=== PATIENT | female | born 1965 | race Caucasian/White ===

== ENCOUNTER 2020-08-19 07:37 | Outpatient (REF) | payer OTHER, SELFPAY ==
[2020-08-19 09:14] LABS: Free T4 (Free Thyroxine) 0.98 ng/dL (0.71-1.85); Thyroid Stimulating Hormone 1.86 uIU/mL (0.32-4.0)
[2020-08-20 11:42] LABS: DHEA Sulfate 88 mcg/dL (8-188)
[2020-08-20 20:17] LABS: Triiodothyronine T3 Free 2.8 pg/mL (2.3-4.2)
[2020-08-22 19:37] LABS: Adrenocorticotropic Hormone 47 pg/mL (6-50)
[2020-08-24 10:43] LABS: Triiodothyronine T3 Reverse 15 ng/dL (8-25)
[2020-08-25 07:58] LABS: Pregnenolone, LC/MS 38 ng/dL (22-237)
[2020-08-25 12:18] LABS: Testosterone, Free 12.2 pg/mL (0.1-6.4); Testosterone, Total 89 ng/dL (2-45)
[2020-08-26 23:12] LABS: Estradiol Free 0.93 pg/mL; Estradiol, Ultrasensitive 51 pg/mL
== END 2020-08-19 07:38 | disposition home or self-care (01) ==
LOC: HO.LAB 07:37
PROVIDERS: PCP Internal Medicine; Visit Provider Allergy & Immunology Allergy
DX: G47.09 Other insomnia (principal); N95.8 Other specified menopausal and perimenopausal disorders; E03.8 Other specified hypothyroidism
CPT/HCPCS: 82024; 82533; 82627; 82670; 84143; 84144; 84402; 84403; 84439; 84443; 84481; 84482

== ENCOUNTER 2020-11-02 08:26 | Outpatient (REF) | payer OTHER, SELFPAY ==
[2020-11-02 11:23] LABS: Glucose Urine UA NEG (NEG); Leukocyte Esterase Urine NEG (NEG); Nitrite Urine NEG (NEG); Urine Blood NEG (NEG); Urine Ketones NEG (NEG); Urine Protein NEG (NEG-TRACE)
[2020-11-02 11:26] LABS: Appearance Urine HAZY; Color Urine YELLOW
[2020-11-02 11:43] LABS: Alanine Aminotransferase 24 U/L (0-31); Albumin Level 4.5 g/dL (3.5-5.0); Alkaline Phosphatase 55 U/L (39-117); Anion Gap 14 (12-20); Aspartate Amino Transferase 18 U/L (5-31); Bilirubin Total 0.5 mg/dL (0.0-1.0); Blood Urea Nitrogen 14 mg/dL (9-16); Calcium 9.1 mg/dL (8.4-10.2); Carbon Dioxide 25 mmol/L (22-29); Chloride 105 mmol/L (96-108); Cholesterol 284 mg/dL; Estimated Glomerular Filt Rate 58; Glucose Fasting 90 mg/dL (60-99); HDL Cholesterol 44 mg/dL; LDL Cholesterol Calculated 213 mg/dl; Potassium 4.1 mmol/L (3.3-5.1); Sodium 140 mmol/L (135-145); Total Protein 7.3 g/dL (6.5-8.0); Triglycerides 136 mg/dL
[2020-11-02 11:45] LABS: Hematocrit 44.3 % (37-47); Hemoglobin 15.1 g/dl (12.0-16.0); Mean Corpuscular HGB Conc 34.1 g/dl (31.0-35.0); Mean Corpuscular Hemoglobin 31.9 pg (27.0-33.0); Mean Corpuscular Volume 93.7 fL (80-98); Mean Platelet Volume 10.4 fL (9.4-12.3); Platelet Count 295 X10*3/uL (160-400); Red Blood Count 4.73 X10*6/uL (4.20-5.50); Red Cell Distribution Width 13.5 % (11.0-16.0); White Blood Count 5.6 X10*3/uL (4.8-10.8)
[2020-11-02 12:00] LABS: Bacteria Urine 1+ /LPF; Squamous Epithelial Cell Urine 1+ /LPF; WBC Urine 0 /HPF (0-4)
[2020-11-02 12:06] LABS: TSH reflex Free T4 0.29 uIU/mL (0.32-4.0)
[2020-11-02 14:14] LABS: Free T4 (Free Thyroxine) 1.28 ng/dL (0.71-1.85)
[2020-11-03 06:47] LABS: DHEA Sulfate 96 mcg/dL (8-188)
[2020-11-04 04:48] LABS: Sex Hormone Binding Globulin 47 nmol/L (17-124)
[2020-11-06 18:46] LABS: Progesterone 1.3 ng/mL
[2020-11-07 21:27] LABS: Estradiol Free 0.76 pg/mL; Estradiol, Ultrasensitive 43 pg/mL
[2020-11-08 11:21] LABS: IGF-1 (Somatomedin C) 139 ng/mL (50-317)
[2020-11-08 21:57] LABS: Testosterone, Free 2.9 pg/mL (0.1-6.4); Testosterone, Total 23 ng/dL (2-45)
== END 2020-11-02 08:27 | disposition home or self-care (01) ==
LOC: HO.HMGCLDS 08:26
PROVIDERS: PCP Internal Medicine; Visit Provider Allergy & Immunology Allergy
DX: E78.5 Hyperlipidemia, unspecified (principal); N95.8 Other specified menopausal and perimenopausal disorders; E03.8 Other specified hypothyroidism
CPT/HCPCS: 36415; 80053; 80061; 81001; 82627; 82670; 82681; 84144; 84270; 84305; 84402; 84403; 84439; 84443; 84481; 85027

== ENCOUNTER 2021-04-20 09:48 | Outpatient (REF) | payer OTHER, SELFPAY ==
[2021-04-22 06:47] LABS: DHEA Sulfate 115 mcg/dL (8-188)
[2021-04-24 17:36] LABS: Progesterone 0.2 ng/mL
[2021-04-25 17:21] LABS: Testosterone, Total 26 ng/dL (2-45)
[2021-04-29 02:46] LABS: Estradiol Free 0.22 pg/mL; Estradiol, Ultrasensitive 9 pg/mL
== END 2021-04-20 09:49 | disposition home or self-care (01) ==
LOC: HO.LAB 09:48
PROVIDERS: PCP Internal Medicine; Visit Provider Allergy & Immunology Allergy
DX: N95.8 Other specified menopausal and perimenopausal disorders (principal)
CPT/HCPCS: 36415; 82627; 82670; 82681; 84144; 84402; 84403

== ENCOUNTER 2021-04-29 10:15 | Outpatient (REF) | payer OTHER, SELFPAY ==
[2021-04-29 11:28] LABS: Hemoglobin 14.8 g/dl (12.0-16.0); Mean Corpuscular HGB Conc 33.6 g/dl (31.0-35.0); Mean Corpuscular Hemoglobin 31.5 pg (27.0-33.0); Mean Corpuscular Volume 93.6 fL (80-98); Mean Platelet Volume 9.8 fL (9.4-12.3); Platelet Count 302 X10*3/uL (160-400); Red Cell Distribution Width 13.2 % (11.0-16.0); White Blood Count 5.9 X10*3/uL (4.8-10.8)
[2021-04-29 12:05] LABS: Free T4 (Free Thyroxine) 1.14 ng/dL (0.71-1.85); Thyroid Stimulating Hormone 0.26 uIU/mL (0.32-4.0)
== END 2021-04-29 10:16 | disposition home or self-care (01) ==
LOC: HO.HMGCLDS 10:15
PROVIDERS: PCP Internal Medicine; Visit Provider Internal Medicine
DX: E03.9 Hypothyroidism, unspecified (principal); E04.2 Nontoxic multinodular goiter
CPT/HCPCS: 36415; 84439; 84443; 85027

== ENCOUNTER 2021-05-14 10:39 | Outpatient (REF) | payer OTHER, SELFPAY ==
[2021-05-14 15:28] LABS: Alanine Aminotransferase 20 U/L (0-31); Albumin Level 4.6 g/dL (3.5-5.0); Alkaline Phosphatase 69 U/L (39-117); Anion Gap 16 (12-20); Aspartate Amino Transferase 17 U/L (5-31); Bilirubin Total 0.6 mg/dL (0.0-1.0); Blood Urea Nitrogen 17 mg/dL (9-16); Calcium 10.1 mg/dL (8.4-10.2); Carbon Dioxide 27 mmol/L (22-29); Chloride 105 mmol/L (96-108); Cholesterol 310 mg/dL; Estimated Glomerular Filt Rate 57; Glucose Fasting 89 mg/dL (60-99); HDL Cholesterol 51 mg/dL; LDL Cholesterol Calculated 203 mg/dl; Potassium 4.5 mmol/L (3.3-5.1); Sodium 143 mmol/L (135-145); Total Protein 7.5 g/dL (6.5-8.0); Triglycerides 284 mg/dL
== END 2021-05-14 10:40 | disposition home or self-care (01) ==
LOC: HO.HMGCLDS 10:39
PROVIDERS: PCP Internal Medicine; Visit Provider Internal Medicine
DX: Z00.00 Encounter for general adult medical examination without abnormal findings (principal); R93.3 Abnormal findings on diagnostic imaging of other parts of digestive tract
CPT/HCPCS: 36415; 80053; 80061

== ENCOUNTER 2021-07-13 13:00 | Outpatient (RCR) | payer OTHER, SELFPAY ==
--- NOTE | 2021-06-09 13:05 | MHC.PT.EP ---
[facility] [place] Office [place] Office [place] Office [address] [phone] F: [phone] F: [phone] F: [phone] F: [phone] Physical Therapy Plan of Care Date of Evaluation: Date of Surgery: none Diagnosis: R knee pain Assessment: Patient is a 55 year old R handed female who presents with s/s consistent with R knee pain. 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 Patient past medical history includes significant back pain and stenosis. Current impairments include pain, ROM, strength, safety, independence, activity tolerance and functional mobility. Functional limitations include decreased ability to walk, stand, transfer, negotiate stairs, and perform weight bearing activities.. Patient is motivated with good rehab potential. Skilled PT will address impairments and functional limitations in order to achieve goals. 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 Manual therapy to restore motion and function. Therapeutic exercise to improve strength and flexibility. Neuromuscular re-education for posture and balance. Therapeutic activities to return to functional activities of daily living. Electronically signed by: Major Pastor, PT Please sign and return to therapist. Thank you for your referral.
--- NOTE | 2021-10-22 09:57 | MHC.PT.DC ---
[facility] [place] Office [place] Office [place] Office [address] [phone] F: [phone] F: [phone] F: [phone] F: [phone] Physical Therapy Discharge Report Diagnosis: R knee pain Date of Surgery: none Date of Evaluation: 06/09/21 Date of Discharge: 07/13/21 Treatments to Date: 7 Cancellations to Date: 0 No Shows to Date: 0 Discharge Status: Achieved Goals Improved Function Independent with HEP Discharge Summary: 07/13/21: Pt is I with HEP. AROM Full and pain free, Quad flex WNL b/l. Able to walk unlimited, LEFS 70/80, Pain free ADLs. She is no longer gardening. She is appropriate to d/c to HEP at this time. 07/08: Pt reports increased crepitis though no pain; progressed dyn activities for return to higher level activities performed well; no adverse effects. DC NV anticipated. 07/06: Pt reports she is in agreement with DC in 2 visits as she is feeling much better. no adverse effects. good bev. continue POC. 07/01: Pt reports she has been having no pain with walking and regular activity; some R knee patellar pain with single leg shuttle press and was halted early, no issues otherwise and good participation and performance noted. 06/29/21: pt with much less pain/symptoms. has not been gardening/kneeling at all as this time to be to stimulus behind the painful presentation. we will continue to promote flexibility and normal tissue tension to promote optimal PF mechanics. 06/25/21: pt with less pain overall. resumed IASTM. given GTB For standing hip. still with significant crepidus. 06/16/21: pt progressed with stretching and strength. no adverse reactions. resume IASTM NV. Patient is a 55 year old R handed female who presents with s/s consistent with R knee pain. 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 Patient past medical history includes significant back pain and stenosis. Current impairments include pain, ROM, strength, safety, independence, activity tolerance and functional mobility. Functional limitations include decreased ability to walk, stand, transfer, negotiate stairs, and perform weight bearing activities.. Patient is motivated with good rehab potential. Skilled PT will address impairments and functional limitations in order to achieve goals. Electronically signed by: Major Pastor, PT Please sign and return to therapist. Thank you for your referral.
== END 2021-10-22 09:58 | disposition home or self-care (01) ==
LOC: HO.PTCHIC 13:00
PROVIDERS: PCP Internal Medicine; Visit Provider Internal Medicine
DX: M25.561 Pain in right knee (principal)
CPT/HCPCS: 97110; 97140; 97161; 97530

== ENCOUNTER 2021-10-06 16:37 | Outpatient (REF) | payer OTHER, SELFPAY ==
[2021-10-06 17:08] LABS: Hematocrit 44.5 % (37.0-47.0); Hemoglobin 14.8 g/dl (12.0-16.0); Mean Corpuscular HGB Conc 33.3 g/dl (31.0-35.0); Mean Corpuscular Hemoglobin 31.6 pg (27.0-33.0); Mean Corpuscular Volume 95.1 fL (80.0-98.0); Mean Platelet Volume 9.4 fL (9.4-12.3); Platelet Count 303 X10*3/uL (160-400); Red Blood Count 4.68 X10*6/uL (4.20-5.50); White Blood Count 7.8 X10*3/uL (4.8-10.8)
[2021-10-06 17:30] LABS: Iron 87 mcg/dL (30-160); Percent Iron Saturation 26 % (15-50); Total Iron Binding Capacity 332 mcg/dL (228-428); Unsaturated Iron Binding 245 ug/dL
== END 2021-10-06 16:38 | disposition home or self-care (01) ==
LOC: HO.LAB 16:37
PROVIDERS: PCP Internal Medicine; Visit Provider Internal Medicine
DX: K62.5 Hemorrhage of anus and rectum (principal)
CPT/HCPCS: 36415; 83540; 85027

== ENCOUNTER 2022-01-19 09:56 | Outpatient (REF) | payer OTHER, SELFPAY ==
[2022-01-19 13:06] LABS: Cholesterol 331 mg/dL; HDL Cholesterol 47 mg/dL; LDL Cholesterol Calculated 238 mg/dl; Triglycerides 233 mg/dL
== END 2022-01-19 09:57 | disposition home or self-care (01) ==
LOC: HO.LAB 09:56
PROVIDERS: PCP Internal Medicine; Visit Provider Internal Medicine Endocrinology, Diabetes & Metabolism
DX: E78.5 Hyperlipidemia, unspecified (principal)
CPT/HCPCS: 36415; 80061; 99202

== ENCOUNTER 2022-04-19 09:08 | Outpatient (REF) | payer OTHER, SELFPAY ==
[2022-04-19 10:20] LABS: Cholesterol 211 mg/dL; HDL Cholesterol 57 mg/dL; LDL Cholesterol Calculated 116 mg/dl; Triglycerides 190 mg/dL
[2022-04-19 10:41] LABS: Free T4 (Free Thyroxine) 1.15 ng/dL (0.71-1.85); Thyroid Stimulating Hormone 0.88 uIU/mL (0.32-4.0)
[2022-04-19 10:46] LABS: Cortisol Random 12.1 ug/dL
[2022-04-19 16:32] LABS: MANUAL DIFF FLAG NO
[2022-04-19 17:23] LABS: Basophils Absolute Auto 0.1 X10*3/uL (0.0-0.2); Eosinophils Absolute Auto 0.5 X10*3/uL (0.0-0.4); Eosinophils Percent Auto 4.5 % (0-4); Hematocrit 42.6 % (37.0-47.0); Hemoglobin 14.6 g/dl (12.0-16.0); Imm Gran Abs Auto 0.03 X10*3/uL (0.00-0.03); Imm Gran Pct Auto 0.3 % (0.0-0.4); Lymphocytes Absolute Auto 3.4 X10*3/uL (1.2-4.9); Lymphocytes Percent Auto 32.7 % (20-40); Mean Corpuscular HGB Conc 34.3 g/dl (31.0-35.0); Mean Corpuscular Hemoglobin 32.4 pg (27.0-33.0); Mean Corpuscular Volume 94.7 fL (80.0-98.0); Monocytes Percent Auto 9.6 % (2-11); Neutrophils Absolute Auto 5.4 x10*3/uL (2.0-8.3); Neutrophils Percent Auto 51.9 % (45-73); Platelet Count 298 X10*3/uL (160-400); Red Cell Distribution Width 13.2 % (11.0-16.0); White Blood Count 10.5 X10*3/uL (4.8-10.8)
[2022-04-19 18:02] LABS: Cortisol Random 8.5 ug/dL
[2022-04-21 18:41] LABS: Adrenocorticotropic Hormone 35 pg/mL (6-50)
[2022-04-23 04:37] LABS: Iodine, Serum/Plasma 72 mcg/L (52-109)
[2022-04-23 11:36] LABS: Triiodothyronine T3 Reverse 17 ng/dL (8-25)
== END 2022-04-19 09:09 | disposition home or self-care (01) ==
LOC: HO.LAB 09:08
PROVIDERS: Absent Provider Internal Medicine Endocrinology, Diabetes & Metabolism; PCP Internal Medicine; Visit Provider Allergy & Immunology Allergy
DX: R53.83 Other fatigue (principal); R78.5 Finding of other psychotropic drug in blood; E03.8 Other specified hypothyroidism
CPT/HCPCS: 36415; 80061; 82024; 82533; 83789; 84439; 84443; 84481; 84482; 85025

== ENCOUNTER → 2022-04-21 09:55 | Outpatient (BNVA) | payer OTHER, SELFPAY | PROVIDERS: PCP Internal Medicine; Visit Provider Internal Medicine Endocrinology, Diabetes & Metabolism | DX: E78.5 Hyperlipidemia, unspecified (principal); Z79.899 Other long term (current) drug therapy | CPT/HCPCS: 99212 ==

== ENCOUNTER → 2022-07-04 10:45 | Outpatient (BNVA) | payer OTHER, SELFPAY | PROVIDERS: PCP Internal Medicine; Visit Provider Dietitian, Registered | DX: E66.9 Obesity, unspecified (principal); Z68.35 Body mass index [BMI] 35.0-35.9, adult | CPT/HCPCS: 97802 ==

== ENCOUNTER 2022-08-23 09:25 | Outpatient (REF) | payer OTHER, SELFPAY ==
[2022-08-23 11:04] LABS: Cholesterol 208 mg/dL; HDL Cholesterol 48 mg/dL; LDL Cholesterol Calculated 100 mg/dl; Triglycerides 304 mg/dL
== END 2022-08-23 09:26 | disposition home or self-care (01) ==
LOC: HO.10HDL 09:25
PROVIDERS: Visit Provider Internal Medicine Endocrinology, Diabetes & Metabolism
DX: E78.5 Hyperlipidemia, unspecified (principal)
CPT/HCPCS: 36415; 80061

== ENCOUNTER → 2022-09-06 09:29 | Outpatient (BNVA) | payer OTHER, SELFPAY | PROVIDERS: PCP Internal Medicine; Visit Provider Internal Medicine Endocrinology, Diabetes & Metabolism | DX: E78.5 Hyperlipidemia, unspecified (principal); Z79.899 Other long term (current) drug therapy | CPT/HCPCS: 83036; 99212 ==

== ENCOUNTER 2022-10-18 11:15 | Outpatient (REF) | payer OTHER, SELFPAY ==
[2022-10-18 14:16] LABS: MANUAL DIFF FLAG NO
[2022-10-18 14:24] LABS: Basophils Absolute Auto 0.1 X10*3/uL (0.0-0.2); Basophils Percent Auto 1.1 % (0-2); Eosinophils Absolute Auto 0.2 X10*3/uL (0.0-0.4); Eosinophils Percent Auto 2.8 % (0-4); Hematocrit 45.2 % (37.0-47.0); Hemoglobin 15.1 g/dl (12.0-16.0); Imm Gran Abs Auto 0.03 X10*3/uL (0.00-0.03); Imm Gran Pct Auto 0.4 % (0.0-0.4); Lymphocytes Absolute Auto 2.7 X10*3/uL (1.2-4.9); Mean Corpuscular HGB Conc 33.4 g/dl (31.0-35.0); Mean Corpuscular Hemoglobin 31.7 pg (27.0-33.0); Mean Platelet Volume 9.6 fL (9.4-12.3); Monocytes Absolute Auto 0.8 X10*3/uL (0.1-1.2); Monocytes Percent Auto 11.5 % (2-11); Neutrophils Absolute Auto 3.3 x10*3/uL (2.0-8.3); Neutrophils Percent Auto 46.2 % (45-73); Platelet Count 311 X10*3/uL (160-400); Red Blood Count 4.76 X10*6/uL (4.20-5.50); Red Cell Distribution Width 13.4 % (11.0-16.0); White Blood Count 7.1 X10*3/uL (4.8-10.8)
[2022-10-18 14:44] LABS: Alanine Aminotransferase 21 U/L (0-31); Albumin Level 4.7 g/dL (3.5-5.0); Alkaline Phosphatase 50 U/L (39-117); Anion Gap 11 (12-20); Aspartate Amino Transferase 16 U/L (5-31); Bilirubin Total 0.7 mg/dL (0.0-1.0); Blood Urea Nitrogen 12 mg/dL (9-16); Calcium 9.7 mg/dL (8.4-10.2); Carbon Dioxide 26 mmol/L (22-29); Chloride 105 mmol/L (96-108); Cholesterol 235 mg/dL; Estimated Glomerular Filt Rate > 60; Glucose Fasting 97 mg/dL (60-99); HDL Cholesterol 63 mg/dL; LDL Cholesterol Calculated 142 mg/dl; Magnesium 2.1 mg/dL (1.6-2.6); Sodium 138 mmol/L (135-145); Total Protein 7.5 g/dL (6.5-8.0); Triglycerides 151 mg/dL
[2022-10-18 15:15] LABS: Folate 11.3 ng/mL (> or = 4.0); TSH reflex Free T4 0.92 uIU/mL (0.32-4.0); Vitamin B12 623 pg/mL (200-900); Vitamin D 25-OH Total 43.2 ng/mL (>30)
== END 2022-10-18 11:16 | disposition home or self-care (01) ==
LOC: HO.HMGCLDS 11:15
PROVIDERS: PCP Internal Medicine; Visit Provider Internal Medicine
DX: Z00.00 Encounter for general adult medical examination without abnormal findings (principal); R93.3 Abnormal findings on diagnostic imaging of other parts of digestive tract; E66.9 Obesity, unspecified; E04.2 Nontoxic multinodular goiter; Z79.899 Other long term (current) drug therapy
CPT/HCPCS: 36415; 80053; 80061; 82306; 82550; 82607; 82746; 83735; 84443; 85025

== ENCOUNTER 2022-12-06 10:49 | Outpatient (REF) | payer OTHER, SELFPAY ==
[2022-12-06 13:50] LABS: Cholesterol 219 mg/dL; Glucose Random 92 mg/dL (60-115); HDL Cholesterol 50 mg/dL; LDL Cholesterol Calculated 124 mg/dl; Triglycerides 227 mg/dL
== END 2022-12-06 10:50 | disposition home or self-care (01) ==
LOC: HO.10HDL 10:49
PROVIDERS: Visit Provider Internal Medicine Endocrinology, Diabetes & Metabolism
DX: E78.5 Hyperlipidemia, unspecified (principal)
CPT/HCPCS: 36415; 80061; 82947

== ENCOUNTER 2022-12-08 13:00 | Outpatient (RCR) | payer OTHER, SELFPAY | END 2023-01-13 08:33 | disposition home or self-care (01) | LOC: HO.PTCHIC 13:00 | PROVIDERS: PCP Internal Medicine; Visit Provider Student in an Organized Health Care Education/Training Program | DX: M46.1 Sacroiliitis, not elsewhere classified (principal) | CPT/HCPCS: 97110; 97162 ==

== ENCOUNTER → 2023-02-24 09:40 | Outpatient (BNVA) | payer OTHER, SELFPAY | PROVIDERS: PCP Internal Medicine; Visit Provider Internal Medicine Endocrinology, Diabetes & Metabolism | DX: E78.5 Hyperlipidemia, unspecified (principal) | CPT/HCPCS: 99212 ==

== ENCOUNTER 2023-02-24 10:22 | Outpatient (REF) | payer OTHER, SELFPAY ==
[2023-02-24 12:32] LABS: Cholesterol 252 mg/dL; HDL Cholesterol 51 mg/dL; LDL Cholesterol Calculated 145 mg/dl; Triglycerides 281 mg/dL
== END 2023-02-24 10:23 | disposition home or self-care (01) ==
LOC: HO.10HDL 10:22
PROVIDERS: Visit Provider Internal Medicine Endocrinology, Diabetes & Metabolism
DX: E78.5 Hyperlipidemia, unspecified (principal)
CPT/HCPCS: 36415; 80061

== ENCOUNTER 2023-05-02 10:31 | Outpatient (REF) | payer OTHER, SELFPAY ==
[2023-05-02 12:02] LABS: Cholesterol 140 mg/dL (<200); HDL Cholesterol 50 mg/dL (>40); LDL Cholesterol Calculated 36 mg/dL (<100); Triglycerides 270 mg/dL (<150)
== END 2023-05-02 10:32 | disposition home or self-care (01) ==
LOC: HO.10HDL 10:31
PROVIDERS: Visit Provider Internal Medicine Endocrinology, Diabetes & Metabolism
DX: E78.5 Hyperlipidemia, unspecified (principal)
CPT/HCPCS: 36415; 80061

== ENCOUNTER 2023-06-07 11:07 | Outpatient (AMB) | payer OTHER, SELFPAY ==
[2023-06-07 11:26] VITALS: BP 124/83; PULSE 85; BMI 35.9
--- NOTE | 2023-06-07 11:26 | MHC.OFFVIS ---
Intake Vital Signs 06/07/23 11:26 Height 5 ft 6 in Weight 222 lb 7.143 oz BMI 35.9 BP 124/83 Blood Pressure Location Lt brachial Position Sitting Pulse 85 Pulse Source Pulse Oximeter Intake Visit Reasons: f/u hyperlipidemia Intake Note: Patient present for Hyperlipidemia follow up visit. 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 Accompanied by: Self / Same As Patient Allergies Sulfa (Sulfonamide Antibiotics) [SULFA(SULFONAMIDE ANTIBIOTICS)] Allergy (Intermediate, Verified 06/07/23 11:35) NAUSEA/VOMITING ampicillin [AMPICILLIN] Allergy (Mild, Verified 06/07/23 11:35) RASH bupropion [From Wellbutrin] Allergy (Mild, Verified 06/07/23 11:35) Hives clarithromycin [From BIAXIN] Allergy (Mild, Verified 06/07/23 11:35) NAUSEA atorvastatin [Lipitor] Allergy (Unknown, Verified 06/07/23 11:35) leg cramps cefaclor Allergy (Unknown, Verified 06/07/23 11:35) Unknown doxycycline Allergy (Unknown, Verified 06/07/23 11:35) Rash erythromycin base [ERYTHROMYCIN BASE] Allergy (Unknown, Verified 06/07/23 11:35) UNKNOWN ezetimibe [Zetia] Allergy (Unknown, Verified 06/07/23 11:35) leg cramps morphine [MORPHINE] Allergy (Unknown, Verified 06/07/23 11:35) VOMITING propofol [PROPOFOL] Allergy (Unknown, Verified 06/07/23 11:35) HIVES rosuvastatin [Crestor] Allergy (Unknown, Verified 06/07/23 11:35) leg cramps sulfacetamide Allergy (Unknown, Verified 06/07/23 11:35) Gastrointestinal Upset simvastatin Adverse Reaction (Unknown, Verified 06/07/23 11:35) leg cramps From CEFTIN Allergy (Mild, Uncoded 02/24/23 09:43) NAUSEA Ceftin Allergy (Unknown, Uncoded 02/24/23 09:43) Unknown Doxycycline Hyclate Allergy (Unknown, Uncoded 02/24/23 09:43) Rash HPI HPI Comments History of Present Illness Details This is a 57-year-old female referred to endocrinology for evaluation of hyperlipidemia. Patient has had a history of hyperlipidemia for long -standing . There is no personal history of [place] or CVA. Father had CVA . She has tried Crestor, Lipitor, simvastain and had leg cramps . Took Zetia with intolerance leg cramps . She currently takes Lovaza 2 caps b.i.d. She also has hypothyroidism which is treated with levothyroxine. There is a family hx of maternal and paternal . No heavy ETOH use . On HRT /progesterone . HbA1c was normal ruling out diabetes as secondary cause. She is currently on Repatha 420 q. 2weeks with with good response . Does have elevated triglycerides [facility] Medical History Abnormal colonoscopy Acquired hypothyroidism Allergies Annual physical exam Candidiasis Martha's thyroiditis Hyperlipidemia IBS (irritable bowel syndrome) Knee pain, right Lumbar radiculopathy Mammogram normal Multiple thyroid nodules Normal Pap smear Overweight Peripheral neuropathy Rectal bleed Sacroiliac joint dysfunction of right side Surgical History S/P fine needle aspiration History of endometrial ablation Hx of dilation and curettage [place] teeth extracted H/O sigmoidoscopy History of tonsillectomy and adenoidectomy H/O colonoscopy Family History Father Stroke Hyperlipidemia CVD (cardiovascular disease) Mother Hyperlipidemia Thyroid disease Social History Household Members: Spouse Household Members Other:: Housing: House Alcohol intake: current Alcohol intake frequency: holidays/special occasions only Patient Tobacco Use Status: Never used Tobacco e-Cigarette/Vaping Use: Never Used Current occupational status: employed Cognitive needs: No Hearing needs: No Vision needs: Yes Physical Exam Vital Signs: Last Vital Signs Pulse 85 06/07/23 11:26 BP 124/83 06/07/23 11:26 BMI result Body Mass Index 35.9 Assessment & Plan Assessment & Plan (1) Hyperlipidemia: Comment: can't tolerate statins - on Lovasa + cortan Code(s): E78.5 - Hyperlipidemia, unspecified Plan: This 57-year-old white female with a history of mixed hyperlipidemia. LDL cholesterol> 200 suggests the presence of heterozygous FH. Currently on Repatha 140 mg q 2 wks and rosuvastatin 10 mg 3X/wk . Could not tolerate higher dose of Repatha and high dose of statin in the past The plan is to continue current management. We did talk about weight loss and exercise. The patient is getting a compound semaglutide from a compounding pharmacy not prescribed by me and I advised her against this being we talked about the use of a FDA approved G LP 1. We also talked about increasing exercise Coding Level of Care Code Est Pt Level 3 (00156) Diagnoses Hyperlipidemia E78.5
== END 2023-06-07 12:13 | disposition home or self-care (01) ==
PROVIDERS: PCP Internal Medicine; Visit Provider Internal Medicine Endocrinology, Diabetes & Metabolism
DX: E78.5 Hyperlipidemia, unspecified (principal)
CPT/HCPCS: 99213

== ENCOUNTER → 2023-06-07 11:07 | Outpatient (BNVA) | payer OTHER, SELFPAY | PROVIDERS: PCP Internal Medicine; Visit Provider Internal Medicine Endocrinology, Diabetes & Metabolism | DX: E78.2 Mixed hyperlipidemia (principal); E03.9 Hypothyroidism, unspecified; E06.3 Autoimmune thyroiditis; E78.1 Pure hyperglyceridemia; Z79.890 Hormone replacement therapy | CPT/HCPCS: 99212 ==

== ENCOUNTER 2023-10-10 08:59 | Outpatient (REF) | payer OTHER, SELFPAY ==
[2023-10-10 11:19] LABS: MANUAL DIFF FLAG NO
[2023-10-10 11:22] LABS: Basophils Absolute Auto 0.1 X10*3/uL (0.0-0.2); Basophils Percent Auto 1.9 % (0-2); Eosinophils Absolute Auto 0.3 X10*3/uL (0.0-0.4); Eosinophils Percent Auto 4.8 % (0-4); Hematocrit 44.5 % (37.0-47.0); Imm Gran Abs Auto 0.02 X10*3/uL (0.00-0.03); Imm Gran Pct Auto 0.3 % (0.0-0.4); Lymphocytes Absolute Auto 2.9 X10*3/uL (1.2-4.9); Lymphocytes Percent Auto 46.2 % (20-40); Mean Corpuscular HGB Conc 33.7 g/dl (31.0-35.0); Mean Corpuscular Hemoglobin 31.7 pg (27.0-33.0); Mean Corpuscular Volume 94.1 fL (80.0-98.0); Monocytes Absolute Auto 0.7 X10*3/uL (0.1-1.2); Neutrophils Absolute Auto 2.2 x10*3/uL (2.0-8.3); Neutrophils Percent Auto 35.8 % (45-73); Platelet Count 304 X10*3/uL (160-400); Red Blood Count 4.73 X10*6/uL (4.20-5.50); Red Cell Distribution Width 12.9 % (11.0-16.0); White Blood Count 6.3 X10*3/uL (4.8-10.8)
[2023-10-10 11:24] LABS: Appearance Urine Clear; Color Urine Yellow; Glucose Urine UA Negative (Negative); Leukocyte Esterase Urine Negative (Negative); Nitrite Urine Negative (Negative); PH 7.5 (5.0-9.0); Specific Gravity - Urine <= 1.005 (1.005-1.025); Urine Blood Negative (Negative); Urine Ketones Negative (Negative); Urine Protein Negative (Neg-Trace)
[2023-10-10 11:30] LABS: Bacteria Urine None Seen (None Seen); Hyaline Casts Urine 0-2 /LPF (0-2); RBC Urine 0-2 /HPF (0-2); Squamous Epithelial Cell Urine 0-2 /HPF (0-2); WBC Urine 0-5 /HPF (0-5)
[2023-10-10 11:45] LABS: Alanine Aminotransferase 32 U/L (0-31); Albumin Level 4.3 g/dL (3.5-5.0); Alkaline Phosphatase 59 U/L (39-117); Anion Gap 11 (12-20); Aspartate Amino Transferase 27 U/L (5-31); Bilirubin Total 0.5 mg/dL (0.0-1.0); Blood Urea Nitrogen 14 mg/dL (9-16); Calcium 9.5 mg/dL (8.4-10.2); Carbon Dioxide 28 mmol/L (22-29); Chloride 106 mmol/L (96-108); Cholesterol 177 mg/dL (<200); Estimated Glomerular Filt Rate > 60; Glucose Fasting 86 mg/dL (60-99); HDL Cholesterol 45 mg/dL (>40); LDL Cholesterol Calculated 83 mg/dL (<100); Potassium 4.2 mmol/L (3.3-5.1); Sodium 141 mmol/L (135-145); Total Protein 7.3 g/dL (6.5-8.0); Triglycerides 246 mg/dL (<150)
[2023-10-10 12:01] LABS: TSH reflex Free T4 1.15 uIU/mL (0.32-4.0)
== END 2023-10-10 09:00 | disposition home or self-care (01) ==
LOC: HO.HMGCLDS 08:59
PROVIDERS: PCP Internal Medicine; Visit Provider Internal Medicine
DX: Z00.00 Encounter for general adult medical examination without abnormal findings (principal); E04.2 Nontoxic multinodular goiter; E78.5 Hyperlipidemia, unspecified
CPT/HCPCS: 36415; 80053; 80061; 81001; 84443; 85025

== ENCOUNTER 2023-10-20 10:26 | Outpatient (AMB) | payer OTHER, SELFPAY ==
--- NOTE | 2023-10-20 10:49 | MHC.PC.OV ---
Vital Signs 10/20/23 10:52 Height 5 ft 6 in Weight 216 lb BMI 34.9 BP 124/68 Blood Pressure Location Rt brachial Position Sitting Pulse 98 Pulse Source Pulse Oximeter Pulse Oximetry (%) 97 Oxygen Delivery Method Room Air Intake Visit Reasons: PE Intake Note: Pt is here today for PE. 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 Allergies Sulfa (Sulfonamide Antibiotics) [SULFA(SULFONAMIDE ANTIBIOTICS)] Allergy (Intermediate, Verified 10/20/23 10:55) NAUSEA/VOMITING ampicillin [AMPICILLIN] Allergy (Mild, Verified 10/20/23 10:55) RASH bupropion [From Wellbutrin] Allergy (Mild, Verified 10/20/23 10:55) Hives clarithromycin [From BIAXIN] Allergy (Mild, Verified 10/20/23 10:55) NAUSEA atorvastatin [Lipitor] Allergy (Unknown, Verified 10/20/23 10:55) leg cramps cefaclor Allergy (Unknown, Verified 10/20/23 10:55) Unknown doxycycline Allergy (Unknown, Verified 10/20/23 10:55) Rash erythromycin base [ERYTHROMYCIN BASE] Allergy (Unknown, Verified 10/20/23 11:27) sick to stomach ezetimibe [Zetia] Allergy (Unknown, Verified 10/20/23 10:55) leg cramps morphine [MORPHINE] Allergy (Unknown, Verified 10/20/23 10:55) VOMITING propofol [PROPOFOL] Allergy (Unknown, Verified 06/07/23 11:35) HIVES rosuvastatin [Crestor] Allergy (Unknown, Verified 10/20/23 10:55) leg cramps sulfacetamide Allergy (Unknown, Verified 10/20/23 10:55) Gastrointestinal Upset simvastatin Adverse Reaction (Unknown, Verified 10/20/23 10:55) leg cramps From CEFTIN Allergy (Mild, Uncoded 10/20/23 10:55) NAUSEA Ceftin Allergy (Unknown, Uncoded 10/20/23 10:55) Unknown Doxycycline Hyclate Allergy (Unknown, Uncoded 10/20/23 10:55) Rash Medication List - Last Reviewed 10/20/23 by LIS Durán root extract mg PO Ca lac-mag cit-pas flwr-nereyda rt 25-50-20-10 mg (MyoCalm) tabs PO cetirizine (Zyrtec) 10 mg PO DAILY cholecalciferol (vitamin D3) 125 mcg PO DAILY [coq10 400 mg daily] [cortisol medical reimbursement manager 250 mg daily] cream base no.143 (bulk) (BHRT Base transdermal cream) appl transdermal BID cyclobenzaprine 10 mg PO Q8H PRN 5 days diphenhydramine-acetaminophen 25-500 mg (Tylenol PM Extra Strength) 1 tab PO BEDTIME PRN epinephrine IM escitalopram oxalate 10 mg PO DAILY [mayte C 500 mg daily] evolocumab (Repatha SureClick) 1 mg (0.0071 mL) subcut Q2W [green tea extract 100 mg daily] insulin syringe-needle U-100 As directed levothyroxine (Tirosint) 100 mcg PO DAILY lorazepam 1 mg PO DAILY PRN Lovaza (omega-3 acid ethyl esters) 2 caps PO BID NS magnesium glycinate 400 mg PO DAILY melatonin 10 mg PO BEDTIME PRN methylcellulose (laxative) (Citrucel) 500 mg PO DAILY mirtazapine 7.5 mg PO DAILY niacinamide 500 mg PO DAILY phytosterol 2 capsules [pregnenolone 10 mg daily ] progesterone micronized 150 mg PO every morning; quercetin mg PO rosuvastatin (Crestor) 10 mg PO DAILY semaglutide 1 mg subcut QWEEK [theracumin 600 mg daily 2 caps BID ] Tobacco use date assessed: 10/20/23 Dental Screening Dental Screen Date: 10/20/23 Did you have a dental visit in the last 12 months?: Yes Did you have a dental problem in the last 6 months where you did not have access to dental care?: No Was dental information given to patient?: Patient has dentist HPI PE HPI Details Patient presents for physical. She complains of chronic dry cough for 2 years. She has been getting immunotherapy for chronic allergic rhinitis for the last 3 years and reports less frequent sinusitis. Patient follows up with ENT and has been using Flonase nasal spray and taking antihistamine for chronic postnasal drip. Patient denies chest pain pleurisy dyspnea on exertion or shortness or breath at rest, wheezing night sweats. She had normal pulmonary function test with bronchial challenge in the past. Patient has been taking Tessalon Perles occasionally for the cough. She has been taking Prilosec for the last 2 months for chronic GERD but did not notice any difference in her chronic cough. [facility] Medical History (Updated 10/20/23 @ 11:36 by Kayley Kruger MD) Sacroiliac joint dysfunction of right side Candidiasis Rectal bleed Allergies Knee pain, right Abnormal colonoscopy Mammogram normal Annual physical exam Normal Pap smear Multiple thyroid nodules Acquired hypothyroidism Martha's thyroiditis IBS (irritable bowel syndrome) Overweight Peripheral neuropathy Lumbar radiculopathy Hyperlipidemia Surgical History S/P fine needle aspiration History of endometrial ablation Hx of dilation and curettage [place] teeth extracted H/O sigmoidoscopy History of tonsillectomy and adenoidectomy H/O colonoscopy Family History Father Stroke Hyperlipidemia CVD (cardiovascular disease) Mother Hyperlipidemia Thyroid disease Social History Household Members: Spouse Household Members Other:: Housing: House Alcohol intake: current Alcohol intake frequency: holidays/special occasions only Patient Tobacco Use Status: Never used Tobacco e-Cigarette/Vaping Use: Never Used Current occupational status: employed Cognitive needs: No Hearing needs: No Vision needs: Yes Questionnaire Thrive Questionnaire Date Thrive assessed: 10/18/22 AUDIT C Alcohol Use Questionnaire (AUDIT-C) 1. How often do you have a drink containing alcohol?: Monthly or less 2. How many drinks containing alcohol do you have on a typical day when you are drinking?: 1 or 2 3. How often do you have six or more drinks on one occasion?: Never Total Score: 1 MELISSA-7 AMB Questionnaire MELISSA-7 Date MELISSA - 7 assessed: 10/18/22 Source: Developed by Drs. Riki Avery, Rosanna Hughes, Larry Cutler and colleagues, with an educational jayna from [employer]. Review of Systems Const All systems reviewed & are unremarkable except as noted in HPI and below Reports no additional complaints Eyes Reports no additional complaints ENT Reports no additional complaints Card Reports no additional complaints Resp Reports no additional complaints GI Reports no additional complaints Reports no additional complaints Musc Reports no additional complaints Physical exam (Primary Care) Vital Signs: Last Vital Signs Pulse 98 10/20/23 10:52 BP 124/68 10/20/23 10:52 Pulse Ox 97 10/20/23 10:52 Oxygen Delivery Method Room Air 10/20/23 10:52 BMI result Body Mass Index 34.9 Tobacco/Smoking Status: Tobacco use Status Tobacco use date assessed 10/20/23 10/20/23 10:57 Patient Tobacco Use Status Never used Tobacco 10/20/23 10:57 e-Cigarette/Vaping Use Never Used 10/20/23 10:50 Thrive Assessment: Date of Thrive Assessment Date Thrive assessed 10/18/22 10/20/23 10:50 Const General: no acute distress HENMT Head: Yes normal to inspection Ears: hearing grossly normal bilaterally General nose exam: Normal external nose present Face and sinus: Yes normal facial exam Throat: Yes posterior oropharynx normal and No postnasal drainage Eyes General: appearance normal, both eyes and all related structures Neck Neck: Yes no lymphadenopathy and Yes supple Resp Effort & Inspection: normal respiratory effort Auscultation: clear to auscultation bilaterally Cardio Rhythm: regular rhythm Heart sounds: S1 normal heart sound present and S2 normal heart sound present GI Inspection: Yes normal to inspection Palpation (GI): Soft to palpation Percussion: Yes normal to percussion Auscultation: normal bowel sounds Assessment and Plan Assessment & Plan (1) Skin tag: Code(s): L91.8 - Other hypertrophic disorders of the skin Plan: Follows up with Dermatology (2) Multiple thyroid nodules: Comment: 2 nodules <1 cm, stable [facility] 09/2020 Code(s): E04.2 - Nontoxic multinodular goiter Plan: Repeat thyroid ultrasound and patient follows up with [facility] for hypothyroidism (3) Cough: Comment: Getting immunotherapy, follows up with ENT, negative PFTs with bronchial challenge Code(s): R05.9 - Cough, unspecified Plan: Repeat chest x-ray today and referred to pulmonology, continue Prilosec for chronic GERD and Flonase and antihistamine for chronic postnasal drip (4) Acquired hypothyroidism: Comment: on Tirosint 75 mcg, f/u [facility] Dr. Lorenzo Code(s): E03.9 - Hypothyroidism, unspecified Plan: Continue current treatment (5) Mammogram normal: Comment: [place] 03/2023 (6) Abnormal colonoscopy: Comment: 03/2020 polyps recheck in 5 yrs Code(s): R93.3 - Abnormal findings on diagnostic imaging of other parts of digestive tract (7) Hyperlipidemia: Comment: On Repatha and Crestor twice a week, follows up with Dr. Andrews Code(s): E78.5 - Hyperlipidemia, unspecified Orders: Orders XR chest 1V Today US thyroid Today E04.2 - Nontoxic multinodular goiter Referrals Dermatology Referral L91.8 - Other hypertrophic disorders of the skin Pulmonology Referral R05.9 - Cough, unspecified [facility] Referral E03.9 - Hypothyroidism, unspecified Coding Level of Care Code Est Pt Prev Care 40-64y(23431) Diagnoses Skin tag L91.8 Multiple thyroid nodules E04.2 Cough R05.9 Acquired hypothyroidism E03.9 Mammogram normal Abnormal colonoscopy R93.3 Hyperlipidemia E78.5
[2023-10-20 10:52] VITALS: BP 124/68; PULSE 98; O2SAT 97; BMI 34.9
== END 2023-10-20 11:29 | disposition home or self-care (01) ==
PROVIDERS: PCP Internal Medicine; Visit Provider Internal Medicine
DX: Z00.00 Encounter for general adult medical examination without abnormal findings (principal); L91.8 Other hypertrophic disorders of the skin; E04.2 Nontoxic multinodular goiter; R05.9 Cough, unspecified; E03.9 Hypothyroidism, unspecified; R93.3 Abnormal findings on diagnostic imaging of other parts of digestive tract; E78.5 Hyperlipidemia, unspecified
CPT/HCPCS: 99396

== ENCOUNTER 2023-10-20 11:30 | Outpatient (REF) | payer OTHER, SELFPAY ==
--- NOTE | ~2023-10-20 | XR_ITS ---
EXAMINATION: XR CHEST CLINICAL INFORMATION: Cough. COMPARISON: None available. TECHNIQUE: 2 views of the chest were obtained. FINDINGS: No significant abnormality is noted involving the heart, lungs, mediastinum, bony thorax or soft tissues. XR/XR chest 2V IMPRESSION: Unremarkable chest examination.
== END 2023-10-20 11:31 | disposition home or self-care (01) ==
LOC: HO.HMGCX 11:30
PROVIDERS: PCP Internal Medicine; Visit Provider Internal Medicine
DX: L91.8 Other hypertrophic disorders of the skin (principal); E03.9 Hypothyroidism, unspecified; R05.9 Cough, unspecified; E04.2 Nontoxic multinodular goiter
CPT/HCPCS: 71046

== ENCOUNTER 2023-11-14 11:09 | Outpatient (REF) | payer OTHER, SELFPAY ==
[2023-11-15 12:19] LABS: DHEA Sulfate 92 mcg/dL (5-167); Prolactin 16.7 ng/mL; Sex Hormone Binding Globulin 37 nmol/L (14-73)
[2023-11-19 05:08] LABS: Estradiol Ultra Sensitive 16 pg/mL
[2023-11-19 15:14] LABS: Testosterone, Free 3.8 pg/mL (0.1-6.4); Testosterone, Total 29 ng/dL (2-45)
[2023-11-22 18:14] LABS: Pregnenolone, LC/MS 30 ng/dL (22-237)
[2023-11-22 21:58] LABS: Progesterone <0.1 ng/mL
== END 2023-11-14 11:10 | disposition home or self-care (01) ==
LOC: HO.LAB 11:09
PROVIDERS: PCP Internal Medicine; Visit Provider Allergy & Immunology Allergy
DX: N95.8 Other specified menopausal and perimenopausal disorders (principal)
CPT/HCPCS: 36415; 82627; 82670; 84143; 84144; 84146; 84270; 84402; 84403

== ENCOUNTER 2023-11-20 10:06 | Outpatient (AMB) | payer OTHER, SELFPAY ==
--- NOTE | 2023-11-19 20:09 | MHC.OFFVIS ---
Intake Vital Signs 11/20/23 10:10 Height 5 ft 6 in Weight 229 lb 4.492 oz BMI 37.0 BP 140/76 H Blood Pressure Location Lt brachial Position Standing Pulse 89 Pulse Source Pulse Oximeter Pulse Oximetry (%) 97 Oxygen Delivery Method Room Air Intake Visit Reasons: Cough Fishing Tool Supervisor Required: No Privacy Officer: Privacy Officer offered & declined Accompanied by: Self / Same As Patient Allergies Sulfa (Sulfonamide Antibiotics) [SULFA(SULFONAMIDE ANTIBIOTICS)] Allergy (Intermediate, Verified 10/20/23 10:55) NAUSEA/VOMITING ampicillin [AMPICILLIN] Allergy (Mild, Verified 10/20/23 10:55) RASH bupropion [From Wellbutrin] Allergy (Mild, Verified 10/20/23 10:55) Hives clarithromycin [From BIAXIN] Allergy (Mild, Verified 10/20/23 10:55) NAUSEA atorvastatin [Lipitor] Allergy (Unknown, Verified 10/20/23 10:55) leg cramps cefaclor Allergy (Unknown, Verified 10/20/23 10:55) Unknown doxycycline Allergy (Unknown, Verified 10/20/23 10:55) Rash erythromycin base [ERYTHROMYCIN BASE] Allergy (Unknown, Verified 10/20/23 11:27) sick to stomach ezetimibe [Zetia] Allergy (Unknown, Verified 10/20/23 10:55) leg cramps morphine [MORPHINE] Allergy (Unknown, Verified 10/20/23 10:55) VOMITING propofol [PROPOFOL] Allergy (Unknown, Verified 06/07/23 11:35) HIVES rosuvastatin [Crestor] Allergy (Unknown, Verified 10/20/23 10:55) leg cramps sulfacetamide Allergy (Unknown, Verified 10/20/23 10:55) Gastrointestinal Upset simvastatin Adverse Reaction (Unknown, Verified 10/20/23 10:55) leg cramps From CEFTIN Allergy (Mild, Uncoded 10/20/23 10:55) NAUSEA Ceftin Allergy (Unknown, Uncoded 10/20/23 10:55) Unknown Doxycycline Hyclate Allergy (Unknown, Uncoded 10/20/23 10:55) Rash Medication List - Last Reconciled 11/20/23 by Kassy Cavazos LPN ashviridianadha root extract mg PO benzonatate 100 mg PO BID-TID PRN Ca lac-mag cit-pas flwr-nereyda rt 25-50-20-10 mg (MyoCalm) tabs PO cetirizine (Zyrtec) 10 mg PO DAILY cholecalciferol (vitamin D3) 125 mcg PO DAILY [coq10 400 mg daily] [cortisol virtual classroom manager 250 mg daily] cream base no.143 (bulk) (BHRT Base transdermal cream) appl transdermal BID cyclobenzaprine 10 mg PO Q8H PRN 5 days diphenhydramine-acetaminophen 25-500 mg (Tylenol PM Extra Strength) 1 tab PO BEDTIME PRN epinephrine IM escitalopram oxalate 10 mg PO DAILY [mayte C 500 mg daily] evolocumab (Repatha SureClick) 1 mg (0.0071 mL) subcut Q2W [green tea extract 100 mg daily] insulin syringe-needle U-100 As directed levothyroxine (Tirosint) 100 mcg PO DAILY lorazepam 1 mg PO DAILY PRN Lovaza (omega-3 acid ethyl esters) 2 caps PO BID NS magnesium glycinate 400 mg PO DAILY melatonin 10 mg PO BEDTIME PRN methylcellulose (laxative) (Citrucel) 500 mg PO DAILY mirtazapine 7.5 mg PO DAILY niacinamide 500 mg PO DAILY phytosterol 2 capsules [pregnenolone 10 mg daily ] progesterone micronized 150 mg PO every morning; quercetin mg PO rosuvastatin (Crestor) 10 mg PO DAILY semaglutide 1 mg subcut QWEEK [theracumin 600 mg daily 2 caps BID ] HPI Cough HPI Details Jose is a pleasant 58-year-old female, never smoker, with underlying chronic allergic rhinitis and hypothyroidism. She was referred by PCP for pulmonary evaluation. She reports chronic dry cough for over two years. Often the cough is precipitated by a tickle in her throat then leads to coughing fits. Recently she reports dyspnea with moderate exertion. She denies any wheezing or chest tightness. She has been evaluated by ENT and using Flonase as well as antihistamines for chronic post nasal drip with moderate effect. She also receives allergen immunotherapy for multiple allergens which has been helpful for chronic sinusitis. She has been trialed on PPI x 8 weeks with no change in cough. She has been referred to GI which she will see for further evaluation of GERD. Despite PPI she continues with intermittent heartburn. She had a PFT in 2019, with normal spirometry, no response to bronchodilators, normal lung volumes and lower limit of normal DLCO. She reports trialing advair years ago with minimal response. Occasionally she will use benzonatate with mild relief. CXR unremarkable. She denies any occupational exposures. She reports daughter with asthma and multiple first degree relative with allergies. [facility] Medical History (Updated 11/20/23 @ 12:33 by Ely Mortensen NP) Sacroiliac joint dysfunction of right side Candidiasis Rectal bleed Allergies Knee pain, right Abnormal colonoscopy Mammogram normal Annual physical exam Normal Pap smear Multiple thyroid nodules Acquired hypothyroidism Martha's thyroiditis IBS (irritable bowel syndrome) Overweight Peripheral neuropathy Lumbar radiculopathy Hyperlipidemia Surgical History S/P fine needle aspiration History of endometrial ablation Hx of dilation and curettage [place] teeth extracted H/O sigmoidoscopy History of tonsillectomy and adenoidectomy H/O colonoscopy Family History Father Stroke Hyperlipidemia CVD (cardiovascular disease) Mother Hyperlipidemia Thyroid disease Social History (Updated 11/20/23 @ 10:17 by Kassy Cavazos LPN) Household Members: Spouse Household Members Other:: Housing: House Alcohol intake: current Alcohol intake frequency: holidays/special occasions only Patient Tobacco Use Status: Never used Tobacco e-Cigarette/Vaping Use: Never Used Current occupational status: employed Cognitive needs: No Hearing needs: No Vision needs: Yes Review of Systems Const Denies chills, Denies excessive sweating, Denies fever(s), Denies headache(s) and Denies night sweats Eyes Denies dry eyes, Denies irritation and Denies itchy eyes ENT Reports Normal hearing present, Denies headache(s), Denies nasal congestion, Denies nasal discharge and Denies sore throat Card Denies chest pain, Denies chest pain at rest, Denies chest pain with activity, Denies claudication, Denies leg edema, Denies orthopnea and Denies paroxysmal nocturnal dyspnea Resp Denies chest congestion, Denies excessive phlegm production, Denies pain on inspiration, Denies pain with cough, Denies stridor and Denies wheezing Musc Denies myalgias Neuro Reports Normal hearing present and Denies headache(s) Endo Denies excessive sweating Franco/Lymph Denies lymphadenopathy Aller/Immun Denies itchy eyes, Denies seasonal rhinorrhea and Denies wheezing Physical Exam Vital Signs: Last Vital Signs Pulse 89 11/20/23 10:10 BP 140/76 H 11/20/23 10:10 Pulse Ox 97 11/20/23 10:10 Oxygen Delivery Method Room Air 11/20/23 10:10 BMI result Body Mass Index 37.0 Const General: cooperative, healthy appearing, comfortable, no acute distress, well developed and alert Nutritional Appearance: obese Orientation/consciousness: patient oriented x3 Limitations: no limitations HEENT Head: Yes normal to inspection, Yes normocephalic and Yes atraumatic Ears: hearing grossly normal bilaterally and external ears normal Eyes General: appearance normal, both eyes and all related structures Eyelids: Yes eyelids normal Sclerae: sclerae normal EOM: EOMs intact bilaterally Neck Neck: Yes normal visual inspection and Yes no lymphadenopathy Lymphatic: no lymphadenopathy noted Chest Chest palpation & inspection: normal inspection of the chest Resp Effort & Inspection: normal respiratory effort, able to speak in complete sentences, no audible wheezes, no cough, no stridor, not tachypneic, no tripod positioning and no use of accessory muscles Auscultation: clear to auscultation bilaterally Cardio Jugular venous distension: no JVD Rate: regular rate Rhythm: regular rhythm Skin Other: warm, dry General skin exam: no rashes or lesions noted Neuro General: patient oriented x3 Cranial nerves: Yes Normal hearing present Cognition (Neuro): normal cognition Gait exam (Neuro): Normal gait present Extrem General: Yes normal to inspection, Yes capillary refill normal, Yes no clubbing, cyanosis or edema and Yes no pedal edema Psych Appearance: grossly normal and well kempt Speech and movement: Normal speech and movement present and Clear speech present Affect: normal affect Attitude: cooperative Thought process: Normal thought process present Thought content: Normal thought content present Insight: Good insight present (Psych) Judgement: Good judgement present (Psych) Results Reviewed Results Reviewed: [facility] [address], [place] [id number] XRay Report Signed Patient: Norma Mckeon MR#: [id number] : 1965 Acct:[id number] Age/Sex: 58 / F ADM Date: 10/20/23 Loc: [facility] Attending Dr: Kayley Kruger MD Ordering Physician: Kayley rKuger MD Date of Service: 10/20/23 Procedure(s): XR chest 2V Accession Number(s): [id number] cc: Kayley Kruger MD~ EXAMINATION: XR CHEST CLINICAL INFORMATION: Cough. COMPARISON: None available. TECHNIQUE: 2 views of the chest were obtained. FINDINGS: No significant abnormality is noted involving the heart, lungs, mediastinum, bony thorax or soft tissues. XR/XR chest 2V IMPRESSION: Unremarkable chest examination. Dictated By: Delta Rashid MD Signed By: <Electronically signed by Delta Rashid MD in OV> 10/20/23 1201 DD/ 1140 TD/TT: Sports Medicine Trainer: ANDRES Assessment & Plan Assessment & Plan (1) Cough: Code(s): R05.9 - Cough, unspecified (2) Chronic allergic rhinitis: Code(s): J30.9 - Allergic rhinitis, unspecified (3) Environmental allergies: Code(s): Z91.09 - Other allergy status, other than to drugs and biological substances (4) GERD (gastroesophageal reflux disease): Code(s): K21.9 - Gastro-esophageal reflux disease without esophagitis Plan Norma reports a chronic dry cough for over two years that has been minimally responsive to inhalers, PPIs, allergen immunotherapy and flonase. Will empirically trial ipratropium for post nasal drip. She had a PFT years ago and now with dyspnea on exertion, will repeat PFT with possibility of methacholine test. Will also send for chest CT, as she has had unremarkable CXR and persistent cough. All questions were answered and patient is in agreement of plan. Will follow up to review response to nasal spray and results of tests. Orders: Orders PFT pulmonary function test Today R05.9 - Cough, unspecified CT chest wo IV con Today R05.9 - Cough, unspecified Medications: New ipratropium bromide administer into each nostril 2 sprays intranasal BID 30 mL 0RF Coding Level of Care Code New Pt Level 4 (90581) Diagnoses Cough R05.9 Chronic allergic rhinitis J30.9 Environmental allergies Z91.09 GERD (gastroesophageal reflux disease) K21.9
[2023-11-20 10:10] VITALS: BP 140/76; PULSE 89; O2SAT 97; BMI 37.0
== END 2023-11-20 10:40 | disposition home or self-care (01) ==
PROVIDERS: PCP Internal Medicine; Referring Provider Internal Medicine; Visit Provider Nurse Practitioner Family
DX: R05.9 Cough, unspecified (principal); J30.9 Allergic rhinitis, unspecified; Z91.09 Other allergy status, other than to drugs and biological substances; K21.9 Gastro-esophageal reflux disease without esophagitis
CPT/HCPCS: 99204

== ENCOUNTER → 2023-11-20 10:06 | Outpatient (BNVA) | payer OTHER, SELFPAY | PROVIDERS: PCP Internal Medicine; Visit Provider Nurse Practitioner Family | DX: J30.9 Allergic rhinitis, unspecified (principal); R05.9 Cough, unspecified; Z91.09 Other allergy status, other than to drugs and biological substances; K21.9 Gastro-esophageal reflux disease without esophagitis | CPT/HCPCS: 99202 ==

== ENCOUNTER 2023-12-07 10:07 | Outpatient (AMB) | payer OTHER, SELFPAY ==
[2023-12-07 10:18] VITALS: BP 132/80; PULSE 72; BMI 37.3
--- NOTE | 2023-12-07 10:18 | MHC.OFFVIS ---
Intake Vital Signs 12/07/23 10:18 Height 5 ft 6 in Weight 230 lb 13.184 oz BMI 37.3 BP 132/80 Blood Pressure Location Lt brachial Position Sitting Pulse 72 Pulse Source Pulse Oximeter Intake Visit Reasons: f/u hyperlipidemia-confirmed Intake Note: Patient present today for Hyperlipidemia follow up visit. Community Health Consultant Required: No Accompanied by: Self / Same As Patient Allergies Sulfa (Sulfonamide Antibiotics) [SULFA(SULFONAMIDE ANTIBIOTICS)] Allergy (Intermediate, Verified 12/07/23 10:25) NAUSEA/VOMITING ampicillin [AMPICILLIN] Allergy (Mild, Verified 12/07/23 10:25) RASH bupropion [From Wellbutrin] Allergy (Mild, Verified 12/07/23 10:25) Hives clarithromycin [From BIAXIN] Allergy (Mild, Verified 12/07/23 10:25) NAUSEA atorvastatin [Lipitor] Allergy (Unknown, Verified 12/07/23 10:25) leg cramps cefaclor Allergy (Unknown, Verified 12/07/23 10:25) Unknown doxycycline Allergy (Unknown, Verified 12/07/23 10:25) Rash erythromycin base [ERYTHROMYCIN BASE] Allergy (Unknown, Verified 12/07/23 10:25) sick to stomach ezetimibe [Zetia] Allergy (Unknown, Verified 12/07/23 10:25) leg cramps morphine [MORPHINE] Allergy (Unknown, Verified 12/07/23 10:25) VOMITING propofol [PROPOFOL] Allergy (Unknown, Verified 12/07/23 10:25) HIVES rosuvastatin [Crestor] Allergy (Unknown, Verified 12/07/23 10:25) leg cramps sulfacetamide Allergy (Unknown, Verified 12/07/23 10:25) Gastrointestinal Upset simvastatin Adverse Reaction (Unknown, Verified 12/07/23 10:25) leg cramps From CEFTIN Allergy (Mild, Uncoded 12/07/23 10:25) NAUSEA Ceftin Allergy (Unknown, Uncoded 12/07/23 10:25) Unknown Doxycycline Hyclate Allergy (Unknown, Uncoded 12/07/23 10:25) Rash Medication List - Last Reconciled 12/07/23 by Riki Andrews MD ashwagandha root extract mg PO benzonatate 100 mg PO BID-TID PRN Ca lac-mag cit-pas flwr-nereyda rt 25-50-20-10 mg (MyoCalm) tabs PO cetirizine (Zyrtec) 10 mg PO DAILY cholecalciferol (vitamin D3) 125 mcg PO DAILY [coq10 400 mg daily] [cortisol biodiesel plant manager 250 mg daily] cream base no.143 (bulk) (BHRT Base transdermal cream) appl transdermal BID cyclobenzaprine 10 mg PO Q8H PRN 5 days diphenhydramine-acetaminophen 25-500 mg (Tylenol PM Extra Strength) 1 tab PO BEDTIME PRN epinephrine IM escitalopram oxalate 10 mg PO DAILY [mayte C 500 mg daily] evolocumab (Repatha SureClick) 1 mg (0.0071 mL) subcut Q2W [green tea extract 100 mg daily] insulin syringe-needle U-100 As directed ipratropium bromide 2 sprays intranasal BID levothyroxine (Tirosint) 100 mcg PO DAILY lorazepam 1 mg PO DAILY PRN Lovaza (omega-3 acid ethyl esters) 2 caps PO BID NS magnesium glycinate 400 mg PO DAILY melatonin 10 mg PO BEDTIME PRN methylcellulose (laxative) (Citrucel) 500 mg PO DAILY mirtazapine 7.5 mg PO DAILY niacinamide 500 mg PO DAILY phytosterol 2 capsules [pregnenolone 10 mg daily ] progesterone micronized 150 mg PO every morning; quercetin mg PO rosuvastatin (Crestor) 10 mg PO DAILY semaglutide 1 mg subcut QWEEK [theracumin 600 mg daily 2 caps BID ] HPI HPI Comments History of Present Illness Details This is a 58-year-old female referred to endocrinology for evaluation of hyperlipidemia. Patient has had a history of hyperlipidemia for long -standing . There is no personal history of SD or CVA. Father had CVA . She has tried Crestor, Lipitor, simvastain and had leg cramps . Took Zetia with intolerance leg cramps . She currently takes Lovaza 2 caps b.i.d. She also has hypothyroidism which is treated with levothyroxine. There is a family hx of maternal and paternal . No heavy ETOH use . On HRT /progesterone . HbA1c was normal ruling out diabetes as secondary cause. She is currently on Repatha 120 q. 2weeks and rosuvastatin 10 mg QD as well as Lovaza with with good response . Does have elevated triglycerides [facility] Medical History (Updated 11/20/23 @ 12:33 by Ely Mortensen NP) Sacroiliac joint dysfunction of right side Candidiasis Rectal bleed Allergies Knee pain, right Abnormal colonoscopy Mammogram normal Annual physical exam Normal Pap smear Multiple thyroid nodules Acquired hypothyroidism Martha's thyroiditis IBS (irritable bowel syndrome) Overweight Peripheral neuropathy Lumbar radiculopathy Hyperlipidemia Surgical History S/P fine needle aspiration History of endometrial ablation Hx of dilation and curettage [place] teeth extracted H/O sigmoidoscopy History of tonsillectomy and adenoidectomy H/O colonoscopy Family History Father Stroke Hyperlipidemia CVD (cardiovascular disease) Mother Hyperlipidemia Thyroid disease Social History (Updated 11/20/23 @ 10:17 by Kassy Cavazos LPN) Household Members: Spouse Household Members Other:: Housing: House Alcohol intake: current Alcohol intake frequency: holidays/special occasions only Patient Tobacco Use Status: Never used Tobacco e-Cigarette/Vaping Use: Never Used Current occupational status: employed Cognitive needs: No Hearing needs: No Vision needs: Yes Assessment & Plan Assessment & Plan (1) Hyperlipidemia: Comment: On Repatha and Crestor twice a week, follows up with Dr. Andrews Code(s): E78.5 - Hyperlipidemia, unspecified Plan: This 58-year-old white female with a history of mixed hyperlipidemia. LDL cholesterol> 200 suggests the presence of heterozygous FH. Currently on Repatha 140 mg q 2 wks and rosuvastatin 10 mg 3X/wk as well as Lovaza . Could not tolerate higher dose of Repatha and high dose of statin in the past The plan is to continue current management. We did talk about weight loss and exercise. At this point, patient will follow up with the primary care provider returned back to endocrinology as needed. She also showed me the report of a thyroid nodule I recommended she follow-up with Dr. Correia an tube bender hand to it seen her originally and then a biopsy on her. I also gave her other alternative tube bender hand to see for the thyroid nodule. Coding Level of Care Code Est Pt Level 3 (60709) Diagnoses Hyperlipidemia E78.5
== END 2023-12-07 10:54 | disposition home or self-care (01) ==
PROVIDERS: PCP Internal Medicine; Visit Provider Internal Medicine Endocrinology, Diabetes & Metabolism
DX: E78.5 Hyperlipidemia, unspecified (principal)
CPT/HCPCS: 99213

== ENCOUNTER → 2023-12-07 10:07 | Outpatient (BNVA) | payer OTHER, SELFPAY | PROVIDERS: PCP Internal Medicine; Visit Provider Internal Medicine Endocrinology, Diabetes & Metabolism | DX: E78.5 Hyperlipidemia, unspecified (principal) | CPT/HCPCS: 99212 ==

== ENCOUNTER 2023-12-22 08:43 | Outpatient (REF) | payer OTHER, SELFPAY ==
[2023-12-22 08:52] VITALS: PULSE 82; RESP 16; O2SAT 98
--- NOTE | 2023-12-22 13:52 | PFT_ITS ---
Indication: Cough Spirometry [FEV1 to FVC 83%; FEV1 3.04 L; FVC 3.64 L. No significant response to bronchodilators noted. Maximum voluntary ventilation 110% predicted] Lung Volumes [Total lung capacity 92% predicted] Diffusion Capacity [Diffusing capacity DLCO 105% predicted] Comparisons [None] Interpretation [No obstructive nor restrictive ventilatory defects identified. No significant response to bronchodilators noted. Normal maximum voluntary ventilation. Flow volume loop is completely normal. Lung volumes and diffusing capacity also within normal limits. If asthma is in differential methacholine challenge may be helpful for assessing hyperreactive airways. Clinical correlation warranted.] MTDD
== END 2023-12-22 08:44 | disposition home or self-care (01) ==
LOC: HO.RESP 08:43
PROVIDERS: PCP Internal Medicine; Visit Provider Nurse Practitioner Family
DX: R05.9 Cough, unspecified (principal)
CPT/HCPCS: 94010; 94640; 94727; 94729

== ENCOUNTER → 2023-12-22 13:52 | Outpatient (BNV) | payer OTHER, SELFPAY | PROVIDERS: PCP Internal Medicine; Visit Provider Hospitalist | DX: R05.9 Cough, unspecified (principal) | CPT/HCPCS: 94060; 94727; 94729 ==

== ENCOUNTER 2023-12-25 07:10 | Outpatient (REF) | payer OTHER, SELFPAY ==
--- NOTE | ~2023-12-25 | CT_ITS ---
EXAMINATION: CT CHEST WITHOUT CONTRAST CLINICAL INFORMATION: Cough. COMPARISON: Chest x-ray to. TECHNIQUE: Multidetector volumetric CT imaging of the chest was done. Axial MIP volume rendering provided. Sagittal and coronal reformatted images were obtained. This CT examination was performed using dose optimization techniques as appropriate, variously including the following: *Automated exposure control *Adjustment of mA and/or kV according to patient size (this includes techniques or standardized protocols for targeted exams where dose is matched to indication/reason for exam; i.e. extremities or head) *Use of iterative reconstruction technique DLP: 203 mGy-cm FINDINGS: LUNGS: There are few scattered micronodules bilaterally. No follow-up imaging is recommended as per Fleischner Society guidelines. There is mild airway wall thickening. No consolidation. Minimal left lower lobe atelectasis. MEDIASTINUM: No adenopathy. No aortic aneurysm. No pericardial effusion. Small hiatal hernia. CORONARY ARTERY CALCIFICATION: None visualized on this study. PLEURA: There is no pleural effusion. No pleural mass or thickening. AXILLA: No lymphadenopathy. UPPER ABDOMEN: Hepatic steatosis. OSSEOUS STRUCTURES: Mild degenerative changes in the thoracic spine. CT/CT chest wo IV con IMPRESSION: No suspicious pulmonary nodules. No focal pneumonia. Small hiatal hernia. Hepatic steatosis. Fleischner guidelines were followed.
== END 2023-12-25 07:11 | disposition home or self-care (01) ==
LOC: HO.CT 07:10
PROVIDERS: PCP Internal Medicine; Visit Provider Nurse Practitioner Family
DX: R05.9 Cough, unspecified (principal)
CPT/HCPCS: 71250

== ENCOUNTER 2024-01-02 11:00 | Outpatient (AMB) | payer OTHER, SELFPAY ==
[2024-01-02 11:03] VITALS: BP 130/80; PULSE 81; O2SAT 98; BMI 35.7
--- NOTE | 2024-01-02 11:03 | AM.OFFWIN_ITS ---
Intake Vital Signs 01/02/24 11:03 Height 5 ft 6 in Weight 221 lb BMI 35.7 BP 130/80 Blood Pressure Location Rt brachial Position Sitting Pulse 81 Pulse Source Pulse Oximeter Pulse Oximetry (%) 98 Intake Visit Reasons: EST/bumps inside right thigh (lobby) Intake Note: patient is here for bumps inside right thigh Patient Tobacco Use Status: Never used Tobacco Allergies Sulfa (Sulfonamide Antibiotics) [SULFA(SULFONAMIDE ANTIBIOTICS)] Allergy (Intermediate, Verified 01/02/24 11:04) NAUSEA/VOMITING ampicillin [AMPICILLIN] Allergy (Mild, Verified 01/02/24 11:04) RASH bupropion [From Wellbutrin] Allergy (Mild, Verified 01/02/24 11:04) Hives clarithromycin [From BIAXIN] Allergy (Mild, Verified 01/02/24 11:04) NAUSEA atorvastatin [Lipitor] Allergy (Unknown, Verified 01/02/24 11:04) leg cramps cefaclor Allergy (Unknown, Verified 01/02/24 11:04) Unknown doxycycline Allergy (Unknown, Verified 01/02/24 11:04) Rash erythromycin base [ERYTHROMYCIN BASE] Allergy (Unknown, Verified 01/02/24 11:04) sick to stomach ezetimibe [Zetia] Allergy (Unknown, Verified 01/02/24 11:04) leg cramps morphine [MORPHINE] Allergy (Unknown, Verified 01/02/24 11:04) VOMITING propofol [PROPOFOL] Allergy (Unknown, Verified 01/02/24 11:04) HIVES rosuvastatin [Crestor] Allergy (Unknown, Verified 01/02/24 11:04) leg cramps sulfacetamide Allergy (Unknown, Verified 01/02/24 11:04) Gastrointestinal Upset simvastatin Adverse Reaction (Unknown, Verified 01/02/24 11:04) leg cramps From CEFTIN Allergy (Mild, Uncoded 12/07/23 10:25) NAUSEA Ceftin Allergy (Unknown, Uncoded 12/07/23 10:25) Unknown Doxycycline Hyclate Allergy (Unknown, Uncoded 12/07/23 10:25) Rash Medication List - Last Reconciled 01/02/24 by KELSI Mallory ashwagandha root extract mg PO azithromycin For 250 mg dose pack: take 500 mg today (day 1), then 250 mg for 4 days (days 2-5) PO Ca lac-mag cit-pas flwr-nereyda rt 25-50-20-10 mg (MyoCalm) tabs PO cetirizine (Zyrtec) 10 mg PO DAILY cholecalciferol (vitamin D3) 125 mcg PO DAILY [coq10 400 mg daily] [cortisol international operations manager 250 mg daily] cream base no.143 (bulk) (BHRT Base transdermal cream) appl transdermal BID cyclobenzaprine 10 mg PO Q8H PRN 5 days epinephrine IM escitalopram oxalate 10 mg PO DAILY [mayte C 500 mg daily] evolocumab (Repatha SureClick) 1 mg (0.0071 mL) subcut Q2W [green tea extract 100 mg daily] insulin syringe-needle U-100 As directed ipratropium bromide 2 sprays intranasal BID levothyroxine (Tirosint) 100 mcg PO DAILY lorazepam 1 mg PO DAILY PRN Lovaza (omega-3 acid ethyl esters) 2 caps PO BID NS magnesium glycinate 400 mg PO DAILY melatonin 10 mg PO BEDTIME PRN methylcellulose (laxative) (Citrucel) 500 mg PO DAILY naltrexone (Naltrex) mg PO niacinamide 500 mg PO DAILY phytosterol 2 capsules [pregnenolone 10 mg daily ] progesterone micronized 150 mg PO every morning; rosuvastatin (Crestor) 10 mg PO DAILY saw palmetto 320 mg PO DAILY [theracumin 600 mg daily 2 caps BID ] Do you need a note to return to daycare/school/sports/work: No HPI HPI Comments History of Present Illness Details 58-year-old female presents today compla ining of 2 lesions on her inner thigh that she thinks are ingrown hairs. These are becoming slightly erythematous and painful to palpate. [facility] Medical History (Updated 01/02/24 @ 12:00 by KELSI Mallory) Sacroiliac joint dysfunction of right side Candidiasis Rectal bleed Allergies Knee pain, right Abnormal colonoscopy Mammogram normal Annual physical exam Normal Pap smear Multiple thyroid nodules Acquired hypothyroidism Martha's thyroiditis IBS (irritable bowel syndrome) Overweight Peripheral neuropathy Lumbar radiculopathy Hyperlipidemia Surgical History S/P fine needle aspiration History of endometrial ablation Hx of dilation and curettage [place] teeth extracted H/O sigmoidoscopy History of tonsillectomy and adenoidectomy H/O colonoscopy Family History Father Stroke Hyperlipidemia CVD (cardiovascular disease) Mother Hyperlipidemia Thyroid disease Social History Household Members: Spouse Household Members Other:: Housing: House Alcohol intake: current Alcohol intake frequency: holidays/special occasions only Patient Tobacco Use Status: Never used Tobacco e-Cigarette/Vaping Use: Never Used Current occupational status: employed Cognitive needs: No Hearing needs: No Vision needs: Yes Review of Systems Const All systems reviewed & are unremarkable except as noted in HPI and below Physical Exam Vital Signs: Last Vital Signs Pulse 81 01/02/24 11:03 BP 130/80 01/02/24 11:03 Pulse Ox 98 01/02/24 11:03 BMI result Body Mass Index 35.7 Const General: healthy appearing and comfortable Skin Lesions: lesion noted (One small raised papule the right inner thigh. Surrounding erythema) Assessment & Plan Assessment & Plan (1) Abscess: Code(s): L02.91 - Cutaneous abscess, unspecified Plan: Antibiotics as ordered to treat the abscess. The patient has multiple allergies but has taken azithromycin successfully in the past. She is also instructed to do warm compresses to the area Plan See plan Medications: New azithromycin For 250 mg dose pack: take 500 mg today (day 1), then 250 mg for 4 days (days 2-5) PO 6 tabs 0RF Coding Level of Care Code Est Pt Level 3 (71443) Diagnoses Abscess L02.91
== END 2024-01-02 11:51 | disposition home or self-care (01) ==
PROVIDERS: PCP Internal Medicine; Visit Provider Physician Assistant Medical
DX: L02.91 Cutaneous abscess, unspecified (principal)
CPT/HCPCS: 99213

== ENCOUNTER 2024-01-08 09:35 | Outpatient (AMB) | payer OTHER, SELFPAY ==
--- NOTE | 2024-01-08 09:35 | MHC.OFFVIS ---
Vital Signs 01/08/24 09:37 Height 5 ft 6 in Weight 227 lb 1.218 oz BMI 36.6 BP 130/76 Blood Pressure Location Rt brachial Position Sitting Pulse 63 Pulse Source Pulse Oximeter Pulse Oximetry (%) 99 Oxygen Delivery Method Room Air Intake Visit Reasons: Cough Allergies Sulfa (Sulfonamide Antibiotics) [SULFA(SULFONAMIDE ANTIBIOTICS)] Allergy (Intermediate, Verified 01/08/24 09:40) NAUSEA/VOMITING ampicillin [AMPICILLIN] Allergy (Mild, Verified 01/08/24 09:40) RASH bupropion [From Wellbutrin] Allergy (Mild, Verified 01/08/24 09:40) Hives clarithromycin [From BIAXIN] Allergy (Mild, Verified 01/08/24 09:40) NAUSEA atorvastatin [Lipitor] Allergy (Unknown, Verified 01/08/24 09:40) leg cramps cefaclor Allergy (Unknown, Verified 01/08/24 09:40) Unknown doxycycline Allergy (Unknown, Verified 01/08/24 09:40) Rash erythromycin base [ERYTHROMYCIN BASE] Allergy (Unknown, Verified 01/08/24 09:40) sick to stomach ezetimibe [Zetia] Allergy (Unknown, Verified 01/08/24 09:40) leg cramps morphine [MORPHINE] Allergy (Unknown, Verified 01/08/24 09:40) VOMITING propofol [PROPOFOL] Allergy (Unknown, Verified 01/08/24 09:40) HIVES rosuvastatin [Crestor] Allergy (Unknown, Verified 01/08/24 09:40) leg cramps sulfacetamide Allergy (Unknown, Verified 01/08/24 09:40) Gastrointestinal Upset simvastatin Adverse Reaction (Unknown, Verified 01/08/24 09:40) leg cramps From CEFTIN Allergy (Mild, Uncoded 01/08/24 09:40) NAUSEA Ceftin Allergy (Unknown, Uncoded 01/08/24 09:40) Unknown Doxycycline Hyclate Allergy (Unknown, Uncoded 01/08/24 09:40) Rash HPI HPI Cough: Details: Norma is a pleasant 58-year-old female, never smoker, with underlying chronic cough, chronic allergic rhinitis and hypothyroidism. Often the cough is precipitated by a tickle in her throat then leads to coughing fits, she was trialed on ipratropium nasal spray with mild improvement in symptoms. She continues to report dyspnea with moderate exertion. She denies any wheezing or chest tightness. She has trialed Flonase, antihistamines, allergen immunotherapy and trialed PPI x 8 weeks with little to no change in cough. She has been referred to GI which she will see for further evaluation of GERD, which is scheuduled in February. Today she presents to review PFT and chest CT. [facility] Medical History (Updated 01/08/24 @ 13:44 by Ely Mortensen NP) Sacroiliac joint dysfunction of right side Candidiasis Rectal bleed Allergies Knee pain, right Abnormal colonoscopy Mammogram normal Annual physical exam Normal Pap smear Multiple thyroid nodules Acquired hypothyroidism Martha's thyroiditis IBS (irritable bowel syndrome) Overweight Peripheral neuropathy Lumbar radiculopathy Hyperlipidemia Surgical History S/P fine needle aspiration History of endometrial ablation Hx of dilation and curettage [place] teeth extracted H/O sigmoidoscopy History of tonsillectomy and adenoidectomy H/O colonoscopy Family History Father Stroke Hyperlipidemia CVD (cardiovascular disease) Mother Hyperlipidemia Thyroid disease Social History Household Members: Spouse Household Members Other:: Housing: House Alcohol intake: current Alcohol intake frequency: holidays/special occasions only Patient Tobacco Use Status: Never used Tobacco e-Cigarette/Vaping Use: Never Used Current occupational status: employed Cognitive needs: No Hearing needs: No Vision needs: Yes Review of Systems Const Denies chills, Denies excessive sweating, Denies fever(s), Denies headache(s) and Denies night sweats Eyes Denies dry eyes, Denies irritation and Denies itchy eyes ENT Reports Normal hearing present, Denies headache(s), Denies nasal congestion, Denies nasal discharge and Denies sore throat Card Denies chest pain, Denies chest pain at rest, Denies chest pain with activity, Denies claudication, Denies leg edema, Denies orthopnea and Denies paroxysmal nocturnal dyspnea Resp Denies chest congestion, Denies excessive phlegm production, Denies pain on inspiration, Denies pain with cough, Denies stridor and Denies wheezing Musc Denies myalgias Neuro Reports Normal hearing present and Denies headache(s) Endo Denies excessive sweating Franco/Lymph Denies lymphadenopathy Aller/Immun Denies itchy eyes, Denies seasonal rhinorrhea and Denies wheezing Physical Exam Vital Signs: Last Vital Signs Pulse 63 01/08/24 09:37 BP 130/76 01/08/24 09:37 Pulse Ox 99 01/08/24 09:37 Oxygen Delivery Method Room Air 01/08/24 09:37 BMI result Body Mass Index 36.6 Const General: cooperative, healthy appearing, comfortable, no acute distress, well developed and alert Nutritional Appearance: obese Orientation/consciousness: patient oriented x3 Limitations: no limitations HEENT Head: Yes normal to inspection, Yes normocephalic and Yes atraumatic Ears: hearing grossly normal bilaterally and external ears normal Eyes General: appearance normal, both eyes and all related structures Eyelids: Yes eyelids normal Sclerae: sclerae normal EOM: EOMs intact bilaterally Neck Neck: Yes normal visual inspection and Yes no lymphadenopathy Lymphatic: no lymphadenopathy noted Chest Chest palpation & inspection: normal inspection of the chest Resp Effort & Inspection: normal respiratory effort, able to speak in complete sentences, no audible wheezes, no cough, no stridor, not tachypneic, no tripod positioning and no use of accessory muscles Auscultation: clear to auscultation bilaterally Cardio Jugular venous distension: no JVD Rate: regular rate Rhythm: regular rhythm Skin Other: warm, dry General skin exam: no rashes or lesions noted Neuro General: patient oriented x3 Cranial nerves: Yes Normal hearing present Cognition (Neuro): normal cognition Gait exam (Neuro): Normal gait present Extrem General: Yes normal to inspection, Yes capillary refill normal, Yes no clubbing, cyanosis or edema and Yes no pedal edema Psych Appearance: grossly normal and well kempt Speech and movement: Normal speech and movement present and Clear speech present Affect: normal affect Attitude: cooperative Thought process: Normal thought process present Thought content: Normal thought content present Insight: Good insight present (Psych) Judgement: Good judgement present (Psych) Results Reviewed Results Reviewed: [address] [address] [address] Scan Report Signed Patient: Norma Mckeon MR#: [id number] : 1965 Acct:[id number] Age/Sex: 58 / F ADM Date: 12/25/23 Loc: HO.CT Attending Dr: Ely Mortensen NP Ordering Physician: Ely Mortensen NP Date of Service: 12/25/23 Procedure(s): CT chest wo IV con Accession Number(s): [id number] cc: Kayley Kruger MD; Ely Mortensen NP~ EXAMINATION: CT CHEST WITHOUT CONTRAST CLINICAL INFORMATION: Cough. COMPARISON: Chest x-ray . TECHNIQUE: Multidetector volumetric CT imaging of the chest was done. Axial MIP volume rendering provided. Sagittal and coronal reformatted images were obtained. This CT examination was performed using dose optimization techniques as appropriate, variously including the following: *Automated exposure control *Adjustment of mA and/or kV according to patient size (this includes techniques or standardized protocols for targeted exams where dose is matched to indication/reason for exam; i.e. extremities or head) *Use of iterative reconstruction technique DLP: 203 mGy-cm FINDINGS: LUNGS: There are few scattered micronodules bilaterally. No follow-up imaging is recommended as per Fleischner Society guidelines. There is mild airway wall thickening. No consolidation. Minimal left lower lobe atelectasis. MEDIASTINUM: No adenopathy. No aortic aneurysm. No pericardial effusion. Small hiatal hernia. CORONARY ARTERY CALCIFICATION: None visualized on this study. PLEURA: There is no pleural effusion. No pleural mass or thickening. AXILLA: No lymphadenopathy. UPPER ABDOMEN: Hepatic steatosis. OSSEOUS STRUCTURES: Mild degenerative changes in the thoracic spine. CT/CT chest wo IV con IMPRESSION: No suspicious pulmonary nodules. No focal pneumonia. Small hiatal hernia. Hepatic steatosis. Fleischner guidelines were followed. Dictated By: Abdelrahman Post MD Signed By: <Electronically signed by Abdelrahman Post MD in OV> 01/02/24 1056 DD/ 0814 TD/TT: Production Consultant: TOM Assessment & Plan Assessment & Plan (1) Cough: Code(s): R05.9 - Cough, unspecified Category: Medical (2) Chronic allergic rhinitis: Code(s): J30.9 - Allergic rhinitis, unspecified Category: Medical (3) Environmental allergies: Code(s): Z91.09 - Other allergy status, other than to drugs and biological substances Category: Medical (4) GERD (gastroesophageal reflux disease): Code(s): K21.9 - Gastro-esophageal reflux disease without esophagitis Category: Medical (5) Multiple pulmonary nodules: Code(s): R91.8 - Other nonspecific abnormal finding of lung field Category: Medical Plan Norma richardson to report chronic dry cough that has been minimally responsive to inhalers, PPIs, allergen immunotherapy, flonase, as well as ipratropium. Reviewed PFT which revealed no obstructive nor restrictive ventilatory defects identified. No significant response to bronchodilators noted. Normal maximum voluntary ventilation. Flow volume loop is completely normal. Lung volumes and diffusing capacity also within normal limits. Recommendations for a methacholine challenge made to assess hyperreactivity of airways, which patient would like to proceed with. Will scheduled this. In the mean time, will trial a daily inhaler to see if symptoms improve. Chest CT revealed multiple micronodules, otherwise unremarkable. Will send for repeat chest CT in one year to assess for stability. At this time, the etiology of cough is unclear. She will be evaluated by GI in February to see if GERD symptoms are a contributing factor. All questions were answered and patient is in agreement of plan. Will follow up to review response to inhaler and results of test. Orders: Orders CT chest wo IV con 11 Months R91.8 - Other nonspecific abnormal finding of lung field Medications: New fluticasone propionate 110 mcg/actuation administer with spacer 2 puffs inhalation BID 12 grams 3RF Coding Level of Care Code Est Pt Level 4 (89027) Diagnoses Cough R05.9 Chronic allergic rhinitis J30.9 Environmental allergies Z91.09 GERD (gastroesophageal reflux disease) K21.9 Multiple pulmonary nodules R91.8
[2024-01-08 09:37] VITALS: BP 130/76; PULSE 63; O2SAT 99; BMI 36.6
== END 2024-01-08 10:03 | disposition home or self-care (01) ==
PROVIDERS: PCP Internal Medicine; Visit Provider Nurse Practitioner Family
DX: R05.9 Cough, unspecified (principal); J30.9 Allergic rhinitis, unspecified; Z91.09 Other allergy status, other than to drugs and biological substances; K21.9 Gastro-esophageal reflux disease without esophagitis; R91.8 Other nonspecific abnormal finding of lung field
CPT/HCPCS: 99214

== ENCOUNTER → 2024-01-08 09:35 | Outpatient (BNVA) | payer OTHER, SELFPAY | PROVIDERS: PCP Internal Medicine; Visit Provider Nurse Practitioner Family | DX: R05.3 Chronic cough (principal); J30.89 Other allergic rhinitis; R91.8 Other nonspecific abnormal finding of lung field; K21.9 Gastro-esophageal reflux disease without esophagitis; Z91.09 Other allergy status, other than to drugs and biological substances | CPT/HCPCS: 99212 ==

== ENCOUNTER 2024-01-18 10:03 | Outpatient (REF) | payer OTHER, SELFPAY ==
[2024-01-18 11:05] VITALS: PULSE 56; RESP 16; O2SAT 99
--- NOTE | 2024-01-18 15:29 | PFT_ITS ---
Methacholine challenge: No changes in FEV1 with administered methacholine as per protocol. Impression: Negative methacholine challenge test. MTDD
== END 2024-01-18 10:04 | disposition home or self-care (01) ==
LOC: HO.RESP 10:03
PROVIDERS: PCP Internal Medicine; Visit Provider Nurse Practitioner Family
DX: R05.9 Cough, unspecified (principal)
CPT/HCPCS: 94010; 94640; 94727; 94729

== ENCOUNTER 2024-03-11 10:52 | Day surgery (SDC) | payer OTHER, SELFPAY ==
--- NOTE | 2024-03-08 10:43 | P.CONAN_ITS ---
Documented by User: Arianna Kiran NP 03/08/24 11:09 HPI - Anesthesia Eval Consult details Narrative: 58yo F for Upper Endoscopy PMFSH Active Problems Active Problems: All Active Problems Multiple pulmonary nodules (Acute) Abscess (Acute) GERD (gastroesophageal reflux disease) (Acute) Environmental allergies (Acute) Chronic allergic rhinitis (Acute) Skin tag (Acute) Leg cramps (Acute) Lumbar radiculopathy (Acute) Sacroiliac joint dysfunction of right side (Acute) Obesity (BMI 30-39.9) (Acute) IBS (irritable bowel syndrome) (Acute) Cough (Acute) Candidiasis (Acute) Rectal bleed (Acute) Allergies (Acute) Knee pain, right (Acute) Abnormal colonoscopy (Acute) Mammogram normal (Acute) Annual physical exam (Acute) Normal Pap smear (Acute) Multiple thyroid nodules (Acute) Acquired hypothyroidism (Acute) Hyperlipidemia (Acute) Sinusitis, acute ethmoidal (Acute) Past Medical History Medical History Sacroiliac joint dysfunction of right side Candidiasis Rectal bleed Allergies Knee pain, right Abnormal colonoscopy Mammogram normal Annual physical exam Normal Pap smear Multiple thyroid nodules Acquired hypothyroidism Martha's thyroiditis IBS (irritable bowel syndrome) Overweight Peripheral neuropathy Lumbar radiculopathy Hyperlipidemia Family History Family History Father Stroke Hyperlipidemia CVD (cardiovascular disease) Mother Hyperlipidemia Thyroid disease Surgical History Surgical History S/P fine needle aspiration History of endometrial ablation Hx of dilation and curettage [place] teeth extracted H/O sigmoidoscopy History of tonsillectomy and adenoidectomy H/O colonoscopy Social History Social History Household Members: Spouse Household Members Other:: Housing: House Alcohol intake: current Alcohol intake frequency: holidays/special occasions only Patient Tobacco Use Status: Never used Tobacco e-Cigarette/Vaping Use: Never Used Are you DNR?: No Advance Directives: No Advance Directives Information Provided: Yes Nutrition Risks: No Nutritional Risk Current occupational status: employed Cognitive needs: No Hearing needs: No Vision needs: Yes Meds Allergies Allergy/AdvReac Type Severity Reaction Status Date / Time Sulfa (Sulfonamide Allergy Intermediate NAUSEA/VOMI Verified 01/08/24 09:40 Antibiotics) TING [SULFA(SULFONAMIDE ANTIBIOTICS)] ampicillin [AMPICILLIN] Allergy Mild RASH Verified 01/08/24 09:40 bupropion [From Wellbutrin] Allergy Mild Hives Verified 01/08/24 09:40 clarithromycin [From BIAXIN] Allergy Mild NAUSEA Verified 01/08/24 09:40 atorvastatin [Lipitor] Allergy Unknown leg cramps Verified 01/08/24 09:40 cefaclor Allergy Unknown Unknown Verified 01/08/24 09:40 doxycycline Allergy Unknown Rash Verified 01/08/24 09:40 erythromycin base Allergy Unknown sick to Verified 01/08/24 09:40 [ERYTHROMYCIN BASE] stomach ezetimibe [Zetia] Allergy Unknown leg cramps Verified 01/08/24 09:40 morphine [MORPHINE] Allergy Unknown VOMITING Verified 01/08/24 09:40 propofol [PROPOFOL] Allergy Unknown HIVES Verified 01/08/24 09:40 rosuvastatin [Crestor] Allergy Unknown leg cramps Verified 01/08/24 09:40 sulfacetamide Allergy Unknown Gastrointestinal Verified 01/08/24 09:40 Upset simvastatin AdvReac Unknown leg cramps Verified 01/08/24 09:40 From CEFTIN Allergy Mild NAUSEA Uncoded 01/08/24 09:40 Ceftin Allergy Unknown Unknown Uncoded 01/08/24 09:40 Doxycycline Hyclate Allergy Unknown Rash Uncoded 01/08/24 09:40 Home Medications ?Medication ?Instructions ?Recorded ?Confirmed ?Last Taken ?Type levothyroxine 100 mcg capsule 100 mcg PO DAILY 05/14/21 01/02/24 03/11/24 History (Tirosint) progesterone micronized 100 mg See Rx Instructions PO QAM 05/14/21 01/02/24 Unknown History capsule cholecalciferol (vitamin D3) 125 125 mcg PO DAILY 08/24/22 01/02/24 Unknown History mcg (5,000 unit) tablet lorazepam 1 mg tablet 1 mg PO DAILY PRN 08/24/22 01/02/24 Unknown History melatonin 10 mg capsule 10 mg PO BEDTIME PRN 08/24/22 01/02/24 Unknown History epinephrine 0.3 mg/0.3 mL IM 02/24/23 01/02/24 Unknown History injection, auto-injector miracle root extract 500 mg mg PO 10/20/23 01/02/24 Unknown History capsule calcium lact-mag citr-passion tab PO 10/20/23 01/02/24 Unknown History flower-valerian 25 mg-50 mg-20 mg tablet (MyoCalm) cetirizine 10 mg tablet (Zyrtec) 10 mg PO DAILY 10/20/23 01/02/24 Unknown History coq10 PO 10/20/23 01/02/24 Unknown History cortisol dental practice manager PO 10/20/23 01/02/24 Unknown History cream base no.143 (bulk) (BHRT appl transdermal BID 10/20/23 01/02/24 Unknown History Base transdermal cream) escitalopram oxalate 10 mg tablet 10 mg PO DAILY 10/20/23 01/02/24 03/11/24 History mayte C PO 10/20/23 01/02/24 Unknown History green tea extract PO 10/20/23 01/02/24 Unknown History magnesium glycinate 100 mg (as 400 mg PO DAILY 10/20/23 01/02/24 Unknown History glycinate) tablet methylcellulose (laxative) 500 mg 500 mg PO DAILY 10/20/23 01/02/24 Unknown History tablet (Citrucel) niacinamide 500 mg tablet 500 mg PO DAILY 10/20/23 01/02/24 Unknown History phytosterol 450 mg tablet mg PO TID 10/20/23 01/02/24 Unknown History pregnenolone PO 10/20/23 01/02/24 Unknown History theracumin PO 10/20/23 01/02/24 Unknown History naltrexone 1.5 mg capsule (Naltrex) mg PO 01/02/24 01/02/24 Unknown History saw palmetto 160 mg capsule 320 mg PO DAILY 01/02/24 01/02/24 Unknown History Tums 03/11/24 03/11/24 Unknown History omeprazole 40 mg capsule,delayed 40 mg PO DAILY 03/11/24 03/11/24 Unknown History release Exam Pertinent Lab Results Pertinent Lab Results: Laboratory Tests 10/10/23 09:02 WBC 6.3 Hgb 15.0 Hct 44.5 Plt Count 304 Sodium 141 Potassium 4.2 Chloride 106 Carbon Dioxide 28 BUN 14 Creatinine 0.94 Assessment and Plan Assessment Anesthesia Assessment: Chart Reviewed Documented by User: Macy Asencio MD 03/11/24 13:52 PMF Active Problems Active Problems: All Active Problems Multiple pulmonary nodules (Acute) Abscess (Acute) GERD (gastroesophageal reflux disease) (Acute) Environmental allergies (Acute) Chronic allergic rhinitis (Acute) Skin tag (Acute) Leg cramps (Acute) Lumbar radiculopathy (Acute) Sacroiliac joint dysfunction of right side (Acute) Obesity (BMI 36.6) IBS (irritable bowel syndrome) (Acute) Chronic Cough (Acute) Candidiasis (Acute) Rectal bleed (Acute) Allergies (Acute) Knee pain, right (Acute) Abnormal colonoscopy (Acute) Mammogram normal (Acute) Annual physical exam (Acute) Normal Pap smear (Acute) Multiple thyroid nodules (Acute) Acquired hypothyroidism (Acute) Hyperlipidemia (Acute) Sinusitis, acute ethmoidal (Acute) Asthma Hypercholesterolemia ? Allergy to propofol. Patient not sure. Had hives at home following Colonoscopy. Attributed to propofol. Review of old records reveal propofol list ed as allergy before colonoscopy. Patient states not sure that hives were due to propofol. No problems eating eggs Past Medical History Medical History Sacroiliac joint dysfunction of right side Candidiasis Rectal bleed Allergies Knee pain, right Abnormal colonoscopy Mammogram normal Annual physical exam Normal Pap smear Multiple thyroid nodules Acquired hypothyroidism Martha's thyroiditis IBS (irritable bowel syndrome) Overweight Peripheral neuropathy Lumbar radiculopathy Hyperlipidemia Family History Family History Father Stroke Hyperlipidemia CVD (cardiovascular disease) Mother Hyperlipidemia Thyroid disease Family history of problems with anesthesia: No Surgical History Surgical History S/P fine needle aspiration History of endometrial ablation Hx of dilation and curettage [place] teeth extracted H/O sigmoidoscopy History of tonsillectomy and adenoidectomy H/O colonoscopy History of Problems with Anesthesia: No Social History Social History Household Members: Spouse Household Members Other:: Housing: House Alcohol intake: current Alcohol intake frequency: holidays/special occasions only Patient Tobacco Use Status: Never used Tobacco e-Cigarette/Vaping Use: Never Used Are you DNR?: No Advance Directives: No Advance Directives Information Provided: Yes Nutrition Risks: No Nutritional Risk Current occupational status: employed Cognitive needs: No Hearing needs: No Vision needs: Yes Meds Allergies Allergy/AdvReac Type Severity Reaction Status Date / Time Sulfa (Sulfonamide Allergy Intermediate NAUSEA/VOMI Verified 01/08/24 09:40 Antibiotics) TING [SULFA(SULFONAMIDE ANTIBIOTICS)] ampicillin [AMPICILLIN] Allergy Mild RASH Verified 01/08/24 09:40 bupropion [From Wellbutrin] Allergy Mild Hives Verified 01/08/24 09:40 clarithromycin [From BIAXIN] Allergy Mild NAUSEA Verified 01/08/24 09:40 atorvastatin [Lipitor] Allergy Unknown leg cramps Verified 01/08/24 09:40 cefaclor Allergy Unknown Unknown Verified 01/08/24 09:40 doxycycline Allergy Unknown Rash Verified 01/08/24 09:40 erythromycin base Allergy Unknown sick to Verified 01/08/24 09:40 [ERYTHROMYCIN BASE] stomach ezetimibe [Zetia] Allergy Unknown leg cramps Verified 01/08/24 09:40 morphine [MORPHINE] Allergy Unknown VOMITING Verified 01/08/24 09:40 propofol [PROPOFOL] Allergy Unknown HIVES Verified 01/08/24 09:40 rosuvastatin [Crestor] Allergy Unknown leg cramps Verified 01/08/24 09:40 sulfacetamide Allergy Unknown Gastrointestinal Verified 01/08/24 09:40 Upset simvastatin AdvReac Unknown leg cramps Verified 01/08/24 09:40 From CEFTIN Allergy Mild NAUSEA Uncoded 01/08/24 09:40 Ceftin Allergy Unknown Unknown Uncoded 01/08/24 09:40 Doxycycline Hyclate Allergy Unknown Rash Uncoded 01/08/24 09:40 Home Medications ?Medication ?Instructions ?Recorded ?Confirmed ?Last Taken ?Type levothyroxine 100 mcg capsule 100 mcg PO DAILY 05/14/21 01/02/24 03/11/24 History (Tirosint) progesterone micronized 100 mg See Rx Instructions PO QAM 05/14/21 01/02/24 Unknown History capsule cholecalciferol (vitamin D3) 125 125 mcg PO DAILY 08/24/22 01/02/24 Unknown History mcg (5,000 unit) tablet lorazepam 1 mg tablet 1 mg PO DAILY PRN 08/24/22 01/02/24 Unknown History melatonin 10 mg capsule 10 mg PO BEDTIME PRN 08/24/22 01/02/24 Unknown History epinephrine 0.3 mg/0.3 mL IM 02/24/23 01/02/24 Unknown History injection, auto-injector jose cruza root extract 500 mg mg PO 10/20/23 01/02/24 Unknown History capsule calcium lact-mag citr-passion tab PO 10/20/23 01/02/24 Unknown History flower-valerian 25 mg-50 mg-20 mg tablet (MyoCalm) cetirizine 10 mg tablet (Zyrtec) 10 mg PO DAILY 10/20/23 01/02/24 Unknown History coq10 PO 10/20/23 01/02/24 Unknown History cortisol dental practice manager PO 10/20/23 01/02/24 Unknown History cream base no.143 (bulk) (BHRT appl transdermal BID 10/20/23 01/02/24 Unknown History Base transdermal cream) escitalopram oxalate 10 mg tablet 10 mg PO DAILY 10/20/23 01/02/24 03/11/24 History mayte C PO 10/20/23 01/02/24 Unknown History green tea extract PO 10/20/23 01/02/24 Unknown History magnesium glycinate 100 mg (as 400 mg PO DAILY 10/20/23 01/02/24 Unknown History glycinate) tablet methylcellulose (laxative) 500 mg 500 mg PO DAILY 10/20/23 01/02/24 Unknown History tablet (Citrucel) niacinamide 500 mg tablet 500 mg PO DAILY 10/20/23 01/02/24 Unknown History phytosterol 450 mg tablet mg PO TID 10/20/23 01/02/24 Unknown History pregnenolone PO 10/20/23 01/02/24 Unknown History theracumin PO 10/20/23 01/02/24 Unknown History naltrexone 1.5 mg capsule (Naltrex) mg PO 01/02/24 01/02/24 Unknown History saw palmetto 160 mg capsule 320 mg PO DAILY 01/02/24 01/02/24 Unknown History Tums 03/11/24 03/11/24 Unknown History omeprazole 40 mg capsule,delayed 40 mg PO DAILY 03/11/24 03/11/24 Unknown History release Exam Height,Weight and Vital Signs: Height 5 ft 5 in Weight 99.79 kg Vital Signs Temp Pulse Resp BP Pulse Ox O2 Del Method 03/11/24 11:54 97.9 F 76 20 141/78 H 98 Room Air Airway Mallampati Class: III TM Dist: >3cm Neck ROM: Full Loose/Missing/Broken Teeth: Yes (? broken tooth top left. Denies loose teeth) Heart: RRR Lungs: CTAB Assessment and Plan Assessment Anesthesia Assessment: Anesthesia Plan Discussed and Chart Reviewed Final Anesthetic Review Family History of Problems with Anesthesia: No History of Problems with Anesthesia: No NPO: Yes ASA Class: III Final Preanesthetic Review: No Changes in Pt Med Stat, Meds/Allgs Chart Reviewed, Consent Obtained/Reviewed and Anes Risks/Benef Reviewed Patient Risk: Intermediate Procedure Risk: Low Assessment/Block/Sedation in SS: Assess/Block/Sedation-SS Anesthetic Plan Anesthetic Plan: TIVA Disposition: Standard PACU
[2024-03-11 11:54] VITALS: BP 141/78; PULSE 76; RESP 20; TEMP 36.6; O2SAT 98; BMI 36.6
[2024-03-11] MEDS: Lactated Ringers 1,000 ML 100 ML IVCONT (12:17)
--- NOTE | 2024-03-11 13:43 | PC.NURSE ---
24hr update documented on paper
[2024-03-11 14:03] VITALS: BP 110/60; PULSE 78; RESP 16; TEMP 36.1; O2SAT 97
--- NOTE | 2024-03-11 14:07 | PM.OP ---
Brief Operative Note Date of Service: 03/11/24 Pre-op diagnosis: GERD, Cough Post-op diagnosis: other (Hiatal hernia, R/O Gallagher's) Procedure: EGD with biopsies Surgeon: Riki Portillo MD Anesthesia: MAC Was an Insights Manager used for this Procedure?: No Estimated blood loss (mL): 2.0 Pathology: other (A. EG Junction at 33cm) Condition: stable Disposition: PACU
[2024-03-11 14:08] VITALS: BP 117/82; PULSE 90; RESP 16; O2SAT 94
[2024-03-11 14:13] VITALS: BP 107/89; PULSE 92; RESP 16; O2SAT 95
[2024-03-11 14:18] VITALS: BP 127/76; PULSE 84; RESP 16; TEMP 36.2; O2SAT 95
--- NOTE | 2024-03-12 00:04 | OP_ITS ---
DATE OF SERVICE: 03/11/2024 SURGEON: Riki Portillo MD INDICATIONS: The patient presents for evaluation of chronic reflux and coughing. Full consent has been obtained from her for this, including risks of bleeding and perforation. PREOPERATIVE DIAGNOSIS: Gastroesophageal reflux and coughing. POSTOPERATIVE DIAGNOSIS: Gastroesophageal reflux and coughing, moderate sized hiatal hernia, rule out Gallagher esophagus. PROCEDURE PERFORMED: Esophagogastroduodenoscopy with biopsies. ESTIMATED BLOOD LOSS: COMPLICATIONS: ANESTHESIA: Monitored anesthesia care. ASSISTANTS: SPECIMENS: DESCRIPTION OF PROCEDURE: The patient was placed in the left lateral decubitus position. The Olympus video gastroscope was passed in the posterior oropharynx and upper esophagus under direct vision. The scope was passed slowly into the distal esophagus. The gastroesophageal junction appeared at 33 cm. There was some slight irregularity consistent with reflux and possibly small, less than 10 mm areas of Gallagher mucosa. There was no inflammation, ulceration, nor mass. The scope entered the stomach. There was a moderate-sized hiatal hernia. The hiatal hernia mucosa appeared normal. The scope was advanced to the pylorus and the duodenum was cannulated to the descending portion. The duodenum including the bulb appeared normal without mass or ulceration. The scope was withdrawn back in the stomach. The gastric antrum and body appeared normal with good peristalsis. The scope was retroflexed, visualizing the proximal stomach carefully, which appeared normal, without any sign of mass or ulceration. The scope was straightened and withdrawn back to the esophagus. Multiple biopsies were obtained at the EG junction at 33 cm. Proximal to this, the esophageal mucosa appeared normal. The scope was withdrawn back into the hypopharynx area. I obtained a good visualization of the vocal cords, which appeared normal, and there was no sign of any inflammation, erythema, nor ulceration. The scope was then withdrawn from the patient. She tolerated the procedure well and was returned to the recovery area in stable condition. IMPRESSION: Hiatal hernia, gastroesophageal reflux, rule out Gallagher esophagus. PLAN: The results of biopsies will be checked. At this point, she has been on a new regimen of omeprazole 40 mg daily instead of 20 mg daily and using that every afternoon instead of morning. She has also been taking Tums in the evening. She has only been on this new regimen for about 7 to 10 days. She has not noticed any change in her coughing, but I did advise her to continue this on a long-term basis for the time being. Her hiatal hernia with some nocturnal reflux may be contributing to the coughing. She has been given instructions not to use any food nor beverage for least 3 or 4 hours before bedtime to prevent any nocturnal reflux. If there is Gallagher esophagus without dysplasia, I would recommend a repeat upper endoscopy in 3 years. She was advised not to use any aspirin and NSAIDs for 1 week. Depending upon her clinical course, we could continue this line of treatment. Whether or not the hiatal hernia is contributing to the coughing is hard to say definitively. However, one option would be hiatal hernia repair to treat both the reflux and see if that helps with coughing. However, I would not necessarily carty into that, but we could play that by Ear. I will plan to see her in followup as well. MD NEISHA Andrade/SVETA / [phone]
== END 2024-03-11 15:04 | disposition home or self-care (01) ==
PROVIDERS: PCP Internal Medicine; Visit Provider Internal Medicine
PROC: 0DJ08ZZ Inspection of Upper Intestinal Tract, Via Natural or Artificial Opening Endoscopic (ICD-10-PCS; CPT 43235; principal; 2024-03-11 12:50)
DX: K21.9 Gastro-esophageal reflux disease without esophagitis (principal); R05.9 Cough, unspecified; K44.9 Diaphragmatic hernia without obstruction or gangrene; E78.00 Pure hypercholesterolemia, unspecified; F32.A Depression, unspecified; M51.36 Other intervertebral disc degeneration, lumbar region; Z79.899 Other long term (current) drug therapy
CPT/HCPCS: 43239; 88305; 88313; J1596; J2405; J2704

== ENCOUNTER 2024-08-06 10:52 | Outpatient (REF) | payer OTHER, SELFPAY ==
[2024-08-06 12:46] LABS: Parathyroid Hormone Intact 93.2 pg/mL (8.7-77.1)
[2024-08-06 12:49] LABS: Alanine Aminotransferase 28 U/L (0-31); Albumin Level 4.2 g/dL (3.5-5.0); Alkaline Phosphatase 64 U/L (39-117); Anion Gap 14 (12-20); Aspartate Amino Transferase 21 U/L (5-31); Bilirubin Total 0.6 mg/dL (0.0-1.0); Blood Urea Nitrogen 17 mg/dL (9-16); Calcium 9.1 mg/dL (8.4-10.2); Carbon Dioxide 26 mmol/L (22-29); Chloride 102 mmol/L (96-108); Estimated Glomerular Filt Rate > 60; Glucose Random 91 mg/dL (60-115); Potassium 3.9 mmol/L (3.3-5.1); Sodium 138 mmol/L (135-145); Total Protein 7.2 g/dL (6.5-8.0)
[2024-08-06 13:09] LABS: Thyroid Stimulating Hormone 0.04 uIU/mL (0.32-4.0); Vitamin D 25-OH Total 48.7 ng/mL (>30)
--- OUTSIDE RECORDS SUMMARY | 2024-08-07 20:27 | XMS_ITS | Continuity of Care Document ---
Author Name [facility] Organization [facility] Care Team Providers Care Fill Manager Name Role Phone [facility] Unavailable Unavailable Problems Combined list of problems from Department of Defense and Veterans Affairs facilities. It does not include entries that were removed or entered in error. Problem Status Onset Date Problem Type Date of Resolution Comments Source Insomnia Active Condition [facility] (6[facility]) Major depressive disorder Active Condition [facility] Problem related to social environment Active Condition [facility] Diagnosis: ICD-10-CM Z71.0 Prsn encntr hlth serv to consult on behalf of another person Active Diagnosis [facility] Diagnosis: ICD-10-CM Z74.1 Need for assistance with personal care Active Diagnosis [facility] Diagnosis: ICD-10-CM F32.9 Major depressive disorder, single episode, unspecified Active Diagnosis [facility] Diagnosis: ICD-10-CM F32.A Depression, unspecified Active Diagnosis [facility] Diagnosis: ICD-10-CM Z60.9 Problem related to social environment, unspecified Active Diagnosis [facility] Allergies, Adverse Reactions, Alerts Combined list of allergies from Department of [facility] and Veterans Affairs facilities. It does not include entries that were removed or entered in error. Substance Category Reaction Severity Reaction type Status Date Reported Comments Source AMPICILLIN (AMPICILLIN TRIHYDRATE) Drug allergy (disorder) Unknown active 01/20/2008 [facility] BIAXIN (CLARITHROMYC IN) Drug allergy (disorder) Unknown active 01/20/2008 [facility] BUPROPION HCL (BUPROPION HCL) Drug allergy (disorder) Unknown active 01/20/2008 [facility] CEFTIN (CEFUROXIME AXETIL) Drug allergy (disorder) Unknown active 01/20/2008 [facility] AGNES (ERYTHROMYCIN BASE/ETHANOL) Drug allergy (disorder) Unknown active 01/20/2008 [facility] SULFA-DRUGS Drug allergy (disorder) Unknown active 01/20/2008 [facility] Immunizations Combined list of available immunizations from the Department of Defense and Veterans Affairs facilities. Immunization Series Date Given Administered By Site Reaction Lot Number CVX Code Drug Wood Model Maker Status Comments Source COVID-19 (MODERNA), MRNA, LNP-S, PF, 100 MCG OR 50 MCG DOSE 2 2020 207 complet ed MOD; [id number]; [facility] COVID-19 (TODD), VECTOR-NR, [id number], PF, 0.5 ML 1 2020 212 complet ed JSN; [id number]; [facility] Encounters Combined list of: 1) Encounters from Department of Veterans Affairs facilities going back up to thelast 18 months. 2) Encounters from the Department of Defense facilities going back up to 280 months. Location Location Details Encounter Type Encounter Number Reason For Visit Attending Provider ADM Date DC Date Status Disposition Source [facility] [place] [facility] PSYTX W PT 45 MINUTES [id number] Diagnos is: ICD-10- CM Z60.9 Problem related to social environ ment, unspeci fied
MUKESH,CHR ISTIE 02/20 [facility] [place] [facility] [facility] [place] [place] [facility] CASE MANAGEMENT [id number] Diagnos is: ICD-10- CM Z71.0 Prsn encntr hlth serv to consult on behalf of another person< br/> VALERIA CHIN SE 03/02 [facility] [place] [place] [facility] [place] [place] [facility] PSYTX W PT 45 MINUTES [id number] Diagnos is: ICD-10- CM Z60.9 Problem related to social environ ment, unspeci fied
MUKESH,CHR ISTIE 03/13 [facility] PSYTX W PT 45 MINUTES [id number] Diagnos is: ICD-10- CM Z60.9 Problem related to social environ ment, unspeci fied
MUKESH,CHR ISTIE 04/03 [facility] PSYTX W PT 45 MINUTES [id number] Diagnos is: ICD-10- CM Z60.9 Problem related to social environ ment, unspeci fied
MUKESH,[facility] ISTIE 04/24 [facility] [place] PSYTX W PT 45 MINUTES [id number] Diagnos is: ICD-10- CM F32.A Depress ion, unspeci fied
MUKESH,[facility] ISTIE 05/22 [facility] Out[facility] En[facility] [id number] 05/22 [facility] En[facility] [id number] 06/19 [facility] En[facility] [id number] 06/23 [facility] PSYTX W PT 45 MINUTES [id number] Diagnos is: ICD-10- CM F32.A Depress ion, unspeci fied
MUKESH,CHR ISTIE 07/03 [facility]NAG[facility] [id number] Diagnos is: ICD-10- CM Z71.0 Prsn encntr hlth serv to consult on behalf of another person< br/> DAMARIS CHINI SE 07/26 [facility] PSYTX W PT 45 MINUTES [id number] Diagnos is: ICD-10- CM F32.9 Major depress lee disorde r, single episode , unspeci fied
MUKESH,CHR ISTIE 07/31 [facility] HC PRO PHONE CALL 11-20 MIN [id number] Diagnos is: ICD-10- CM Z71.0 Prsn encntr hlth serv to consult on behalf of another person< br/> GIUSEPPE,VALERIA 09/01 [facility] PSYTX W PT 30 MINUTES [id number] Diagnos is: ICD-10- CM F32.9 Major depress lee disorde r, single episode , unspeci fied
MUKESH,CHR ISTIE 10/29 [facility] [place] HC PRO PHONE CALL 11-20 MIN [id number] Diagnos is: ICD-10- CM Z74.1 Need for assista nce with persona l care
VALERIA CHIN 11/01 [facility] CASE MANAGEMENT [id number] Diagnos is: ICD-10- CM Z71.0 Prsn encntr hlth serv to consult on behalf of another person< br/> MATTI SHEFFIELD 11/22 [facility] [place] ASS[facility]/REAS SESSMENT [id number] Diagnos is: ICD-10- CM Z71.0 Prsn encntr hlth serv to consult on behalf of another person< br/> MATTI SHEFFIELD 04/04 [facility] [place] [facility] [facility] ASS[facility]/REAS SESSMENT [id number] Diagnos is: ICD-10- CM Z71.0 Prsn encntr hlth serv to consult on behalf of another person< br/> MATTI SHEFFIELD 08[facility]01 [facility] Social History Combined list of available smoking, tobacco, and other social history from Department of Defense and Veterans Affairs facilities. Social History Type Response Date Comment Sour e Tobacco smoking status [facility] NEVER USED 02/20/2023 [facility] [place] [facility] This section is an empty social history section. DoD
--- OUTSIDE RECORDS SUMMARY | 2024-08-07 20:27 | XMS_ITS | Encounter Summary ---
Author Name [facility] Organization [facility] Address [address] [place] [address] Selected Encounter This section includes the information on record at [place] for the Encounter. Date/Time Encounter Type Encounter Description Reason Provider Source Oct 30, 2023 03:00 PM PSYTX W PT 30 MINUTES [facility] ICD-10-CM F32.9 Major depressive disorder, single episode, unspecified MUKESH,NAKUL E IHE Encounter Template Text not used by [place] Assessments - Encounter Diagnoses This section includes the primary and secondary diagnoses documented for the Encounter. Date/Time Primary/Secondary Diagnosis Diagnosis Name Provider Source Oct 30, 2023 03:49 PM PRIMARY Major depressive disorder, single episode, unspecified MUKESH,NAKUL E [facility] [place] [facility] Oct 30, 2023 03:49 PM SECONDARY Insomnia, unspecified MUKESH,NAKUL E [facility] Oct 30, 2023 03:49 PM SECONDARY Problem related to social environment, unspecified MUKESH,NAKUL E [facility] [place] [facility] Social History: Smoking Status (Most current) and Tobacco Use (All prior to encounter date) This section includes the most current, and the historical, smoking and tobacco- related health factors from the [place] facility where the Encounter took place. Current Smoking Status This section includes the most current smoking, or tobacco-related health factor, from the [place] facility where the Encounter took place. Date/Time Current Smoking Status Comment Facil ity Feb 20, 2023 03:00 PM [facility]TO[facility]CO NEVER USED [facility] [place] [facility] Encounter Notes: All associated encounter notes This section contains the clinical notes associated to the Encounter. Date/Time Encounter Note(s) Provider Source Oct 30, 2023 03:00 PM TELEHEALTH NOTE: LOCAL TITLE: [place] [facility] SOCIAL WORK NOTE STANDARD TITLE: TELEHEALTH NOTE DATE OF NOTE: OCT 30, 2023@15:00 ENTRY DATE: OCT 30, 2023@15:42:59 AUTHOR: RAYNE MAYORGAER: URGENCY: STATUS: COMPLETED VISIT DURATION: 25 minutes DIAGNOSES: MDD; problems related to social environment; insomnia [employer] STATEMENT OF GOALS/CONCERNS: reported she is doing better now that she is on lexapro and mirtazapine. She said the latter is helping with sleep but is also causing weight gain and she isn't sure yet what her next steps will be regarding this. She shared the good news that she is going to be a grandmother. She talked about some of the concerns and complications for her daughter and son in law, but also how she plans to help her daughter care for the child. She said she may be able to join a group on dementia through the Support program. She said she would look into the [facility] support group if that doesn't work out. She said she felt in a good place to stop therapy and knows she can resume with the [facility] if she needs to. SESSION FOCUS: termination/next steps INTERVENTIONS: Psychotherapeutic Interventions: Assessment/discussion of sxs, well-being, and needs. Session review, bridging, and agenda setting. Discussed her psych medications and how she is doing on those and next steps. She will contine to be followed by the community clinic (the current prescriber is leaving but she will be referred to someone else in the group). Discussed therapy needs. Agreed this was a good time to take a break and clarified how she can resume in the future through [facility] support program. 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 ASSESSMENT: BRIEF ASSESSMENT OF MENTAL STATUS: 1. Appearance (grooming, attire, apparent age) within normal limits: Yes 2. Thought content was organized and goal directed: Yes 3. Speech was coherent and unimpaired: Yes 4. Affect was appropriate and unremarkable: Yes 5. Demeanor was calm, with no signs of agitation or restlessness: Yes 6. Sleep was largely unimpaired and restful: Yes 7. No evidence of psychosis (hallucinations or delusions): Not asked 8. Mood was normal: Improved/yes Other Observations: RISK ASSESSMENT: No evidence of s/h ideation PLAN FOR FOLLOW-UP: No further appointments at this time. [place] [facility] ([facility]VC) Standard Documentation [facility] Clinician Resources Only: E911 (Emergency Call Relay Center): [phone] [employer] Crisis Line - 988 then press #1. [facility] Suicide Coordinator [phone], Ext. [phone]; Back-up Ext. [phone] [place] Police, DUSTINJeannette, Segun [phone] Introduction: Visit is being conducted by [employer]. [place] identified with 2 identifiers: [ ] Full Name [ ] Date of [ ] VA ID Card Emergency Plan: confirmed and/or provided the following information in case of emergency or technology failure. PATIENT PHONE - PHONE NUMBER [CELLULAR] - NONE FOUND Is patient phone number correct, if not, enter below: 's phone number: NIKOLAI BYRD [address], [place], [address] [place]'s present location and address for appointment: same as above [place]'s emergency contact name and phone number: , see CPRS [place] reported that location is private and safe: Yes Informed Consent: [place] informed of the risks and benefits of Telehealth video care. has the right to refuse video services. If refuses video visit, a [id number] visit will be scheduled. verbalized consent for this video visit: Yes provided consent for any other persons present for visit: N/A If yes, who and relationship to patient: Secure visit: Visit was locked for security and privacy:Yes /mami/ JORGE AGUILA [employer] Signed: 10/30/2023 15:49 RAYNE MAYORGA [facility]
--- OUTSIDE RECORDS SUMMARY | 2024-08-07 20:27 | XMS_ITS ---
Author Name [facility] [place] [facility] [place] Address [address] [place] [id number] Selected Encounter This section includes the information on record at [place] for the Encounter. Date/Time Encounter Type Encounter Description Reason Provider Source Sep 01, 2023 03:07 PM HC PRO PHONE CALL 11-20 MIN TELEPHONE/ANCILLAR Y ICD-10-CM Z71.0 Prsn encntr hlth serv to consult on behalf of another person BEATRIZ CHIN Ramu Encounter Template Text not used by [place] Assessments - Encounter Diagnoses This section includes the primary and secondary diagnoses documented for the Encounter. Date/Time Primary/Secondary Diagnosis Diagnosis Name Provider Source Sep 01, 2023 03:07 PM PRIMARY Prsn encntr hlth serv to consult on behalf of another person BEATRIZ CHIN [facility] Plan of Treatment: Future Appointments (+ 6 months) and Future Tests (+/- 45 days) The Plan of Treatment section includes future care activities for the patient from all [place] treatmentfacilities. This section includes future appointments and future orders which are active, pending or scheduled. Future Appointments This section includes appointments that were scheduled to occur 6 months from the date of the Encounter, up to a maximum of 20 appointments. The data comes from all [place] treatment facilities. Appointment Date/Time Appointment Type Appointme nt Facility Name Oct 30, 2023 03:00 PM AMBULATORY - PSYCHIATRY [facility] Social History: Smoking Status (Most current) and Tobacco Use (All prior to encounter date) This section includes the most current, and the historical, smoking and tobacco- related health factors from the [facility] facility where the Encounter took place. Current Smoking Status This section includes the most current smoking, or tobacco-related health factor, from the [facility] facility where the Encounter took place. Date/Time Current Smoking Status Comment Radha leonardo Feb 20, 2023 03:00 PM [facility]ED [facility] Encounter Notes: All associated encounter notes This section contains the clinical notes associated to the Encounter. Date/Time Encounter Note(s) Provider Source Sep 01, 2023 03:07 PM CAREGIVER CERTIFIC ATE: LOCAL TITLE: CSP TELEPHONE NOTE STANDARD TITLE: CAREGIVER CERTIFICATE DATE OF NOTE: SEP 01, 2023@15:07 ENTRY DATE: SEP 01, 2023@15:07:53 AUTHOR: BEATRIZ CHIN EXP COSIGNER: URGENCY: STATUS: COMPLETED Tow Mate had a chance to speak to caregiver's therapist about transitioning caregiver's case to the Caregiver [facility] Resource [facility]. Caregiver has future appointment in October with therapist where therapist agreed to address this. She is aware that if therapist feels additional sessions would be helpful tht this would be okay based on her clinical judgement. Tow Mate did reach out to Norma to make her aware of the need for her case to eventually be transitioned the Caregiver MH Resource Hub. She is okay with this. She will be seeing her psychiatrist this month to address being prescribed some anxiety medication. If this works out, she is hoping that she doesn't need any therapy. Tow Mate suggested that MH Resource Hub might be helpful with transition and continuity of care under the circumstances. Tow Mate also made Norma aware of other [place] supports such as future [facility] Individual and Group Sessions focused on Dementia care. Norma expressed potential interest in both. Tow Mate agreed to forward her information and will follow up with Norma within next couple of weeks to enroll her if interested. Plan: Tow Mate to forward caregiver information on [facility] with future outreach call for potential enrollment in either individual or group sessions. /mami/ JORGE MISHRA BINMAN Signed: 09/01/2023 15:40 Receipt Acknowledged By: 09/01/2023 15:55 /mami/ RAYNE MAYORGA [facility] CLINICAL BINMAN BEATRIZ CHIN [facility]
--- OUTSIDE RECORDS SUMMARY | 2024-08-07 20:29 | XMS_ITS | Encounter Summary ---
Author Name [facility] [place] [facility] [place] [facility] [place] Address [address] [place] [address] Selected Encounter This section includes the information on record at [place] for the Encounter. Date/Time Encounter Type Encounter Description Reason Provider Source Apr 04, 2024 02:30 PM [facility] ICD-10-CM Z71.0 Prsn encntr hlth serv to consult on behalf of another person MATTI SHEFFIELD E Encounter Template Text not used by [place] Assessments - Encounter Diagnoses This section includes the primary and secondary diagnoses documented for the Encounter. Date/Time Primary/Secondary Diagnosis Diagnosis Name Provider Source Jul 30, 2024 04:57 PM PRIMARY Prsn encntr hlth serv to consult on behalf of another person [facility]ELD [facility] [place] Social History: Smoking Status (Most current) and Tobacco Use (All prior to encounter date) This section includes the most current, and the historical, smoking and tobacco- related health factors from the [place] facility where the Encounter took place. Current Smoking Status This section includes the most current smoking, or tobacco-related health factor, from the [place] facility where the Encounter took place. Date/Time Current Smoking Status Comment Facil ity Feb 20, 2023 03:00 PM VA-TOBACCO NEVER USED [place] [facility] [place] [facility] Encounter Notes: All associated encounter notes This section contains the clinical notes associated to the Encounter. Date/Time Encounter Note(s) Provider Source Apr 04, 2024 02:30 PM CAREGIVER CERTIFICATE: LOCAL TITLE: CSP PCAFC WELLNESS CONTACT CAREGIVER STANDARD TITLE: CAREGIVER CERTIFICATE DATE OF NOTE: APR 04, 2024@14:30 ENTRY DATE: JUL 30, 2024@16:22:41 AUTHOR: MATTI SHEFFIELDIGNER: URGENCY: STATUS: COMPLETED [facility] WELLNESS CONTACT - Caregiver This Family Caregiver is enrolled in the VA's Program of Comprehensive Assistance for Family Caregivers (PCAFC). While enrolled in the PCA, wellness contacts are required and must review the 's well-being, adequacy of personal care services being provided by the Family Caregiver(s), and the well-being of the Family Caregiver(s). This wellness contact will occur at a minimum of once every 120 days, and at least one visit must occur in the eligible Hillman's home on an annual basis. Date of Visit: 04/04/2024 Length of Visit: Full Name (last, first): Norma Byrd Date of : 1965 Method of contact: X In-Home CAREGIVER INFORMATION The caregiver is a: x Primary Family Caregiver __ Secondary Family Caregiver __ Secondary #2 Family Caregiver Caregiver is providing care to: Name: Daniele Byrd Does the caregiver live with the Hillman? X Yes __ No Have there been any changes to the caregiver's address, telephone number or e- mail address? __ Yes Updates: X No Is caregiver's contact information in electronic health record and the Caregiver Support Program IT system current? X Yes __ No Updates: CAREGIVER ASSESSMENT How has your physical/mental/emotiona l health been lately? Have there been any changes (falls, ER visits, hospitalizations)? Details: She discussed her own treatment, and issues with getting her medication correct with her providers. She discussed significant issues with being able to sleep, and she and the Hillman sleeping at different temperatures. What current challenges or stressors do you have, if any? Details: Significant stressors arise from taking care of the Hillman, and also coordinating care for her in-laws. They are both in LTC facilities but at different ones, and it has been an ongoing struggle to try and get them in the same facility. They need different levels of care, but to have them both in the same facility would make it easier for them to visit. She is the acting health care proxy for both of them. How are you coping with these issues? (discuss coping skills and support systems as appropriate, consider referral to mental health) Details: She has been trying to manage her time and energy as best able, and noted that she has been trying to educate herself further around dementia, to better understand her MiL's needs. We discussed a number of the behaviors that she exhibited before being placed, and how she was putting herself in danger due to her dementia and having very little insight. She noted that working with her has been difficult, as she wants to return to her home and doesn't understand her need for 24 hour care. Do you feel comfortable and safe in your home environment? X Yes __ No Details: What additional supports do you need to care for the Hillman, if any? (discuss respite services as appropriate) Details: She discussed the troubles of trying to sort out the 's prescriptions, getting them ordered and filled in a timely manner. How can the Caregiver Support Program support you? What goals/needs can we assist you with? Details: Nothing additional at this time. SUMMARY OF VISIT/ACTION TAKEN Details: Referrals: (check all that apply) __ CSL Education Calls __ [facility] __ Building Better Caregivers __ Caregivers FIRST __ Community Caregiver Support Group __ VA Caregiver Support Group __ VA Mental Health Therapy __ Caregiver Health and Wellbeing Coaching __ Peer Support Mentoring __ Fernanda Text __ Financial planning assistance __ Legal assistance __ Advance Care Planning Forms __ Other: /mami/ MATTI SHEFFIELD LCSW Clinical Hollow Handle Knife Assembler Signed: 07/30/2024 16:[address] [facility]
--- OUTSIDE RECORDS SUMMARY | 2024-08-07 20:29 | XMS_ITS | Continuity of Care Document ---
Author Organization [facility] Address [address] [place] [address]- Support Name Relationship Address Phone CARSON, ANUPAMA Personal Relationship Unknown U navailable GRANDCHAMP, ANUPAMA Personal Relationship Unknown U navailable GRANDCHAMP, ANUPAMA Personal Relationship Unknown U navailable GRANDCHAMP, ANUPAMA Personal Relationship Unknown U navailable GRANDCHAMP, ANUPAMA Personal Relationship Unknown U navailable GRANDCHAMP, ANUPAMA Personal Relationship Unknown U navailable GRANDCHAMP, ANUPAMA Personal Relationship Unknown U navailable GRANDCHAMP, ANUPAMA Personal Relationship Unknown U navailable GRANDCHAMP, ANUPAMA Personal Relationship Unknown U navailable GRANDCHAMP, ANUPAMA Personal Relationship Unknown U navailable GRANDCHAMP, ANUPAMA Personal Relationship Unknown U navailable GRANDCHAMP, ANUPAMA Personal Relationship Unknown U navailable GRANDCHAMP, ANUPAMA Personal Relationship Unknown U navailable GRANDCHAMP, ANUPAMA Personal Relationship Unknown U navailable GRANDCHAMP, ANUPAMA Personal Relationship Unknown U navailable GRANDCHAMP, ANUPAMA Personal Relationship Unknown U navailable GRANDCHAMP, ANUPAMA Personal Relationship Unknown U navailable GRANDCHAMP, ANUPAMA Personal Relationship Unknown U navailable GRANDCHAMP, ANUPAMA Personal Relationship Unknown U navailable GRANDCHAMP, ANUPAMA Personal Relationship Unknown U navailable GRANDCHAMP, ANUPAMA Personal Relationship Unknown U navailable GRANDCHAMP, ANUPAMA spouse Unknown Unavailabl e GRANDCHAMP, ANUPAMA Personal Relationship Unknown U navailable FREDETTE, BERTHA child Unknown Unavailabl e GRANDCHAMP, ANUPAMA Personal Relationship Unknown U navailable GRANDCHAMP, ANUPAMA Personal Relationship Unknown U navailable GRANDCHAMP, ANUPAMA Personal Relationship Unknown U navailable GRANDCHAMP, NIKOLAI Personal Relationship Unknown Unavailable GRANDCHAMP, ANUPAMA Personal Relationship Unknown U navailable GRANDCHAMP, ANUPAMA Personal Relationship Unknown U navailable GRANDCHAMP, ANUPAMA Personal Relationship Unknown U navailable GRANDCHAMP, ANUPAMA Personal Relationship Unknown U navailable GRANDCHAMP, ANUPAMA Personal Relationship Unknown U navailable GRANDCHAMP, ANUPAMA Personal Relationship Unknown [facility] Care Team Providers Care Bus Cleaner Name Role Phone Kayley Kruger MD Primary Care Physician [place] [facility] [place]18[place] - 07/18/24 [facility] [address] [place] [address]- Encounter Type: Triage Allergies, Adverse Reactions, Alerts Substance Criticality Severity Reaction Reaction Severity Status ampicillin Active doxycycline rash Active erythromycin Active cefuroxime Active sulfADIAZINE Active levothyroxine Active morphine Active propofol Active Ceftin Active Biaxin Active Wellbutrin Active Medications Biotin By Mouth, Daily, 0 Refills, Maintenance, 11/06/13 2:10:53 PM EDT Start Date: 11/06/13 Status: Ordered Repeat number: 1 Coenzyme Q10 By Mouth, 0 Refills, Maintenance, 12/03/13 1:37:32 PM EDT Start Date: 12/03/13 Status: Ordered Repeat number: 1 CoQ10 = 300 mg, By Mouth, Daily, 0 Refills, Maintenance, 08/30/18 7:53:05 AM EST Start Date: 08/30/18 Status: Ordered Repeat number: 1 cyclobenzaprine 10 mg oral tablet 1 tablet = 10 mg, By Mouth, 3 times a day, 0 Refills, Maintenance, 11/06/13 2:09:34 PM EDT Start Date: 11/06/13 Status: Ordered Repeat number: 1 LORazepam 1 mg oral tablet 0 Refill(s), 0 Refills, 05/23/24 11:52:00 AM EDT, Partial fill upon patient request if the prescription is for a schedule II opioid drug. Start Date: 05/23/24 Status: Ordered Repeat number: 1 Lovaza = 2,000 mg, By Mouth, 2 times a day, 0 Refills, Maintenance, 11/06/13 2:09:44 PM EDT Start Date: 11/06/13 Status: Ordered Repeat number: 1 Lovaza oral capsule 0 Refill(s), 0 Refills, 05/23/24 11:52:00 AM EDT, Partial fill upon patient request if the prescription is for a schedule II opioid drug. Start Date: 05/23/24 Status: Ordered Repeat number: 1 melatonin 5 mg oral tablet 1 tablet = 5 mg, By Mouth, Daily at bedtime, 0 Refills, Maintenance, 11/06/13 2:11:06 PM EDT Start Date: 11/06/13 Status: Ordered Repeat number: 1 Multivitamin By Mouth, Daily, 0 Refills, Maintenance, 11/06/13 2:10:25 PM EDT Start Date: 11/06/13 Status: Ordered Repeat number: 1 omeprazole 40 mg oral enteric coated capsule 30 each, 0 Refill(s), TAKE 1 CAPSULE BY MOUTH ONCE A DAY AT 4:00 PM, 0 Refills, 05/23/24 11:52:00 AMEDT, Partial fill upon patient request if the prescription is for a schedule II opioid drug. Start Date: 05/23/24 Status: Ordered Repeat number: 1 QUEtiapine 25 mg oral tablet 25 mg, 1, tablet, By Mouth, 3 times a day, Refills 0, Maintenance, 08/30/18 7:51:09 AM EST Start Date: 08/30/18 Status: Ordered Repeat number: 1 Repatha SureClick 140 mg/mL subcutaneous solution 6 mL, 0 Refill(s), 0 Refills, 05/23/24 11:51:00 AM EDT, Partial fill upon patient request if the prescription is for a schedule II opioid drug. Start Date: 05/23/24 Status: Ordered Repeat number: 1 Super B Complex 1 tablet, By Mouth, Daily, 0 Refills, Maintenance, 11/06/13 2:10:43 PM EDT Start Date: 11/06/13 Status: Ordered Repeat number: 1 Tirosint 100 mcg (0.1 mg) oral capsule 90 capsule, 0 Refill(s), 0 Refills, 05/23/24 11:51:00 AM EDT, Partial fill upon patient request if the prescription is for a schedule II opioid drug. Start Date: 05/23/24 Status: Ordered Repeat number: 1 Tirosint 75 mcg (0.075 mg) oral capsule 1 capsule = 75 mcg, By Mouth, Daily, No substitution. Brand name necessary, # 90 capsule, 3 Refills, Maintenance, 10/07/19 1:49:00 PM EST, [facility], [facility], [facility], cm, 10/07/19 13:27:00 EST, Height Start Date: 10/07/19 Stop Date: 02/04/20 Status: Ordered Quantity: 90.0 Unit: capsule Repeat number: 4 Vitamin C 500 mg oral tablet 1 tablet = 500 mg, By Mouth, Daily, 0 Refills, Maintenance, 11/06/13 2:12:08 PM EDT Start Date: 11/06/13 Status: Ordered Repeat number: 1 Vitamin D3 By Mouth, 0 Refills, Maintenance, 11/06/13 2:10:34 PM EDT Start Date: 11/06/13 Status: Ordered Repeat number: 1 ZyrTEC-D 5 mg-120 mg oral tablet, extended release 1 tablet, By Mouth, 2 times a day, # 180 tablet, 0 Refills, Maintenance, 08/30/18 7:51:36 AM EST, ER Tablet Start Date: 08/30/18 Status: Ordered Quantity: 180.0 Unit: tablet Repeat number: 1 Problem List Condition Confirmation Course Effective Dates Status Health St atus Informant Nontoxic multinodular goiter Confirmed Active Obese class II Confirmed Active Social History Social History Type Response Smoking Status Never smoker entered on: 01/24/18 Sex Sex Representation Female (finding) Patient Care team information Care Team Personnel Name: Kayley Kruger MD Position: [facility] Physician - Primary Care Member Role: PCP Address: [address] [place] [id number] Telecom: Care Team Related Persons Name: BERTHA GARCIA Name: ANUPAMA BYRD Insurance Providers Guarantor name[facility] Plan Information #: 1 Payer: NA Member Number: NA Policy Number: NA Group Number: NA
--- OUTSIDE RECORDS SUMMARY | 2024-08-07 20:29 | XMS_ITS ---
Author Organization [facility] Address [address] [place] [id number] Care Team Providers Care Physical Education Specialist Name Role Phone Kayley Kruger MD Primary Care Provider Unavaila Riki Ellis Unavailable [phone] Hai Jimenez MD Unavailable Unavailable ALLERGIES Allergen (clinical drug ingredient) Drug/Non Drug Allergy documented on EMR Reaction Allergy Type Onset Date Status Wellbutrin Unknown Drug Allergy Active Ceftin Unknown Drug Allergy Active Biaxin Unknown Drug Allergy Active dairy (uncoded) Unknown Allergy Acti ve dogs,cats, pigweed, ragweed, kiwi fruit (uncoded) Unknown Allergy Active morphine Morphine Unknown Drug Allergy Active erythromycin Erythromycin Unknown Drug Allergy A ctive doxycycline Doxycycline Unknown Drug Allergy Act lee Substance with sulfonamide structure and antibacterial mechanism of action (substance) Sulfa Antibiotics Unknown Drug Allergy Active propofol Propofol Unknown Drug Allergy Active Gluten Gluten Unknown Allergy Active Dust Mites Unknown Allergy Active ampicillin Ampicillin Unknown Drug Allergy Activ e REASON FOR VISIT patient presents today for f/u from cough MEDICATIONS Medication SIG (Take, Route, Frequency, Duration) Notes Start Date End Date Status Repatha SureClick 140 MG/ML Subcutaneous for 84 Active Escitalopram Oxalate 10 MG Oral for 90 Active Ashwagandha Active BHRTBase Active Citrucel Active CoQ10 Active Cyclobenzaprine HCl 10 MG 1 tablet at be dtime as needed Orally Once a day for 30 day(s) prn Active Lorazepam Active Mag Glycinate Active Melatonin Active Niacinamide ER Activ e Pregnenolone Active Progesterone Active Green Tea Extract Ac tive Saw Brandon Active ZyrTEC Active Mirtazapine 7.5 MG 2 tablets at bedtime Orally Once a day for 30 day(s) Active QUEtiapine Fumarate 25 MG 1 tablet at be dtime Orally Once a day for 30 day(s) Active Tums 500 MG 1 tablet Orally Once a day for 30 day(s) Active Cortisol Fare Register Repairer Act lee Tylenol PM Extra Strength Not-Taking Omeprazole 40 MG 1 Orally Twice a day in the morning and late afternnon/early evening for 90 days 04/30/2024 Active Vitamin D3 25 MCG (1000 UT) with k Orally Once a day Active Naltrexone Active Omeprazole 40 MG 1 Orally Once a day at 4:00 PM for 90 days 03/01/2024 Active Rosuvastatin Calcium 10 MG Oral for 60 Active Lovaza 1 GM Oral for 90 Active Tirosint 100 MCG Oral for 90 A ctive SOCIAL HISTORY Tobacco Use: Social History Observation Description Date Details (start date - stop date) Never Smoker NA - NA Sex Assigned At : Social History Observation Description Sex Assigned At Unknown Tobacco Use/Smoking Question Answer Notes Patient is a nonsmoker Alcohol Screen Question Answer Notes Did you have a drink contain ing alcohol in the past year? Yes How often did you have a dri nk containing alcohol in the past year? Never (0 point) How many drinks did you have on a typical day when you were drinking in the past year? 1 or 2 drinks (0 point) How often did you have 6 or more drinks on one occasion in the past year? Never (0 point) Points 0 Interpretation Negative VITAL SIGNS BMI 35.72 kg/m2 04/30/2024 Blood pressure systolic 00 mm Hg 04/30/20 24 Blood pressure diastolic 00 mm Hg 024 Height 5 ft 5.5 in in 04/30/2024 Weight 218 lbs 04/30/2024 Encounters Encounter Location Date Provider Diagnosis [facility] [address] [place] [address] 04/30/2024 Riki Portillo Chronic GERD K21.9 ; Cough R05.9 ; Hiatal hernia K44.9 ; Encounter for screening for malignant neoplasm of colon Z12.11 and History of colon polyps Z86.010 ASSESSMENTS Encounter Date Diagnosis Assessment Notes Treatment Notes Treatment Clinical Notes 04/30/2024 Chronic GERD (ICD-10 - K21.9) Increase 40mg omepraozle to twice a day for 1 to 2 months to see if that helps the cough. If it doesn't then go back to just once a day. Keep the 05/08 esophageal motility appt. Let me know what Dr. Russell says. 04/30/2024 Cough (ICD-10 - R05.9) 04/30/2024 Hiatal hernia (ICD-10 - K44.9) 04/30/2024 Encounter for screening for malignant neoplasm of colon (ICD-10 - Z12.11) Repeat colonoscopy in 202404/30/2024 History of colon polyps (ICD-10 - Z86.010) PLAN OF TREATMENT Medication Medication Name Sig Start Date Stop Date Notes Omeprazole 40 MG 1 Orally Twice a day in the morning and late afternnon/early evening for 90 days 04/30/2024 Treatment Notes Assessment Notes Chronic GERD Increase 40mg omepra ozle to twice a day for 1 to 2 months to see if that helps the cough. If it doesn't then go back to just once a day. Keep the 05/08 esophageal motility appt. Let me know what Dr. Russell says. Encounter for screening for malignant neoplasm of colon Repeat colonoscopy in 2024 Next Appt Details Follow Up: October 2024, Elielo n: Provider Name:Riki Portillo , 10/29/2024 10:10:00 AM, [address] [place] [address], [address], [place], [address], Progress Notes * Examination Category Sub-Category Detail Notes General Examination GENERAL APPEARANCE: pleasant , well nourished, well developed, in no acute distress HEAD: EYES: sclera non-icteric EARS: NOSE: THROAT: NECK/THYROID: no cervical lymphade nopathy, neck supple HEART: S1, S2 normal CHEST: LUNGS: clear to auscultatio n bilaterally ABDOMEN: normal bowel sounds, no guarding or rigidity, no guarding or rigidity, no masses palpable, soft, nontender, nondistended NEUROLOGIC: alert and oriented SKIN: nonjaundiced, no spi amadeo angiomata EXTREMITIES: no edema PERIPHERAL PULSES: BACK: BREASTS: MUSCULOSKELETAL: MALE GENITOURINARY: LYMPH NODES: RECTAL EXAM: FEMALE GENITOURINARY: ORAL CAVITY: mucosa moist"
--- OUTSIDE RECORDS SUMMARY | 2024-08-07 20:29 | XMS_ITS | Continuity of Care Document ---
[facility] Organization [facility] Address [address] [place] [address]- Support Name Relationship Address Phone CARSON, ANUPAMA [...] navailable GRANDCHAMP, ANUPAMA Personal Relationship Unknown U jailene ANUPAMA BYRD Personal Relationship Unknown U navailable Care Team Providers Care Commission Associate Name Role Phone Kayley Kruger MD Primary Care Physician [phone] Encounter [facility] [place] Date(s): 06/26/24 - 07/26/[address] [place] [address]- Encounter Type: Triage Allergies, Adverse Reactions, Alerts [...] Refills, Maintenance, 10/07/19 1:49:00 PM EST, Capsule, [facility], 168, cm, 10/07/19 13:27:00 EST, Height Start [...] Team Personnel Name: Kayley Kruger MD Position: [facility] Physician - Primary Care Member Role: PCP Address: [address] [place] [id number] Telecom: Care Team Related Persons Name: BERTHA GARCIA Name: ANUPAMA BYRD Insurance Providers Guarantor name: [facility] Plan Information #: 1 Payer: NA Member Number: NA Policy Number: NA Group Number: NA
--- OUTSIDE RECORDS SUMMARY | 2024-08-07 20:29 | XMS_ITS ---
Author Organization [facility] Address [address] [place] [address] Care Team Providers Care Athletics Teacher Name Role Phone Kayley Kruger MD Primary Care Provider Riki Restrepo Unavailable [phone] Barbara HUTCHINSON, Hai Unavailable Unavailable REASON FOR VISIT update (previous message told to call back in a few weeks.)still has cough.refer?/ fyi update PROBLEMS Problem Type ICD Code Onset Dates Problem Status W/U Status Risk SNOMED Code Notes Problem Hiatal hernia (K44.9) Active confirmed Hiatal hernia (51948317) Encounters Encounter Location Date Provider Diagnosis [facility] [address] [place] [address] 04/04/2024 Riki Portillo Chronic GERD K21.9 ; Hiatal hernia K44.9 and Cough R05.9 ASSESSMENTS Encounter Date Diagnosis Assessment Notes Treatment Notes Treatment Clinical Notes 04/04/2024 Chronic GERD (ICD-10 - K21.9) 04/04/2024 Hiatal hernia (ICD-10 - K44.9) 04/04/2024 Cough (ICD-10 - R05.9) PLAN OF TREATMENT Pending Test Test Name Order Date Esophageal Motility study 04/04/2024 Next Appt Details Provider Name:Riki Portillo , 10/29/2024 10:10:00 AM, [address], [address], [place], [address],
--- OUTSIDE RECORDS SUMMARY | 2024-08-07 20:29 | XMS_ITS | Encounter Summary ---
Author Name [facility] Address [address] [place] [id number] Selected Encounter This section includes the information on record at [place] for the Encounter. Date/Time Encounter Type Encounter Description Reason Provider Source Nov 23, 2023 03:30 PM CASE MANAGEMENT CAREGIVER SUPPORT PROGRAM ICD-10-CM Z71.0 Prsn encntr hlth serv to consult on behalf of another person MATTI SHEFFIELD E Encounter Template Text not used by [place] Assessments - Encounter Diagnoses This section includes the primary and secondary diagnoses documented for the Encounter. Date/Time Primary/Secondary Diagnosis Diagnosis Name Provider Source Nov 23, 2023 04:29 PM PRIMARY Prsn encntr hlth serv to consult on behalf of another person [facility] Social History: Smoking Status (Most current) and Tobacco Use (All prior to encounter date) This section includes the most current, and the historical, smoking and tobacco- related health factors from the [place] facility where the Encounter took place. Current Smoking Status This section includes the most current smoking, or tobacco-related health factor, from the [place] facility where the Encounter took place. Date/Time Current Smoking Status Comment Facil malissa Feb 20, 2023 03:00 PM [facility]ACCO [facility] USED [facility] [place] [facility] Encounter Notes: All associated encounter notes This section contains the clinical notes associated to the Encounter. Date/Time Encounter Note(s) Provider Source Nov 23, 2023 04:17 PM CAREGIVER CERTIFICATE: LOCAL TITLE: [facility]SP [facility] WELLNESS CONTACT CAREGIVER STANDARD TITLE: CAREGIVER CERTIFICATE DATE OF NOTE: NOV 23, 2023@16:17 ENTRY DATE: NOV 23, 2023@16:18:13 AUTHOR: MATTI SHEFFIELD EXP COSIGNER: URGENCY: STATUS: COMPLETED [facility] WELLNESS CONTACT - Caregiver This Family Caregiver [...] one visit must occur in the eligible [place]'s home on an annual basis. Date of Visit: 11/23/2023 Length of Visit: 30minutes Full Name (last, first): Norma Byrd Date of : 1965 Method of contact: _ _ Telephone _X_ Telehealth / [facility] Video Connect Caregiver contact details: Best contact number for backup/emergency communication with caregiver (required): Phone number: __ Other: __ Caregiver declined to provide emergency contact information Caregiver location during visit: _ _ Home address: [address] [place] [phone] __ Other non-VA location __ Caregiver declined request to disclose current location If caregiver will not provide requested information: The caregiver must be made aware of the risks associated with not providing the information. The clinician must decide with the caregiver if the visit can continue without this information. The caregiver's understanding of the risks along with the clinician's plan to proceed or to use another care modality must be documented in the medical record. __ Others present for visit with caregiver's consent: Name: Carlos Byrd ([place]) Caregiver confirms location is private and safe for visit. _ X_ Yes Visit conducted by clinical video telehealth: _X_Yes __No Caregiver verbal consent obtained. _X_Yes __No Location/emergency number confirmed. _X_Yes __No __[facility] facility __ In-Home CAREGIVER INFORMATION The caregiver is a: _X _ Primary Family Caregiver __ Secondary Family Caregiver __ Secondary #2 Family Caregiver Caregiver is providing care to: Name: __Carlos Kizzy Byrd Does the caregiver live with the [place]? _X _ Yes __ No Have there been any changes to the caregiver's address, telephone number or e-mail address? __ Yes Updates: _X _ No Is caregiver's contact information in electronic health record and the Caregiver Support Program IT system current? _ _ Yes _X_ No Updates: CAREGIVER ASSESSMENT How has your physical/mental/emotiona l health been lately? Have there been any changes (falls, ER visits, hospitalizations)? Details: Alright , She has recently seen a psychiatrist for medication for depression and sleep . She notes that she has been put on a medication to improve her sleep that has caused her to gain weight, but her mood is improved. She also notes that her provider left, and that she will have to start seeing someone new at her next appointment, and discussed the challenges of starting over with a new psychiatric provider. What current challenges or stressors do you have, if any? Details: She notes that they have a significant stressor in taking care of the 's mother and step-father, who are both in nursing homes locally, but separate. They are trying to unify them in one facility, but there are waitlists and challenges. She is the health care proxy for both of them, and collaborates with other family members to assist in their care. How are you coping with these issues? (discuss coping skills and support systems as appropriate, consider referral to mental health) Details: She is working to educate herself about dementia, to be better prepared for any challenges in her [id number]-[id number]'s care. Do you feel comfortable and safe in your home environment? _X _ Yes __ No Details: What additional supports do you need to care for the , if any? (discuss respite services as appropriate) Details: Not at this time. How can the Caregiver Support Program support you? What goals/needs can we assist you with? Details: Discussed Fernanda Text, and has expressed interest in that. SUMMARY OF VISIT/ACTION TAKEN Details: Referrals: (check all that apply) __ CSL Education Calls __ [facility] __ Building Better Caregivers __ Caregivers FIRST __ Community Caregiver Support Group __ [facility] Caregiver Support Group __ [facility] Mental [facility] __ Caregiver Health and Wellbeing Coaching __ Peer Support Mentoring _X_ Fernanda Text __ Financial planning assistance __ Legal assistance __ Advance Care Planning Forms __ Other: /mami/ MATTI SHEFFIELD LCSW Clinical Tray Packer Signed: 11/23/2023 16:29 MATTI SHEFFIELD [place] [facility]
--- OUTSIDE RECORDS SUMMARY | 2024-08-07 20:30 | XMS_ITS ---
Author Organization [facility] Address [address] [place] [address] Care Team Providers Care Hay Stacker Name Role Phone Kayley Kruger MD Primary Care Provider Unavaila ble Black, Emily Unavailable [phone] Allergies Allergen (clinical drug ingredient) Drug/Non Drug Allergy documented on EMR Reaction Allergy Type Onset Date Status ampicillin Ampicillin rash Drug Allergy Activ e Biaxin black tongue Drug Allergy Acti ve Ceftin sick to stomach Drug Allergy A ctive erythromycin Erythromycin sick to stomach Drug Allergy Active morphine Morphine Sulfate vomiting Drug Allergy Active penicillin G Penicillin G Sodium Unknown Drug Allergy Active Propofol hives Drug Allergy Active Wellbutrin hives Drug Allergy Active doxycycline Doxycycline rash Drug Allergy Act lee Dust Mites Unknown Allergy Active Gluten Gluten Unknown Allergy Active Substance with sulfonamide structure and antibacterial mechanism of action (substance) Sulfa Antibiotics vomiting/diarrh ea Drug Allergy Active REASON FOR VISIT Pcp- 09/2022, Ingrown Nail, Heel pain Medications Medication SIG (Take, Route, Frequency, Duration) Notes Start Date End Date Status Melatonin Active Physical Therapy 3-4x per week for 3- 4 weeks 10/01/2014 Active Vitamin D3 Active Vitamin C Active Super B Complex Acti ve Simvastatin 10 MG 1 tablet in the even ing Orally Once a day Active Cyclobenzaprine HCl 10 MG 1 tablet Orall y Three times a day Active Multivitamin Active Lovaza 1 GM 2 capsules Orally Tw ice a day Active Co Q 10 100 MG 1 capsule with a tucker l Orally Once a day Active Vitamin E Active Synthroid 50 MCG 1 tablet Orally Once a day Active ZyrTEC Active Magnesium Glycinate Active Tirosint 100 MCG 1 capsule in the mor jean on an empty stomach Orally Once a day Active Phytosterol Esters A ctive Tylenol Active Tart Maza Active Naltrexone HCl Activ e LORazepam 1 MG 1 tablet at bedtime as needed Orally Once a day Active Cortisol Active Citrucel Active Adrenal Active Progesterone Active Benzonatate 100 MG 1 capsule as needed Orally Three times a day Active Night Splint AFO - L1930 1 wear at rest for 30 days Active Thyroid Active Ashwagandha 500 MG as directed Orally Active Repatha SureClick Ac tive Green Tea Extract Ac tive QUEtiapine Fumarate 25 MG 1 tablet at be dtime Orally Once a day Active Siberian Root Active Social History Tobacco Use: Social History Observation Description Date Details (start date - stop date) Never Smoker NA - NA Tobacco Use/Smoking Question Answer Notes Are you a: nonsmoker Additional Findings: Tobacco Non-User Current no n-smoker Alcohol Screen Question Answer Notes Did you have a drink contain ing alcohol in the past year? Yes How often did you have a dri nk containing alcohol in the past year? Monthly or less (1 point) Points 1 Interpretation Negative Tobacco use other than smoking: Question Answer Notes Are you an other tobacco user? No Vital Signs Height 5ft 5in in 04/06/2023 Weight 215 lbs 04/06/2023 BMI 35.77 kg/m2 04/06/2023 Procedures Procedure Date Ordered Date Performed Result Body Sit e 13586-Kjsxrucx Plate 04/06/2023 N/A Encounters Encounter Location Date Provider Diagnosis [facility] [place] [address] [place] [address] 04/06/2023 Emily Black Ingrown nail L60.0 ; Pain in right foot M79.671 ; Plantar fasciitis, bilateral M72.2 ; Other myositis of right foot M60.871 ; Bursitis of right foot M77.51 ; Pain in left foot M79.672 ; Other myositis of left foot M60.872 and Bursitis of left foot M77.52 Assessments Encounter Date Diagnosis (ICD Code) Assessment Notes Treatment Notes Treatment Clinical Notes Section Notes 04/06/2023 Ingrown nail (ICD-10 - L60.0) 04/06/2023 Pain in right foot (ICD-10 - M79.671) 04/06/2023 Plantar fasciitis, bilateral (ICD-10 - M72.2) Dx New problem, Prognosis Uncertain (4) Patient Educated with: HEEL CORD STRETCHES.pdf (HEEL CORD STRETCHES.pdf) Patient Educated with: RICE THERAPY.pdf (RICE THERAPY.pdf) 04/06/2023 Other myositis of right foot (ICD-10 - M60.871) 04/06/2023 Bursitis of right foot (ICD-10 - M77.51) 04/06/2023 Pain in left foot (ICD-10 - M79.672) 04/06/2023 Other myositis of left foot (ICD-10 - M60.872) 04/06/2023 Bursitis of left foot (ICD-10 - M77.52) Plan Of Treatment Medication Medication Name Sig Start Date Stop Date Notes Night Splint AFO - L1930 1 wear at rest for 30 days Treatment Notes Assessment Notes Plantar fasciitis, bilateral Patient Edu cated with: HEEL CORD STRETCHES.pdf (HEEL CORD STRETCHES.pdf) Patient Educated with: RICE THERAPY.pdf (RICE THERAPY.pdf) Pending Test Test Name Order Date 53079-Efmiefey Plate 04/06/2023 Next Appt Details Follow Up: 2 Weeks, Reason: Procedure Notes * Category Sub-Category Detail Notes Nail Avulsion Procedure A fine sterile e levator was placed between the eponychium, nail fold, and nail plate to separate the structures. A sterile nail splitter, and/or sterile 316 blade, was then used to longitudinally section the nail along its entire length through the eponychium to the area under the nail fold. The offending portion of nail was from the nail bed with a rolling action and then removed with a hemostat. No underlying bone was identified. There was minimal bleeding as hemostasis was achieved through the temporary use of either a digital tourniquet or the aforementioned local with epinephrine. A bacitracin sterile dressing was applied. Local wound aftercare instructions were discussed and dispensed. The patient was informed of both conservative and future surgical procedures to prevent recurrence. Tylenol or Motrin was recommended for pain or discomfort (60514) , Pt DEFERS matricectomy Anesthesia 3cc of 1 percent Lid ocaine Plain local anesthesic utilizing aseptic technique Location Medial nail border , T5 Progress Notes * Norma MCKEON MDOB: (57 yo F)Acc No.[id number]:04/06/2023 Progress Notes Patient:?Shandra Mckeon Provider:?Emily Toro DPM :1965???Age:57 Y???Sex:Female D ate:04/06/2023 Address:[address] [place], [place] [id number] Pcp:Kayley Kruger MD Subjective: * Chief Complaints: * ???Pcp- 09/2022Starr NailH eel pain * HPI: ???Heel pain:?Nature:?tenderness, sharp pain, stiffness.?Location:?Proximal plantar aspect of Heel , B/L.?Duration:?several months.?Course:?worse.?Aggrevated:?standing, walking, walking first thing in the morning/after rest.?Treatments:?rest.? * ROS:?General/Constitutional:?Nausea?denies.?Vomiting?denies.?Hunger Thirst?denies.?Loss appetite?denies.?Chills?denies.?Fatigue?denies.?Fever?denies.?Night Sweats?denies.?Unexplained weight loss?denies.?Unexplained weight gain?denies.?HEENTM:?Dentures?denies.?Dizziness?denies.?Glasses/contacts?denies.?Retinopathy?de nies.?Blurred/double vision?denies.?TMJ?denies.?Discharge/drainage?denies.?Implants?denies.?Sore throat?denies.?Dental implants?denies.?Hard of hearing ?denies.?Difficulty chewing/swallowing/speaking?denies.?Nose bleeds?denies.?Sore mouth?denies.?Respiratory:?On Oxygen?denies.?Pneumonia/pleurisy?denies.?Bronchitis?denies.?Emphysema?denies.?C oughing?denies.?Cough blood?denies.?Shortness of breath?denies.?Wheezing?denies.?Cardiovascular:?Pacemaker?denies.?MVP?denies.?WPW?denies.?CHF?denies.?Heart attack?denies.?Septal defect?denies.?Rapid beat?denies.?Chest pain ?denies.?Atrial Fib.?denies.?Murmur/Palpitations?denies.?Gastrointestinal:?Hemorrhoids?denies.?Stomach/Abdominal pain?denies.?Dark blood stool?denies.?Irritable bowel ?denies.?Constipation?denies.?Diarrhea?denies.?Hematology:?Swelling?denies.?Clots?denies.?Varicose Veins?denies.?Bruising?denies.?Bleeding problem?denies.?Genitourinary:?Blood urine?denies.?Frequent/Painfu/urination/bladder control?denies.?Kidney stones?denies.?Infection (UTI)?denies.?Nephropathy?denies.?sex trans dis (STD)?denies.?Prostate?denies.?Musculoskeletal:?Hammertoes?denies.?Bunions?denies.?Back Pain?admits.?Muscle Cramps/ Resting?denies.?Muscle cramps / walking?denies.?Generalized aches and pains?admits.?Weakness?denies.?Integ.:?Styles?denies.?Scars?denies.?Corns/calluses?admits.?Ingrown nails?denies.?Painful nails?denies.?Open Sores?denies.?Rashes?denies.?Neurologic:?Difficulty sleeping?denies.?Brain disorder?denies.?Numbness?admits.?Balance trouble?denies.?Confusion?denies.?Fainting/blackouts?denies.?Tingling?admits.?Tr emors?denies.? * Medical History:? * Surgical History:?tonsillect patrica and adenoidectomy wisdom teeth extraction D&C endometrial ablation colonoscopy 2007hemorrhoidectomy sigmoidoscopy Thyroid Biopsy * Hospitalization/Major Diagno stic Procedure:?Denies Past Hospitalization * Family History:?Mother: harris valentine?Father: alive, foot problems, diagnosed with Unspecified essential hypertension, Unspecified cerebral artery occlusion with cerebral infarction.?Maternal Grand Mother: diagnosed with Other malignant neoplasm of unspecified site.?Maternal Grand Father: diagnosed with Other malignant neoplasm of unspecified site.?Siblings: diagnosed with Family history of arthritis.? * Social History:?Tobacco Use:?Tobacco Use/Smoking?Are you a:?nonsmoker ?Additional Findings: Tobacco Non-User?Current non-smoker ?Tobacco use other than smoking?Are you an other tobacco user??No ???Drugs/Alcohol:?Drugs?Have you used drugs other than those for medical reasons in the past 12 months??No ?Alcohol Screen?Did you have a drink containing alcohol in the past year??Yes ?How often did you have a drink containing alcohol in the past year??Monthly or less (1 point) ?Points?1 ?Interpretation?Negative ???Miscellaneous:?no Caffeine, none. ?Children: yes, 2. ?no Exercise. ?Marital status: . 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 * Medications:?TakingQUEtiapin e Fumarate 25 MG Tablet 1 tablet at bedtime Orally Once a daySiberian Root Green Tea Extract Ashwagandha 500 MG Capsule as directed Orally Repatha SureClick Thyroid Benzonatate 100 MG Capsule 1 capsule as needed Orally Three times a dayProgesterone Citrucel Adrenal Cortisol Phytosterol Esters Naltrexone HCl LORazepam 1 MG Tablet 1 tablet at bedtime as needed Orally Once a dayTylenol Tart Maza Magnesium Glycinate Tirosint 100 MCG Capsule 1 capsule in the morning on an empty stomach Orally Once a dayZyrTEC Vitamin E Synthroid 50 MCG Tablet 1 tablet Orally Once a daySimvastatin 10 MG Tablet 1 tablet in the evening Orally Once a dayCyclobenzaprine HCl 10 MG Tablet 1 tablet Orally Three times a dayLovaza 1 GM Capsule 2 capsules Orally Twice a dayCo Q 10 100 MG Capsule 1 capsule with a meal Orally Once a dayMultivitamin Super B Complex Vitamin D3 Vitamin C Melatonin Physical Therapy 3-4x per week for 3-4 weeks Medication List reviewed and reconciled with the patientTaking QUEtiapine Fumarate 25 MG Tablet 1 tablet at bedtime Orally Once a dayTaking Siberian Root Taking Green Tea Extract Taking Ashwagandha 500 MG Capsule as directed Orally Taking Repatha SureClick Taking Thyroid Taking Benzonatate 100 MG Capsule 1 capsule as needed Orally Three times a dayTaking Progesterone Taking Citrucel Taking Adrenal Taking Cortisol Taking Phytosterol Esters Taking Naltrexone HCl Taking LORazepam 1 MG Tablet 1 tablet at bedtime as needed Orally Once a dayTaking Tylenol Taking Tart Maza Taking Magnesium Glycinate Taking Tirosint 100 MCG Capsule 1 capsule in the morning on an empty stomach Orally Once a dayTaking ZyrTEC Taking Vitamin E Taking Synthroid 50 MCG Tablet 1 tablet Orally Once a dayTaking Simvastatin 10 MG Tablet 1 tablet in the evening Orally Once a dayTaking Cyclobenzaprine HCl 10 MG Tablet 1 tablet Orally Three times a dayTaking Lovaza 1 GM Capsule 2 capsules Orally Twice a dayTaking Co Q 10 100 MG Capsule 1 capsule with a meal Orally Once a dayTaking Multivitamin Taking Super B Complex Taking Vitamin D3 Taking Vitamin C Taking Melatonin Taking Physical Therapy 3-4x per week for 3-4 weeks Medication List reviewed and reconciled with the patient * Allergies:?Morphine Sulfate: vomitingBiaxin: black tongueAmpicillin: rashWellbutrin: hivesErythromycin: sick to stomachCeftin: sick to stomachPropofol: hivesPenicillin G SodiumDoxycycline: rashSulfa Antibiotics: vomiting/diarrheaGluten: AllergyDust Mites: Allergyyes[Allergies Verified] Objective: * Vitals:?Ht: 5ft 5in, Wt:215, BMI:35.77, Shoe size: 9, Ht-cm: 165.1 cm, Wt-k.52 kg. * Examination: ???General Examination: ?GENERAL APPEARANCE:?Reveals a pleasant, alert, well nourished, well- developed, well hydrated individual, who demonstrates proper attention to hygiene/body habitus, and is in no acute distress, Pt serves as own historian for office visit today.?ORIENTED:?person, place, and time.?Ingrown Nail: ?INSPECTION:?Reveals nail incurvation, pain on palpation, groove hypertrophy , groove ischemia , Medial nail border , T5.?Heel Pain: ?INSPECTION REVEALS:?Pain on Palpation to Plantar Fascia med. and central bands, intrinsic musc., infra-calcaneal bursa, and med calc tubercle, B/L, No pain: posterior/superior heel, achilles bursa/tendon, sinus tarsi, peroneals, or with lateral heel compression; no limited STJ ROM, calor, or ecchymosis , B/L.?Orthopedic: ?MUSCLE STRENGTH:?5/5 all groups in a symmetrical fashion, B/L.?GAIT ABNORMALITY:? antalgic.?FOOT MORPHOLOGY:? Pes Planus structure, Decreased Ankle joint dorsiflexion ROM, knee extended.?DIGITAL DEFORMITIES:?Digital contracture, PIPJ, 2-5 B/L, incompl-reducible with WB, or to push-up test, no over, nor underlapping.?Neurological: ?SENSORY:?Neurological exam reveals intact sensorium, pain sensation normal, vibration sensation intact, pinprick sensation is normal in the lower extremities, Pt denies, anesthesia, burning, paresthesia, tingling, B/L.?TINEL'S COMPRESSION:?Negative tarsal tunnel, timmy pedis, and medial calcaneal nerves.? Assessment: * Assessment: 1.?Ingrown nail - L60.0?2.?P ain in right foot - M79.671?3.?Plantar fasciitis, bilateral - M72.2 (Primary), Acute problem, Complicated w/ Multiple Tx Options(4), Dx New problem, Prognosis Uncertain (4)?4.?Other myositis of right foot - M60.871?5.?Bursitis of right foot - M77.51?6.?Pain in left foot - M79.672?7.?Other myositis of left foot - M60.872?8.?Bursitis of left foot - M77.52? Plan: * Treatment: 2.?Ingrown nail?Procedure: 62766-Ynihwmmp Plate * Procedures:?Nail Avulsion:?Location?Medial nail border , T5.?Anesthesia?3cc of 1 percent Lidocaine Plain local anesthesic utilizing aseptic technique.?Procedure?A fine sterile elevator was placed between the eponychium, nail fold, and nail plate to separate the structures. A sterile nail splitter, and/or sterile 316 blade, was then used to longitudinally section the nail along its entire length through the eponychium to the area under the nail fold. The offending portion of nail was from the nail bed with a rolling action and then removed with a hemostat. No underlying bone was identified. There was minimal bleeding as hemostasis was achieved through the temporary use of either a digital tourniquet or the aforementioned local with epinephrine. A bacitracin sterile dressing was applied. Local wound aftercare instructions were discussed and dispensed. The patient was informed of both conservative and future surgical procedures to prevent recurrence. Tylenol or Motrin was recommended for pain or discomfort (70661) , Pt DEFERS matricectomy.? * Procedure Codes:?69495 Avuls ion Plate, Modifiers: T5 * Preventive Medicine:? ??Counseling:?Discussion:?-03: Office or other outpatient visit for the evaluation and management of a new patient, which required a medically appropriate history and/or examination and LOW level of DECISION MAKING for: 1 STABLE ACUTE UNCOMPLICATED PROBLEM, 2 OR MORE MINOR PROBLEMS, OR 1 STABLE CHRONIC PROBLEM, THAT POSE(S) A LOW RISK FOR MORBIDITY/MORTALITY. The visit on the day of the encounter encompassed interpreting the data and educating the patient as to the nature of their condition, treatment options available according to their individual PMH, meds, allergies, and overall health/living conditions, as well as any potential risks or complications that may occur from a failure to adhere to, and participate in, the recommended course of therapy. The discussion included a complete verbal, and/or written explanation of the examination results, any x-rays taken, the proposed diagnosis, and outline of the treatment plan. A schedule for future care needs was also explained. The patient verbalized an understanding of the instructions at this time and agreed to be an active participant in their treatment. If the patient should think of any questions or concerns after the visit, I have encouraged the patient to call the office.?Heel pain:?FASCIITIS: I explained to the patient the possible etiologies of Plantar Fasciitis including foot type/shoegear/activity level/exercise routine and the risks/benefits of all the different treatment options for heel pain including: No treatment at all, Rest, Ice, NSAIDs(only if well tolerated after meals), New/supportive Shoegear, Strappings and Tapings, Stretching exercises, Deep Tissue Massage, Heel cups/cushions, Arch support/shoe inserts, Custom orthoses, Topical analgesics including Aspercream/Voltaren gel, Night splint AFO for am stiffness, Cortisone injection therapy, Cast boot with crutches/cane/or walker for assisted ambulation, Physical Therapy, EPAT/ESWT, Interfil injection therapy, as well as surgical Garfield/Endoscopic Fasciitomy surgical procedures if needed. Recommendations were made to limit barefoot walking, eliminate wearing nonsupportive shoegear (i.e. flip-flops or sandals, or a shoe with an easily bendable, foldable, or twistable sole) and wear shoegear with a good solid sole, a supportive arch, and plenty of room for an insert/orthotic if necessary. If wearing sandals was required by the patient, we recommended orthopedic sandals such as Orthoheel or Birkenstock even while in the home. If the patient wore heels in the past, we recommended they continue, but eliminate the use of flats. The advantages and disadvantages of each option were discussed and the patients questions re: types of shoegear, custom vs prefabricated inserts, activity level, PO vs Topical medications (and their respective potential complications/drug interactions/side effects), and consistency in home treatment regimens for optimal success were answered to their satisfaction. Literature detailing plantar fasciitis and the various treatment options were dispensed and reviewed, Stretching exercises for the patients injury/diagnosis were discussed and demonstrated, Handouts were also given, Recommended a Night Splint to be worn daily for a minimum of 2 hours, Recommended a Night Splint to be worn daily for a minimum of 2 hours.? * Follow Up:?2 Weeks * Images: * Sign off status: Completed true * Provider:Makayla Toro DPM Date:?2022 Generated for Farooq dueñas/Anna/Michelleitting on:?08/07/2024 08:30 PM EST History and Physical Notes * HPI (History of Present Illness) Category Sub-Category Detail Notes Category Not es Heel pain Duration: several months Nature: tenderness, sharp pa in, stiffness Location: Proximal plantar asp ect of Heel , B/L Aggravated: standing, walking, w alking first thing in the morning/after rest Course: worse Treatments: rest Examination Category Sub-Category Detail Notes Category Not es Ingrown Nail INSPECTION: Reveals nail inc urvation, pain on palpation, groove hypertrophy , groove ischemia , Medial nail border , T5 Heel Pain INSPECTION REVEALS: Pain on Palp ation to Plantar Fascia med. and central bands, intrinsic musc., infra-calcaneal bursa, and med calc tubercle, B/L, No pain: posterior/superior heel, achilles bursa/tendon, sinus tarsi, peroneals, or with lateral heel compression; no limited STJ ROM, calor, or ecchymosis , B/L Neurological SENSORY: Neurological exa m reveals intact sensorium, pain sensation normal, vibration sensation intact, pinprick sensation is normal in the lower extremities, Pt denies, anesthesia, burning, paresthesia, tingling, B/L TINEL'S COMPRESSION: Negative tarsal alirio baylee, timmy pedis, and medial calcaneal nerves Orthopedic GAIT ABNORMALITY: antalgic FOOT MORPHOLOGY: Pes Planus structure , Decreased Ankle joint dorsiflexion ROM, knee extended DIGITAL DEFORMITIES: Digital contracture , PIPJ, 2-5 B/L, incompl-reducible with WB, or to push-up test, no over, nor underlapping MUSCLE STRENGTH: 5/5 all groups in a symmetrical fashion, B/L General Examination GENERAL APPEARANCE: Reveals a pleasant, alert, well nourished, well-developed, well hydrated individual, who demonstrates proper attention to hygiene/body habitus, and is in no acute distress, Pt serves as own historian for office visit today ORIENTED: person, place, and t sallie
--- OUTSIDE RECORDS SUMMARY | 2024-08-07 20:30 | XMS_ITS ---
Author Organization [facility] Address [address] [place] [address] Care Team Providers Care Pr Specialist Name Role Phone Kayley Kruger MD Primary Care Provider Riki Restrepo Unavailable [phone] Barbara HUTCHINSON, Hai Unavailable Unavailable REASON FOR VISIT requesting results of path and omeprazole to be sent to mail away MEDICATIONS Medication SIG (Take, Route, Fr equency, Duration) Notes Start Date End Date Status Omeprazole 40 MG 1 Orally Once a day at 4:00 PM for 90 days 03/01/2024 Active Encounters Encounter Location Date Provider Diagnosis [facility] [address] [place] [address] 03/21/2024 Riki Portillo Chronic GERD K21.9 ASSESSMENTS Encounter Date Diagnosis Assessment Notes Treatment Notes Treatment Clinical Notes 03/21/2024 Chronic GERD (ICD-10 - K21.9) PLAN OF TREATMENT Medication Medication Name Sig Start Date Stop Date Notes Omeprazole 40 MG 1 Orally Once a day at 4:00 PM for 90 days 03/01/2024 Next Appt Details Provider Name:Riki Portillo , 10/29/2024 10:10:00 AM, [address], [address], [place], [address],
--- OUTSIDE RECORDS SUMMARY | 2024-08-07 20:30 | XMS_ITS | Patient Health Record ---
Author Organization [facility] Address [address] [place] [phone] Care Team Providers Care Masonry Supervisor Name Role Phone Kayley Kruger MD Primary Care Provider Unavaila ble Riki Portillo Unavailable [phone] Barbara HUTCHINSON, Hai Unavailable Unavailable ALLERGIES Allergen (clinical drug ingredient) [...] ampicillin Ampicillin Unknown Drug Allergy Activ e RESULTS Component Value Reference Range Notes Pathology Reviewed date:03/21/2024 11:42:55 PM Interpretation: Performing Lab:[facility], [address] [place] [phone] Notes/Report: REASON FOR REFERRAL Referring Provider First Name Kayley Referring Provider Last Name Slick Referring Provider Speciality Internal M edicine Referred Organization [facility] Referred Provider Riki Portillo Referred Address [address] [facility],[place] [facility],[place], [place],[address], Referred Provider Specialty Gastroentero logy Referral Priority Routine MEDICATIONS Medication SIG (Take, Route, Frequency, Duration) Notes Start Date End Date Status Melatonin Active Tirosint 100 MCG Oral for 90 A ctive Repatha SureClick 140 MG/ML Subcutaneous for 84 Active Escitalopram Oxalate 10 MG Oral for 90 Active Ashwagandha Active BHRTBase Active Citrucel Active CoQ10 Active Cyclobenzaprine HCl 10 MG 1 tablet at be dtime as needed Orally Once a day for 30 day(s) prn Active Lorazepam Active Cortisol Food Services Coordinator Act lee Mag Glycinate Active Omeprazole 40 MG 1 Orally Twice a day in the morning and late afternnon/early evening for 90 days 04/30/2024 Active Niacinamide ER Activ e Pregnenolone Active Progesterone Active Green Tea Extract Ac tive [place] Active ZyrTEC Active Tylenol PM Extra Strength Not-Taking Mirtazapine 7.5 MG 2 tablets at bedtime Orally Once a day for 30 day(s) Active Vitamin D3 25 MCG (1000 UT) with k Orally Once a day Active QUEtiapine Fumarate 25 MG 1 tablet at be dtime Orally Once a day for 30 day(s) Active Naltrexone Active Tums 500 MG 1 tablet Orally Once a day for 30 day(s) Active Omeprazole 40 MG 1 Orally Once a day at 4:00 PM for 90 days 03/01/2024 Active Rosuvastatin Calcium 10 MG Oral for 60 Active Lovaza 1 GM Oral for 90 Active SOCIAL HISTORY Tobacco Use: Social History Observation [...] Never (0 point) Points 0 Interpretation Negative PROBLEMS Problem Type ICD Code Onset Dates Problem Status W/U Status Risk SNOMED Code Notes Problem Chronic GERD (K21.9) Active confirmed Gastroesophagea l reflux disease (disorder) (701114983) Problem Cough (R05.9) Active confirmed Cough (4 4904287) Problem History of colon polyps (Z86.010) Active confirmed History of poly p of colon (392359624) Problem Encounter for screening for malignant neoplasm of colon (Z12.11) Active confirmed Screening for malignant neoplasm of colon (807300552) Problem Gastro-esophage al reflux disease without esophagitis (K21.9) Active confirmed Gastro-esophage al reflux disease without esophagitis (739618498) Problem Hiatal hernia (K44.9) Active confirmed Hiatal hernia (37596350) VITAL SIGNS Blood pressure diastolic 00 mm Hg 04/30/2024 Height 5 ft 5.5 in in 04/30/2024 Blood pressure systolic 00 mm Hg 04/30/2024 Weight 218 lbs 04/30/2024 BMI 35.72 kg/m2 04/30/2024 Encounters Encounter Location Date Provider Diagnosis [facility] [address] [place] [phone] 03/11/2024 Riki Portillo Gastro-esophageal reflux disease without esophagitis K21.9 ; Hiatal hernia K44.9 and Chronic cough R05.3 [facility] [address] [place] [phone] 04/30/2024 Riki Portillo Chronic GERD K21.9 ; Cough R05.9 ; Hiatal hernia K44.9 ; Encounter for screening for malignant neoplasm of colon Z12.11 and History of colon polyps Z86.010 [facility] [address] [place] [phone] 03/01/2024 Riki Portillo Chronic GERD K21.9 ; Cough R05.9 ; History of colon polyps Z86.010 and Encounter for screening for malignant neoplasm of colon Z12.11 [facility] [address] [place] [phone] 03/01/2024 Riki Portillo [facility] [address] [place] [address] Drive [address] [place] [phone] 03/17/2024 Riki Portillo [facility] [address] [place] [address] Drive [address] [place] [phone] 03/21/2024 Riki Portillo Chronic GERD K21.9 [facility] [address] [place] [phone] 04/04/2024 Riki Portillo Chronic GERD K21.9 ; Hiatal hernia K44.9 and Cough R05.9 ASSESSMENTS Encounter Date Diagnosis Assessment Notes Treatment Notes Treatment Clinical Notes 03/11/2024 Gastro-esophageal reflux disease without esophagitis (ICD-10 - K21.9) 03/11/2024 Hiatal hernia (ICD-10 - K44.9) 04/30/2024 Cough (ICD-10 - R05.9) 04/30/2024 Chronic GERD (ICD-10 - K21.9) Increase 40mg omepraozle to twice a day for 1 to 2 months to see if that helps the cough. If it doesn't then go back to just once a day. Keep the 05/08 esophageal motility appt. Let me know what Dr. Russell says. 03/01/2024 Cough (ICD-10 - R05.9) 03/01/2024 Chronic GERD (ICD-10 - K21.9) Start taking the 40mg omeprazole every day at 4PM and take 2 or 3 TUMS every night at bedtime 03/21/2024 Chronic GERD (ICD-10 - K21.9) 04/04/2024 Hiatal hernia (ICD-10 - K44.9) 04/04/2024 Chronic GERD (ICD-10 - K21.9) 03/11/2024 Chronic cough (ICD-10 - R05.3) 04/30/2024 Hiatal hernia (ICD-10 - K44.9) 03/01/2024 History of colon polyps (ICD-10 - Z86.010) 04/04/2024 Cough (ICD-10 - R05.9) 04/30/2024 Encounter for screening for malignant neoplasm of colon (ICD-10 - Z12.11) Repeat colonoscopy in 202403/01/2024 Encounter for screening for malignant neoplasm of colon (ICD-10 - Z12.11) Repeat colonoscopy in 11/202404/30/2024 History of colon polyps (ICD-10 - Z86.010) PLAN OF TREATMENT Pending Test Test Name Order Date Esophageal Motility study 04/04/2024 Future Test Test Name Order Date UPPER GI ENDOSCOPY 03/01/2024 Next Appt Details Provider Name:Riki Jeannette Portillo , 10/29/2024 10:10:00 AM, [address] [place] [address], [place] [address], [place], [address], Insurance Providers Payer Name Payer Address Payer Phone Subscriber Number Group Number Insured Name Patient Relationship to Insured Coverage Start Date Coverage End Date [facility] (JADRA Lakisha MCCORMICK) [address] [place] [phone] [id number] NIKOLAI ESCOTO Self - patient is the insured MEDICAL (GENERAL) HISTORY Medical History History ICD Code Degenerative disc disease/Arthritis-lowe r back Hypercholesterolemia/high trigylcerides IBS HYPOTHYRODISM/HASHIMOTOS DX 2019 Urinary incontinence Depression Denies IL,DM,CVA,Lung disease,renal dise ase 3 previous colonoscopies wit h removal of polyps on at least one of them. She is due for another colonoscopy in 2024. Hiatal hernia seen on a CT scan of her c hest in November of 2023 Upper endoscopy in February revealed a moderate-sized hiatal hernia, but no evidence of significant esophagitis or Gallagher's esophagus Surgical History Surgery Date(Month/Year) Tonsillectomy and adenoidectomy [place] teeth extraction D&C Endometrial Ablation Hemorrhoid banding Nerve ablation for back pain
--- OUTSIDE RECORDS SUMMARY | 2024-08-07 20:30 | XMS_ITS ---
[facility] Organization [facility] Address [address] [place] [address] Care Team Providers Care Senior Asp Net Developer Name Role Phone Kayley Kruger MD Primary Care Provider Unavaila ble Black, Emily Unavailable [phone] Allergies Allergen (clinical drug ingredient) Drug/Non Drug [...] doxycycline Doxycycline rash Drug Allergy Act lee Substance with sulfonamide structure and antibacterial mechanism of action (substance) Sulfa Antibiotics vomiting/diarrh ea Drug Allergy Active REASON FOR VISIT off cx list Medications Medication SIG (Take, Route, Frequency, Duration) Notes Start Date End Date Status ZyrTEC Active Green Tea Extract Ac tive Thyroid Active Ashwagandha 500 MG as directed Orally Active Repatha SureClick 140 MG/ML as directed Subcutaneous Active Naltrexone Active Tylenol 325 MG 1 tablet as needed Orally every 4 hrs Active Simvastatin 10 MG 1 tablet in the even ing Orally Once a day Unknown Physical Therapy 3-4x per week for 3- 4 weeks 10/01/2014 Unknown Synthroid 50 MCG 1 tablet Orally Once a day Unknown Super B Complex Acti ve Vitamin D3 Active Vitamin C Active Co Q 10 100 MG 1 capsule with a tucker l Orally Once a day Active Melatonin Active Multivitamin Active Cyclobenzaprine HCl 10 MG 1 tablet Orall y Three times a day Active Lovaza 1 GM 2 capsules Orally Tw ice a day Active predniSONE 20 MG TAKE 3TABLETS DAILY X5DAYS & 2TABLETS DAILY X5DAYS & 1TABLET DAILY X5DAYS THEN DISCONTINUE Oral for 15 Days Active MoviPrep 100 GM USE DIRECTED Oral for 1 Days Active LORazepam 1 MG TAKE 1 TABLET BY JACY TH 2 HOURS PRIOR TO INJECTION AND MAY REPEAT 1 HOUR IF NEEDED Oral for 1 Days Active Fluconazole 100 MG TAKE 1 TABLET BY JACY TH TWICE A DAY Oral for 14 Days Active Hydrocortisone Acetate 25 MG UNWRAP AND _insert 1 SUPPOSITORY RECTALLY TWICE A DAY FOR 14 DAYS Rectal for 14 Days Active Terconazole 0.8 % _insert 1 APPLICATOR FUL VAGINALLY AT BEDTIME Vaginal for 3 Days Active Zolpidem Tartrate 5 MG TAKE 1 TABLET BY MOUTH DAILY BEFORE BEDTIME NEEDED FOR INSOMNIA Oral for 30 Days Active QUEtiapine Fumarate 25 MG 1 tablet at be dtime Orally Once a day Active Tirosint 100 MCG 1 capsule in the mor jean on an empty stomach Orally Once a day Active Niacinamide Active BHRT Base Active Vitamin B Complex - as directed Orally Active Citrucel 500 MG 2 tablets with a ful l glass of water as needed Orally Six times a day Active Benzonatate 100 MG 1 capsule as needed Orally Three times a day Active Progesterone Active Social History Tobacco Use: Social History Observation Description Date Details (start date - stop date) Never Smoker NA - NA Tobacco Use/Smoking Question Answer Notes Are you a: nonsmoker Additional Findings: Tobacco Non-User Current no n-smoker Alcohol Screen Question Answer Notes Did you have a drink containing alcohol in the p ast year? Yes Points 0 Interpretation Negative Vital Signs Height 5'5 in 04/20/2023 Weight 214 lbs 04/20/2023 BMI 35.61 kg/m2 04/20/2023 Encounters Encounter Location Date Provider Diagnosis [facility] [address] [place] [address] 04/20/2023 Emily Toro Plan Of Treatment No Information Progress Notes * Norma MCKEON MDOB: (59 yo F)Acc No.[id number]:04/20/2023 Progress Notes Patient:?Shandra MCKEON Provider:?Emily Toro DPM :1965???Age:57 Y???Sex:Female D ate:04/20/2023 Address:[address] [place], [place] [id number] Pcp:Kayley Kruger MD Subjective: * Chief Complaints: * ???1. Off cx list. * ROS:?General/Constitutional:?Nausea?denies.?Vomiting?denies.?Hunger Thirst?denies.?Loss appetite?denies.?Chills?denies.?Fatigue?denies.?Fever?denies.?Night Sweats?denies.?Unexplained weight loss?denies.?Unexplained weight gain?admits.?HEENTM:?Dentures?denies.?Dizziness?denies.?Glasses/contacts?admits.?Retinopathy?de nies.?Blurred/double vision?admits.?TMJ?denies.?Discharge/drainage?denies.?Implants?denies.?Sore throat?denies.?Dental implants?denies.?Hard of hearing ?denies.?Difficulty chewing/swallowing/speaking?denies.?Nose bleeds?denies.?Sore mouth?denies.?Respiratory:?On Oxygen?denies.?Pneumonia/pleurisy?denies.?Bronchitis?denies.?Emphysema?denies.?C oughing?admits.?Cough blood?denies.?Shortness of breath?denies.?Wheezing?denies.?Cardiovascular:?Pacemaker?denies.?MVP?denies.?WPW?denies.?CHF?denies.?Heart attack?denies.?Septal defect?denies.?Rapid beat?denies.?Chest pain ?denies.?Atrial Fib.?denies.?Murmur/Palpitations?denies.?Gastrointestinal:?Hemorrhoids?admits.?Stomach/Abdominal pain?denies.?Dark blood stool?denies.?Irritable bowel ?admits.?Constipation?admits.?Diarrhea?denies.?Hematology:?Swelling?denies.?Clots?denies.?Varicose Veins?denies.?Bruising?denies.?Bleeding problem?denies.?Genitourinary:?Blood urine?denies.?Frequent/Painfu/urination/bladder control?denies.?Kidney stones?denies.?Infection (UTI)?denies.?Nephropathy?denies.?sex trans dis (STD)?denies.?Prostate?denies.?Musculoskeletal:?Hammertoes?admits.?Bunions?denies.?Back Pain?admits.?Muscle Cramps/ Resting?denies.?Muscle cramps / walking?denies.?Generalized aches and pains?denies.?Weakness?denies.?Integ.:?Styles?denies.?Scars?denies.?Corns/calluses?admits.?Ingrown nails?admits.?Painful nails?denies.?Open Sores?denies.?Rashes?denies.?Neurologic:?Difficulty sleeping?admits.?Brain disorder?denies.?Numbness?admits.?Balance trouble?denies.?Confusion?denies.?Fainting/blackouts?denies.?Tingling?admits.?Tr emors?denies.? * Medical History:?Arthritis, Back,Hip,and Knee pain, Headaches, Chicken pox, Thyroid disorder, Degenerative Disc Disease, Osteo Athritis Spine, Spinal Stenosis, Sacrolitis, Lumbar Spondylosis, Acquired Spondylolisthesis, High Cholesterol, High Triglycerides, Irritable bowel syndrome, Hashimotos thyroiditis. * Surgical History:?tonsillect patrica and adenoidectomy , wisdom teeth extraction , D&C , endometrial ablation , colonoscopy 2006, hemorrhoidectomy , sigmoidoscopy , Thyroid Biopsy . * Family History:?Mother: aliv e, foot problems, foot problems, foot problems.?Father: alive, foot problems, foot problems, diagnosed with Unspecified essential hypertension, Unspecified cerebral artery occlusion with cerebral infarction.?Maternal Grand Mother: foot problems, diagnosed with Other malignant neoplasm of unspecified site.?Paternal Grand Mother: diagnosed with Other malignant neoplasm of unspecified site.?Paternal Grand Father: diagnosed with Other malignant neoplasm of unspecified site.?Maternal Grand Father: diagnosed with Other malignant neoplasm of unspecified site.?Siblings: diagnosed with Family history of arthritis.? nephew with diabetes. * Social History:?Tobacco Use:?Tobacco Use/Smoking?Are you a:?nonsmoker ?Additional Findings: Tobacco Non-User?Current non-smoker ???Drugs/Alcohol:?Drugs?Have you used drugs other than those for medical reasons in the past 12 months??No ?Alcohol Screen?Did you have a drink containing alcohol in the past year??Yes ?Points?0 ?Interpretation?Negative ???Miscellaneous:?Caffeine: no, none. ?Marital status: . 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 * Medications:?Taking Naltrexo ne , Taking Tylenol 325 MG Tablet 1 tablet as needed Orally every 4 hrs , Taking ZyrTEC , Taking Green Tea Extract , Taking Ashwagandha 500 MG Capsule as directed Orally , Taking Repatha SureClick 140 MG/ML Solution Auto-injector as directed Subcutaneous , Taking Thyroid , Taking Benzonatate 100 MG Capsule 1 capsule as needed Orally Three times a day , Taking Progesterone , Taking Citrucel 500 MG Tablet 2 tablets with a full glass of water as needed Orally Six times a day , Taking Vitamin B Complex - Capsule as directed Orally , Taking Niacinamide , Taking BHRT Base , Taking QUEtiapine Fumarate 25 MG Tablet 1 tablet at bedtime Orally Once a day , Taking Tirosint 100 MCG Capsule 1 capsule in the morning on an empty stomach Orally Once a day , Taking LORazepam 1 MG Tablet TAKE 1 TABLET BY MOUTH 2 HOURS PRIOR TO INJECTION AND MAY REPEAT 1 HOUR IF NEEDED Oral , Taking Fluconazole 100 MG Tablet TAKE 1 TABLET BY MOUTH TWICE A DAY Oral , Taking Hydrocortisone Acetate 25 MG Suppository UNWRAP AND _insert 1 SUPPOSITORY RECTALLY TWICE A DAY FOR 14 DAYS Rectal , Taking Terconazole 0.8 % Cream _insert 1 APPLICATORFUL VAGINALLY AT BEDTIME Vaginal , Taking Zolpidem Tartrate 5 MG Tablet TAKE 1 TABLET BY MOUTH DAILY BEFORE BEDTIME NEEDED FOR INSOMNIA Oral , Taking predniSONE 20 MG Tablet TAKE 3TABLETS DAILY X5DAYS & 2TABLETS DAILY X5DAYS & 1TABLET DAILY X5DAYS THEN DISCONTINUE Oral , Taking MoviPrep 100 GM Solution Reconstituted USE DIRECTED Oral , Taking Cyclobenzaprine HCl 10 MG Tablet 1 tablet Orally Three times a day , Taking Lovaza 1 GM Capsule 2 capsules Orally Twice a day , Taking Multivitamin , Taking Super B Complex , Taking Vitamin D3 , Taking Vitamin C , Taking Co Q 10 100 MG Capsule 1 capsule with a meal Orally Once a day , Taking Melatonin , Unknown Synthroid 50 MCG Tablet 1 tablet Orally Once a day , Unknown Simvastatin 10 MG Tablet 1 tablet in the evening Orally Once a day , Unknown Physical Therapy 3-4x per week for 3-4 weeks * Allergies:?Morphine Sulfate: vomiting, Biaxin: black tongue, Ampicillin: rash, Wellbutrin: hives, Erythromycin: sick to stomach, Ceftin: sick to stomach, Propofol: hives, Penicillin G Sodium, Doxycycline: rash, Sulfa Antibiotics: vomiting/diarrhea. Objective: * Vitals:?Ht:5'5 , Wt:214, BMI :35.61, Shoe size:9, Ht-cm: 165.1 cm, Wt-k.07 kg. Assessment: Plan: * Treatment: * Images: * The named appointment provid er may or may not be the originator of this progress note, and it is not deemed complete until electronically signed by the appointment provider. Sign off status: Pending * Provider:?Emily Toro DPM Date:?2022 Generated for Farooq dueñas/Anna/Margarita on:?08/07/2024 08:30 PM EST
--- OUTSIDE RECORDS SUMMARY | 2024-08-07 20:30 | XMS_ITS ---
[facility] Address [address] [address] Care Team Providers Care Medical Dermatologist Name Role Phone Kayley Kruger MD Primary Care Provider Unavaila ble Black, Emily Unavailable [phone] Allergies Allergen (clinical drug ingredient) Drug/Non Drug [...] ea Drug Allergy Active REASON FOR VISIT PCP - 09/2022, Open sore - Toe Medications Medication SIG (Take, Route, Frequency, Duration) Notes Start Date End Date Status Physical Therapy 3-4x per week for 3- 4 weeks 10/01/2014 Unknown Simvastatin 10 MG 1 tablet in the even ing Orally Once a day Unknown Night Splint AFO - L1930 1 wear at rest for 30 days Active Vitamin E Active Synthroid 50 MCG 1 tablet Orally Once a day Unknown Tylenol Active Magnesium Glycinate Active Tart Maza Active ZyrTEC Active Tirosint 100 MCG 1 capsule in the mor jean on an empty stomach Orally Once a day Active Naltrexone HCl Activ e LORazepam 1 MG 1 tablet at bedtime as needed Orally Once a day Active Adrenal Active Phytosterol Esters A ctive Cortisol Active Thyroid Active Repatha SureClick Ac tive Progesterone Active Benzonatate 100 MG 1 capsule as needed Orally Three times a day Active Citrucel Active Ashwagandha 500 MG as directed Orally Active Green Tea Extract Ac tive QUEtiapine Fumarate 25 MG 1 tablet at be dtime Orally Once a day Active Melatonin Active Siberian Root Active Multivitamin Active Vitamin D3 Active Super B Complex Acti ve Co Q 10 100 MG 1 capsule with a tucker l Orally Once a day Active Vitamin C Active Cyclobenzaprine HCl 10 MG 1 tablet Orall y Three times a day Active Lovaza 1 GM 2 capsules Orally Tw ice a day Active Zolpidem Tartrate 5 MG TAKE 1 TABLET BY MOUTH DAILY BEFORE BEDTIME NEEDED FOR INSOMNIA Oral for 30 Days Active MoviPrep 100 GM USE DIRECTED Oral for 1 Days Active predniSONE 20 MG TAKE 3TABLETS DAILY X5DAYS & 2TABLETS DAILY X5DAYS & 1TABLET DAILY X5DAYS THEN DISCONTINUE Oral for 15 Days Active LORazepam 1 MG TAKE 1 TABLET BY JACY TH 2 HOURS PRIOR TO INJECTION AND MAY REPEAT 1 HOUR IF NEEDED Oral for 1 Days Active Tirosint 100 MCG 1 capsule in the mor jean on an empty stomach Orally Once a day Active Hydrocortisone Acetate 25 MG UNWRAP AND _insert 1 SUPPOSITORY RECTALLY TWICE A DAY FOR 14 DAYS Rectal for 14 Days Active Fluconazole 100 MG TAKE 1 TABLET BY JACY TWICE A DAY Oral for 14 Days Active Terconazole 0.8 % _insert 1 APPLICATOR FUL VAGINALLY AT BEDTIME Vaginal for 3 Days Active QUEtiapine Fumarate 25 MG 1 tablet at be dtime Orally Once a day Active BHRT Base Active Vitamin B Complex - as directed Orally Active Citrucel 500 MG 2 tablets with a ful l glass of water as needed Orally Six times a day Active Niacinamide Active Ashwagandha 500 MG as directed Orally Active Thyroid Active Repatha SureClick 140 MG/ML as directed Subcutaneous Active Progesterone Active Benzonatate 100 MG 1 capsule as needed Orally Three times a day Active ZyrTEC Active Green Tea Extract Ac tive Tylenol 325 MG 1 tablet as needed Orally every 4 hrs Active Naltrexone Active Social History Tobacco Use: Social History Observation Description Date Details (start date - stop date) Never Smoker NA - NA Tobacco Use/Smoking Question Answer Notes Are you a: nonsmoker Additional Findings: Tobacco Non-User Current no n-smoker Alcohol Screen Question Answer Notes Did you have a drink containing alcohol in the p ast year? Yes Points 0 Interpretation Negative Tobacco use other than smoking: Question Answer Notes Are you an other tobacco user? No Problems Problem Type SNOMED Code ICD Code Onset Dates Problem Status W/U Status Risk Notes Problem Ulcer of toe of left foot (disorder) (1365944935 [id number]) Skin ulcer of toe of left foot, limited to breakdown of skin (L97.521) Active confirmed Problem Ulcer of toe of right foot (disorder) (8448373040 [id number]) Skin ulcer of toe of right foot, limited to breakdown of skin (L97.511) Active confirmed Improvement Vital Signs Height 5ft 5in in 04/27/2023 Weight 215 lbs 04/27/2023 BMI 35.77 kg/m2 04/27/2023 Encounters Encounter Location Date Provider Diagnosis [facility] [place] [address] [place] [address] 04/27/2023 Emily Black Skin ulcer of toe of right foot, limited to breakdown of skin L97.511 Assessments Encounter Date Diagnosis (ICD Code) Assessment Notes Treatment Notes Treatment Clinical Notes Section Notes 04/27/2023 Skin ulcer of toe of right foot, limited to breakdown of skin (ICD-10 - L97.511) Improvement Patient Educated with: WOUND CARE INSTRUCTIONS.p df (WOUND CARE INSTRUCTIONS.p df) 04/27/2023 Other Plan Of Treatment Treatment Notes Assessment Notes Skin ulcer of toe of right f oot, limited to breakdown of skin Patient Educated with: WOUND CARE INSTRUCTIONS.pdf (WOUND CARE INSTRUCTIONS.pdf) Next Appt Details Follow Up: prn, Reason: Procedure Notes * Category Sub-Category Detail Notes Debride skin< 25 sq cm Open wound Physician of record performed open wound selective debridement of first 25 sq cm or less, of devitilized necrotic/nonviable soft tissue, fibrin, and exudate extending from the epidermis through the dermis, utilizing sharp dissection with sterile 15 blade, and/or tissue nippers. Sterile antibiotic dressing applied, ANESTHESIA- was accomplished TOPICALLY with Lidocaine Hydrochloride Jelly 2 percent. Hemostasis was achieved through direct pressure. Post debridement measurements: 4 mm x 2mm x 1-2 mm. Character of the wound post debridement is stable (59833) Progress Notes * Norma MCKEON MDOB: (57 yo F)Acc No.[id number]:04/27/2023 Progress Notes Patient:?Shandra Mckeon Provider:?Emily Toro DPM :1965???Age:57 Y???Sex:Female D ate:04/27/2023 Address:[address] [place] [address] Pcp:Kayley Kruger MD Subjective: * Chief Complaints: * ???PCP - 09/2022Open sore - Toe * Medical History:? * Surgical History:?tonsillect patrica and adenoidectomy wisdom teeth extraction D&C endometrial ablation colonoscopy 2007hemorrhoidectomy sigmoidoscopy Thyroid Biopsy * Hospitalization/Major Diagno stic Procedure:?Denies Past Hospitalization * Family History:?Mother: harris wolf, foot problems, foot problems, foot problems.?Father: alive, [...] alcohol in the past year??Yes ?Points?0 ?Interpretation?Negative ???Miscellaneous:?no Caffeine, none. ?Children: yes, 2. ?Exercise: yes, walking. ?Marital status: . 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 * Medications:?TakingNaltrexon e Tylenol 325 MG Tablet 1 tablet as needed Orally every 4 hrsZyrTEC Green Tea Extract Ashwagandha 500 MG Capsule as directed Orally Repatha SureClick 140 MG/ML Solution Auto-injector as directed Subcutaneous Thyroid Benzonatate 100 MG Capsule 1 capsule as needed Orally Three times a dayProgesterone Citrucel 500 MG Tablet 2 tablets with a full glass of water as needed Orally Six times a dayVitamin B Complex - Capsule as directed Orally Niacinamide BHRT Base QUEtiapine Fumarate 25 MG Tablet 1 tablet at bedtime Orally Once a dayTirosint 100 MCG Capsule 1 capsule in the morning on an empty stomach Orally Once a dayLORazepam 1 MG Tablet TAKE 1 TABLET BY MOUTH 2 HOURS PRIOR TO INJECTION AND MAY REPEAT 1 HOUR IF NEEDED Oral Fluconazole 100 MG Tablet TAKE 1 TABLET BY MOUTH TWICE A DAY Oral Hydrocortisone Acetate 25 MG Suppository UNWRAP AND _insert 1 SUPPOSITORY RECTALLY TWICE A DAY FOR 14 DAYS Rectal Terconazole 0.8 % Cream _insert 1 APPLICATORFUL VAGINALLY AT BEDTIME Vaginal Zolpidem Tartrate 5 MG Tablet TAKE 1 TABLET BY MOUTH DAILY BEFORE BEDTIME NEEDED FOR INSOMNIA Oral predniSONE 20 MG Tablet TAKE 3TABLETS DAILY X5DAYS & 2TABLETS DAILY X5DAYS & 1TABLET DAILY X5DAYS THEN DISCONTINUE Oral MoviPrep 100 GM Solution Reconstituted USE DIRECTED Oral Cyclobenzaprine HCl 10 MG Tablet 1 tablet Orally Three times a dayLovaza 1 GM Capsule 2 capsules Orally Twice a dayMultivitamin Super B Complex Vitamin D3 Vitamin C Co Q 10 100 MG Capsule 1 capsule with a meal Orally Once a dayMelatonin QUEtiapine Fumarate 25 MG Tablet 1 tablet [...] stomach Orally Once a dayZyrTEC Vitamin E Night Splint AFO - L1930 1 wear at restTaking Naltrexone Taking Tylenol 325 MG Tablet 1 tablet as needed Orally every 4 hrsTaking ZyrTEC Taking Green Tea Extract Taking Ashwagandha 500 MG Capsule as directed Orally Taking Repatha SureClick 140 MG/ML Solution Auto-injector as directed Subcutaneous Taking Thyroid Taking Benzonatate 100 MG Capsule 1 capsule as needed Orally Three times a dayTaking Progesterone Taking Citrucel 500 MG Tablet 2 tablets with a full glass of water as needed Orally Six times a dayTaking Vitamin B Complex - Capsule as directed Orally Taking Niacinamide Taking BHRT Base Taking QUEtiapine Fumarate 25 MG Tablet 1 tablet at bedtime Orally Once a dayTaking Tirosint 100 MCG Capsule 1 capsule in the morning on an empty stomach Orally Once a dayTaking LORazepam 1 MG Tablet TAKE 1 TABLET BY MOUTH 2 HOURS PRIOR TO INJECTION AND MAY REPEAT 1 HOUR IF NEEDED Oral Taking Fluconazole 100 MG Tablet TAKE 1 TABLET BY MOUTH TWICE A DAY Oral Taking Hydrocortisone Acetate 25 MG Suppository UNWRAP AND _insert 1 SUPPOSITORY RECTALLY TWICE A DAY FOR 14 DAYS Rectal Taking Terconazole 0.8 % Cream _insert 1 APPLICATORFUL VAGINALLY AT BEDTIME Vaginal Taking Zolpidem Tartrate 5 MG Tablet TAKE 1 TABLET BY MOUTH DAILY BEFORE BEDTIME NEEDED FOR INSOMNIA Oral Taking predniSONE 20 MG Tablet TAKE 3TABLETS DAILY X5DAYS & 2TABLETS DAILY X5DAYS & 1TABLET DAILY X5DAYS THEN DISCONTINUE Oral Taking MoviPrep 100 GM Solution Reconstituted USE DIRECTED Oral Taking Cyclobenzaprine HCl 10 MG Tablet 1 tablet Orally Three times a dayTaking Lovaza 1 GM Capsule 2 capsules Orally Twice a dayTaking Multivitamin Taking Super B Complex Taking Vitamin D3 Taking Vitamin C Taking Co Q 10 100 MG Capsule 1 capsule with a meal Orally Once a dayTaking Melatonin Taking QUEtiapine Fumarate 25 MG Tablet 1 [...] a dayTaking ZyrTEC Taking Vitamin E Taking Night Splint AFO - L1930 1 wear at restUnknownSynthroid 50 MCG Tablet 1 tablet Orally Once a daySimvastatin 10 MG Tablet 1 tablet in the evening Orally Once a dayPhysical Therapy 3-4x per week for 3-4 weeks Medication List reviewed and reconciled with the patientUnknown Synthroid 50 MCG Tablet 1 tablet Orally Once a dayUnknown Simvastatin 10 MG Tablet 1 tablet in the evening Orally Once a dayUnknown Physical Therapy 3-4x per week for 3-4 weeks Medication List reviewed and reconciled with the patient * Allergies:?Morphine Sulfate: vomitingBiaxin: black tongueAmpicillin: rashWellbutrin: hivesErythromycin: sick to stomachCeftin: sick to stomachPropofol: hivesPenicillin G SodiumDoxycycline: rashSulfa Antibiotics: vomiting/diarrheayes[Allergies Verified] Objective: * Vitals:?Ht: 5ft 5in, Wt:215, BMI:35.77, Shoe size: 9, Ht-cm: 165.1 cm, Wt-k.52 kg. * Examination: ???Dermatologic: ?ULCER:? LOCATION Medial?T5, , SIZE, 10mm X 3mm X 2mm, BASE, granular, RIM, hyperkeratotic, UNDERMINING, absent, TRACKING, Full thickness breakdown of skin, DRAINAGE, serosanguineous, mild, NECROTIC TISSUE, loosely-adherent, yellow slough, MALODOR, absent, CALOR, absent, ERYTHEMA, absent, PAIN ON PALPATION, absent.? Assessment: * Assessment: 1.?Skin ulcer of toe of righ t foot, limited to breakdown of skin - L97.511, Response to treatment, Improvement? Plan: * Treatment: * Procedures:?Debride skin< 25 sq cm:?Open wound?Physician of record performed open wound selective debridement of first 25 sq cm or less, of devitilized necrotic/nonviable soft tissue, fibrin, and exudate extending from the epidermis through the dermis, utilizing sharp dissection with sterile 15 blade, and/or tissue nippers. Sterile antibiotic dressing applied, ANESTHESIA- was accomplished TOPICALLY with Lidocaine Hydrochloride Jelly 2 percent. Hemostasis was achieved through direct pressure. Post debridement measurements: 4 mm x 2mm x 1-2 mm. Character of the wound post debridement is stable (24101).? * Procedure Codes:? * Preventive Medicine:? ??Counseling:?Discussion:?-13: Office or other outpatient visit for the evaluation and management of an established patient, which required a medically appropriate history [...] have encouraged the patient to call the office.?Ulcer:?Plan Of Care reviewed with the patient. The patient was instructed on importance of proper wound care consisting of pressure reduction, maintainance of moist wound environment, The patient is to cleanse the wound daily with warm distilled water/peroxide/saline or betadine BID based on preference or product availability, The patient is to apply Rx or generic OTC antibiotic ointment to the wound and cover with a DSD daily, The patient was instructed to change dressings according to orders or PRN saturation, leaks, The patient was instructed to monitor and report any signs or symptoms of infection or any untoward reactions, Precautions Taken, include Offloading/Pressure reduction via rest, limited activity, shoe modification, insert modification, cane, crutches, or knee scooter depending on ability and availability, Sharp debridement as required, Padding, Topical medication as directed, Debridement frequency as indicated, The patient is to cont the local wound care as directed till completely healed.? * Follow Up:?prn * Images: * Sign off status: Completed true * Provider:?Emily Toro DPM Date:?2022 Generated for Farooq dueñas/Anna/Michelleitting on:?08/07/2024 08:29 PM EST History and Physical Notes * Examination Category Sub-Category Detail Notes Category Not es Dermatologic ULCER: LOCATION Medial T5, , SIZE, 10mm X 3mm X 2mm, BASE, granular, RIM, hyperkeratotic, UNDERMINING, absent, TRACKING, Full thickness breakdown of skin, DRAINAGE, serosanguineous, mild, NECROTIC TISSUE, loosely-adherent, yellow slough, MALODOR, absent, CALOR, absent, ERYTHEMA, absent, PAIN ON PALPATION, absent
--- OUTSIDE RECORDS SUMMARY | 2024-08-07 20:31 | XMS_ITS | Data Portability ---
Author Organization [facility] Address [address] [place] [address] Care Team Providers Care Engraver [employer] Name Role Phone GRAHAM CHAVIRA Primary Care Provider [phone] Assessment No assessment recorded. Plan of Treatment Reminders Order Date Submit Date Provider Last Modified By Organization Details Last Modified Time Details Appointments None recorded. Lab urinalysis , dipstick 2022 023 [facility], [address] [place] [address], [phone], 18:37:04 culture, urine 2022 023 [facility], [address] [place] [address], [place], [address], 06:07:30 Referral None recorded. Procedures None recorded. Surgeries None recorded. Imaging None recorded. Medication Orders None recorded. Patient TargetsNo targets recorded. Patient Instructions Encounter Date Encounter Id Patient Instructions Last Modified By Organization Details Last Modified Time 09/28/2022 [id number] upper and middle back (thoracic) strain: care instructions Not available 09/28/2022 18:37:04 constipation: care instructions [email or web address] Not available 09/28/2022 18:37:04 I would continue Motrin or Tylenol Urine dip was clear - no blood or signs of infection - this kind of rules out kidney stone or Kidney Infections. I would put heat on the area. If the pain worsen - go directly to the ER. You have the appointment with your back specialist I would discuss this tomorrow with them and get your feedback. I am going to send your urine to the lab. Please take medication for constipation - the pain may be related to that. I would be seen again if you develop: 1. Severe abdominal pain 2. Vomiting 3. Fever > 101.0 4. Blood in Stool 5. Blood in Urine. Thank you for using [facility], please feel free to contact us if you have any questions or concerns. [email or web address] Not available 09/28/2022 18:37:03 Reason for Referral None Reported. Results Created Date Observation Date Name Description Value Unit Range Abnormal Flag Note LastModifiedBy Organization Detail LastModifiedTime 09/28/19 23 10/01/2022 URINE CULTU RE, ROUTI NE urine culture, routine FINAL REPORT Not Available [facility] ([facility]) [address] [facility] [address], [place], [address], 10/01/2022 06:07:30 09/28/1910/01/2022 URINE CULTU RE, DULCEI NE result 1 NO GROWTH Not Available [facility] ([facility]) [address] [facility] [address], [place], [address], 10/01/2022 06:07:30 09/28/1909/28/2022 urina lysis , dipst ick Unknown Analyte Normal = light yellow Not Available [address], [address], 09/28/2022 17:46:46 09/28/1909/28/2022 urina lysis , dipst ick Unknown Analyte Normal = clear Not Available [address] [place] [address], [address], 09/28/2022 17:46:46 09/28/19 23 09/28/2022 urina lysis , dipst ick Unknown Analyte Normal = negati ve Not Available [address] [place] [address], [address], 09/28/2022 17:46:46 09/28/19 23 09/28/2022 urina lysis , dipst ick Unknown Analyte Normal = Negati ve Not Available [address]sarah flores [address], [place], [address], 09/28/2022 17:46:46 09/28/19 23 09/28/2022 urina lysis , dipst ick Unknown Analyte Normal = Negati ve Not Available [facility] [address], [place], [address], 09/28/2022 17:46:46 09/28/19 23 09/28/2022 urina lysis , dipst ick Unknown Analyte Normal = 1.010, 1.015, 1.020 Not Available [address]sarah flores [address], [place], [address], 09/28/2022 17:46:46 09/28/19 23 09/28/2022 urina lysis , dipst ick Unknown Analyte Normal = Negati ve Not Available [address]sarah flores [address], [place], [address], 09/28/2022 17:46:46 09/28/19 23 09/28/2022 urina lysis , dipst ick Unknown Analyte Normal = 6.5, 7.0, 7.5, 8.0 Not Available [facility] [address], [place], [address], 09/28/2022 17:46:46 09/28/19 23 09/28/2022 urina lysis , dipst ick Unknown Analyte Normal = Negati ve Not Available [address]sarah flores [address], [place], [address], 09/28/2022 17:46:46 09/28/19 23 09/28/2022 urina lysis , dipst ick Unknown Analyte Normal = 0.2, 1.0 Not Available [address]sarah flores [address], [place], [address], 09/28/2022 17:46:46 09/28/19 23 09/28/2022 urina lysis , dipst ick Unknown Analyte Normal = Negati ve Not Available [facility], [place], [address], 09/28/2022 17:46:46 09/28/19 23 09/28/2022 urina lysis , dipst ick Unknown Analyte Normal = Negati ve Not Available [facility], [place], [address], 09/28/2022 17:46:46 09/28/19 23 09/28/2022 urina lysis , dipst ick Unknown Analyte Yellow Not Available janee [address], [place], [address], 09/28/2022 17:46:46 09/28/19 23 09/28/2022 urina lysis , dipst ick Unknown Analyte Clear Not Available janee [address], [place], [address], 09/28/2022 17:46:46 09/28/19 23 09/28/2022 urina lysis , dipst ick Unknown Analyte Negati ve Not Available [facility], [place], [address], 09/28/2022 17:46:46 09/28/19 23 09/28/2022 urina lysis , dipst ick Unknown Analyte Negati ve Not Available [facility] [address] [place] [address], [place], [address], 09/28/2022 17:46:46 09/28/19 23 09/28/2022 urina lysis , dipst ick Unknown Analyte Negati ve Not Available [facility], [place], [address], 09/28/2022 17:46:46 09/28/1909/28/2022 urina lysis , dipst ick Unknown Analyte <=1.00 5 Not Available sarah flores [address], [place], [address], 09/28/2022 17:46:46 09/28/19 23 09/28/2022 urina lysis , dipst ick Unknown Analyte Negati ve Not Available sarah flores [address], [place], [address], 09/28/2022 17:46:46 09/28/19 23 09/28/2022 urina lysis , dipst ick Unknown Analyte 6.0 Not Available [facility] [address], [place], [address], 09/28/2022 17:46:46 09/28/19 23 09/28/2022 urina lysis , dipst ick Unknown Analyte Negati ve Not Available sarah flores [address], [place], [address], 09/28/2022 17:46:46 09/28/19 23 09/28/2022 urina lysis , dipst ick Unknown Analyte 0.2 E.U./d L Not Available sarah flores [address], [place], [address], 09/28/2022 17:46:46 09/28/19 23 09/28/2022 urina lysis , dipst ick Unknown Analyte Negati ve Not Available sarah flores [address], [place], [address], 09/28/2022 17:46:46 09/28/19 23 09/28/2022 urina lysis , dipst ick Unknown Analyte Negati ve Not Available [address] [facility], [place], [address], 09/28/2022 17:46:46 Result Notes None recorded. Problems Name Problem SNOMED Code Status Onset Date Resolution Date Notes Provider Name and Address Organization Details Recorded Time Disorder of thyroid gland 91802375 Active 2022 FREDY TITO null, [place] - [facility] 3 18:00:39 Disorder of back 52283615 Active 2022 FREDY TITO null, PA - [facility] 18:00:51 Osteoarthritis 204752191 Active 2022 FREDY TITO null, PA - [facility] 18:01:03 Spinal stenosis 00493520 Active 2022 FREDY TITO null, PA - [facility] 3 18:04:23 Problem Notes None recorded. Medical Equipment None Reported. Allergies Allergen ID Allergen Name Allergen Category Reaction Reaction Severity Criticality Documentation Date Start Date Code Code System Note Provider Name and Address Organization Details Recorded Time 927894 ampicilli n medicatio n rash Not available Not available 09/28/2022 733 RxNorm FREDY TITO null, PA - [facility] 17:50:08 738446 Biaxin medicatio n nausea Not available Not available 09/28/202214129 9 RxNorm FREDY TITO null, PA - [facility] 17:50:22 495508 Substance with sulfonami de structure and antibacte rial mechanism of action (substanc e) medicatio n vomiting Not available Not available 09/28/2022 23254 8003 SNOMED FREDY TITO null, PA - [facility] 17:50:41 968445 Wellbutri n medicatio n hives Not available Not available 09/28/2022 06909 RxNorm FREDY TITO null, PA - [facility] 17:50:57 076894 erythromy mk medicatio n vomiting Not available Not available 09/28/2022 4053 RxNorm FREDY TITO null, PA - [facility] 3 17:51:10 786839 Ceftin medicatio n vomiting Not available Not available 09/28/2022 09328 6 RxNorm FREDY TITO null, PA - [facility] 3 17:51:32 956760 propofol medicatio n hives Not available Not available 09/28/2022 8782 RxNorm FREDY TITO null, PA - [facility] 3 17:52:02 766661 morphine medicatio n vomiting Not available Not available 09/28/2022 7052 RxNorm FREDY TITO null, PA - [facility] 17:52:23 419951 doxycycli ne Not available rash Not available Not available 09/28/2022 3640 RxNorm FREDY TITO null, PA - [facility] 17:52:53 Medications Name Sig Start Date Stop Date Status Note LastModified by Organization Details LastModified Time [id number] 500mcg mini troches DISSOLVE 1 LUKE UNDER THE TONGUE 5 DAYS PER WEEK WITH 2 DAYS OFF 09/28 completed Not Available Not Available Not Available cyclobenzap rine 10 mg tablet TAKE 1 TABLET BY MOUTH EVERY 8 HOURS NEEDED FOR MUSCLE SPASM FOR 5 DAYS active Not Available Not Available No t Available azithromyci n 250 mg tablet TAKE 2 TABLETS BY MOUTH TODAY, THEN TAKE 1 TABLET DAILY FOR 4 DAYS 09/28 completed Not Available Not Available Not Available fluconazole 150 mg tablet TAKE 1 TABLET BY MOUTH ONE TIME ,MAY REPEAT IN 72 HOURS 09/28 completed Not Available Not Available Not Available hydrocortis one acetate 25 mg rectal suppository 09/28 completed Not Available Not Available Not Available benzonatate 100 mg capsule active Not Available Not Available Not Available indomethaci n 50 mg capsule TAKE 1 CAPSULE BY MOUTH THREE TIMES A DAY WITH FOOD FOR 5 DAYS 09/28 completed Not Available Not Available Not Available lorazepam 1 mg tablet PLEASE SEE ATTACHED FOR DETAILED DIRECTION S active Not Available Not Available No t Available methylpredn isolone 4 mg tablets in a dose pack TAKE 6 TABLETS ON DAY 1 DIRECTED ON PACKAGE AND DECREASE BY 1 TAB EACH DAY FOR A TOTAL OF 6 DAYS 09/28 completed Not Available Not Available Not Available vitamin E active Not Available Not Laura ilable Not Available Vitamin D3 active Not Available Not Av ailable Not Available CoQ10 active Not Available Not Availa ble Not Available Lovaza 1 gram capsule active Not Available Not Available Not Available Xyzal active Not Available Not Availa ble Not Available Tirosint 100 mcg capsule Take 1 capsule every day by oral route. active Not Available Not Available No t Available vitamins B1-B2-B3-B1 2-protease active Not Available Not Available N ot Available Repatha SureClick 140 mg/mL subcutaneou s pen injector active Not Available Not Available Not Available Repatha Pushtronex 420 mg/3.5 mL subcutaneou s wearable injector active Not Available Not Available Not Available Paxlovid 300 mg (150 mg x 2)-100 mg tablets in a dose pack TAKE 3 TABLETS BY MOUTH 2 TIMES DAILY X5 DAYS 09/28 completed Not Available Not Available Not Available Vitals Date Recorded Body height Body mass index (BMI) Body weight Oxygen saturation Oxygen saturation in Arterial blood by Pulse oximetry Heart rate Respiratory rate Body temperature Systolic blood pressure Diastolic blood pressure Provider Name and Address Organization Details Last Updated DateTime 3 167.64 cm 34.4 kg/m2 64936.1 7 g 98 % 98 % 78 /min 18 /min 98.8 [degF] 139 mm[Hg] 76 mm[Hg] FREDY DOLAN - [facility] 18:05:05 Social History Question Answer Notes LastModified by Organizat ion Details LastModified Time Tobacco Smoking Status Never Smoker FREDY iqbal, [place] - [facility] 09/28/2022 18:02:10 What Is Your Level Of Alcohol Consumption? Occasional Information not available 09/28/2022 Are You Currently Employed? No Information not available 09/28/2022 Do You Use Any Illicit Or Recreational Drugs? No Information not available 09/28/2022 Have You Recently Traveled Abroad? No Information not available 09/28/2022 Do You Or Have You Ever Used Any Other Forms Of Tobacco Or Nicotine? No Information not available 09/28/2022 Sex: Unknown Functional Status None recorded. Mental Status None recorded. Family History Nothing Reported. Medical History No medical history recorded. Gynecological HistoryNo gynecological history recorded. Obstetrics History GPAL:G 0 P 0 0 0 0 Immunizations Vaccine Type Date Status Note Provider Nam e and Address Organization Details Recorded Time COVID-19 vaccine, vector-nr, rS-Ad26, PF, 0.5 mL 11/10/2020 completed KELSI Bunn [facility] 09/28/2022 17:48:50 Influenza, split virus, quadrivalent, PF 05/13/2020 completed KELSI Bunn - [facility] 09/28/2022 17:48:50 Past Encounters Encounter ID Performer Location Encounter Start Date Encounter Closed Date Diagnosis/Indication Diagnosis SNOMED-CT Code Diagnosis ICD10 Code [id number] [address] [place] [address] 11/28/2021 13:00:40 11/28/2021 15:33:40 [id number] [address] [place] [address] 05/18/2016 14:19:24 05/18/2016 17:11:45 [id number] [address] [place] [address] 05/20/2016 13:12:48 05/20/2016 14:14:51 [id number] KELSI BESS [address] [place] [address] 09/28/2022 16:00:24 09/28/2022 18:39:47 Thoracic back pain 957549945 M54.6 Health Concerns Section Related Observation LastModified by Organization Detai ls LastModified Time None Recorded Concern Status LastModified by Organization Details LastModified Time None Recorded Advance Directives Directive None Recorded Payers Encounter Date Sequence Insurance Name Policy Number Policy Saunders Covered Member ID Saunders Member ID Guarantor Name 09/28/2022 1 [facility] ([facility]) [id number] Norma Mckeon [id number] Norma Mckeon Notes Date Note Type Note Provider Name and Address Organization Details Recorded Time 3 text/html Back Pain/Injury UCReported bypatient.source of patient informationInformation obtained from patient Location:middle of the back; pain is not radiating Quality:sharp Duration:2 days Alleviating Factors:nothing helps Aggravating Factors:cannot identifyNotes:The patient reports that on a ride back from [employer] started to get a deep sharp pain on the right thoracic area. 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 The patient deneis history of kidney stones. No urinary symptoms. The patient denies that she did have a higher than normal temperature. She denies any shortness of breath or chest pain. She does suffer from IBS so Constipation is an issue - but she has been having BM. Does not feel nauseated. KELSI BESS [address] [place], [address], [place] - [facility] 09/28/2022 21:52:03 OBGyn Episode No OBEpisode recorded.
--- OUTSIDE RECORDS SUMMARY | 2024-08-07 20:31 | XMS_ITS | Patient Health Record ---
Author Organization [facility] Address [address] [facility] [place] [address] Care Team Providers Care Yarder Name Role Phone Kayley Kruger MD Primary Care Provider Unavaila ble Black, Emily Unavailable [phone] Allergies Allergen (clinical drug ingredient) Drug/Non Drug [...] Sulfa Antibiotics vomiting/diarrh ea Drug Allergy Active Reason For Referral No Information Medications Medication SIG (Take, Route, Frequency, Duration) Notes Start Date End Date Status Cyclobenzaprine HCl 10 MG 1 tablet Orall y Three times a day Active Multivitamin Active Lovaza 1 GM 2 capsules Orally Tw ice a day Active Vitamin D3 Active Super B Complex Acti ve Co Q 10 100 MG 1 capsule with a tucker l Orally Once a day Active Vitamin C Active QUEtiapine Fumarate 25 MG 1 tablet at be dtime Orally Once a day Active Melatonin Active Siberian Root Active Ashwagandha 500 MG as directed Orally Active Green Tea Extract Ac tive Thyroid Active Repatha SureClick Ac tive Progesterone Active Benzonatate 100 MG 1 capsule as needed Orally Three times a day Active Adrenal Active Citrucel Active Phytosterol Esters A ctive Cortisol Active Tylenol 325 MG 1 tablet as needed Orally every 4 hrs Active Naltrexone Active Naltrexone HCl Activ e Tylenol Active LORazepam 1 MG 1 tablet at bedtime as needed Orally Once a day Active ZyrTEC Active Magnesium Glycinate Active Tart Maza Active Ashwagandha 500 MG as directed Orally Active ZyrTEC Active Green Tea Extract Ac tive Tirosint 100 MCG 1 capsule in the mor jean on an empty stomach Orally Once a day Active Thyroid Active Night Splint AFO - L1930 1 wear at rest for 30 days Active Repatha SureClick 140 MG/ML as directed Subcutaneous Active Vitamin E Active Progesterone Active Benzonatate 100 MG 1 capsule as needed Orally Three times a day Active Synthroid 50 MCG 1 tablet Orally Once a day Unknown Vitamin B Complex - as directed Orally Active Citrucel 500 MG 2 tablets with a ful l glass of water as needed Orally Six times a day Active Niacinamide Active Physical Therapy 3-4x per week for 3- 4 weeks 10/01/2014 Unknown Simvastatin 10 MG 1 tablet in the even ing Orally Once a day Unknown QUEtiapine Fumarate 25 MG 1 tablet at be dtime Orally Once a day Active BHRT Base Active LORazepam 1 MG TAKE 1 TABLET [...] A DAY Oral for 14 Days Active Zolpidem Tartrate 5 MG TAKE 1 TABLET BY MOUTH DAILY BEFORE BEDTIME NEEDED FOR INSOMNIA Oral for 30 Days Active Terconazole 0.8 % _insert 1 APPLICATOR FUL VAGINALLY AT BEDTIME Vaginal for 3 Days Active MoviPrep 100 GM USE DIRECTED Oral for 1 Days Active predniSONE 20 MG TAKE 3TABLETS DAILY X5DAYS & 2TABLETS DAILY X5DAYS & 1TABLET DAILY X5DAYS THEN DISCONTINUE Oral for 15 Days Active Social History Tobacco Use: Social History [...] Problem Status W/U Status Risk Notes Problem Bursitis (71154928) Bursitis (727.3) Active confirmed Problem Hammer toe (657399203) Hammer toe (735.4) Active confirmed Problem Myositis (88110551) Myositis (729.1) Active confirmed Problem Neuralgia - Neuritis (729.2) Active confirmed Problem Pain in limb (93579827) Pain in Limb (729.5) Active confirmed Problem Plantar fasciitis (649278221) Plantar Fasciitis (728.71) Active confirmed Problem Ramos splints (7456841530) Ramos Splints (844.9) Active confirmed Problem Ulcer of toe of right foot (disorder) (862333136051 11909) Skin ulcer of toe of right foot, limited to breakdown of skin (L97.511) Active confirmed Improvement Problem Ulcer of toe of left foot (disorder) (399281432775 01942) Skin ulcer of toe of left foot, limited to breakdown of skin (L97.521) Active confirmed Plan Of Treatment Pending Test Test Name Order Date 45952-[id number] Plate 04/06/2023 Insurance Providers Payer Name Payer Address Payer Phone Subscriber Number Group Number Insured Name Patient Relationship to Insured Coverage Start Date Coverage End Date [facility] [address] [place] [address] [id number] Carlos Kelly mp Spouse - patient is the spouse of the insured 2 Medical (General) History Medical History History ICD Code Arthritis Back,Hip,and Knee pain Headaches Chicken pox Thyroid disorder Degenerative Disc Disease, O steo Athritis Spine, Spinal Stenosis, Sacrolitis, Lumbar Spondylosis, Acquired Spondylolisthesis High Cholesterol, High Triglycerides Irritable bowel syndrome Hashimotos thyroiditis Surgical History Surgery Date(Month/Year) tonsillectomy and adenoidectomy wisdom teeth extraction D&C endometrial ablation colonoscopy 2007 hemorrhoidectomy sigmoidoscopy Thyroid Biopsy
[2024-08-07 21:28] LABS: DHEA Sulfate 84 mcg/dL (5-167); Sex Hormone Binding Globulin 33 nmol/L (14-73); Triiodothyronine T3 Free 3.6 pg/mL (2.3-4.2)
[2024-08-10 05:08] LABS: Iodine, Serum/Plasma 79 mcg/L (52-109)
[2024-08-14 07:14] LABS: Triiodothyronine T3 Reverse 22 ng/dL (8-25)
[2024-08-14 18:17] LABS: Progesterone 0.3 ng/mL
[2024-08-14 21:28] LABS: Testosterone, Free 5.9 pg/mL (0.1-6.4); Testosterone, Total 43 ng/dL (2-45)
[2024-08-15 17:23] LABS: Pregnenolone, LC/MS 39 ng/dL (22-237)
[2024-08-18 06:58] LABS: Estradiol Ultra Sensitive 17 pg/mL
== END 2024-08-06 10:53 | disposition home or self-care (01) ==
LOC: HO.LAB 10:52
PROVIDERS: PCP Internal Medicine; Visit Provider Allergy & Immunology Allergy
DX: E89.2 Postprocedural hypoparathyroidism (principal); N95.1 Menopausal and female climacteric states; E03.8 Other specified hypothyroidism; E55.9 Vitamin D deficiency, unspecified
CPT/HCPCS: 36415; 80053; 82306; 82627; 82670; 83789; 83970; 84143; 84144; 84270; 84402; 84403; 84439; 84443; 84481; 84482

== ENCOUNTER 2024-10-18 09:09 | Outpatient (REF) | payer OTHER, SELFPAY ==
--- NOTE | ~2024-10-18 | MM_ITS ---
EXAMINATION: DXA BONE DENSITY AXIAL HISTORY: Estrogen deficiency TECHNIQUE: [employer] Dual energy absorptiometry (DEXA) of the lumbar spine, total left hip, and femoral neck was performed. COMPARISON: There are no prior studies for comparison. FINDINGS: The bone mineral density of the lumbar spine is 1.280 with a T-score of 0.8, and a Z-score of 0.7. The bone mineral density of the left total hip is 1.059 with a T-score of 0.4, and a Z-score of 0.4. The bone mineral density of the left femoral neck is 0.944 with a T-score of -0.7, and a Z-score of -0.3. FRACTURE RISK: The FRAX index suggests a risk of major osteoporotic fracture of 11.4%, and of hip fracture 0.2%. MM/XR DEXA axial skeleton IMPRESSION: Based on bone mineral density, and according to World Health Organization (WHO) criteria, the diagnosis is consistent with normal bone mineral density. All bone density values are in grams per centimeter squared (g/cm2). Statistically, 68% of repeat scans fall within 1 SD (+/- 0.010 g/cm2 for AP spine L1-L4) and 1 SD (+/- 0.012 g/cm2 for femur total) FRAX is a trademark of the [employer]'s [place] for Metabolic Bone Disease, a World Health Organization (WHO) Collaborating Center. Electronically signed by: Riki Yousif MD 10/21/2024 08:25 AM [facility]
--- OUTSIDE RECORDS SUMMARY | 2024-10-18 09:35 | XMS_ITS | Patient Health Record ---
Author Organization [facility] Address [address] [facility] [place] [address] Care Team Providers Care Nutrition Coordinator Name Role Phone Kayley Kruger MD Primary Care Provider Unavaila ble Black, Emily Unavailable [phone] Allergies Allergen (clinical drug ingredient) Drug/Non Drug [...] Status W/U Status Risk Notes Problem Bursitis (59496391) Bursitis (727.3) Active confirmed Problem Hammer toe (138273078) Hammer toe (735.4) Active confirmed Problem Myositis (82121277) Myositis (729.1) Active confirmed Problem Neuralgia - Neuritis (729.2) Active confirmed Problem Pain in limb (55145436) Pain in Limb (729.5) Active confirmed Problem Plantar fasciitis (168285622) Plantar Fasciitis (728.71) Active confirmed Problem Ramos splints (5668712630) Ramos Splints (844.9) Active confirmed Problem Ulcer of toe of right foot (disorder) (268929238032 36897) Skin ulcer of toe of right foot, limited to breakdown of skin (L97.511) Active confirmed Improvement Problem Ulcer of toe of left foot (disorder) (341308741429 30557) Skin ulcer of toe of left foot, limited to breakdown of skin (L97.521) Active confirmed Plan Of Treatment Pending Test Test Name Order Date [id number]-Rvdumofq Plate 04/06/2023 Insurance Providers Payer Name Payer Address Payer Phone Subscriber Number Group Number Insured Name Patient Relationship to Insured Coverage Start Date Coverage End Date [facility] [address] [place] [address] [id number] Carlos Kelly mp Spouse - patient is [...]
--- OUTSIDE RECORDS SUMMARY | 2024-10-18 09:35 | XMS_ITS | Continuity of Care Document ---
Author Organization [facility] Address [address] [place] [address]- Support Name Relationship Address Phone CARSON, ANUPAMA [...] ANUPAMA Personal Relationship Unknown U navailable GRANDCHAMP, ANUPAAM Personal Relationship Unknown U navailable GRANDCHAMP, ANUPAMA Personal Relationship Unknown U navailable GRANDCHAMP, ANUPAMA Personal Relationship Unknown U navailable GRANDCHAMP, ANUPAMA Personal Relationship Unknown U navailable GRANDCHAMP, ANUPAMA Personal Relationship Unknown U [facility] Care Team Providers Care Sprayer Operator Name Role Phone Kayley Kruger MD Primary Care Physician Encounter [facility] Date(s): 08/26/24 - 09/25/24 [facility] [address] [place] [id number] Encounter Type: Triage Allergies, Adverse Reactions, Alerts Substance Criticality Severity Reaction Reaction Severity Status ampicillin Active erythromycin Active cefuroxime Active Biaxin Active Wellbutrin Active Ceftin Active doxycycline rash Active sulfADIAZINE Active levothyroxine Active morphine Active propofol Active Medications Biotin By Mouth, Daily, 0 [...] Date: 11/06/13 Status: Ordered Repeat number: 1 escitalopram 10 mg oral tablet 1 tablet = 10 mg, By Mouth, Daily, # 30 tablet, 5 Refills, Maintenance, 09/23/24 3:14:00 PM EST, Tablet, Partial fill upon patient request if the prescription is for a schedule II opioid drug. Start Date: 09/23/24 Status: Ordered Quantity: 30.0 Unit: tablet Repeat number: 1 LORazepam 1 mg oral [...] 05/23/24 Status: Ordered Repeat number: 1 Tirosint 150 mcg (0.15 mg) oral capsule 1 capsule = 150 mcg, By Mouth, Daily, # 30 capsule, 0 Refills, Maintenance, 09/23/24 3:12:00 PM EST,Capsule, Partial fill upon patient request if the prescription is for a schedule II opioid drug. Start Date: 09/23/24 Status: Ordered Quantity: 30.0 Unit: capsule Repeat number: 1 Tirosint 75 mcg (0.075 mg) oral capsule 1 capsule = 75 mcg, By Mouth, Daily, No substitution. Brand name necessary, # 90 capsule, 3 Refills, Maintenance, 10/07/19 1:49:00 PM EST, Capsule, [employer], 168, cm, 10/07/19 13:27:00 EST, Height Start [...] Team Personnel Name: Kayley Kruger MD Position: [facility] Physician - Primary Care Member Role: PCP Address: [address] [place] [address]- Telecom: Care Team Related Persons Name: BERTHA GARCIA Name: ANUPAMA BYRD Insurance Providers Guarantor name[facility] Information #: 1 Payer: NA Member Number: NA Policy Number: NA Group Number: NA
--- OUTSIDE RECORDS SUMMARY | 2024-10-18 09:35 | XMS_ITS | Data Portability ---
Author Organization [facility] Address [address] [place] [address] Care Team Providers Care Rn Clinical Quality Name Role Phone GRAHAM CHAVIRA Primary Care Provider [phone] Assessment No assessment recorded. Plan of Treatment Reminders Order Date Submit Date Provider Last Modified By Organization Details Last Modified Time Details Appointments None recorded. Lab urinalysis , dipstick 2022 023 [email or web address] [facility], [address] [place] [address], [phone], 18:37:04 culture, urine 2022 023 [facility], [address] [place] [address], [place], [address], 06:07:30 Referral None recorded. Procedures None recorded. Surgeries None recorded. Imaging None recorded. Medication Orders None recorded. Patient TargetsNo targets recorded. Patient Instructions Encounter Date Encounter Id Patient Instructions Last Modified By Organization Details Last Modified Time 09/28/2022 [id number] upper and middle back (thoracic) strain: care instructions [email or web address] Not available 09/28/2022 18:37:04 constipation: care instructions [email or web address] Not available 09/28/2022 18:37:04 I would continue [...] Blood in Urine. Thank you for using [facility], please feel free to contact us if you have any questions or concerns. [email or web address] Not available 09/28/2022 18:37:03 Reason for Referral None Reported. Results Created Date Observation Date Name Description Value Unit Range Abnormal Flag Note LastModifiedBy Organization Detail LastModifiedTime 09/28/19 23 10/01/2022 URINE CULTU RE, ROUTI NE urine culture, routine FINAL REPORT Not Available [facility] ([facility]) [address] [facility], [place], [address], 10/01/2022 06:07:30 09/28/1910/01/2022 URINE CULTU RE, DULCEI NE result 1 NO GROWTH Not Available [facility] ([facility]) [address] [facility], [place], [address], 10/01/2022 06:07:30 09/28/1909/28/2022 urina lysis , dipst ick Unknown Analyte Normal = light yellow Not Available [address], [address], 09/28/2022 17:46:46 09/28/1909/28/2022 urina lysis , dipst ick Unknown Analyte Normal = clear Not Available [address] [place] [address], [address], 09/28/2022 17:46:46 09/28/19 23 09/28/2022 urina lysis , dipst ick Unknown Analyte Normal = negati ve Not Available [address] [place] [address], [address], 09/28/2022 17:46:46 09/28/19 23 09/28/2022 urina lysis , dipst ick Unknown Analyte Normal = Negati ve Not Available [address]99sarah flores [address], [place], [address], 09/28/2022 17:46:46 09/28/19 23 09/28/2022 urina lysis , dipst ick Unknown Analyte Normal = Negati ve Not Available [facility] [address], [place], [address], 09/28/2022 17:46:46 09/28/19 23 09/28/2022 urina lysis , dipst ick Unknown Analyte Normal = 1.010, 1.015, 1.020 Not Available 2099sarah flores [address], [place], [address], 09/28/2022 17:46:46 09/28/19 23 09/28/2022 urina lysis , dipst ick Unknown Analyte Normal = Negati ve Not Available 2099sarah flores [address], [place], [address], 09/28/2022 17:46:46 09/28/19 23 09/28/2022 urina lysis , dipst ick Unknown Analyte Normal = 6.5, 7.0, 7.5, 8.0 Not Available [facility] [address], [place], [address], 09/28/2022 17:46:46 09/28/19 23 09/28/2022 urina lysis , dipst ick Unknown Analyte Normal = Negati ve Not Available 2099sarah flores [address], [place], [address], 09/28/2022 17:46:46 09/28/19 23 09/28/2022 urina lysis , dipst ick Unknown Analyte Normal = 0.2, 1.0 Not Available 2099sarah flores [address], [place], [address], 09/28/2022 17:46:46 09/28/19 23 09/28/2022 urina lysis , dipst ick Unknown Analyte Normal = Negati ve Not Available [facility], [place], [address], 09/28/2022 17:46:46 09/28/19 23 09/28/2022 urina lysis , dipst ick Unknown Analyte Normal = Negati ve Not Available lornao pe [facility], [place], [address], 09/28/2022 17:46:46 09/28/19 23 09/28/2022 urina lysis , dipst ick Unknown Analyte Yellow Not Available janee [address], [place], [address], 09/28/2022 17:46:46 09/28/19 23 09/28/2022 urina lysis , dipst ick Unknown Analyte Clear Not Available janee [address], [place], [address], 09/28/2022 17:46:46 09/28/19 23 09/28/2022 urina lysis , dipst ick Unknown Analyte Negati ve Not Available [facility]ah [facility], [place], [address], 09/28/2022 17:46:46 09/28/19 23 09/28/2022 urina lysis , dipst ick Unknown Analyte Negati ve Not Available [facility] [address] [place] [address], [place], [address], 09/28/2022 17:46:46 09/28/19 23 09/28/2022 urina lysis , dipst ick Unknown Analyte Negati ve Not Available sarah flores [facility], [place], [address], 09/28/2022 17:46:46 09/28/1909/28/2022 urina lysis , dipst ick Unknown Analyte <=1.00 5 Not Available sarah flores [address], [place], [address], 09/28/2022 17:46:46 09/28/19 23 09/28/2022 urina lysis , dipst ick Unknown Analyte Negati ve Not Available sarah flores [address], [place], [address], 09/28/2022 17:46:46 09/28/19 23 09/28/2022 urina lysis , dipst ick Unknown Analyte 6.0 Not Available [facility] [address], [place], [address], 09/28/2022 17:46:46 09/28/19 23 09/28/2022 urina lysis , dipst ick Unknown Analyte Negati ve Not Available sarah flores [address], [place], [address], 09/28/2022 17:46:46 09/28/19 23 09/28/2022 urina lysis , dipst ick Unknown Analyte 0.2 E.U./d L Not Available sarah flores [address], [place], [address], 09/28/2022 17:46:46 09/28/19 23 09/28/2022 urina lysis , dipst ick Unknown Analyte Negati ve Not Available sarah flores [address], [place], [address], 09/28/2022 17:46:46 09/28/19 23 09/28/2022 urina lysis , dipst ick Unknown Analyte Negati ve Not Available [address] [facility], [place], [address], 09/28/2022 17:46:46 Result Notes None recorded. Problems Name Problem SNOMED Code Status Onset Date Resolution Date Notes Provider Name and Address Organization Details Recorded Time Disorder of thyroid gland 48802570 Active 2022 FREDY TITO null, [place] - [facility] 3 18:00:39 Disorder of back 51629884 Active 2022 FREDY TITO null, PA - [facility] 18:00:51 Osteoarthritis 477391675 Active 2022 FREDY TITO null, PA - [facility] 18:01:03 Spinal stenosis 60151683 Active 2022 FREDY TITO null, PA - [facility] 18:04:23 Problem Notes None recorded. Medical Equipment None Reported. Allergies Allergen ID Allergen Name Allergen Category Reaction Reaction Severity Criticality Documentation Date Start Date Code Code System Note Provider Name and Address Organization Details Recorded Time 184216 ampicilli n medicatio n rash Not available Not available 09/28/2022 733 RxNorm FREDY TITO null, PA - [facility] 17:50:08 686038 Biaxin medicatio n nausea Not available Not available 09/28/202247751 9 RxNorm FREDY TITO null, PA - [facility] 17:50:22 736456 Substance with sulfonami de structure and antibacte rial mechanism of action (substanc e) medicatio n vomiting Not available Not available 09/28/2022 65325 8003 SNOMED FREDY TITO null, PA - [facility] 17:50:41 934835 Wellbutri n medicatio n hives Not available Not available 09/28/2022 18669 RxNorm FREDY TITO null, PA - [facility] 17:50:57 037609 erythromy mk medicatio n vomiting Not available Not available 09/28/2022 4053 RxNorm FREDY TITO null, PA - [facility] 17:51:10 833720 Ceftin medicatio n vomiting Not available Not available 09/28/2022 50419 6 RxNorm FREDY TITO null, PA - [facility] 17:51:32 756871 propofol medicatio n hives Not available Not available 09/28/2022 8782 RxNorm FREDY TITO null, PA - [facility] 3 17:52:02 481857 morphine medicatio n vomiting Not available Not available 09/28/2022 7052 RxNorm FREDY TITO null, PA - [facility] 17:52:23 871863 doxycycli ne Not available rash Not available [...] height Body mass index (BMI) Body weight Pain severity - 0-10 verbal numeric rating [Score] - Reported Oxygen saturation Oxygen saturation in Arterial blood by Pulse oximetry Heart rate Respiratory rate Body temperature Systolic blood pressure Diastolic blood pressure Provider Name and Address Organization Details Last Updated DateTime 3 167.64 cm 34.4 kg/m2 63347.1 7 g 6 98 % 98 % 78 /min 18 /min 98.8 [degF] 139 mm[Hg] 76 mm[Hg] FREDY DOLAN - [facility] 18:05:05 Social History Question Answer Notes LastModified by Organizat ion Details LastModified Time Tobacco Smoking Status Never Smoker FREDY iqbal PA - [facility] 09/28/2022 18:02:10 What [...] PF, 0.5 mL 11/10/2020 completed KELSI Bunn [facility] 09/28/2022 17:48:50 Influenza, split virus, quadrivalent, PF 05/13/2020 completed KELSI Bunn [facility] 09/28/2022 17:48:50 Past Encounters Encounter ID Performer Location Encounter Start Date Encounter Closed Date Diagnosis/Indication Diagnosis SNOMED-CT Code Diagnosis ICD10 Code Diagnosis Note [id number] [address] [place] [address] 11/28/2021 13:00:40 11/28/2021 15:33:40 [id number] [address] [place] [address] 05/18/2016 14:19:24 05/18/2016 17:11:45 [id number] [address] [place] [address] 05/20/2016 13:12:48 05/20/2016 14:14:51 [id number] KELSI BESS [address] [place] [address] 09/28/2022 16:00:24 09/28/2022 18:39:47 Thoracic back pain 421119680 M54.6 Differenti al - Kidney Stone, Constipati on, costochond ritis, Thoracic nerve impingemen t. Health Concerns Section Related Observation LastModified by Organization Detai ls LastModified Time None Recorded Concern Status LastModified by Organization Details LastModified Time None Recorded Advance Directives Directive None Recorded Payers Encounter Date Sequence Insurance Name Policy Number Policy Saunders Covered Member ID Saunders Member ID Guarantor Name 09/28/2022 1 [facility] (POS) [id number] Norma Mckeon [id number] Norma Mckeon Notes Date Note Type Note Provider Name and Address Organization Details Recorded Time 3 text/html Back Pain/Injury UCReported bypatient.source of patient informationInformation obtained from patient Location:middle of the back; pain is not radiating Quality:sharp Duration:2 days Alleviating Factors:nothing helps Aggravating Factors:cannot identifyNotes:The patient reports that on a ride back from [employer] started to get a deep sharp pain [...] KELSI BESS [address] [place], [address], [place] - [facility] 09/28/2022 21:52:03 OBGyn Episode No OBEpisode recorded.
--- OUTSIDE RECORDS SUMMARY | 2024-10-18 09:35 | XMS_ITS ---
Author Organization [facility] Address [address] [facility] [place] [address] Care Team Providers Care Medical Aides Teacher Name Role Phone Kayley Kruger MD Primary Care Provider Unavaila ble Black, Emily Unavailable [phone] Allergies Allergen (clinical drug ingredient) Drug/Non Drug [...] 04/20/2023 Encounters Encounter Location Date Provider Diagnosis [facility] [address] [place] [address] 04/20/2023 Emily Toro Plan Of Treatment No Information Progress Notes * Norma MCKEON MDOB: (59 yo F)Acc No.[id number]:04/20/2023 Progress Notes Patient:?Shandra MCKEON Provider:?Emily Toro DPM :1965???Age:57 Y???Sex:Female D ate:04/20/2023 Address:[address] [place], [place] [id number] Pcp:Kayley Kruger MD Subjective: * Chief Complaints: [...] ???Miscellaneous:?Caffeine: no, none. ?Marital status: . 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 * Medications:?Taking Naltrexo ne [...] Toro DPM Date:?2022 Generated for Farooq dueñas/Anna/Margarita on:?10/18/2024 09:34 AM EST
--- OUTSIDE RECORDS SUMMARY | 2024-10-18 09:35 | XMS_ITS ---
Author Organization [facility] Address [address] [place] [address] Care Team Providers Care Carrier Washer Name Role Phone Kayley Kruger MD Primary Care Provider Unavaila Riki Ellis Unavailable [phone] Hai Jimenez MD Unavailable Unavailable ALLERGIES Allergen [...] Active Green Tea Extract Ac tive Saw [place] Active ZyrTEC Active Mirtazapine 7.5 MG 2 tablets at bedtime Orally Once a day for 30 day(s) Active QUEtiapine Fumarate 25 MG 1 tablet at be dtime Orally Once a day for 30 day(s) Active Tums 500 MG 1 tablet Orally Once a day for 30 day(s) Active Cortisol Checkerer Hand Act lee Tylenol PM Extra Strength Not-Taking [...] 04/30/2024 Encounters Encounter Location Date Provider Diagnosis [facility] [address] [place] [address] 04/30/2024 Riki Portillo Chronic GERD K21.9 ; [...] Provider Name:Riki Portillo , 10/29/2024 10:10:00 AM, [address] [place] [address], [address], [place], [address], Progress Notes * Examination Category Sub-Category Detail [...] RECTAL EXAM: FEMALE GENITOURINARY: ORAL CAVITY: mucosa moist
--- OUTSIDE RECORDS SUMMARY | 2024-10-18 09:35 | XMS_ITS ---
Author Organization [facility] Address [address] [place] [address] Care Team Providers Care Electronic Transaction Implementer Name Role Phone Kayley Kruger MD Primary Care Provider Riki Restrepo Unavailable [phone] Barbara HUTCHINSON, Hai Unavailable Unavailable REASON FOR VISIT requesting results of path and omeprazole to be sent to mail away MEDICATIONS Medication SIG (Take, Route, Fr equency, Duration) Notes Start Date End Date Status Omeprazole 40 MG 1 Orally Once a day at 4:00 PM for 90 days 03/01/2024 Active Encounters Encounter Location Date Provider Diagnosis [facility] [address] [facility] [address] [place] [address] 03/21/2024 Riki Portillo Chronic GERD K21.9 ASSESSMENTS Encounter Date Diagnosis Assessment Notes Treatment Notes Treatment Clinical Notes 03/21/2024 Chronic GERD (ICD-10 - K21.9) PLAN OF TREATMENT Medication Medication Name Sig Start Date Stop Date Notes Omeprazole 40 MG 1 Orally Once a day at 4:00 PM for 90 days 03/01/2024 Next Appt Details Provider Name:Riki Portillo , 10/29/2024 10:10:00 AM, [address] [facility] [facility], [address], [place], [address],
--- OUTSIDE RECORDS SUMMARY | 2024-10-18 09:36 | XMS_ITS ---
Author Organization [facility] Address [address] [facility] [place] [address] Care Team Providers Care Emergency Medical Service Manager Name Role Phone Kayley Kruger MD Primary Care Provider Unavaila ble Black, Emily Unavailable [phone] Allergies Allergen (clinical drug ingredient) Drug/Non Drug [...] Ulcer of toe of left foot (disorder) (4228909743 0428086) Skin ulcer of toe of left foot, limited to breakdown of skin (L97.521) Active confirmed Problem Ulcer of toe of right foot (disorder) (9675426211 1217791) Skin ulcer of toe of right foot, limited to breakdown of skin (L97.511) Active confirmed Improvement Vital Signs Height 5ft 5in in 04/27/2023 Weight 215 lbs 04/27/2023 BMI 35.77 kg/m2 04/27/2023 Encounters Encounter Location Date Provider Diagnosis [facility] [address] [place] [address] 04/27/2023 Emily Black Skin ulcer of toe [...] of the wound post debridement is stable (66299) Progress Notes * Norma MCKEON MDOB: (57 yo F)Acc No.[id number]:04/27/2023 Progress Notes Patient:?Shandra Mckeon Provider:?Emily Toro DPM :1965???Age:57 Y???Sex:Female D ate:04/27/2023 Address:[address] [place] [address] Pcp:Kayley Kruger MD Subjective: * Chief Complaints: [...] ?Exercise: yes, walking. ?Marital status: . 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 * Medications:?TakingNaltrexon e Tylenol [...] of the wound post debridement is stable (53854).? * Procedure Codes:? * Preventive Medicine:? ??Counseling:?Discussion:?-13: [...] Toro DPM Date:?2022 Generated for Farooq dueñas/Anna/Michelleitting on:?10/18/2024 09:36 AM EST History and Physical Notes * Examination Category Sub-Category Detail Notes Category Not es Dermatologic ULCER: LOCATION Medial T5, , SIZE, 10mm X 3mm X 2mm, BASE, granular, RIM, hyperkeratotic, UNDERMINING, absent, TRACKING, Full thickness breakdown of skin, DRAINAGE, serosanguineous, mild, NECROTIC TISSUE, loosely-adherent, yellow slough, MALODOR, absent, CALOR, absent, ERYTHEMA, absent, PAIN ON PALPATION, absent
--- OUTSIDE RECORDS SUMMARY | 2024-10-18 09:36 | XMS_ITS | Encounter Summary ---
Author Name [facility] Organization [facility] Address [address] [place] [address] Selected Encounter This section includes the information on record at [place] for the Encounter. Date/Time Encounter Type Encounter Description Reason Provider Source Nov 23, 2023 03:30 PM CASE MANAGEMENT CAREGIVER SUPPORT PROGRAM ICD-10-CM Z71.0 Prsn encntr hlth serv to consult on behalf of another person MATTI SHEFFIELD E Encounter Template Text not used by [place] Assessments - Encounter Diagnoses This section includes the primary and secondary diagnoses documented for the Encounter. Date/Time Primary/Secondary Diagnosis Diagnosis Name Provider Source Nov 23, 2023 04:29 PM PRIMARY Prsn encntr hlth serv to consult on behalf of another person [facility]FFIELD [facility] Social History: Smoking Status (Most current) and Tobacco Use (All prior to encounter date) This section includes the most current, and the historical, smoking and tobacco- related health factors from the [place] facility where the Encounter took place. Current Smoking Status This section includes the most current smoking, or tobacco-related health factor, from the [place] facility where the Encounter took place. Date/Time Current Smoking Status Comment Facil malissa Feb 20, 2023 03:00 PM [facility] [place] [facility] Encounter Notes: All associated encounter notes This section contains the clinical notes associated to the Encounter. Date/Time Encounter Note(s) Provider Source Nov 23, 2023 04:17 PM CAREGIVER CERTIFICATE: LOCAL TITLE: CSP PCA[facility] WELLNESS CONTACT CAREGIVER STANDARD TITLE: CAREGIVER CERTIFICATE DATE OF NOTE: NOV 23, 2023@16:17 ENTRY DATE: NOV 23, 2023@16:18:13 AUTHOR: MATTI SHEFFIELD EXP COSIGNER: URGENCY: STATUS: COMPLETED [facility] CSP [facility] WELLNESS CONTACT - Caregiver This [...] one visit must occur in the eligible [place]'s home on an annual basis. Date of [...] location during visit: _ _ Home address: [address] [place] [address] __ Other non-VA location __ Caregiver declined [...] visit with caregiver's consent: Name: Carlos Byrd () Caregiver confirms location is private and safe [...] Byrd Does the caregiver live with the [place]? _X _ Yes __ No Have there [...] better prepared for any challenges in her opfuac-rm-bdf's care. Do you feel comfortable and safe [...] __ Other: /mami/ MATTI SHEFFIELD LCSW Clinical Laboratory Specialist Signed: 11/23/2023 16:29 MATTI SHEFFIELD [place] [facility]
--- OUTSIDE RECORDS SUMMARY | 2024-10-18 09:36 | XMS_ITS | Continuity of Care Document ---
Author Name [facility] Organization [facility] Care Team Providers Care Solar Sales Name Role Phone [facility] Unavailable Unavailable Problems Combined list of problems from Department of Defense and Veterans Affairs facilities. It does not include entries that were removed or entered in error. Problem Status Onset Date Problem Type Date of Resolution Comments Source Insomnia Active Condition [facility] (631[facility]) Major depressive disorder Active Condition [facility] [...] Combined list of allergies from Department of Defense and Veterans Affairs facilities. It does not include entries that were removed or entered in error. Substance Category Reaction Severity Reaction type Status Date Reported Comments Source AMPICILLIN (AMPICILLIN TRIHYDRATE) Drug allergy (disorder) Unknown active 01/20/2008 [facility] BIAXIN (CLARITHROMYC IN) Drug allergy (disorder) Unknown active 01/20/2008 [facility] BUPROPION HCL (BUPROPION HCL) Drug allergy (disorder) Unknown active 01/20/2008 [facility] CEFTIN (CEFUROXIME AXETIL) Drug allergy (disorder) Unknown active 01/20/2008 [facility] AGNES (ERYTHROMYCIN BASE/ETHANOL) Drug allergy (disorder) Unknown active 01/20/2008 [facility] SULFA-DRUGS Drug allergy (disorder) Unknown active 01/20/2008 [facility] Immunizations Combined list of available immunizations from the Department of Defense and Veterans Affairs facilities. Immunization Series Date Given Administered By Site Reaction Lot Number CVX Code Drug Belly Dancer Status Comments Source COVID-19 (MODERNA), MRNA, LNP-S, PF, 100 MCG OR 50 MCG DOSE 2 2020 207 complet ed MOD; [id number]; 2 [facility] COVID-19 (TODD), VECTOR-NR, [id number], PF, 0.5 ML 1 2020 212 complet ed JSN; [id number]; 1 [facility] Encounters Combined list of: 1) Encounters from Department of Veterans Affairs facilities going backup to the last 18 months, not all [place] inpatient encounters are included; 2) Encounters from the Department of Defense facilities going backup to 280 months. Location Location Details Encounter Type Encounter Number Reason For Visit Attending Provider ADM Date DC Date Status Disposition Source [facility] [place] [facility] PSYTX W PT 45 MINUTES [id number] Diagnos is: ICD-10- CM Z60.9 Problem related to social environ ment, unspeci fied MUKESH,CHR ISTIE 02/20 [facility] [place] [facility] CASE MANAGEMENT [id number] Diagnos is: ICD-10- CM Z71.0 Prsn encntr hlth serv to consult on behalf of another person VALERIA CHIN SE 03/02 [facility] [place] [facility] [place] [facility] PSYTX W PT 45 MINUTES [id number] Diagnos is: ICD-10- CM Z60.9 Problem related to social environ ment, unspeci fied MUKESH,CHR ISTIE 03/13 [facility] PSY[facility] W PT 45 MINUTES [id number] Diagnos is: ICD-10- CM Z60.9 Problem related to social environ ment, unspeci fied MUKESH,[facility] ISTIE 04/03 [facility] PSYTX W PT 45 MINUTES [id number] Diagnos is: ICD-10- CM Z60.9 Problem related to social environ ment, unspeci fied MUKESH,[facility] ISTIE 04/24 [facility] PSYTX W PT 45 MINUTES [id number] Diagnos is: ICD-10- CM F32.A Depress ion, unspeci fied MUKESH,[facility] ISTIE 05/22 [facility] Out[facility] Encounter [id number] 05/22 [facility] En[facility] [id number] 06/19 [facility] En[facility] [id number] 06/23 [facility] PSYTX W PT 45 MINUTES [id number] Diagnos is: ICD-10- CM F32.A Depress ion, unspeci fied MUKESH,[facility] ISTIE 07/03 [facility] CASE MANAGEMENT [id number] Diagnos is: ICD-10- CM Z71.0 Prsn encntr hlth serv to consult on behalf of another person VALERIA CHIN SE 07/26 [facility] PSYTX W PT 45 MINUTES [id number] Diagnos is: ICD-10- CM F32.9 Major depress lee disorde r, single episode , unspeci fied MUKESH,CHR ISTIE 07/31 [facility] [place] HC PRO PHONE CALL 11-20 MIN [id number] Diagnos is: ICD-10- CM Z71.0 Prsn encntr hlth serv to consult on behalf of another person VALERIA CHIN SE 09/01 [facility] [place] PSYTX W PT 30 MINUTES [id number] Diagnos is: ICD-10- CM F32.9 Major depress lee disorde r, single episode , unspeci fied MUKESH,CHR ISTIE 10/29 [facility] [place] [facility] HC PRO PHONE CALL 11-20 MIN [id number] Diagnos is: ICD-10- CM Z74.1 Need for assista nce with persona l [facility] VALERIA CHIN SE 11/01 [facility] [place] [facility] CASE MANAGEMENT [id number] Diagnos is: ICD-10- CM Z71.0 Prsn encntr hlth serv to consult on behalf of another person MATTI SHEFFIELD 11/22 [facility] [place] [facility] HLTH BHV ASSMT/REAS SESSMENT [id number] Diagnos is: ICD-10- CM Z71.0 Prsn encntr hlth serv to consult on behalf of another person MATTI SHEFFIELD 04/04 [facility] [place] [facility] ASSMT/REAS SESSMENT [id number] Diagnos is: ICD-10- CM Z71.0 Prsn encntr hlth serv to consult on behalf of another person MATTI SHEFFIELD 08/01 [facility] [place] [facility] Social History Combined list of available smoking, tobacco, and other social history from Department of Defense and Veterans Affairs facilities. Social History Type Response Date Comment [facility] e Tobacco smoking status [facility] VA-TOBACCO NEVER USED 02/20/2023 [place] [facility] [place] [facility] This section is an empty social history section. DoD
--- OUTSIDE RECORDS SUMMARY | 2024-10-18 09:36 | XMS_ITS ---
Author Organization [facility] Address [address] [place] [address] Care Team Providers Care Charging Operator Name Role Phone Kayley Kruger MD Primary Care Provider Riki Restrepo Unavailable [phone] Barbara HUTCHINSON, Hai Unavailable Unavailable REASON FOR VISIT update (previous message told to call back in a few weeks.)still has cough.refer?/ fyi update PROBLEMS Problem Type ICD Code Onset Dates Problem Status W/U Status Risk SNOMED Code Notes Problem Hiatal hernia (K44.9) Active confirmed Hiatal hernia (98835025) Encounters Encounter Location Date Provider Diagnosis [facility] [address] [place] [address] 04/04/2024 Riki Portillo Chronic GERD K21.9 ; [...] Name:Riki Portillo , 10/29/2024 10:10:00 AM, [address], [address], [place], [address],
--- OUTSIDE RECORDS SUMMARY | 2024-10-18 09:36 | XMS_ITS | Patient Health Record ---
Author Organization [facility] Address [address] [place] [address] Care Team Providers Care Business Economist Name Role Phone Kayley Kruger MD Primary Care Provider Unavaila ble Riki Portillo Unavailable [phone] Barbara HUTCHINSON, Hai Unavailable Unavailable ALLERGIES Allergen [...] Pathology Reviewed date:03/21/2024 11:42:55 PM Interpretation: Performing Lab:[facility], [address] [place] [phone] Notes/Report: REASON FOR REFERRAL Referring Provider First Name Kayley Referring Provider Last Name Slick Referring Provider Speciality Internal M edicine Referred Organization [facility] Referred Provider Riki Portillo Referred Address [address],[place] [facility],[place],[address], Referred Provider Specialty Gastroentero logy Referral Priority [...] 30 day(s) prn Active Lorazepam Active Cortisol Cardiology Specialist Act lee Mag Glycinate Active Omeprazole 40 MG 1 Orally Twice a day in the morning and late afternnon/early evening for 90 days 04/30/2024 Active Niacinamide ER Activ e Pregnenolone Active Progesterone Active Green Tea Extract Ac tive Saw [place] Active ZyrTEC Active Tylenol PM Extra Strength [...] Active confirmed Gastroesophagea l reflux disease (disorder) (342020865) Problem Cough (R05.9) Active confirmed Cough (4 7211927) Problem History of colon polyps (Z86.010) Active confirmed History of poly p of colon (889150838) Problem Encounter for screening for malignant neoplasm of colon (Z12.11) Active confirmed Screening for malignant neoplasm of colon (008353079) Problem Gastro-esophage al reflux disease without esophagitis (K21.9) Active confirmed Gastro-esophage al reflux disease without esophagitis (485970948) Problem Hiatal hernia (K44.9) Active confirmed Hiatal hernia (11335434) VITAL SIGNS Blood pressure diastolic 00 mm Hg 04/30/2024 Height 5 ft 5.5 in in 04/30/2024 Blood pressure systolic 00 mm Hg 04/30/2024 Weight 218 lbs 04/30/2024 BMI 35.72 kg/m2 04/30/2024 Encounters Encounter Location Date Provider Diagnosis [facility] [address] [place] [id number] 03/11/2024 Riki Portillo Gastro-esophageal reflux disease without esophagitis K21.9 ; Hiatal hernia K44.9 and Chronic cough R05.3 [facility] [address] [place] [address] 04/30/2024 Riki Portillo Chronic GERD K21.9 ; Cough R05.9 ; Hiatal hernia K44.9 ; Encounter for screening for malignant neoplasm of colon Z12.11 and History of colon polyps Z86.010 [facility] [address] [place] [phone] 03/01/2024 Riki Portillo Chronic GERD K21.9 ; Cough R05.9 ; History of colon polyps Z86.010 and Encounter for screening for malignant neoplasm of colon Z12.11 [facility] [address] [place] [phone] 03/01/2024 Riki Portillo [facility] [address] [place] [address] Drive [address] [place] [phone] 03/17/2024 Riki Portillo [facility] [address] [place] [address] Drive [address] [place] [phone] 03/21/2024 Riki Portillo Chronic GERD K21.9 [facility] [address] [place] [phone] 04/04/2024 Riki Portillo Chronic GERD K21.9 ; [...] motility appt. Let me know what Dr. uRssell says. 03/01/2024 Cough (ICD-10 - R05.9) 03/01/2024 [...] Name:Riki Jeannette Portillo , 10/29/2024 10:10:00 AM, [address] [place] [address], [place] [address], [place], [address], Insurance Providers Payer Name Payer Address Payer Phone Subscriber Number Group Number Insured Name Patient Relationship to Insured Coverage Start Date Coverage End Date [facility] Lakisha [facility]CCORMICK) [address] [place] [phone] [id number] NIKOLAI ESCOTO Self - patient is the insured MEDICAL (GENERAL) HISTORY Medical History History ICD Code Degenerative disc disease/Arthritis-lowe r back Hypercholesterolemia/high trigylcerides IBS HYPOTHYRODISM/HASHIMOTOS DX 2019 Urinary incontinence Depression Denies VA,DM,CVA,Lung disease,renal dise ase 3 previous colonoscopies wit [...] Surgical History Surgery Date(Month/Year) Tonsillectomy and adenoidectomy [place] teeth extraction D&C Endometrial Ablation Hemorrhoid banding Nerve ablation for back pain
== END 2024-10-18 09:10 | disposition home or self-care (01) ==
LOC: HO.MAMMO 09:09
PROVIDERS: Absent Provider Allergy & Immunology Allergy; PCP Internal Medicine; Visit Provider Internal Medicine
DX: Z13.820 Encounter for screening for osteoporosis (principal); Z78.0 Asymptomatic menopausal state
CPT/HCPCS: 77080

== ENCOUNTER → 2024-10-18 09:15 | Outpatient (BNV) | payer OTHER, SELFPAY | PROVIDERS: Absent Provider Allergy & Immunology Allergy; PCP Internal Medicine; Visit Provider Radiology Diagnostic Radiology | DX: E28.39 Other primary ovarian failure (principal) | CPT/HCPCS: 77080 ==

== ENCOUNTER 2024-10-24 09:09 | Outpatient (REF) | payer OTHER, SELFPAY ==
--- OUTSIDE RECORDS SUMMARY | 2024-10-24 09:58 | XMS_ITS | Continuity of Care Document ---
Author Organization [facility] Address [address] [place] [address]- Support Name Relationship Address Phone CARSON, ANUPAMA [...] GRANDCHAMP, ANUPAMA Personal Relationship Unknown U navailable GRANDCHAMP ANUPAMA Personal Relationship Unknown U jailene ANUPAMA BYRD Personal Relationship Unknown U navailable Care Team Providers Care Md Psychiatry Name Role Phone Kayley Kruger MD Primary Care Physician Encounter [facility] Date(s): 09/18/24 - 10/18/[address] [place] [address]- Attending Physician: Ricky Castillo Admitting Physician: Ricky Castillo Referring Physician: trRicky Encounter Type: Triage Allergies, Adverse Reactions, Alerts Substance Criticality Severity Reaction Reaction Severity Status ampicillin Active doxycycline rash Active erythromycin Active cefuroxime Active sulfADIAZINE Active morphine Active propofol Active Ceftin Active Biaxin Active Wellbutrin Active levothyroxine Active Medications Biotin By Mouth, Daily, 0 [...] Refills, Maintenance, 10/07/19 1:49:00 PM EST, Capsule, [employer], 168, cm, 10/07/19 13:27:00 EST, Height Start [...] Team Personnel Name: Kayley Kruger MD Position: S Physician - Primary Care Member Role: PCP Address: [address] [place] [address]- Telecom: Care Team Related Persons Name: BERTHA GARCIA Name: ANUPAMA BYRD Insurance Providers Guarantor name: [facility] Plan Information #: 1 Payer: JOSE RAMON Member Number: NA Policy Number: NA Group Number: NA
--- OUTSIDE RECORDS SUMMARY | 2024-10-24 09:58 | XMS_ITS ---
Author Organization [facility] Address [address] [place] [address] Care Team Providers Care Weaver Wire Loom Name Role Phone Kayley Kruger MD Primary Care Provider Riki Restrepo Unavailable [phone] Barbara HUTCHINSON, Hai Unavailable Unavailable REASON FOR VISIT update (previous message told to call back in a few weeks.)still has cough.refer?/ fyi update PROBLEMS Problem Type ICD Code Onset Dates Problem Status W/U Status Risk SNOMED Code Notes Problem Hiatal hernia (K44.9) Active confirmed Hiatal hernia (20513780) Encounters Encounter Location Date Provider Diagnosis [facility] [address] [place] [address] 04/04/2024 Riki Portillo Chronic GERD K21.9 ; [...] Name:Riki Portillo , 10/29/2024 10:10:00 AM, [address], [address], [place], [address],
--- OUTSIDE RECORDS SUMMARY | 2024-10-24 09:58 | XMS_ITS | Continuity of Care Document ---
Author Organization [facility] Address [address] [place] [address]- Support Name Relationship Address Phone CARSON, ANUPAMA [...] jailene ANUPAMA BYRD Personal Relationship Unknown U navira [facility] Care Team Providers Care Staff Antisubmarine Officer Name Role Phone Kayley Kruger MD Primary Care Physician Encounter [facility] Date(s): 06/20/24 - 10/18/[address] [place] [address]- Attending Physician: Not on Staff, Attending MD Encounter Type: Pre Office Visit Allergies, Adverse Reactions, Alerts Substance Criticality Severity [...] Refills, Maintenance, 10/07/19 1:49:00 PM EST, Capsule, [employer], 168, cm, 10/07/19 13:27:00 EST, Height Start [...] - Primary Care Member Role: PCP Address: [address] [place] [address] Telecom: Care Team Related Persons Name: BERTHA GARCIA Name: ANUPAMA YBRD Insurance Providers Guarantor name: [facility] Health Plan Information #: 1 Payer: NA Member Number: [id number] Policy Number: NA Group Number: [id number] Health Plan Information #: 2 Payer: NA Member Number: [id number] Policy Number: NA Group Number: NA
--- OUTSIDE RECORDS SUMMARY | 2024-10-24 09:58 | XMS_ITS | Data Portability ---
Author Organization [facility] Address [address] [place] [address] Care Team Providers Care Heel Wheeler Name Role Phone GRAHAM CHAVIRA Primary Care Provider Assessment No assessment recorded. Plan of Treatment Reminders Order Date Submit Date Provider Last Modified By Organization Details Last Modified Time Details Appointments None recorded. Lab urinalysis , dipstick 2022 023 [email or web address] [facility], [address] [place] [address], [address], 18:37:04 culture, urine 2022 023 [facility], [address] [place] [address], [place], [address], 06:07:30 Referral None recorded. Procedures None recorded. Surgeries None recorded. Imaging None recorded. Medication Orders None recorded. Patient TargetsNo targets recorded. Patient Instructions Encounter Date Encounter Id Patient Instructions Last Modified By Organization Details Last Modified Time 09/28/2022 [id number] upper and middle back (thoracic) strain: care instructions [email or web address] Not available 09/28/2022 18:37:04 constipation: care instructions [email or web address] Not available 09/28/2022 18:37:04 I would continue [...] Blood in Urine. Thank you for using [employer], please feel free to contact us if you have any questions or concerns. [email or web address] Not available 09/28/2022 18:37:03 Reason for Referral None Reported. Results Created Date Observation Date Name Description Value Unit Range Abnormal Flag Note LastModifiedBy Organization Detail LastModifiedTime 09/28/19 23 10/01/2022 URINE CULTU RE, ROUTI NE urine culture, routine FINAL REPORT Not Available [facility] ([facility]) [address] [facility], [place], [address], 10/01/2022 06:07:30 09/28/1910/01/2022 URINE CULTU RE, DULCEI NE result 1 NO GROWTH Not Available [facility] ([facility]) [address] [facility], [place], [address], 10/01/2022 06:07:30 09/28/1909/28/2022 urina lysis , dipst ick Unknown Analyte Normal = light yellow Not Available [address], [address], 09/28/2022 17:46:46 09/28/1909/28/2022 urina lysis , dipst ick Unknown Analyte Normal = clear Not Available [address] [place] [address], [address], 09/28/2022 17:46:46 09/28/19 23 09/28/2022 urina lysis , dipst ick Unknown Analyte Normal = negati ve Not Available [address] [place] [address], [address], 09/28/2022 17:46:46 09/28/19 23 09/28/2022 urina lysis , dipst ick Unknown Analyte Normal = Negati ve Not Available [address]99sarah flores [address], [place], [address], 09/28/2022 17:46:46 09/28/19 23 09/28/2022 urina lysis , dipst ick Unknown Analyte Normal = Negati ve Not Available [facility] [address], [place], [address], 09/28/2022 17:46:46 09/28/19 23 09/28/2022 urina lysis , dipst ick Unknown Analyte Normal = 1.010, 1.015, 1.020 Not Available [address]99sarah flores [address], [place], [address], 09/28/2022 17:46:46 09/28/19 23 09/28/2022 urina lysis , dipst ick Unknown Analyte Normal = Negati ve Not Available [address]99sarah flores [address], [place], [address], 09/28/2022 17:46:46 09/28/19 23 09/28/2022 urina lysis , dipst ick Unknown Analyte Normal = 6.5, 7.0, 7.5, 8.0 Not Available [facility] [address], [place], [address], 09/28/2022 17:46:46 09/28/19 23 09/28/2022 urina lysis , dipst ick Unknown Analyte Normal = Negati ve Not Available 2099sarah flores [address], [place], [address], 09/28/2022 17:46:46 09/28/19 23 09/28/2022 urina lysis , dipst ick Unknown Analyte Normal = 0.2, 1.0 Not Available 2099sarah flores [address], [place], [address], 09/28/2022 17:46:46 09/28/19 23 09/28/2022 urina lysis , dipst ick Unknown Analyte Normal = Negati ve Not Available [facility], [place], [address], 09/28/2022 17:46:46 09/28/19 23 09/28/2022 urina lysis , dipst ick Unknown Analyte Normal = Negati ve Not Available lornao [facility], [place], [address], 09/28/2022 17:46:46 09/28/19 23 09/28/2022 urina lysis , dipst ick Unknown Analyte Yellow Not Available janee [address], [place], [address], 09/28/2022 17:46:46 09/28/19 23 09/28/2022 urina lysis , dipst ick Unknown Analyte Clear Not Available janee [address], [place], [address], 09/28/2022 17:46:46 09/28/19 23 09/28/2022 urina lysis , dipst ick Unknown Analyte Negati ve Not Available [facility], [place], [address], 09/28/2022 17:46:46 09/28/19 23 09/28/2022 urina lysis , dipst ick Unknown Analyte Negati ve Not Available [facility] [address] [place] [address], [place], [address], 09/28/2022 17:46:46 09/28/19 23 09/28/2022 urina lysis , dipst ick Unknown Analyte Negati ve Not Available sarah flores [facility], [place], [address], 09/28/2022 17:46:46 09/28/1909/28/2022 urina lysis , dipst ick Unknown Analyte <=1.00 5 Not Available sarah flores [address], [place], [address], 09/28/2022 17:46:46 09/28/19 23 09/28/2022 urina lysis , dipst ick Unknown Analyte Negati ve Not Available sarah flores [address], [place], [address], 09/28/2022 17:46:46 09/28/19 23 09/28/2022 urina lysis , dipst ick Unknown Analyte 6.0 Not Available [facility] [address], [place], [address], 09/28/2022 17:46:46 09/28/19 23 09/28/2022 urina lysis , dipst ick Unknown Analyte Negati ve Not Available sarah flores [address], [place], [address], 09/28/2022 17:46:46 09/28/19 23 09/28/2022 urina lysis , dipst ick Unknown Analyte 0.2 E.U./d L Not Available sarah flores [address], [place], [address], 09/28/2022 17:46:46 09/28/19 23 09/28/2022 urina lysis , dipst ick Unknown Analyte Negati ve Not Available sarah flores [address], [place], [address], 09/28/2022 17:46:46 09/28/19 23 09/28/2022 urina lysis , dipst ick Unknown Analyte Negati ve Not Available [address] [facility], [place], [address], 09/28/2022 17:46:46 Result Notes None recorded. Problems Name Problem SNOMED Code Status Onset Date Resolution Date Notes Provider Name and Address Organization Details Recorded Time Disorder of thyroid gland 76757538 Active 2022 FREDY TITO null, [place] - [facility] 18:00:39 Disorder of back 39158299 Active 2022 FREDY TITO null, [place] - [facility] 18:00:51 Osteoarthritis 988369912 Active 2022 FREDY TITO null, [place] - [facility] 18:01:03 Spinal stenosis 51083828 Active 2022 FREDY TITO null, PA - [facility] 18:04:23 Problem Notes None recorded. Medical Equipment None Reported. Allergies Allergen ID Allergen Name Allergen Category Reaction Reaction Severity Criticality Documentation Date Start Date Code Code System Note Provider Name and Address Organization Details Recorded Time 885839 ampicilli n medicatio n rash Not available Not available 09/28/2022 733 RxNorm FREDY TITO null, [place] - [facility] 17:50:08 912811 Biaxin medicatio n nausea Not available Not available 09/28/202261456 9 RxNorm FREDY TITO null, [place] - [facility] 17:50:22 841340 Substance with sulfonami de structure and antibacte rial mechanism of action (substanc e) medicatio n vomiting Not available Not available 09/28/2022 36431 8003 SNOMED FREDY TITO null, PA - [facility] 17:50:41 700692 Wellbutri n medicatio n hives Not available Not available 09/28/2022 34421 RxNorm FREDY TITO null, [place] - [facility] 17:50:57 211086 erythromy mk medicatio n vomiting Not available Not available 09/28/2022 4053 RxNorm FREDY TITO null, [place] - [facility] 17:51:10 271829 Ceftin medicatio n vomiting Not available Not available 09/28/2022 82652 6 RxNorm FREDY TITO null, [place] - [facility] 17:51:32 611945 propofol medicatio n hives Not available Not available 09/28/2022 8782 RxNorm FREDY TITO null, [place] - [facility] 17:52:02 845387 morphine medicatio n vomiting Not available Not available 09/28/2022 7052 RxNorm FREDY TITO null, [place] - [facility] 17:52:23 976237 doxycycli ne Not available rash Not available [...] Updated DateTime 3 167.64 cm 34.4 kg/m2 30646.1 7 g 6 98 % 98 % [...] SNOMED-CT Code Diagnosis ICD10 Code Diagnosis Note [id number] [address] [place] [address] 11/28/2021 13:00:40 11/28/2021 15:33:40 [id number] [address] [place] [address] 05/18/2016 14:19:24 05/18/2016 17:11:45 [id number] [address] [place] [address] 05/20/2016 13:12:48 05/20/2016 14:14:51 [id number] KELSI BESS [address] [place] [address] 09/28/2022 16:00:24 09/28/2022 18:39:47 Thoracic back pain 444602437 M54.6 Differenti al - Kidney Stone, Constipati on, costochond ritis, Thoracic nerve impingemen t. Health Concerns Section Related Observation LastModified by Organization Detai ls LastModified Time None Recorded Concern Status LastModified by Organization Details LastModified Time None Recorded Advance Directives Directive None Recorded Payers Encounter Date Sequence Insurance Name Policy Number Policy Saunders Covered Member ID Saunders Member ID Guarantor Name 09/28/2022 1 [facility] (POS) [id number] Norma Mckeon [id number] Norma Mckeon Notes Date Note Type Note Provider Name and Address Organization Details Recorded Time 3 text/html Back Pain/Injury UCReported bypatient.source of patient informationInformation obtained from patient Location:middle of the back; pain is not radiating Quality:sharp Duration:2 days Alleviating Factors:nothing helps Aggravating Factors:cannot identifyNotes:The patient reports that on a ride back from [employer] [place] started to get a deep sharp pain [...] KELSI BESS [address] [place], [address], [place] - [facility] 09/28/2022 21:52:03 OBGyn Episode No OBEpisode recorded.
--- OUTSIDE RECORDS SUMMARY | 2024-10-24 09:58 | XMS_ITS ---
Author Organization [facility] Address [address] [place] [address] Care Team Providers Care Performance Architect Name Role Phone Kayley Kruger MD Primary Care Provider UnavailRiki Hunt Unavailable [phone] Hai Jimenez MD Unavailable Unavailable ALLERGIES Allergen (clinical drug ingredient) Drug/Non Drug Allergy documented on EMR Reaction Allergy Type Onset Date Status doxycycline Doxycycline Unknown Drug Allergy Act lee Substance with sulfonamide structure and antibacterial mechanism of action (substance) Sulfa Antibiotics Unknown Drug Allergy Active propofol Propofol Unknown Drug Allergy Active Gluten Gluten Unknown Allergy Active Dust Mites Unknown Allergy Active ampicillin Ampicillin Unknown Drug Allergy Activ e Wellbutrin Unknown Drug Allergy Active Ceftin Unknown Drug Allergy Active Biaxin Unknown Drug Allergy Active dairy (uncoded) Unknown Allergy Acti ve dogs,cats, pigweed, ragweed, kiwi fruit (uncoded) Unknown Allergy Active morphine Morphine Unknown Drug Allergy Active erythromycin Erythromycin Unknown Drug Allergy A ctive REASON FOR VISIT patient presents today for [...] Active Green Tea Extract Ac tive [place] Active ZyrTEC Active Mirtazapine 7.5 MG 2 tablets at bedtime Orally Once a day for 30 day(s) Active QUEtiapine Fumarate 25 MG 1 tablet at be dtime Orally Once a day for 30 day(s) Active Tums 500 MG 1 tablet Orally Once a day for 30 day(s) Active Cortisol Crab Meat Processor Act lee Tylenol PM Extra Strength Not-Taking [...] point) Points 0 Interpretation Negative VITAL SIGNS Blood pressure systolic 00 mm Hg 04/30/20 24 Blood pressure diastolic 00 mm Hg 024 Height 5 ft 5.5 in in 04/30/2024 Weight 218 lbs 04/30/2024 BMI 35.72 kg/m2 04/30/2024 Encounters Encounter Location Date Provider Diagnosis [facility] [address] [place] [address] 04/30/2024 Riki Portillo Chronic GERD K21.9 ; [...] Provider Name:Riki Portillo , 10/29/2024 10:10:00 AM, [address] [place] [address], [address], [place], [address], Progress Notes * Examination Category Sub-Category Detail [...]
--- OUTSIDE RECORDS SUMMARY | 2024-10-24 09:58 | XMS_ITS ---
Author Organization [facility] Address [address] [place] [address] Care Team Providers Care Automotive Customer Experience Advisor Name Role Phone Kayley Kruger MD Primary Care Provider Riki Restrepo Unavailable [phone] Barbara HUTCHINSON, Hai Unavailable Unavailable REASON FOR VISIT requesting results of path and omeprazole to be sent to mail away MEDICATIONS Medication SIG (Take, Route, Fr equency, Duration) Notes Start Date End Date Status Omeprazole 40 MG 1 Orally Once a day at 4:00 PM for 90 days 03/01/2024 Active Encounters Encounter Location Date Provider Diagnosis [facility] [address] [place] [address] 03/21/2024 Riki Portillo Chronic GERD K21.9 ASSESSMENTS Encounter Date Diagnosis Assessment Notes Treatment Notes Treatment Clinical Notes 03/21/2024 Chronic GERD (ICD-10 - K21.9) PLAN OF TREATMENT Medication Medication Name Sig Start Date Stop Date Notes Omeprazole 40 MG 1 Orally Once a day at 4:00 PM for 90 days 03/01/2024 Next Appt Details Provider Name:Riki Portillo , 10/29/2024 10:10:00 AM, [address], [address], [place], [address],
--- OUTSIDE RECORDS SUMMARY | 2024-10-24 09:59 | XMS_ITS | Continuity of Care Document ---
Author Name [facility] Organization [facility] Care Team Providers Care Survey Research Professor Name Role Phone [facility] Unavailable Unavailable Problems Combined list of problems from Department of Defense and Veterans Affairs facilities. It does not include entries that were removed or entered in error. Problem Status Onset Date Problem Type Date of Resolution Comments Source Insomnia Active Condition [facility] (631GE) Major depressive disorder Active Condition [...] TRIHYDRATE) Drug allergy (disorder) Unknown active 01/20/2008 [facility] [place]XIN (CLARITHROMYC IN) Drug allergy (disorder) Unknown active 01/20/2008 [facility] BUPROPION HCL (BUPROPION HCL) Drug allergy (disorder) Unknown active 01/20/2008 [facility] CEFTIN (CEFUROXIME AXETIL) Drug allergy (disorder) Unknown active 01/20/2008 [facility] AGNES (ERYTHROMYCIN BASE/ETHANOL) Drug allergy (disorder) Unknown active 01/20/2008 [facility] SULFA-DRUGS Drug allergy (disorder) Unknown active 01/20/2008 [facility] Immunizations Combined list of available immunizations from the Department of Defense and Veterans Affairs facilities. Immunization Series Date Given Administered By Site Reaction Lot Number CVX Code Drug Front Office Manager Status Comments Source COVID-19 (MODERNA), MRNA, LNP-S, PF, 100 MCG OR 50 MCG DOSE 2 2020 207 complet ed MOD; [id number]; 2 [facility] COVID-19 (TODD), VECTOR-NR, [id number], PF, 0.5 ML 1 2020 212 complet ed JSN; [id number]; 1 [facility] Encounters Combined list of: 1) Encounters from Department of Veterans Affairs facilities going backup to the last 18 months, not all [place] inpatient encounters are included; 2) Encounters from the Department of Defense facilities going backup to 280 months. Location Location Details Encounter Type Encounter Number Reason For Visit Attending Provider ADM Date DC Date Status Disposition Source [facility] PSYTX W PT 45 MINUTES [id number] Diagnos is: ICD-10- CM Z60.9 Problem related to social environ ment, unspeci fied MUKESH,CHR ISTIE 02/20 [place] [facility] CASE MANAGEMENT [id number] Diagnos is: ICD-10- CM Z71.0 Prsn encntr hlth serv to consult on behalf of another person VALERIA CHIN SE 03/02 [place] [facility] [place] [facility] PSYTX W PT 45 MINUTES [id number] Diagnos is: ICD-10- CM Z60.9 Problem related to social environ ment, unspeci fied MUKESH,CHR ISTIE 03/13 [facility] PSY[facility] W PT 45 MINUTES [id number] Diagnos is: ICD-10- CM Z60.9 Problem related to social environ ment, unspeci fied [facility] IST[facility] 04/03 [facility] PSYTX W PT 45 MINUTES [id number] Diagnos is: ICD-10- CM Z60.9 Problem related to social environ ment, unspeci fied MUKESH,[facility] ISTIE 04/24 [facility] PSYTX W PT 45 MINUTES [id number] Diagnos is: ICD-10- CM F32.A Depress ion, unspeci fied MUKESH,[facility] ISTIE 05/22 [facility] En[facility] [id number] 05/22 [facility] En[facility] [id number] 06/19 [facility] En[facility] [id number] 06/23 [facility] PSYTX W PT 45 MINUTES [id number] Diagnos is: ICD-10- CM F32.A Depress ion, unspeci fied MUKESH,[facility] ISTIE 07/03 [facility] CASE MANAGEMENT [id number] Diagnos is: ICD-10- CM Z71.0 Prsn encntr hlth serv to consult on behalf of another person VALERIA CHIN SE 07/26 [facility] PSYTX W PT 45 MINUTES [id number] Diagnos is: ICD-10- CM F32.9 Major depress lee disorde r, single episode , unspeci fied MUKESH,CHR ISTIE 07/31 [facility] HC PRO PHONE CALL 11-20 MIN [id number] Diagnos is: ICD-10- CM Z71.0 Prsn encntr hlth serv to consult on behalf of another person VALERIA CHIN SE 09/01 [facility] PSYTX W PT 30 MINUTES [id number] Diagnos is: ICD-10- CM F32.9 Major depress lee disorde r, single episode , unspeci fied MUKESH,CHR ISTIE 10/29 [facility] HC PRO PHONE CALL 11-20 MIN [id number] Diagnos is: ICD-10- CM Z74.1 Need for assista nce with persona l [facility] VALERIA CHIN SE 11/01 [facility] CASE MANAGEMENT [id number] Diagnos is: ICD-10- CM Z71.0 Prsn encntr hlth serv to consult on behalf of another person MATTI SHEFFIELD 11/22 [facility] HLTH BHV ASSMT/REAS SESSMENT [id number] Diagnos is: ICD-10- CM Z71.0 Prsn encntr hlth serv to consult on behalf of another person MATTI SHEFFIELD 04/04 [place] [facility] [place] [facility] [id number] Diagnos is: ICD-10- CM Z71.0 Prsn encntr hlth serv to consult on behalf of another person MATTI SHEFFIELD 08/01 [place] [facility] [place] [facility] Social History Combined list of available smoking, tobacco, and other social history from Department of Defense and Veterans Affairs facilities. Social History Type Response Date Comment [facility] e Tobacco smoking status [facility] NEVER USED 02/20/2023 [place] [facility] [place] [facility] This section is an empty social history section. DoD
--- OUTSIDE RECORDS SUMMARY | 2024-10-24 09:59 | XMS_ITS | Patient Health Record ---
Author Organization [facility] Address [address] [place] [id number] Care Team Providers Care Academic Advising Director Name Role Phone Kayley Kruger MD Primary Care Provider Unavaila Riki Ellis Unavailable [phone] Barbara HUTCHINSON, Hai Unavailable Unavailable ALLERGIES Allergen [...] erythromycin Erythromycin Unknown Drug Allergy A ctive RESULTS Component Value Reference Range Notes Pathology Reviewed date:03/21/2024 11:42:55 PM Interpretation: Performing Lab:[facility], [address] [place] [phone] Notes/Report: REASON FOR REFERRAL Referring Provider First Name Kayley Referring Provider Last Name Slick Referring Provider Speciality Internal M edicine Referred Organization [facility] Referred Provider Riki Portillo Referred Address [address] [facility],[address] [facility],[place], [place],[address], Referred Provider Specialty Gastroentero logy Referral Priority [...] 30 day(s) prn Active Lorazepam Active Cortisol Wound Care Coordinator Act lee Mag Glycinate Active Omeprazole 40 MG 1 Orally Twice a day in the morning and late afternnon/early evening for 90 days 04/30/2024 Active Niacinamide ER Activ e Pregnenolone Active Progesterone Active Green Tea Extract Ac tive Saw [place] Active ZyrTEC Active Tylenol PM Extra Strength [...] W/U Status Risk SNOMED Code Notes Problem Gastro-esophage al reflux disease without esophagitis (K21.9) Active confirmed Gastro-esophage al reflux disease without esophagitis (837939407) Problem Encounter for screening for malignant neoplasm of colon (Z12.11) Active confirmed Screening for malignant neoplasm of colon (588864204) Problem History of colon polyps (Z86.010) Active confirmed History of poly p of colon (726225331) Problem Hiatal hernia (K44.9) Active confirmed Hiatal hernia (07372841) Problem Cough (R05.9) Active confirmed Cough (4 4336965) Problem Chronic GERD (K21.9) Active confirmed Gastroesophagea l reflux disease (disorder) (660139211) VITAL SIGNS Blood pressure diastolic 00 mm Hg 04/30/2024 Height 5 ft 5.5 in in 04/30/2024 Blood pressure systolic 00 mm Hg 04/30/2024 Weight 218 lbs 04/30/2024 BMI 35.72 kg/m2 04/30/2024 Encounters Encounter Location Date Provider Diagnosis [facility] Outpatient [address] [place] [id number] 03/11/2024 Riki Portillo Gastro-esophageal reflux disease without esophagitis K21.9 ; Hiatal hernia K44.9 and Chronic cough R05.3 [facility] [address] [place] [phone] 03/01/2024 Riki Portillo Chronic GERD K21.9 ; Cough R05.9 ; History of colon polyps Z86.010 and Encounter for screening for malignant neoplasm of colon Z12.11 [facility] [address] [place] [phone] 04/30/2024 Riki Portillo Chronic GERD K21.9 ; Cough R05.9 ; Hiatal hernia K44.9 ; Encounter for screening for malignant neoplasm of colon Z12.11 and History of colon polyps Z86.010 [facility] [address] [place] [phone] 03/01/2024 Riki Portillo [facility] [address] [place] [phone] 03/17/2024 Riki Portillo [facility] [address] [place] [phone] 03/21/2024 Riki Portillo Chronic GERD K21.9 [facility] [address] [place] [phone] 04/04/2024 Riki Portillo Chronic GERD K21.9 ; Hiatal hernia K44.9 and Cough R05.9 ASSESSMENTS Encounter Date Diagnosis Assessment Notes Treatment Notes Treatment Clinical Notes 03/11/2024 Gastro-esophageal reflux disease without esophagitis (ICD-10 - K21.9) 03/11/2024 Hiatal hernia (ICD-10 - K44.9) 03/01/2024 Cough (ICD-10 - R05.9) 03/01/2024 Chronic GERD (ICD-10 - K21.9) Start taking the 40mg omeprazole every day at 4PM and take 2 or 3 TUMS every night at bedtime 04/30/2024 Cough (ICD-10 - R05.9) 04/30/2024 Chronic GERD (ICD-10 - K21.9) Increase 40mg omepraozle to twice a day for 1 to 2 months to see if that helps the cough. If it doesn't then go back to just once a day. Keep the 05/08 esophageal motility appt. Let me know what Dr. Russell says. 03/21/2024 Chronic GERD (ICD-10 - K21.9) 04/04/2024 Hiatal hernia (ICD-10 - K44.9) 04/04/2024 Chronic GERD (ICD-10 - K21.9) 03/11/2024 Chronic cough (ICD-10 - R05.3) 03/01/2024 History of colon polyps (ICD-10 - Z86.010) 04/30/2024 Hiatal hernia (ICD-10 - K44.9) 04/04/2024 Cough (ICD-10 - R05.9) 03/01/2024 Encounter for screening for malignant neoplasm of colon (ICD-10 - Z12.11) Repeat colonoscopy in 11/202404/30/2024 Encounter for screening for malignant neoplasm of colon (ICD-10 - Z12.11) Repeat colonoscopy in 202404/30/2024 History of colon polyps (ICD-10 - Z86.010) PLAN OF TREATMENT Pending Test Test Name Order Date Esophageal Motility study 04/04/2024 Future Test Test Name Order Date UPPER GI ENDOSCOPY 03/01/2024 Next Appt Details Provider Name:Riki Machado Lindsey , 10/29/2024 10:10:00 AM, [address] [place] [address], Suite [facility], [place], [address], Insurance Providers Payer Name Payer Address Payer Phone Subscriber Number Group Number Insured Name Patient Relationship to Insured Coverage Start Date Coverage End Date [facility] (JADRA Lakisha MCCORMICK) [address] [place] [phone] [id number] NIKOLAI ESCOTO Self - patient is the insured MEDICAL (GENERAL) HISTORY Medical History History ICD Code Degenerative disc disease/Arthritis-lowe r back Hypercholesterolemia/high trigylcerides IBS HYPOTHYRODISM/HASHIMOTOS DX 2019 Urinary incontinence Depression Denies [place],DM,CVA,Lung disease,renal dise ase 3 previous colonoscopies wit [...] Surgical History Surgery Date(Month/Year) Tonsillectomy and adenoidectomy [place] teeth extraction D&C Endometrial Ablation Hemorrhoid banding Nerve ablation for back pain
--- OUTSIDE RECORDS SUMMARY | 2024-10-24 09:59 | XMS_ITS ---
Author Name [facility] [facility] [place] Address [address] [place] [id number] Selected Encounter This section includes the information on record at [place] for the Encounter. Date/Time Encounter Type Encounter Description Reason Provider Source Oct 30, 2023 03:00 PM PSYTX W PT 30 MINUTES [facility] ICD-10-CM F32.9 Major depressive disorder, single episode, unspecified MUKESH,NAKUL E IHE Encounter Template Text not used by [place] Assessments - Encounter Diagnoses This section includes the primary and secondary diagnoses documented for the Encounter. Date/Time Primary/Secondary Diagnosis Diagnosis Name Provider Source Oct 30, 2023 03:49 PM PRIMARY Major depressive disorder, single episode, unspecified MUKESH,NAKUL E [facility] [place] [facility] Oct 30, 2023 03:49 PM SECONDARY Insomnia, unspecified MUKESH,NAKUL E [facility] [place] [facility] Oct 30, 2023 03:49 PM SECONDARY Problem related to social environment, unspecified MUKESH,NAKUL E [facility] [place] [facility] Social History: Smoking Status (Most current) [...] 20, 2023 03:00 PM VA-TOBACCO NEVER USED [place] [facility] [place] [facility] Encounter Notes: All associated encounter notes This section contains the clinical notes associated to the Encounter. Date/Time Encounter Note(s) Provider Source Oct 30, 2023 03:00 PM TELEHEALTH NOTE: LOCAL TITLE: [place] [facility]CT SOCIAL WORK NOTE STANDARD TITLE: TELEHEALTH NOTE DATE OF NOTE: OCT 30, 2023@15:00 ENTRY DATE: OCT 30, 2023@15:42:59 AUTHOR: RAYNE MAYORGAER: URGENCY: STATUS: COMPLETED VISIT DURATION: 25 minutes DIAGNOSES: MDD; problems related to social environment; insomnia [employer] STATEMENT OF GOALS/CONCERNS: [place] reported she is doing better now that [...] She said she would look into the [facility] support group if that doesn't work out. [...] support program. 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 [place] [facility] Connect (VVC) Standard Documentation [facility] Clinician Resources Only: E911 (Emergency Call Relay Center): [phone] [employer] Crisis Line - 988 then press #1. CWM Suicide Coordinator [phone], Ext. [phone]; Back-up Ext. [phone] [place] Police, DUSTINJeannette, [place] [phone] Introduction: Visit is being conducted by [employer]. [place] identified with 2 identifiers: [ ] Full Name [ ] Date of [ ] VA ID Card Emergency Plan: [place] confirmed and/or provided the following information in case of emergency or technology failure. PATIENT PHONE - PHONE NUMBER [CELLULAR] - NONE FOUND Is patient phone number correct, if not, enter below: 's phone number: NIKOLAI BYRD [address], [place], [address] [place]'s present location and address for appointment: same as above 's emergency contact name and phone number: , see CPRS [place] reported that location is private and safe: Yes Informed Consent: [place] informed of the risks and benefits of Telehealth video care. [place] has the right to refuse video services. If refuses video visit, a [id number] visit will be scheduled. [place] verbalized consent for this video visit: Yes provided consent for any other persons present for visit: N/A If yes, who and relationship to patient: Secure visit: Visit was locked for security and privacy:Yes /mami/ JORGE AGUILA CLINICAL APPLICATION PERFORMANCE ENGINEER Signed: 10/30/2023 15:49 RAYNE MAYORGA [place] [facility]
[2024-10-24 10:14] LABS: MANUAL DIFF FLAG NO
[2024-10-24 10:18] LABS: Basophils Absolute Auto 0.1 X10*3/uL (0.0-0.2); Basophils Percent Auto 1.6 % (0-2); Eosinophils Absolute Auto 0.3 X10*3/uL (0.0-0.4); Eosinophils Percent Auto 5.4 % (0-4); Hematocrit 44.2 % (37.0-47.0); Hemoglobin 14.7 g/dl (12.0-16.0); Imm Gran Abs Auto 0.02 X10*3/uL (0.00-0.03); Imm Gran Pct Auto 0.3 % (0.0-0.4); Lymphocytes Absolute Auto 2.9 X10*3/uL (1.2-4.9); Lymphocytes Percent Auto 47.3 % (20-40); Mean Corpuscular HGB Conc 33.3 g/dl (31.0-35.0); Mean Corpuscular Hemoglobin 30.1 pg (27.0-33.0); Mean Corpuscular Volume 90.6 fL (80.0-98.0); Monocytes Absolute Auto 0.7 X10*3/uL (0.1-1.2); Monocytes Percent Auto 11.7 % (2-11); Neutrophils Percent Auto 33.7 % (45-73); Platelet Count 310 X10*3/uL (160-400); Red Blood Count 4.88 X10*6/uL (4.20-5.50); Red Cell Distribution Width 13.1 % (11.0-16.0); White Blood Count 6.1 X10*3/uL (4.8-10.8)
[2024-10-24 11:14] LABS: Alanine Aminotransferase 29 U/L (0-31); Albumin Level 4.1 g/dL (3.5-5.0); Alkaline Phosphatase 73 U/L (39-117); Anion Gap 13 (12-20); Aspartate Amino Transferase 29 U/L (5-31); Bilirubin Total 0.5 mg/dL (0.0-1.0); Blood Urea Nitrogen 12 mg/dL (9-16); Calcium 9.3 mg/dL (8.4-10.2); Carbon Dioxide 25 mmol/L (22-29); Chloride 105 mmol/L (96-108); Cholesterol 239 mg/dL (<200); Estimated Glomerular Filt Rate > 60; Glucose Fasting 91 mg/dL (60-99); HDL Cholesterol 47 mg/dL (>40); LDL Cholesterol Calculated 115 mg/dL (<100); Sodium 139 mmol/L (135-145); Total Protein 7.5 g/dL (6.5-8.0); Triglycerides 386 mg/dL (<150)
[2024-10-24 11:20] LABS: TSH reflex Free T4 < 0.01 uIU/mL (0.32-4.0); Vitamin D 25-OH Total 33.4 ng/mL (>30)
== END 2024-10-24 09:10 | disposition home or self-care (01) ==
LOC: HO.HMGCLDS 09:09
PROVIDERS: PCP Internal Medicine; Visit Provider Internal Medicine
DX: Z00.00 Encounter for general adult medical examination without abnormal findings (principal); E78.5 Hyperlipidemia, unspecified
CPT/HCPCS: 36415; 80053; 80061; 82306; 84439; 84443; 85025

== ENCOUNTER 2024-11-04 11:29 | Outpatient (AMB) | payer OTHER, SELFPAY ==
[2024-11-04 11:56] VITALS: BP 124/76; PULSE 86; TEMP 36.6; O2SAT 97; BMI 35.7
--- NOTE | 2024-11-04 11:56 | MHC.PC.OV ---
Vital Signs 11/04/24 11:56 Height 5 ft 5 in Weight 214 lb 6 oz BMI 35.7 BP 124/76 Blood Pressure Location Lt brachial Position Sitting Pulse 86 Pulse Source Pulse Oximeter Temp 97.8 F Temp Source Oral Pulse Oximetry (%) 97 Intake Visit Reasons: Annual PE Allergies Sulfa (Sulfonamide Antibiotics) [SULFA(SULFONAMIDE ANTIBIOTICS)] Allergy (Intermediate, Verified 11/04/24 11:56) NAUSEA/VOMITING ampicillin [AMPICILLIN] Allergy (Mild, Verified 11/04/24 11:56) RASH bupropion [From Wellbutrin] Allergy (Mild, Verified 11/04/24 11:56) Hives clarithromycin [From BIAXIN] Allergy (Mild, Verified 11/04/24 11:56) NAUSEA atorvastatin [Lipitor] Allergy (Unknown, Verified 11/04/24 11:56) leg cramps cefaclor Allergy (Unknown, Verified 11/04/24 11:56) Unknown doxycycline Allergy (Unknown, Verified 11/04/24 11:56) Rash erythromycin base [ERYTHROMYCIN BASE] Allergy (Unknown, Verified 11/04/24 11:56) sick to stomach ezetimibe [Zetia] Allergy (Unknown, Verified 11/04/24 11:56) leg cramps morphine [MORPHINE] Allergy (Unknown, Verified 11/04/24 11:56) VOMITING propofol [PROPOFOL] Allergy (Unknown, Verified 11/04/24 11:56) HIVES rosuvastatin [Crestor] Allergy (Unknown, Verified 11/04/24 11:56) leg cramps sulfacetamide Allergy (Unknown, Verified 11/04/24 11:56) Gastrointestinal Upset simvastatin Adverse Reaction (Unknown, Verified 11/04/24 11:56) leg cramps From CEFTIN Allergy (Mild, Uncoded 01/08/24 09:40) NAUSEA Ceftin Allergy (Unknown, Uncoded 01/08/24 09:40) Unknown Doxycycline Hyclate Allergy (Unknown, Uncoded 01/08/24 09:40) Rash GLP 1 AGONISTS Adverse Reaction (Uncoded 11/04/24 13:02) Abdominal Pain Medication List - Last Reconciled 11/04/24 by Kayley Kruger MD cetirizine (Zyrtec) 10 mg PO DAILY cholecalciferol (vitamin D3) 125 mcg PO DAILY cream base no.143 (bulk) (BHRT Base transdermal cream) appl transdermal BID cyclobenzaprine 10 mg PO Q8H PRN 5 days epinephrine IM escitalopram oxalate 10 mg PO DAILY evolocumab (Repatha SureClick) 1 mg (0.0071 mL) subcut Q2W fluticasone propionate 110 mcg/actuation 2 puffs inhalation BID hydroxyzine pamoate mg PO ipratropium bromide 2 sprays intranasal BID levothyroxine (Tirosint) 150 mcg PO DAILY lorazepam 1 mg PO DAILY PRN Lovaza (omega-3 acid ethyl esters) 2 caps PO BID NS magnesium glycinate 400 mg PO DAILY melatonin 10 mg PO BEDTIME PRN omeprazole 40 mg PO DAILY progesterone micronized 150 mg PO every morning; [Tums ] zaleplon mg PO Tobacco use date assessed: 11/04/24 Dental Screening Dental Screen Date: 11/04/24 Did you have a dental visit in the last 12 months?: Yes Did you have a dental problem in the last 6 months where you did not have access to dental care?: No Was dental information given to patient?: Patient has dentist HPI Annual PE HPI Details Pt presents for PE. Pt is contemplating hiatal hernia and bypass surgery for chronic cough and GERD not improved on current treatment. Patient is established with [facility] Medical History (Updated 11/04/24 @ 12:35 by Kayley Kruger MD) Sacroiliac joint dysfunction of right side Candidiasis Rectal bleed Allergies Knee pain, right Abnormal colonoscopy Mammogram normal Annual physical exam Normal Pap smear Multiple thyroid nodules Acquired hypothyroidism Martha's thyroiditis IBS (irritable bowel syndrome) Overweight Peripheral neuropathy Lumbar radiculopathy Hyperlipidemia Surgical History S/P fine needle aspiration History of endometrial ablation Hx of dilation and curettage [place] teeth extracted H/O sigmoidoscopy History of tonsillectomy and adenoidectomy H/O colonoscopy Family History Father Stroke Hyperlipidemia CVD (cardiovascular disease) Mother Hyperlipidemia Thyroid disease Social History Household Members: Spouse Household Members Other:: Housing: House Alcohol intake: current Alcohol intake frequency: holidays/special occasions only Patient Tobacco Use Status: Never used Tobacco e-Cigarette/Vaping Use: Never Used Current occupational status: employed Cognitive needs: No Hearing needs: No Vision needs: Yes Questionnaire PHQ-9 Over the last 2 weeks, how often have you been bothered by any of the following problems? 1. Little interest or pleasure in doing things: not at all 2. Feeling down, depressed, or hopeless: not at all 3. Trouble falling or staying asleep, or sleeping too much: several days 4. Feeling tired or having little energy: several days 5. Poor appetite or overeating: not at all 6. Feeling bad about yourself - or that you are a failure or have let yourself or your family down: not at all 7. Trouble concentrating on things, such as reading the newspaper or watching television: not at all 8. Moving or speaking so slowly that other people could have noticed. Or the opposite - being so fidgety or restless that you have been moving around a lot more than usual: not at all 9. Thoughts that you would be better off or of hurting yourself in some way: not at all Total score: 2 Depression Screening Interpretation: Negative Depression Screening Done: Yes 52525 - PHQ-9 Billing: Yes Source: Developed by Drs. Riki Avery, Rosanna Hughes, Larry Cutler and colleagues, with an educational jayna from [employer]. Thrive Questionnaire Date Thrive assessed: 11/04/24 I am a: Patient What is your living situation today?: I have a steady place to live Within the past 12 months, did the food you bought not last and you didn't have the money to get more?: Never true Within the past 12 months, did you worry whether your food would run out before you got money to buy more?: Never true Do you have trouble paying for medicines?: No Do you have trouble getting transportation to medical appointments?: No Do you have trouble paying your heating and electricity bill?: No Do you have trouble taking care of your child, family member or friend?: No Do you have trouble with day-to-day activities such as bathing, preparing meals, shopping, managing finances, etc.?: No Are you currently unemployed and looking for a job?: No Are you interested in more education?: No Please select the resources that you would like help with: None Currently or been in a relationship where the following occur: No concerns reported THRIVE Score: 0 AUDIT C Alcohol Use Questionnaire (AUDIT-C) 1. How often do you have a drink containing alcohol?: Monthly or less 2. How many drinks containing alcohol do you have on a typical day when you are drinking?: 3 or 4 3. How often do you have six or more drinks on one occasion?: Never Total Score: 2 Score Reviewed/Action Taken: Yes MELISSA-7 AMB Questionnaire MELISSA-7 Date MELISSA - 7 assessed: 11/04/24 Feeling nervous, anxious, or on edge: 0 = Not at all Not being able to stop or control worryin = Not at all Worrying too much about different things: 0 = Not at all Trouble relaxin = Not at all Being so restless that it is hard to sit still: 0 = Not at all Becoming easily annoyed or irritable: 0 = Not at all Feeling afraid as if something awful might happen: 0 = Not at all Total MELISSA-7 score (0-4 normal; 5-9 mild; 10-14 moderate; 15-21 severe): 0 Source: Developed by Drs. Riki Avery, Rosanna Hughes, Larry Cutler and colleagues, with an educational jayna from [employer]. MELISSA-7 Assessment Billing MELISSA-7 Assessment Tool: MELISSA-7 Assessment 94095 Review of Systems Const All systems reviewed & are unremarkable except as noted in HPI and below Eyes Reports no additional complaints ENT Reports no additional complaints Card Reports no additional complaints Resp Reports no additional complaints GI Reports no additional complaints Reports no additional complaints Musc Reports no additional complaints Physical exam (Primary Care) Vital Signs: Last Vital Signs Temp 97.8 F 11/04/24 11:56 Pulse 86 11/04/24 11:56 BP 124/76 11/04/24 11:56 Pulse Ox 97 11/04/24 11:56 BMI result Body Mass Index 35.7 Tobacco/Smoking Status: Tobacco use Status Tobacco use date assessed 11/04/24 11/04/24 12:04 Patient Tobacco Use Status Never used Tobacco 11/04/24 12:04 e-Cigarette/Vaping Use Never Used 11/04/24 12:04 PHQ-9: PHQ-9 Score PHQ-9: Total score 2 11/04/24 12:04 Depression Screening Interpretation: Negative Thrive Assessment: Date of Thrive Assessment Date Thrive assessed 11/04/24 11/04/24 12:04 Currently or been in a relationship where the following occur: No concerns reported Const General: no acute distress HENMT Head: Yes normal to inspection Ears: hearing grossly normal bilaterally Face and sinus: Yes normal facial exam Throat: Yes posterior oropharynx normal Eyes General: appearance normal, both eyes and all related structures Neck Neck: Yes no lymphadenopathy and Yes supple Resp Effort & Inspection: normal respiratory effort Auscultation: clear to auscultation bilaterally Cardio Rhythm: regular rhythm Heart sounds: S1 normal heart sound present and S2 normal heart sound present GI Inspection: Yes normal to inspection Palpation (GI): Soft to palpation Percussion: Yes normal to percussion Auscultation: normal bowel sounds Extrem General: Yes no clubbing, cyanosis or edema Coding Level of Care Code Est Pt Prev Care 40-64y(39744) Diagnoses Papillary thyroid carcinoma C73 Annual physical exam Z00.00 Hyperlipidemia E78.5 Additional Codes MELISSA-7 Assessment Billing - MELISSA-7 Assessment Tool: MELISSA-7 Assessment 27118 ([id number]) PHQ-9 - 69294 - PHQ-9 Billing: Yes ([id number]) Assessment & Plan Assessment & Plan (1) Papillary thyroid carcinoma: Comment: s/p thyroidectomy 05/2024 [facility], on Tirosint, f/u [facility] Endo Code(s): C73 - Malignant neoplasm of thyroid gland Category: Medical Plan: Patient will follow-up with [facility] endocrinology (2) Annual physical exam: Code(s): Z00.00 - Encounter for general adult medical examination without abnormal findings Category: Medical Plan: Well-balanced diet regular physical activity weight loss discussed with the patient. 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 (3) Hyperlipidemia: Comment: On Repatha, patient is intolerant to statins Code(s): E78.5 - Hyperlipidemia, unspecified Category: Medical Plan: Patient will at fenofibrate to Repatha check lipid profile in 2 months Orders: Orders Lipid Panel 2 Months E78.5 - Hyperlipidemia, unspecified Lipid Panel 1 Year C73 - Malignant neoplasm of thyroid gland, E78.5 - Hyperlipidemia, unspecified, Z00.00 - Encounter for general adult medical examination without abnormal findings TSH reflex Free T4 1 Year C73 - Malignant neoplasm of thyroid gland, E78.5 - Hyperlipidemia, unspecified, Z00.00 - Encounter for general adult medical examination without abnormal findings UA w Microscopic 1 Year C73 - Malignant neoplasm of thyroid gland, E78.5 - Hyperlipidemia, unspecified, Z00.00 - Encounter for general adult medical examination without abnormal findings Comprehensive [place]. Panel Fast 2 Months E78.5 - Hyperlipidemia, unspecified Comprehensive [place]. Panel Fast 1 Year C73 - Malignant neoplasm of thyroid gland, E78.5 - Hyperlipidemia, unspecified, Z00.00 - Encounter for general adult medical examination without abnormal findings Complete Blood Count Auto Diff 1 Year C73 - Malignant neoplasm of thyroid gland, E78.5 - Hyperlipidemia, unspecified, Z00.00 - Encounter for general adult medical examination without abnormal findings Vitamin D 25-OH Total 1 Year C73 - Malignant neoplasm of thyroid gland, E78.5 - Hyperlipidemia, unspecified, Z00.00 - Encounter for general adult medical examination without abnormal findings Referrals Dermatology Referral D23.9 - Other benign neoplasm of skin, unspecified SOUND EDITOR Referral Z00.00 - Encounter for general adult medical examination without abnormal findings Endocrinology Referral C73 - Malignant neoplasm of thyroid gland Medications: New fenofibrate 160 mg PO DAILY 90 tabs 3RF Refilled Lovaza (omega-3 acid ethyl esters) 2 caps PO BID 360 caps 3RF NS
--- OUTSIDE RECORDS SUMMARY | 2024-11-04 13:08 | XMS_ITS | Data Portability ---
Author Organization [facility] Address [address] [place] [address] Care Team Providers Care Final Inspector Name Role Phone GRAHAM CHAVIRA Primary Care Provider Assessment No assessment recorded. Plan of Treatment Reminders Order Date Submit Date Provider Last Modified By Organization Details Last Modified Time Details Appointments None recorded. Lab urinalysis , dipstick 2022 023 [email or web address] [facility], [address] [place] [address], [id number], 18:37:04 culture, urine 2022 023 [facility], [address] [place] [address], [place], [address], 06:07:30 Referral None recorded. Procedures None recorded. Surgeries None recorded. Imaging None recorded. Medication Orders None recorded. Patient TargetsNo targets recorded. Patient Instructions Encounter Date Encounter Id Patient Instructions Last Modified By Organization Details Last Modified Time 09/28/2022 [id number] upper and middle back (thoracic) strain: care instructions [email or web address] Not available 09/28/2022 18:37:04 constipation: care instructions [email or web address] Not available 09/28/2022 18:37:04 I would continue [...] Blood in Urine. Thank you for using [email or web address], please feel free to contact us if you have any questions or concerns. [email or web address] Not available 09/28/2022 18:37:03 Reason for Referral None Reported. Results Created Date Observation Date Name Description Value Unit Range Abnormal Flag Note LastModifiedBy Organization Detail LastModifiedTime 09/28/19 23 10/01/2022 URINE CULTU RE, ROUTI NE urine culture, routine FINAL REPORT Not Available [facility] ([facility]) [address] [facility], [place], [address], 10/01/2022 06:07:30 09/28/1910/01/2022 URINE CULTU RE, DULCEI NE result 1 NO GROWTH Not Available [facility] ([facility]) [address] [facility], [place], [address], 10/01/2022 06:07:30 09/28/1909/28/2022 urina lysis , dipst ick Unknown Analyte Normal = light yellow Not Available [address], [address], 09/28/2022 17:46:46 09/28/1909/28/2022 urina lysis , dipst ick Unknown Analyte Normal = clear Not Available [address] [place] [address], [address], 09/28/2022 17:46:46 09/28/19 23 09/28/2022 urina lysis , dipst ick Unknown Analyte Normal = negati ve Not Available [address] [place] [address], [address], 09/28/2022 17:46:46 09/28/19 23 09/28/2022 urina lysis , dipst ick Unknown Analyte Normal = Negati ve Not Available [address]sarah flores [address], [place], [address], 09/28/2022 17:46:46 09/28/19 23 09/28/2022 urina lysis , dipst ick Unknown Analyte Normal = Negati ve Not Available [facility] [address], [place], [address], 09/28/2022 17:46:46 09/28/19 23 09/28/2022 urina lysis , dipst ick Unknown Analyte Normal = 1.010, 1.015, 1.020 Not Available 2099sarah flores [address], [place], [address], 09/28/2022 17:46:46 09/28/19 23 09/28/2022 urina lysis , dipst ick Unknown Analyte Normal = Negati ve Not Available [address]99sarah flores [address], [place], [address], 09/28/2022 17:46:46 09/28/19 23 09/28/2022 urina lysis , dipst ick Unknown Analyte Normal = 6.5, 7.0, 7.5, 8.0 Not Available [facility] [address], [place], [address], 09/28/2022 17:46:46 09/28/19 23 09/28/2022 urina lysis , dipst ick Unknown Analyte Normal = Negati ve Not Available [address]99sarah flores [address], [place], [address], 09/28/2022 17:46:46 09/28/19 23 09/28/2022 urina lysis , dipst ick Unknown Analyte Normal = 0.2, 1.0 Not Available [address]99sarah flores [address], [place], [address], 09/28/2022 17:46:46 09/28/19 23 09/28/2022 urina lysis , dipst ick Unknown Analyte Normal = Negati ve Not Available [facility], [place], [address], 09/28/2022 17:46:46 09/28/19 23 09/28/2022 urina lysis , dipst ick Unknown Analyte Normal = Negati ve Not Available [facility], [place], [address], 09/28/2022 17:46:46 09/28/19 23 09/28/2022 urina lysis , dipst ick Unknown Analyte Yellow Not Available janee [address], [place], [address], 09/28/2022 17:46:46 09/28/19 23 09/28/2022 urina lysis , dipst ick Unknown Analyte Clear Not Available janee [address], [place], [address], 09/28/2022 17:46:46 09/28/19 23 09/28/2022 urina lysis , dipst ick Unknown Analyte Negati ve Not Available [facility], [place], [address], 09/28/2022 17:46:46 09/28/19 23 09/28/2022 urina lysis , dipst ick Unknown Analyte Negati ve Not Available [facility] [address] [place] [address], [place], [address], 09/28/2022 17:46:46 09/28/19 23 09/28/2022 urina lysis , dipst ick Unknown Analyte Negati ve Not Available [facility], [place], [address], 09/28/2022 17:46:46 09/28/1909/28/2022 urina lysis , dipst ick Unknown Analyte <=1.00 5 Not Available sarah flores [address], [place], [address], 09/28/2022 17:46:46 09/28/19 23 09/28/2022 urina lysis , dipst ick Unknown Analyte Negati ve Not Available sarah flores [address], [place], [address], 09/28/2022 17:46:46 09/28/19 23 09/28/2022 urina lysis , dipst ick Unknown Analyte 6.0 Not Available [facility] [address], [place], [address], 09/28/2022 17:46:46 09/28/19 23 09/28/2022 urina lysis , dipst ick Unknown Analyte Negati ve Not Available sarah flores [address], [place], [address], 09/28/2022 17:46:46 09/28/19 23 09/28/2022 urina lysis , dipst ick Unknown Analyte 0.2 E.U./d L Not Available sarah flores [address], [place], [address], 09/28/2022 17:46:46 09/28/19 23 09/28/2022 urina lysis , dipst ick Unknown Analyte Negati ve Not Available sarah flores [address], [place], [address], 09/28/2022 17:46:46 09/28/19 23 09/28/2022 urina lysis , dipst ick Unknown Analyte Negati ve Not Available [address] [address] [facility], [place], [address], 09/28/2022 17:46:46 Result Notes None recorded. Problems Name Problem SNOMED Code Status Onset Date Resolution Date Notes Provider Name and Address Organization Details Recorded Time Disorder of thyroid gland 46967277 Active 2022 FREDY TITO null, [place] - [facility] 18:00:39 Disorder of back 25674036 Active 2022 FREDY TITO null, PA - [facility] 18:00:51 Osteoarthritis 231127039 Active 2022 FREDY TITO null, PA - [facility] 18:01:03 Spinal stenosis 91549086 Active 2022 FREDY TITO null, PA - [facility] 18:04:23 Problem Notes None recorded. Medical Equipment None Reported. Allergies Allergen ID Allergen Name Allergen Category Reaction Reaction Severity Criticality Documentation Date Start Date Code Code System Note Provider Name and Address Organization Details Recorded Time 355181 ampicilli n medicatio n rash Not available Not available 09/28/2022 733 RxNorm FREDY TITO null, PA - [facility] 17:50:08 310644 Biaxin medicatio n nausea Not available Not available 09/28/202249902 9 RxNorm FREDY TITO null, PA - [facility] 17:50:22 730160 Substance with sulfonami de structure and antibacte rial mechanism of action (substanc e) medicatio n vomiting Not available Not available 09/28/2022 29338 8003 SNOMED FREDY TITO null, PA - [facility] 17:50:41 224070 Wellbutri n medicatio n hives Not available Not available 09/28/2022 67461 RxNorm FREDY TITO null, PA - [facility] 17:50:57 202936 erythromy mk medicatio n vomiting Not available Not available 09/28/2022 4053 RxNorm FREDY TITO null, PA - [facility] 17:51:10 681912 Ceftin medicatio n vomiting Not available Not available 09/28/2022 38202 6 RxNorm FREDY TITO null, PA - [facility] 17:51:32 537250 propofol medicatio n hives Not available Not available 09/28/2022 8782 RxNorm FREDY TITO null, PA - [facility] 17:52:02 322994 morphine medicatio n vomiting Not available Not available 09/28/2022 7052 RxNorm FREDY TITO null, PA - [facility] 17:52:23 849382 doxycycli ne Not available rash Not available [...] Updated DateTime 3 167.64 cm 34.4 kg/m2 67731.1 7 g 6 98 % 98 % [...] SNOMED-CT Code Diagnosis ICD10 Code Diagnosis Note [id number] [facility] [address] [place] [address] 11/28/2021 13:00:40 11/28/2021 15:33:40 [id number] [address] [address] [place] [address] 05/18/2016 14:19:24 05/18/2016 17:11:45 [id number] [address] [place] [address] 05/20/2016 13:12:48 05/20/2016 14:14:51 [id number] KELSI BESS [address] [place] [address] 09/28/2022 16:00:24 09/28/2022 18:39:47 Thoracic back pain 637916056 M54.6 Differenti al - Kidney Stone, Constipati [...] ID Guarantor Name 09/28/2022 1 [facility] (POS) [id number] Norma Mckeon [id number] Norma Mckeon Notes Date Note Type Note Provider Name and Address Organization Details Recorded Time 3 text/html Back Pain/Injury UCReported bypatient.source of patient informationInformation obtained from patient Location:middle of the back; pain is not radiating Quality:sharp Duration:2 days Alleviating Factors:nothing helps Aggravating Factors:cannot identifyNotes:The patient reports that on a ride [place] from [place] started to get a deep sharp pain [...] KELSI BESS [address] [place], [address], [place] - [facility] 09/28/2022 21:52:03 OBGyn Episode No OBEpisode recorded.
--- OUTSIDE RECORDS SUMMARY | 2024-11-04 13:08 | XMS_ITS ---
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 Name Role Phone Kayley Kruger MD Primary Care Provider UnavailRiki Hunt Unavailable [phone] Barbara HUTCHINSON, Hai Unavailable Unavailable Allergies Allergen (clinical drug ingredient) Drug/Non Drug Allergy documented on EMR Reaction Allergy Type Onset Date Status Ceftin Unknown Drug Allergy Active Biaxin Unknown [...] Activ e Wellbutrin Unknown Drug Allergy Active REASON FOR VISIT Patient presents today for a hiatal hernia Medications Medication SIG (Take, Route, Frequency, Duration) Notes Start Date End Date Status Tylenol PM Extra Strength Not-Taking Naltrexone Not-Takin g Rosuvastatin Calcium 10 MG Oral for 60 Not-Taking Lovaza 1 GM Oral for 90 Not-Ta shannon Ashwagandha Not-Taki ng Citrucel Not-Taking CoQ10 Not-Taking Pregnenolone Not-Terrence ing Green Tea Extract No t-Taking Saw [place] Not-Terrence ing Cortisol Truck Cleaner Not -Taking Lorazepam Not-Taking Omeprazole 40 MG 1 Orally Twice a day in the morning and late afternnon/early evening for 90 days 04/30/2024 Active Vitamin D3 25 MCG (1000 UT) with k Orally Once a day Act lee Tirosint 150 MCG 1 capsule in the mor jean on an empty stomach Orally Once a day for 90 days Active Repatha SureClick 140 MG/ML Subcutaneous for 84 Active Escitalopram Oxalate 10 MG Oral for 90 Active Melatonin Active Niacinamide ER Activ e Progesterone Active BHRTBase Active Mag Glycinate Active ZyrTEC prn Active Tums 500 MG 1 tablet Orally Once a day for 30 day(s) prn Active Social History Tobacco Use: Social History Observation Description Date Details (start date - stop date) Never Smoker NA - NA Tobacco Use/Smoking Question Answer Notes Patient is [...] Never (0 point) Points 0 Interpretation Negative Section Notes: Nonsmoker; no sig. alcohol Vital Signs Blood pressure systolic 111 mm Hg 10/30/19 25 Blood pressure diastolic 111 mm Hg 025 Height 5 ft 5.5 in in 10/29/2024 Weight 215 lbs 10/29/2024 BMI 35.23 kg/m2 10/29/2024 Procedures Procedure Date Ordered Date Performed Result Body Sit e COLONOSCOPY 10/29/2024 N/A Encounters Encounter Location Date Provider Diagnosis [facility] [address] [facility] [address] [place] [address] 10/29/2024 Riki Portillo History of colon polyps Z86.010 ; Encounter for screening for malignant neoplasm of colon Z12.11 ; Gastro-esophageal reflux disease without esophagitis K21.9 and Cough R05.9 Assessments Encounter Date Diagnosis (ICD Code) Assessment Notes Treatment Notes Treatment Clinical Notes Section Notes 10/29/2024 History of colon polyps (ICD-10 - Z86.010) 10/29/2024 Encounter for screening for malignant neoplasm of colon (ICD-10 - Z12.11) 10/29/2024 Gastro-esophagea l reflux disease without esophagitis (ICD-10 - K21.9) Decrease the 40mg omeprazole to just one a day fopr the heartburn 10/29/2024 Cough (ICD-10 - R05.9) Continue follow up at [facility] for the weight loss procedure and the hiatal hernia surgery Plan Of Treatment Treatment Notes Assessment Notes Gastro-esophageal reflux dis ease without esophagitis Decrease the 40mg omeprazole to just one a day fopr the heartburn Cough Continue follow up a t [facility] for the weight loss procedure and the hiatal hernia surgery Pending Test Test Name Order Date COLONOSCOPY 10/29/2024 Next Appt Details Provider Name:Riki Portillo , 02/03/2025 09:30:00 AM, [address] [place] [address], [phone], Progress Notes * MICHEAL BYRDOB:08/1964 (59 yo F)Acc No.[id number]:10/29/2024 Progress Notes Patient:?STEVE BYRD Provider:?Riki Portillo MD :1965???Age:59 Y???Sex:Female D ate:10/29/2024 Address:[address] [place], [place] [id number] Pcp:Kayley Kruger MD Subjective: * Chief Complaints: * ???1. Patient presents today for a hiatal hernia. * Medical History:?Degenerativ e disc disease/Arthritis-lower back, Hypercholesterolemia/high trigylcerides, IBS, HYPOTHYRODISM/HASHIMOTOS DX 2019, Urinary incontinence , Depression, Denies MS,DM,CVA,Lung disease,renal disease, 3 previous colonoscopies with removal of polyps on at least one of them. She is due for another colonoscopy in 2024., Hiatal hernia seen on a CT scan of her chest in November of 2023, Upper endoscopy in February of 2024 revealed a moderate-sized hiatal hernia, but no evidence of significant esophagitis or Gallagher's esophagus. 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 * Family History:?Father: harris wolf, stroke effected right eye blind, diagnosed with HTN (hypertension).?Mother: alive, thyroid issues.? History of colon polyps in brothers No known hx of colon cancer. * Social History:?Tobacco Use:?Tobacco Use/Smoking?Patient is a?nonsmoker.?Drugs/Alcohol:?Alcohol Screen?Did you have a drink containing alcohol in the past year??Yes,?How often did you have a drink containing alcohol in the past year??Never (0 point),?How many drinks did you have on a typical day when you were drinking in the past year??1 or 2 drinks (0 point),?How often did you have 6 or more drinks on one occasion in the past year??Never (0 point),?Points?0,?Interpretation?Negative.?Miscellaneous:?Marital status: . 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 ???Nonsmoker; no sig. alcohol. * Medications:?Taking Tums 500 MG Tablet Chewable 1 tablet Orally Once a day , Notes to Pharmacist: prn, Taking ZyrTEC , Notes to Pharmacist: prn, Taking Progesterone , Taking Niacinamide ER , Taking Melatonin , Taking Mag Glycinate , Taking BHRTBase , Taking Escitalopram Oxalate 10 MG Tablet Oral , Taking Repatha SureClick 140 MG/ML Solution Auto-injector Subcutaneous , Taking Tirosint 150 MCG Capsule 1 capsule in the morning on an empty stomach Orally Once a day , Taking Vitamin D3 25 MCG (1000 UT) Tablet with k Orally Once a day , Taking Omeprazole 40 MG Capsule Delayed Release 1 Orally Twice a day in the morning and late afternnon/early evening , Not- Taking/PRN Cortisol Truck Cleaner , Not-Taking/PRN Saw [place] , Not-Taking/PRN Green Tea Extract , Not-Taking/PRN Pregnenolone , Not-Taking/PRN Lorazepam , Not-Taking/PRN CoQ10 , Not-Taking/PRN Citrucel , Not-Taking/PRN Ashwagandha , Not-Taking/PRN Lovaza 1 GM Capsule Oral , Not-Taking/PRN Rosuvastatin Calcium 10 MG Tablet Oral , Not- Taking/PRN Naltrexone , Not-Taking/PRN Tylenol PM Extra Strength , Discontinued QUEtiapine Fumarate 25 MG Tablet 1 tablet at bedtime Orally Once a day , Discontinued Mirtazapine 7.5 MG Tablet 2 tablets at bedtime Orally Once a day , Discontinued Cyclobenzaprine HCl 10 MG Tablet 1 tablet at bedtime as needed Orally Once a day , Notes to Pharmacist: prn, Discontinued Omeprazole 40 MG Capsule Delayed Release 1 Orally Once a day at 4:00 PM , Medication List reviewed and reconciled with the patient * Allergies:?Ampicillin, Biaxi n, Sulfa Antibiotics, Wellbutrin, Erythromycin, Ceftin, Propofol, Morphine, Dust Mites, dogs,cats, pigweed, ragweed, kiwi fruit, Gluten, dairy, Doxycycline. Objective: * Vitals:?Wt: 215 lbs, Ht: 5 f t 5.5 in, BMI:35.23Index, BP: 111/111 mm Hg, Wt-k.52. Assessment: * Assessment: 1.?History of colon polyps - Z86.010???2.?Encounter for screening for malignant neoplasm of colon - Z12.11???3.?Gastro-esophageal reflux disease without esophagitis - K21.9???4.?Cough - R05.9??? Plan: * Treatment: 2.?Encounter for screening for malignant neoplasm of colon?Procedure: COLONOSCOPY* with MACsched for 02/03/25 at 9:30 ammiralax 3.?Gastro-esophageal reflux disease without esophagitis? Notes: Decrease the 40mg omeprazole to just one a day fopr the heartburn?? 4.?Cough? Notes: Continue follow up at [facility] Surgery Dept for the weight loss procedure and the hiatalhernia surgery?? * Procedure Codes:?50525 DIAGN OSTIC COLONOSCOPY * Preventive Medicine:? ??Counseling:?Care goal follow-up plan:?Above Normal BMI Follow-up?Giving encouragement to exercise,?BMI management provided?Yes.? * * The named appointment provid er may or may not be the originator of this progress note, and it is not deemed complete until electronically signed by the appointment provider. Sign off status: Pending * Provider:?Riki Portillo MD Date:? 025 Generated for Farooq dueñas/Anna/Margarita on:?11/04/2024 01:08 PM EDT
--- OUTSIDE RECORDS SUMMARY | 2024-11-04 13:09 | XMS_ITS | Patient Health Record ---
Author Organization [facility] Address [address] [place] [address] Care Team Providers Care Decorative Engraver Name Role Phone Kayley Kruger MD Primary Care Provider Riki Restrepo Unavailable [phone] Barbara HUTCHINSON, Hai Unavailable Unavailable Allergies Allergen [...] Activ e Wellbutrin Unknown Drug Allergy Active Results Component Value Reference Range Notes Pathology Reviewed date:03/21/2024 11:42:55 PM Interpretation: Performing Lab:[facility], [address] [place] [id number] Notes/Report: Name: Sagar Mckeon amberdelta Jeannette Age/Sex: 58/F [facility] 1965 [id number]#: [id number] Attend Dr: Riki Prescott MD Re03/11/24 Status : [facility] Location: [facility] Disch: SPEC : [id number] RECD : 03/11/24-1410 STATUS: [facility] NUM: [id number] SONIA: 03/11/24-[address] [facility] [address]: Riki Prescott MD ENTERED: 03/11/24- SP TYPE: Surgical OTHR DR: Kayley Kruger MD ORDERED: Gross Micro L4, Special st. 2, AB/PAS Diagnosis EG junction, 33 cm, biopsy: - Cardiac-type mucos a with moderate chronic inactive inflammation; no intestinal metaplasia seen. - Squamous mucosa wi thin normal limits. Clinical History Pre-Op Dx: GERD, cough Post-Op Dx: Hiatal h ernia, reflux Microscopic Description Microscopic sections examined. No metaplastic changes are seen, supported by AB/PAS stains. Material Received EG junction at 33 cm Gross Description Received in formalin labeled ?EG junction at 33 cm? are 4 cowart-pink irregular tissue fragments each measu ring 0.25 cm, submitted in toto in a cassette labeled A. CEDS Special studies orde red and performed: AB/PAS stains Copies To: Kayley Kruger MD [facility] [place] [address] [place] [address] Riki Prescott MD [facility] [address] [place], [place] [phone] Signed (si gnature on file) Hitesh Castro MD 03/12/24 1213 END OF REPORT Reason For Referral Referring Provider First Name Kayley Referring Provider Last Name Slick Referring Provider Speciality Internal edicine Referred Organization [facility] Referred Provider Riki Prescott Referred Address [address] [place] [address],[address],[place],[phone],[place] Referred Provider Specialty Gastroentero logy Referral Priority Routine Referring Provider First Name Kayley Referring Provider Last Name Slick Referring Provider Speciality Internal edicine Referred Organization [facility] Referred Provider Riki Prescott Referred Address [address] [place] [address],[address],[place],[phone],[place] Referred Provider Specialty Gastroentero logy General Notes Radha Roberts 2024 02:11:17 PM >SPOKE WITH ELLIOTT [phone] AT [facility] AND REQUESTED A REFERRAL FOR THE PATIENT'[facility] COL[facility] Referral Priority Routine Medications Medication SIG (Take, Route, Frequency, Duration) Notes Start Date End Date Status Melatonin Active Pregnenolone Not-Terrence ing Niacinamide ER Activ e Green Tea Extract No t-Taking Progesterone Active Saw [place] Not-Terrence ing Cortisol Gang Knife Fish Chopper Not -Taking Tylenol PM Extra Strength Not-Taking Naltrexone Not-Takin g ZyrTEC prn Active Tums 500 MG 1 tablet Orally Once a day for 30 day(s) prn Active Omeprazole 40 MG 1 Orally Twice a day in the morning and late afternnon/early evening for 90 days 04/30/2024 Active Vitamin D3 25 MCG (1000 UT) with k Orally Once a day Act lee Rosuvastatin Calcium 10 MG Oral for 60 Not-Taking Tirosint 150 MCG 1 capsule in the mor jean on an empty stomach Orally Once a day for 90 days Active Lovaza 1 GM Oral for 90 Not-Ta shannon Repatha SureClick 140 MG/ML Subcutaneous for 84 Active Ashwagandha Not-Taki ng Escitalopram Oxalate 10 MG Oral for 90 Active Citrucel Not-Taking BHRTBase Active CoQ10 Not-Taking Mag Glycinate Active Lorazepam Not-Taking Social History Tobacco Use: Social History Observation [...] Negative Section Notes: Nonsmoker; no sig. alcohol Nonsmoker; no sig. alcohol Nonsmoker; no sig. alcohol Problems Problem Type SNOMED Code ICD Code Onset Dates Problem Status W/U Status Risk Notes Problem Gastro-esophageal reflux disease without esophagitis (379432247) Gastro-esophag eal reflux disease without esophagitis (K21.9) Active confirmed Problem Screening for malignant neoplasm of colon (743386476) Encounter for screening for malignant neoplasm of colon (Z12.11) Active confirmed Problem History of polyp of colon (757389363) History of colon polyps (Z86.010) Active confirmed Problem Hiatal hernia (36487366) Hiatal hernia (K44.9) Active confirmed Problem Cough (88174097) Cough (R05.9) Active confirmed Problem Gastroesophageal reflux disease (disorder) (387141106) Chronic GERD (K21.9) Active confirmed Vital Signs Blood pressure diastolic 111 mm Hg 10/29/2024 Height 5 ft 5.5 in in 10/29/2024 Blood pressure systolic 111 mm Hg 10/29/2024 Weight 215 lbs 10/29/2024 BMI 35.23 kg/m2 10/29/2024 Procedures Procedure Date Ordered Date Performed Result Body Sit e COLONOSCOPY 10/29/2024 N/A Encounters Encounter Location Date Provider Diagnosis [facility] Out[facility] [address] [place], [place] [phone] 03/11/2024 Riki Prescott Gastro-esophageal reflux disease without esophagitis K21.9 ; Hiatal hernia K44.9 and Chronic cough R05.3 [facility] [address] [phone] 10/29/2024 Riki Prescott History of colon polyps Z86.010 ; Encounter for screening for malignant neoplasm of colon Z12.11 ; Gastro-esophageal reflux disease without esophagitis K21.9 and Cough R05.9 [facility] [address] [place] [phone] 03/01/2024 Riki Prescott Chronic GERD K21.9 ; Cough R05.9 ; History of colon polyps Z86.010 and Encounter for screening for malignant neoplasm of colon Z12.11 [facility] [address] [address] 04/30/2024 Riki Prescott Chronic GERD K21.9 ; Cough R05.9 ; Hiatal hernia K44.9 ; Encounter for screening for malignant neoplasm of colon Z12.11 and History of colon polyps Z86.010 [facility] [address] [phone] 03/01/2024 Riki Prescott [facility] [address] [place] [phone] 03/17/2024 Riki Prescott [facility] [address] [address] 03/21/2024 Riki Prescott Chronic GERD K21.9 [facility] [address] [place] [phone] 04/04/2024 Riki Prescott Chronic GERD K21.9 ; Hiatal hernia K44.9 and Cough R05.9 Assessments Encounter Date Diagnosis (ICD Code) Assessment Notes Treatment Notes Treatment Clinical Notes Section Notes 03/11/2024 Gastro-esophage al reflux disease without esophagitis (ICD-10 - K21.9) 03/11/2024 Hiatal hernia (ICD-10 - K44.9) 10/29/2024 History of colon polyps (ICD-10 - Z86.010) 03/01/2024 Cough (ICD-10 - R05.9) Overall, Nikolai appears well from a clinical standpoint. We did review that long-standing reflux with a hiatal hernia can sometimes cause coughing, particularly at night due to some nocturnal reflux. Given her ongoing symptoms despite a PPI, as well as the fact that she has had long-standing reflux symptoms, I advised her that it would be important to have her undergo an upper endoscopy to rule out any component of Gallagher's esophagus, significant esophagitis, and/or a significant hiatal hernia. Full consent was obtained from her for this, including risks of bleeding and perforation. The procedure will be done with monitored anesthesia care. In the meantime, I am going to increase her omeprazole to 40 mg each day and have advised her to take it in the late afternoon rather than the morning since the majority of her symptoms are overnight. I also advised her to take 2 or 3 TUMS every night at bedtime regularly. Hopefully by minimizing any nocturnal acid reflux this might help her cough improve. However, we did review that there is certainly no guarantee in this regard. We also reviewed that she should not eat for several hours before bedtime and that she should minimize caffeine in regard to reflux. We did review that she will be due for colonoscopy next year and I would be happy to perform that for her at that time. Nikolai was comfortable with this plan. Thank you again for allowing me to participate in Nikolai's care. I shall continue to keep you advised of her progress. 03/01/2024 Chronic GERD (ICD-10 - K21.9) Start taking the 40mg omeprazole every day at 4PM and take 2 or 3 TUMS every night at bedtime Overall, Nikolai appears well from a clinical standpoint. We did review that long-standing reflux with a hiatal hernia can sometimes cause coughing, particularly at night due to some nocturnal reflux. Given her ongoing symptoms despite a PPI, as well as the fact that she has had long-standing reflux symptoms, I advised her that it would be important to have her undergo an upper endoscopy to rule out any component of Gallagher's esophagus, significant esophagitis, and/or a significant hiatal hernia. Full consent was obtained from her for this, including risks of bleeding and perforation. The procedure will be done with monitored anesthesia care. In the meantime, I am going to increase her omeprazole to 40 mg each day and have advised her to take it in the late afternoon rather than the morning since the majority of her symptoms are overnight. I also advised her to take 2 or 3 TUMS every night at bedtime regularly. Hopefully by minimizing any nocturnal acid reflux this might help her cough improve. However, we did review that there is certainly no guarantee in this regard. We also reviewed that she should not eat for several hours before bedtime and that she should minimize caffeine in regard to reflux. We did review that she will be due for colonoscopy next year and I would be happy to perform that for her at that time. Nikolai was comfortable with this plan. Thank you again for allowing me to participate in Nikolai's care. I shall continue to keep you advised of her progress. 04/30/2024 Cough (ICD-10 - R05.9) Overall, Nikolai appears quite well. We did review the findings on her recent upper endoscopy in detail. I advised her that while she certainly has a hiatal hernia and history of reflux based on the previous heartburn symptoms, the main question would be whether or not that is causing her cough. The PPI has relieved her heartburn symptoms but nonetheless her cough has persisted. I did advise her that although the acid symptoms have resolved that does not mean she is not still having some reflux and microaspiration contributing to her ongoing cough. I advised her that many times this is a difficult problem to definitively diagnose and resolve. While hiatal hernia surgery may very well help her cough if indeed we are still dealing with some residual reflux, it certainly is not a guarantee for that. At this point I did advise her to keep her appointments for the esophageal motility study next week and the appointment with Dr. Russell in June. We did discuss that if somehow her thyroid surgery resolves her cough then obviously she can avoid hiatal hernia surgery and just continue with the omeprazole. However, if her cough persists after the thyroid surgery, which I suspect will be the case, she should then keep her appointment with Dr. Russell to discuss hiatal hernia surgery. In the meantime, I am going to increase omeprazole to 40 mg twice a day to see if by maximizing her PPI therapy will perhaps give her some relief of the annoying cough in the interim. I will plan to see her again in the Spring to see how she is doing in regard to the cough and reflux, as well as to set up her followup screening colonoscopy that will be due in 2024. I did advise her to definitely call me in the interim if she has any problems or questions I can be of assistance with. Nikolai was comfortable with this plan. Thank you again for allowing me to participate in Nikolai's care. I shall continue to keep you advised of her progress. 04/30/2024 Chronic GERD (ICD-10 - K21.9) Increase 40mg omepraozle to twice a day for 1 to 2 months to see if that helps the cough. If it doesn't then go back to just once a day. Keep the 05/08 esophageal motility appt. Let me know what Dr. Russell says. Overall, Nikolai appears quite well. We did review the findings on her recent upper endoscopy in detail. I advised her that while she certainly has a hiatal hernia and history of reflux based on the previous heartburn symptoms, the main question would be whether or not that is causing her cough. The PPI has relieved her heartburn symptoms but nonetheless her cough has persisted. I did advise her that although the acid symptoms have resolved that does not mean she is not still having some reflux and microaspiration contributing to her ongoing cough. I advised her that many times this is a difficult problem to definitively diagnose and resolve. While hiatal hernia surgery may very well help her cough if indeed we are still dealing with some residual reflux, it certainly is not a guarantee for that. At this point I did advise her to keep her appointments for the esophageal motility study next week and the appointment with Dr. Russell in June. We did discuss that if somehow her thyroid surgery resolves her cough then obviously she can avoid hiatal hernia surgery and just continue with the omeprazole. However, if her cough persists after the thyroid surgery, which I suspect will be the case, she should then keep her appointment with Dr. Russell to discuss hiatal hernia surgery. In the meantime, I am going to increase omeprazole to 40 mg twice a day to see if by maximizing her PPI therapy will perhaps give her some relief of the annoying cough in the interim. I will plan to see her again in the Spring to see how she is doing in regard to the cough and reflux, as well as to set up her followup screening colonoscopy that will be due in 2024. I did advise her to definitely call me in the interim if she has any problems or questions I can be of assistance with. Nikolai was comfortable with this plan. Thank you again for allowing me to participate in Nikolai's care. I shall continue to keep you advised of her progress. 03/21/2024 Chronic GERD (ICD-10 - K21.9) 04/04/2024 Hiatal hernia (ICD-10 - K44.9) 04/04/2024 Chronic GERD (ICD-10 - K21.9) 03/11/2024 Chronic cough (ICD-10 - R05.3) 10/29/2024 Encounter for screening for malignant neoplasm of colon (ICD-10 - Z12.11) 03/01/2024 History of colon polyps (ICD-10 - Z86.010) Overall, Nikolai appears well from a clinical standpoint. We did review that long-standing reflux with a hiatal hernia can sometimes cause coughing, particularly at night due to some nocturnal reflux. Given her ongoing symptoms despite a PPI, as well as the fact that she has had long-standing reflux symptoms, I advised her that it would be important to have her undergo an upper endoscopy to rule out any component of Gallagher's esophagus, significant esophagitis, and/or a significant hiatal hernia. Full consent was obtained from her for this, including risks of bleeding and perforation. The procedure will be done with monitored anesthesia care. In the meantime, I am going to increase her omeprazole to 40 mg each day and have advised her to take it in the late afternoon rather than the morning since the majority of her symptoms are overnight. I also advised her to take 2 or 3 TUMS every night at bedtime regularly. Hopefully by minimizing any nocturnal acid reflux this might help her cough improve. However, we did review that there is certainly no guarantee in this regard. We also reviewed that she should not eat for several hours before bedtime and that she should minimize caffeine in regard to reflux. We did review that she will be due for colonoscopy next year and I would be happy to perform that for her at that time. Nikolai was comfortable with this plan. Thank you again for allowing me to participate in Nikolai's care. I shall continue to keep you advised of her progress. 04/30/2024 Hiatal hernia (ICD-10 - K44.9) Overall, Nikolai appears quite well. We did review the findings on her recent upper endoscopy in detail. I advised her that while she certainly has a hiatal hernia and history of reflux based on the previous heartburn symptoms, the main question would be whether or not that is causing her cough. The PPI has relieved her heartburn symptoms but nonetheless her cough has persisted. I did advise her that although the acid symptoms have resolved that does not mean she is not still having some reflux and microaspiration contributing to her ongoing cough. I advised her that many times this is a difficult problem to definitively diagnose and resolve. While hiatal hernia surgery may very well help her cough if indeed we are still dealing with some residual reflux, it certainly is not a guarantee for that. At this point I did advise her to keep her appointments for the esophageal motility study next week and the appointment with Dr. Russell in June. We did discuss that if somehow her thyroid surgery resolves her cough then obviously she can avoid hiatal hernia surgery and just continue with the omeprazole. However, if her cough persists after the thyroid surgery, which I suspect will be the case, she should then keep her appointment with Dr. Russell to discuss hiatal hernia surgery. In the meantime, I am going to increase omeprazole to 40 mg twice a day to see if by maximizing her PPI therapy will perhaps give her some relief of the annoying cough in the interim. I will plan to see her again in the Spring to see how she is doing in regard to the cough and reflux, as well as to set up her followup screening colonoscopy that will be due in 2024. I did advise her to definitely call me in the interim if she has any problems or questions I can be of assistance with. Nikolai was comfortable with this plan. Thank you again for allowing me to participate in Nikolai's care. I shall continue to keep you advised of her progress. 04/04/2024 Cough (ICD-10 - R05.9) 10/29/2024 Gastro-esophage al reflux disease without esophagitis (ICD-10 - K21.9) Decrease the 40mg omeprazole to just one a day fopr the heartburn 03/01/2024 Encounter for screening for malignant neoplasm of colon (ICD-10 - Z12.11) Repeat colonoscopy in 11/2024 Overall, Nikolai appears well from a clinical standpoint. We did review that long-standing reflux with a hiatal hernia can sometimes cause coughing, particularly at night due to some nocturnal reflux. Given her ongoing symptoms despite a PPI, as well as the fact that she has had long-standing reflux symptoms, I advised her that it would be important to have her undergo an upper endoscopy to rule out any component of Gallagher's esophagus, significant esophagitis, and/or a significant hiatal hernia. Full consent was obtained from her for this, including risks of bleeding and perforation. The procedure will be done with monitored anesthesia care. In the meantime, I am going to increase her omeprazole to 40 mg each day and have advised her to take it in the late afternoon rather than the morning since the majority of her symptoms are overnight. I also advised her to take 2 or 3 TUMS every night at bedtime regularly. Hopefully by minimizing any nocturnal acid reflux this might help her cough improve. However, we did review that there is certainly no guarantee in this regard. We also reviewed that she should not eat for several hours before bedtime and that she should minimize caffeine in regard to reflux. We did review that she will be due for colonoscopy next year and I would be happy to perform that for her at that time. Nikolai was comfortable with this plan. Thank you again for allowing me to participate in Nikolai's care. I shall continue to keep you advised of her progress. 04/30/2024 Encounter for screening for malignant neoplasm of colon (ICD-10 - Z12.11) Repeat colonoscopy in 2024 Overall, Nikolai appears quite well. We did review the findings on her recent upper endoscopy in detail. I advised her that while she certainly has a hiatal hernia and history of reflux based on the previous heartburn symptoms, the main question would be whether or not that is causing her cough. The PPI has relieved her heartburn symptoms but nonetheless her cough has persisted. I did advise her that although the acid symptoms have resolved that does not mean she is not still having some reflux and microaspiration contributing to her ongoing cough. I advised her that many times this is a difficult problem to definitively diagnose and resolve. While hiatal hernia surgery may very well help her cough if indeed we are still dealing with some residual reflux, it certainly is not a guarantee for that. At this point I did advise her to keep her appointments for the esophageal motility study next week and the appointment with Dr. Russell in June. We did discuss that if somehow her thyroid surgery resolves her cough then obviously she can avoid hiatal hernia surgery and just continue with the omeprazole. However, if her cough persists after the thyroid surgery, which I suspect will be the case, she should then keep her appointment with Dr. Russell to discuss hiatal hernia surgery. In the meantime, I am going to increase omeprazole to 40 mg twice a day to see if by maximizing her PPI therapy will perhaps give her some relief of the annoying cough in the interim. I will plan to see her again in the Spring to see how she is doing in regard to the cough and reflux, as well as to set up her followup screening colonoscopy that will be due in 2024. I did advise her to definitely call me in the interim if she has any problems or questions I can be of assistance with. Nikolai was comfortable with this plan. Thank you again for allowing me to participate in Nikolai's care. I shall continue to keep you advised of her progress. 10/29/2024 Cough (ICD-10 - R05.9) Continue follow up at [facility] for the weight loss procedure and the hiatal hernia surgery 04/30/2024 History of colon polyps (ICD-10 - Z86.010) Overall, Nikolai appears quite well. We did review the findings on her recent upper endoscopy in detail. I advised her that while she certainly has a hiatal hernia and history of reflux based on the previous heartburn symptoms, the main question would be whether or not that is causing her cough. The PPI has relieved her heartburn symptoms but nonetheless her cough has persisted. I did advise her that although the acid symptoms have resolved that does not mean she is not still having some reflux and microaspiration contributing to her ongoing cough. I advised her that many times this is a difficult problem to definitively diagnose and resolve. While hiatal hernia surgery may very well help her cough if indeed we are still dealing with some residual reflux, it certainly is not a guarantee for that. At this point I did advise her to keep her appointments for the esophageal motility study next week and the appointment with Dr. Russell in June. We did discuss that if somehow her thyroid surgery resolves her cough then obviously she can avoid hiatal hernia surgery and just continue with the omeprazole. However, if her cough persists after the thyroid surgery, which I suspect will be the case, she should then keep her appointment with Dr. Russell to discuss hiatal hernia surgery. In the meantime, I am going to increase omeprazole to 40 mg twice a day to see if by maximizing her PPI therapy will perhaps give her some relief of the annoying cough in the interim. I will plan to see her again in the Spring to see how she is doing in regard to the cough and reflux, as well as to set up her followup screening colonoscopy that will be due in 2024. I did advise her to definitely call me in the interim if she has any problems or questions I can be of assistance with. Nikolai was comfortable with this plan. Thank you again for allowing me to participate in Nikolai's care. I shall continue to keep you advised of her progress. Plan Of Treatment Pending Test Test Name Order Date Esophageal Motility study 04/04/2024 COLONOSCOPY 10/29/2024 Future Test Test Name Order Date UPPER GI ENDOSCOPY 03/01/2024 Next Appt Details Provider Name:Riki Prescott , 02/03/2025 09:30:00 AM, [address] [place] [address] , [place], [place], [phone], Insurance Providers Payer Name Payer Address Payer Phone Subscriber Number Group Number Insured Name Patient Relationship to Insured Coverage Start Date Coverage End Date [employer] (REFERRA L NEEDED) [address] [place] [phone] [id number] NIKOLAI ESCOTO Self - patient is the insured Medical (General) History Medical History History ICD Code Degenerative disc disease/Arthritis-lowe r back Hypercholesterolemia/high trigylcerides IBS HYPOTHYRODISM/HASHIMOTOS DX 2019 Urinary incontinence Depression Denies [place],DM,CVA,Lung disease,renal dise ase 3 previous colonoscopies wit h removal of polyps on at least one of them. She is due for another colonoscopy in 2024. Hiatal hernia seen on a CT scan of her c hest in November of 2023 Upper endoscopy in February revealed a moderate-sized hiatal hernia, but no evidence of significant esophagitis or Gallagher's esophagus Surgical History Surgery Date(Month/Year) Thyroidectomy-complete--papillary carcin patrick 07/15/2024 Nerve ablation for back pain Hemorrhoid banding Endometrial Ablation D&C [place] teeth extraction Tonsillectomy and adenoidectomy
--- OUTSIDE RECORDS SUMMARY | 2024-11-04 13:09 | XMS_ITS ---
Author Organization [facility] Address [address] [place] [address] Care Team Providers Care Artificial Intelligence Specialist Name Role Phone Kayley Kruger MD Primary Care Provider UnavailRiki Hunt Unavailable [phone] Hai Jimenez MD Unavailable Unavailable Allergies Allergen (clinical drug ingredient) [...] Unknown Drug Allergy Active REASON FOR VISIT patient presents today for f/u from cough Medications Medication SIG (Take, Route, Frequency, Duration) [...] Active Green Tea Extract Ac tive Saw [place] Active ZyrTEC Active Mirtazapine 7.5 MG 2 tablets at bedtime Orally Once a day for 30 day(s) Active QUEtiapine Fumarate 25 MG 1 tablet at be dtime Orally Once a day for 30 day(s) Active Tums 500 MG 1 tablet Orally Once a day for 30 day(s) Active Cortisol Alberene Stone Setter Act lee Tylenol PM Extra Strength Not-Taking [...] 100 MCG Oral for 90 A ctive Social History Tobacco Use: Social History Observation [...] sig. alcohol Vital Signs Blood pressure systolic 00 mm Hg 04/30/20 24 Blood pressure diastolic 00 mm Hg 024 Height 5 ft 5.5 in in 04/30/2024 Weight 218 lbs 04/30/2024 BMI 35.72 kg/m2 04/30/2024 Encounters Encounter Location Date Provider Diagnosis [facility] [address] [place] [address] 04/30/2024 Riki Portillo Chronic GERD K21.9 ; Cough R05.9 ; Hiatal hernia K44.9 ; Encounter for screening for malignant neoplasm of colon Z12.11 and History of colon polyps Z86.010 Assessments Encounter Date Diagnosis (ICD Code) Assessment Notes Treatment Notes Treatment Clinical Notes Section Notes 04/30/2024 Chronic GERD (ICD-10 - K21.9) Increase 40mg omepraozle to twice a day for 1 to 2 months to see if that helps the cough. If it doesn't then go back to just once a day. Keep the 05/08 esophageal motility appt. Let me know what Dr. Russell says. Overall, Norma appears quite well. We did review the [...] questions I can be of assistance with. Norma was comfortable with this plan. Thank you again for allowing me to participate in Norma's care. I shall continue to keep you advised of her progress. 04/30/2024 Cough (ICD-10 - R05.9) Overall, Norma appears quite well. We did review the [...] questions I can be of assistance with. Norma was comfortable with this plan. Thank you again for allowing me to participate in Norma's care. I shall continue to keep you advised of her progress. 04/30/2024 Hiatal hernia (ICD-10 - K44.9) Overall, Norma appears quite well. We did review the [...] questions I can be of assistance with. Norma was comfortable with this plan. Thank you again for allowing me to participate in Norma's care. I shall continue to keep you advised of her progress. 04/30/2024 Encounter for screening for malignant neoplasm of colon (ICD-10 - Z12.11) Repeat colonoscopy in 2024 Overall, Norma appears quite well. We did review the [...] questions I can be of assistance with. Norma was comfortable with this plan. Thank you again for allowing me to participate in Norma's care. I shall continue to keep you advised of her progress. 04/30/2024 History of colon polyps (ICD-10 - Z86.010) Overall, Norma appears quite well. We did review the [...] questions I can be of assistance with. Norma was comfortable with this plan. Thank you again for allowing me to participate in Norma's care. I shall continue to keep you advised of her progress. Plan Of Treatment Medication Medication Name Sig [...] Next Appt Details Follow Up: October 2024, Shailesh n: Provider Name:Riki Portillo , 02/03/2025 09:30:00 AM, [address] [place] [address], [phone], Progress Notes * MICHEAL BYRDOB:08/1964 (58 yo F)Acc No.[id number]:04/30/2024 Progress Notes Patient:?STEVE BYRD Provider:?Riki Portillo MD :1965???Age:58 Y???Sex:Female D ate:04/30/2024 Address:[address] [place], [place] [id number] Pcp:Kayley Kruger MD Subjective: * Chief Complaints: * ???Patient presents today fo r f/u from cough * HPI: ???incontinence:? I saw Norma in followup today in regard to her chronic gastroesophageal reflux, hiatal hernia, and coughing. ?I last saw Norma in February, at which time she underwent an upper endoscopy revealing her moderate-sized hiatal hernia, but no evidence of any significant esophagitis nor Gallagher's esophagus. She has remained on omeprazole 40 mg daily since that time. She has been using it in the latter part of the day rather than in the morning. She has also been using some TUMS at bedtime. Despite this she has continued to have her coughing both during the day and particularly at night that remains very bothersome and problematic to her in regard to sleep disturbance. She is not having any symptomatic heartburn. She denies any dysphagia, anorexia, early satiety, nausea, nor vomiting. Her bowel movements have remained regular and without any signs of bleeding. She denies abdominal pain, jaundice, nor unintentional weight loss. ?Given her ongoing symptoms and the finding of the moderate-sized hiatal hernia, we did discuss potential for hiatal hernia surgery in regard to possibly helping her cough if reflux is contributing to it. As such, she has been scheduled for esophageal motility studies for next week and has an appointment to see a surgeon, Dr. Russell, to discuss potential laparoscopic hiatal hernia repair. ?However, of note, she did undergo a recent thyroid biopsy and she advised me that she will be needing at least a partial thyroidectomy due to some changes in the biopsy that might predispose to cancer . She thinks this will be taking precedent over any hiatal hernia surgery. She also hopes that somehow the thyroid surgery might help her cough, although she is not particularly hopeful in that regard. * ROS:?General/Constitutional:?Change in appetite?denies.?Chills?denies.?Fatigue?denies.?Ophthalmologic:?Comments?all negative.?ENT:?Comments?all negative.?Respiratory:?hemoptysis?denies.?Cough?denies.?Cardiovascular:?Chest pain?denies.?Orthopnea?denies.?Gastrointestinal:?Comments?See HPI for details.?Genitourinary:?Hematuria?denies.?Dysuria?denies.?Musculoskeletal:?Painful joints?denies.?Weakness?denies.?Skin:?Itching?denies.?Rash?denies.?Neurologic:?Headache?denies.?Seizures?denies.?Psychiatric:?Comments?all negative.? * Medical History:? * Surgical History:?Tonsillect patrica and adenoidectomy [place] teeth extraction D&C Endometrial Ablation Hemorrhoid banding Nerve ablation for back pain * Hospitalization/Major Diagno stic Procedure:?No Hospitalization History. * Family History:?Father: harris wolf, stroke effected [...] year??Never (0 point),?Points?0,?Interpretation?Negative.?Miscellaneous:?Marital status: . 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 ???Nonsmoker; no sig. alcohol. * Medications:?TakingCortisol Alberene Stone Setter Tums 500 MG Tablet Chewable 1 tablet Orally Once a dayQUEtiapine Fumarate 25 MG Tablet 1 tablet at bedtime Orally Once a dayMirtazapine 7.5 MG Tablet 2 tablets at bedtime Orally Once a dayZyrTEC Saw [place] Green Tea Extract Progesterone Pregnenolone Niacinamide ER Melatonin Mag Glycinate Lorazepam Cyclobenzaprine HCl 10 MG Tablet 1 tablet at bedtime as needed Orally Once a day, Notes: [id number] Citrucel BHRTBase Ashwagandha Escitalopram Oxalate 10 MG Tablet Oral Repatha SureClick 140 MG/ML Solution Auto-injector Subcutaneous Tirosint 100 MCG Capsule Oral Lovaza 1 GM Capsule Oral Rosuvastatin Calcium 10 MG Tablet Oral Omeprazole 40 MG Capsule Delayed Release 1 Orally Once a day at 4:00 PMNaltrexone Vitamin D3 25 MCG (1000 UT) Tablet with k Orally Once a dayTaking Cortisol Alberene Stone Setter Taking Tums 500 MG Tablet Chewable 1 tablet Orally Once a dayTaking QUEtiapine Fumarate 25 MG Tablet 1 tablet at bedtime Orally Once a dayTaking Mirtazapine 7.5 MG Tablet 2 tablets at bedtime Orally Once a dayTaking ZyrTEC Taking Saw [place] Taking Green Tea Extract Taking Progesterone Taking Pregnenolone Taking Niacinamide ER Taking Melatonin Taking Mag Glycinate Taking Lorazepam Taking Cyclobenzaprine HCl 10 MG Tablet 1 tablet at bedtime as needed Orally Once a day, Notes: prnTaking CoQ10 Taking Citrucel Taking BHRTBase Taking Ashwagandha Taking Escitalopram Oxalate 10 MG Tablet Oral Taking Repatha SureClick 140 MG/ML Solution Auto-injector Subcutaneous Taking Tirosint 100 MCG Capsule Oral Taking Lovaza 1 GM Capsule Oral Taking Rosuvastatin Calcium 10 MG Tablet Oral Taking Omeprazole 40 MG Capsule Delayed Release 1 Orally Once a day at 4:00 PMTaking Naltrexone Taking Vitamin D3 25 MCG (1000 UT) Tablet with k Orally Once a dayNot-Taking/PRNTylenol PM Extra Strength Not-Taking/PRN Tylenol PM Extra Strength DiscontinuedPriLOSEC OTC Phytosterols Estrogens, Conjugated Medication List reviewed and reconciled with the patientDiscontinued PriLOSEC OTC Discontinued Phytosterols Discontinued Estrogens, Conjugated Medication List reviewed and reconciled with the patient * Allergies:?AmpicillinBiaxinS ulfa AntibioticsWellbutrinErythromycinCeftinPropofolMorphineDust Mitesdogs,cats, pigweed, ragweed, kiwi fruitGlutendairyDoxycyclineyes[Allergies Verified] Objective: * Vitals:?Wt: 218 lbs, Ht: 5 f t 5.5 in, BMI:35.72 Index, BP: 00/00 mm Hg. * Examination: ???General Examination: ?GENERAL APPEARANCE:?pleasant, well nourished, well developed, in no acute distress.?EYES:?sclera non-icteric.?ORAL CAVITY:?mucosa moist.?NECK/THYROID:?no cervical lymphadenopathy, neck supple.?SKIN:?nonjaundiced, no spider angiomata.?HEART:?S1, S2 normal.?LUNGS:?clear to auscultation bilaterally.?ABDOMEN:?normal bowel sounds, no guarding or rigidity, no guarding or rigidity, no masses palpable, soft, nontender, nondistended.?EXTREMITIES:?no edema.?NEUROLOGIC:?alert and oriented.? Assessment: * Assessment: 1.?Chronic GERD - K21.9 (Aleida roblero)?2.?Cough - R05.9?3.?Hiatal hernia - K44.9?4.?Encounter for screening for malignant neoplasm of colon - Z12.11?5.?History of colon polyps - Z86.010? Overall, Norma appears qu ite well. We did review the findings on [...] questions I can be of assistance with. Norma was comfortable with this plan. Thank you again for allowing me to participate in Norma's care. I shall continue to keep you advised of her progress. Plan: * Treatment: 2.?Encounter for screening f or malignant neoplasm of colon? Notes: Repeat colonoscopy in 2024?? * Procedure Codes:?3017F COLOR ECTAL CA SCREEN DOC [id number] TOBACCO [id number] BP SCR NOT PRFRM REC REASON NOS * Preventive Medicine:? ??Counseling:?Care goal follow-up plan:?Above Normal BMI Follow-up?Giving encouragement to exercise,?BMI management provided?Yes.? * Follow Up:?October 2024 * * Sign off status: Completed true * Provider:?Riki Portillo MD Date:? 024 Generated for Farooq dueñas/Anna/Margarita on:?11/04/2024 01:08 PM EDT History and Physical Notes * HPI (History of Present Illness) Category Sub-Category Detail Notes Category Not es incontinence I saw Norma in followup today in regard to her chronic gastroesophageal reflux, hiatal hernia, and coughing. I last saw Norma in February, at which time she underwent an upper endoscopy revealing her moderate-sized hiatal hernia, but no evidence of any significant esophagitis nor Gallagher's esophagus. She has remained on omeprazole 40 mg daily since that time. She has been using it in the latter part of the day rather than in the morning. She has also been using some TUMS at bedtime. Despite this she has continued to have her coughing both during the day and particularly at night that remains very bothersome and problematic to her in regard to sleep disturbance. She is not having any symptomatic heartburn. She denies any dysphagia, anorexia, early satiety, nausea, nor vomiting. Her bowel movements have remained regular and without any signs of bleeding. She denies abdominal pain, jaundice, nor unintentional weight loss. Given her ongoing symptoms and the finding of the moderate-sized hiatal hernia, we did discuss potential for hiatal hernia surgery in regard to possibly helping her cough if reflux is contributing to it. As such, she has been scheduled for esophageal motility studies for next week and has an appointment to see a surgeon, Dr. Russell, to discuss potential laparoscopic hiatal hernia repair. However, of note, she did undergo a recent thyroid biopsy and she advised me that she will be needing at least a partial thyroidectomy due to some changes in the biopsy that might predispose to cancer . She thinks this will be taking precedent over any hiatal hernia surgery. She also hopes that somehow the thyroid surgery might help her cough, although she is not particularly hopeful in that regard. Examination Category Sub-Category Detail Notes Category Not es General Examination GENERAL APPEARANCE: pleasant , well [...]
--- OUTSIDE RECORDS SUMMARY | 2024-11-04 13:09 | XMS_ITS | Continuity of Care Document ---
Author Name [facility] Organization [facility] Care Team Providers Care Engine Lathe Operator Name Role Phone [facility] Unavailable Unavailable Problems Combined list of problems from Department of Defense and Veterans Affairs facilities. It does not include entries that were removed or entered in error. Problem Status Onset Date Problem Type Date of Resolution Comments Source Insomnia Active Condition [facility] (631GE) Major depressive disorder Active Condition [...] Combined list of allergies from Department of [facility] and Veterans Affairs facilities. It does not include entries that were removed or entered in error. Substance Category Reaction Severity Reaction type Status Date Reported Comments Source AMPICILLIN (AMPICILLIN TRIHYDRATE) Drug allergy (disorder) Unknown [place] [facility] [place]CLARITHROMYC IN) Drug allergy (disorder) Unknown active 01/20/2008 [facility] BUPROPION HCL (BUPROPION HCL) Drug allergy (disorder) Unknown active 01/20/2008 [facility] CEFTIN (CEFUROXIME AXETIL) Drug allergy (disorder) Unknown active 01/20/2008 [facility] AGNES (ERYTHROMYCIN BASE/ETHANOL) Drug allergy (disorder) Unknown active 01/20/2008 [facility] SULFA-DRUGS Drug allergy (disorder) Unknown active 01/20/2008 [facility] Immunizations Combined list of available immunizations from the Department of Defense and Veterans Affairs facilities. Immunization Series Date Given Administered By Site Reaction Lot Number CVX Code Drug Plastics Heat Welder Status Comments Source COVID-19 (MODERNA), MRNA, LNP-S, PF, 100 MCG OR 50 MCG DOSE 2 2020 207 complet ed MOD; [id number]; [facility] COVID-19 (TODD), VECTOR-NR, [id number], PF, 0.5 ML 1 2020 212 complet ed JSN; [id number]; 1 [facility] Encounters Combined list of: 1) Encounters from Department of Veterans Affairs facilities going backup to the last 18 months, not all [place] inpatient encounters are included; 2) Encounters from the Department of Defense facilities going backup to 280 months. Location Location Details Encounter Type Encounter Number Reason For Visit Attending Provider ADM Date DC Date Status Disposition Source [place] [facility] [place] [facility] PSYTX W PT 45 MINUTES [id number] Diagnos is: ICD-10- CM Z60.9 Problem related to social environ ment, unspeci fied MUKESH,CHR ISTIE 02/20 [facility] [facility] CASE MANAGEMENT [id number] Diagnos is: ICD-10- CM Z71.0 Prsn encntr hlth serv to consult on behalf of another person VALERIA CHIN SE 03/02 [place] [facility] [place] [facility] [place] [facility] PSYTX W PT 45 MINUTES [id number] Diagnos is: ICD-10- CM Z60.9 Problem related to social environ ment, unspeci fied MUKESH,CHR ISTIE 03/13 [facility] PSY[facility] W PT 45 MINUTES [id number] Diagnos is: ICD-10- CM Z60.9 Problem related to social environ ment, unspeci fied [facility]ESH,[facility] ISTIE 04/03 [facility] PSYTX W PT 45 MINUTES [id number] Diagnos is: ICD-10- CM Z60.9 Problem related to social environ ment, unspeci fied MUKESH,[facility] ISTIE 04/24 [facility] PSYTX W PT 45 MINUTES [id number] Diagnos is: ICD-10- CM F32.A Depress ion, unspeci fied UMKESH,[facility] ISTIE 05/22 [facility] Encounter [id number] 05/22 [facility] Encounter [id number] 06/19 [facility] Out[facility] Encounter [id number] 06/23 [facility] PSYTX W PT 45 MINUTES [id number] Diagnos is: ICD-10- CM F32.A Depress ion, unspeci fied MUKESH,[facility] ISTIE 07/03 [facility] CASE MANAGEMENT [id number] Diagnos is: ICD-10- CM Z71.0 Prsn encntr hlth serv to consult on behalf of another person VALERIA CHIN SE 07/26 [facility] PSYTX W PT 45 MINUTES [id number] Diagnos is: ICD-10- CM F32.9 Major depress lee disorde r, single episode , unspeci fied MUKESH,CHR ISTIE 07/31 [facility] [place] [facility] HC PRO PHONE CALL 11-20 MIN [id number] Diagnos is: ICD-10- CM Z71.0 Prsn encntr hlth serv to consult on behalf of another person VALERIA CHIN SE 09/01 [facility] [place] [facility] PSYTX W PT 30 MINUTES [id number] Diagnos is: ICD-10- CM F32.9 Major depress lee disorde r, single episode , unspeci fied MUKESH,CHR ISTIE 10/29 [facility] [place] [facility] HC PRO PHONE CALL 11-20 MIN [id number] Diagnos is: ICD-10- CM Z74.1 Need for assista nce with persona l [facility] VALERIA CHIN SE 11/01 [facility] [place] [facility] CASE MANAGEMENT [id number] Diagnos is: ICD-10- CM Z71.0 Prsn encntr hlth serv to consult on behalf of another person MATTI SHEFFIELD 11/22 [facility] [place] [facility] HLTH BHV ASSMT/REAS SESSMENT [id number] Diagnos is: ICD-10- CM Z71.0 Prsn encntr hlth serv to consult on behalf of another person MATTI SHEFFIELD 04/04 [place] [facility] [place] [facility] [id number] Diagnos is: ICD-10- CM Z71.0 Prsn encntr hlth serv to consult on behalf of another person MATTI SHEFFIELD 08/01 [place] [facility] [place] [place] [facility] Social History Combined list of available smoking, tobacco, and other social history from Department of Defense and Veterans Affairs facilities. Social History Type Response Date Comment [facility] e Tobacco smoking status [facility] VA-TOBACCO NEVER USED 02/20/2023 [place] [facility] [place] [facility] This section is an empty social history section. DoD
--- OUTSIDE RECORDS SUMMARY | 2024-11-04 13:09 | XMS_ITS ---
Author Organization [facility] Address [address] [place] [phone] Care Team Providers Care Field Training Manager Name Role Phone Kayley Kruger MD Primary Care Provider UnavailRiki Hunt Unavailable [phone] Barbara HUTCHINSON, Hai Unavailable Unavailable REASON FOR VISIT update (previous message told to call back in a few weeks.)still has cough.refer?/ fyi update Problems Problem Type SNOMED Code ICD Code Onset Dates Problem Status W/U Status Risk Notes Problem Hiatal hernia (66500612) Hiatal hernia (K44.9) Active confirmed Encounters Encounter Location Date Provider Diagnosis [facility] [address] [place] [phone] 04/04/2024 Riki Portillo Chronic GERD K21.9 ; Hiatal hernia K44.9 and Cough R05.9 Assessments Encounter Date Diagnosis (ICD Code) Assessment Notes Treatment Notes Treatment Clinical Notes Section Notes 04/04/2024 Chronic GERD (ICD-10 - K21.9) 04/04/2024 Hiatal hernia (ICD-10 - K44.9) 04/04/2024 Cough (ICD-10 - R05.9) Plan Of Treatment Pending Test Test Name Order Date Esophageal Motility study 04/04/2024 Next Appt Details Provider Name:Riki Portillo , 02/03/2025 09:30:00 AM, [address] [place] [address] , [place], [place], [phone], Progress Notes * MICHEAL BYRDOB:08/1964 (58 yo F)Acc No.[id number]:04/04/2024 Patient:?STEVE BYRD :1965???Age:58 Y???Sex:Female Address:[address] [place] [address], [address] Subjective: * Chief Complaints: * ???update (previous messa ge told to call back in a few weeks.)still has cough.refer?/ fyi update * Medical History:? * Surgical History:? * Hospitalization/Major Diagno stic Procedure:? * Medications:? Objective: Assessment: * Assessment: 1.?Chronic GERD - K21.9 (Aleida annika)?2.?Hiatal hernia - K44.9?3.?Cough - R05.9? Plan: * Treatment: 2.?Hiatal hernia?Imaging: Esophageal Motility study* 3.?Cough?Imaging: Esophageal Motility study* * Procedure Codes:? * true * Date:? Generated for Farooq dueñas/Anna/eTransmitting on:?11/04/2024 01:08 PM EDT
== END 2024-11-04 12:36 | disposition home or self-care (01) ==
PROVIDERS: PCP Internal Medicine; Visit Provider Internal Medicine
DX: C73 Malignant neoplasm of thyroid gland (principal); Z00.00 Encounter for general adult medical examination without abnormal findings; E78.5 Hyperlipidemia, unspecified

== ENCOUNTER → 2024-11-04 11:29 | Outpatient (BNVA) | payer OTHER, SELFPAY | PROVIDERS: PCP Internal Medicine; Visit Provider Internal Medicine | DX: Z00.00 Encounter for general adult medical examination without abnormal findings (principal); C73 Malignant neoplasm of thyroid gland; E78.5 Hyperlipidemia, unspecified | CPT/HCPCS: 96127 ==

== ENCOUNTER 2024-12-09 09:55 | Outpatient (REF) | payer OTHER, SELFPAY ==
--- NOTE | ~2024-12-09 | CT_ITS ---
EXAMINATION: CT CHEST WITHOUT IV CONTRAST INDICATION: R91.8 - Other nonspecific abnormal finding of lung field COMPARISON: Comparison is made with the prior examination dated 12/25/2023. TECHNIQUE: Helical CT scan of the chest was performed without intravenous contrast. Coronal and sagittal reformatted images were generated and reviewed. This CT exam was performed with one or more of the following dose reduction techniques: automated exposure control, adjustment of the mA and/or kV according to patient size, use of iterative reconstruction technique. DLP: 300 mGy-cm CHEST: THYROID: The thyroid is unremarkable. LUNGS: There is minimal linear scarring in the left lower lobe. The lungs are otherwise clear. MEDIASTINUM: There is no mediastinal lymphadenopathy. SHAWN: Evaluation of the hilar regions is limited by lack of intravenous contrast material. CARDIOVASCULATURE: The heart is normal in size. There is no pericardial effusion. The thoracic aorta is normal in caliber. DEGREE OF CORONARY CALCIFICATION: none PLEURA: There is no pleural effusion. No pneumothorax. MAIN AIRWAYS: The mainstem bronchi and proximal branches are patent. AXILLA: There is no axillary lymphadenopathy. BONES AND SOFT TISSUES: Unremarkable UPPER ABDOMEN: The visualized portion of the liver demonstrates decreased attenuation, consistent with steatosis. The visualized portions of the spleen and adrenals have an unremarkable unenhanced appearance. There is a small hiatal hernia. CT/CT chest wo IV con IMPRESSION: 1. Minimal left lower lobe scarring. 2. Small hiatal hernia. 3. Hepatic steatosis. Electronically signed by: Riki Yousif MD 12/09/2024 12:21 PM EDT
--- OUTSIDE RECORDS SUMMARY | 2024-12-09 11:06 | XMS_ITS | Continuity of Care Document ---
Author Name [facility] Organization [facility] Care Team Providers Care Sports Management Professor Name Role Phone [facility] Unavailable Unavailable Problems Combined list of problems from Department of Defense and Veterans Affairs facilities. It does not include entries that were removed or entered in error. Problem Status Onset Date Problem Type Date of Resolution Comments Source Insomnia Active Condition [facility] (631GE) Major depressive disorder Active Condition [facility] [...] [facility] Immunizations Combined list of available immunizations from the Department of Defense and Veterans Affairs facilities. Immunization Series Date Given Administered By Site Reaction Lot Number CVX Code Drug Print Washer Status Comments Source COVID-19 (MODERNA), MRNA, LNP-S, PF, 100 MCG OR 50 MCG DOSE 2 2020 207 complet ed MOD; [id number]; 2 [facility] [place] [facility] COVID-19 (TODD), VECTOR-NR, RS-AD26, PF, 0.5 ML 1 2020 212 complet ed JSN; [id number]; 1 [place] [facility] [place] [facility] Encounters Combined list of: 1) Encounters from Department of Veterans Affairs facilities going backup to the last 18 months, not all VA inpatient encounters are included; 2) Encounters from the Department of Defense facilities going backup to 280 months. Location Location Details Encounter Type Encounter Number Reason For Visit Attending Provider ADM Date DC Date Status Disposition Source [facility] Outpatient Encounter [id number] 06/19 [facility] Outpatient Encounter [id number] 06/23 [facility] PSYTX W PT 45 MINUTES [id number] Diagnos is: ICD-10- CM F32.A Depress ion, unspeci fied MUKESH,[facility] ISTIE 07/03 [place] [facility] [place] [facility] CASE MANAGEMENT [id number] Diagnos is: ICD-10- CM Z71.0 Prsn encntr hlth serv to consult on behalf of another person DAMARIS CHINI SE 07/26 [facility] PSYTX W PT 45 MINUTES [id number] Diagnos is: ICD-10- CM F32.9 Major depress lee disorde r, single episode , unspeci fied MKUESH,CHR ISTIE 07/31 [facility] [place] [facility] HC PRO PHONE CALL 11-20 MIN [id number] Diagnos is: ICD-10- CM Z71.0 Prsn encntr hlth serv to consult on behalf of another person GIUSEPPE,VALERIA SE 09/01 [facility] PSYTX W PT 30 MINUTES [id number] Diagnos is: ICD-10- CM F32.9 Major depress lee disorde r, single episode , unspeci fied MUKESH,CHR ISTIE 10/29 [facility] [place] HC PRO PHONE CALL 11-20 MIN [id number] Diagnos is: ICD-10- CM Z74.1 Need for assista nce with persona l belle VALERIA CHIN 11/01 [facility] [place] [facility] CASE MANAGEMENT [id number] Diagnos is: ICD-10- CM Z71.0 Prsn encntr hlth serv to consult on behalf of another person MATTI SHEFFIELD 11/22 [facility] [place] [facility] HLTH V ASSMT/REAS SESSMENT [id number] Diagnos is: ICD-10- CM Z71.0 Prsn encntr hlth serv to consult on behalf of another person MATTI SHEFFIELD 04/04 [facility] B[facility] ASSMT/REAS SESSMENT [id number] Diagnos is: ICD-10- CM Z71.0 Prsn encntr hlth serv to consult on behalf of another person MATTI SHEFFIELD 08/01 [place] [facility] [place] [facility] Social History Combined list of available smoking, tobacco, and other social history from Department of Defense and Veterans Affairs facilities. Social History Type Response Date Comment Sourc e Tobacco smoking status [facility] VA-TOBACCO NEVER USED 02/20/2023 [facility] [place] [facility]
--- OUTSIDE RECORDS SUMMARY | 2024-12-09 11:06 | XMS_ITS | Patient Health Record ---
Author Organization [facility] Address [address] [place] [address] Care Team Providers Care Channel Account Manager Name Role Phone Kayley Kruger MD Primary Care Provider Unavaila ble Black, Emily Unavailable [phone] Allergies Allergen (clinical drug ingredient) Drug/Non Drug [...] Status W/U Status Risk Notes Problem Bursitis (92029664) Bursitis (727.3) Active confirmed Problem Hammer toe (195106910) Hammer toe (735.4) Active confirmed Problem Myositis (25699633) Myositis (729.1) Active confirmed Problem Neuralgia - Neuritis (729.2) Active confirmed Problem Pain in limb (97480101) Pain in Limb (729.5) Active confirmed Problem Plantar fasciitis (682112979) Plantar Fasciitis (728.71) Active confirmed Problem Ramos splints (8293286434) Ramos Splints (844.9) Active confirmed Problem Ulcer of toe of right foot (disorder) (571437884917 24305) Skin ulcer of toe of right foot, limited to breakdown of skin (L97.511) Active confirmed Improvement Problem Ulcer of toe of left foot (disorder) (358012014252 33634) Skin ulcer of toe of left foot, limited to breakdown of skin (L97.521) Active confirmed Plan Of Treatment Pending Test Test Name Order Date 92998-Dzeuobdo Plate 04/06/2023 Insurance Providers Payer Name Payer Address Payer Phone Subscriber Number Group Number Insured Name Patient Relationship to Insured Coverage Start Date Coverage End Date [facility] [address] [place] [address] [id number] Carlos Kelly mp Spouse - patient is [...]
--- OUTSIDE RECORDS SUMMARY | 2024-12-09 11:06 | XMS_ITS | Data Portability ---
Author Organization [facility] Address [address] [place] [address] Care Team Providers Care Administrative Support Clerk Name Role Phone GRAHAM CHAVIRA Primary Care Provider Assessment No assessment recorded. Plan of Treatment Reminders Order Date Submit Date Provider Last Modified By Organization Details Last Modified Time Details Appointments None recorded. Lab urinalysis , dipstick 2022 023 [email or web address] [facility], [address] [place] [address], [phone], 18:37:04 culture, urine 2022 023 [facility], [address] [place] [address], [place], [address], 06:07:30 Referral None recorded. Procedures None recorded. Surgeries None recorded. Imaging None recorded. Medication Orders None recorded. Patient TargetsNo targets recorded. Patient Instructions Encounter Date Encounter Id Patient Instructions Last Modified By Organization Details Last Modified Time 09/28/2022 [id number] upper and middle back (thoracic) strain: care instructions [email or web address] Not available 09/28/2022 18:37:04 constipation: care instructions Not available 09/28/2022 18:37:04 I would continue [...] Blood in Urine. Thank you for using [facility], please feel free to contact us if you have any questions or concerns. [email or web address] Not available 09/28/2022 18:37:03 Reason for Referral None Reported. Results Created Date Observation Date Name Description Value Unit Range Abnormal Flag Note LastModifiedBy Organization Detail LastModifiedTime 09/28/19 23 10/01/2022 URINE CULTU RE, ROUTI NE urine culture, routine FINAL REPORT Not Available [facility] ([facility]) [address] [facility], [place], [address], 10/01/2022 06:07:30 09/28/1910/01/2022 URINE CULTU RE, DULCEI NE result 1 NO GROWTH Not Available [facility] ([facility]) [address] [facility] [facility], [place], [address], 10/01/2022 06:07:30 09/28/1909/28/2022 urina lysis , dipst ick Unknown Analyte Normal = light yellow Not Available [address], [address], 09/28/2022 17:46:46 09/28/1909/28/2022 urina lysis , dipst ick Unknown Analyte Normal = clear Not Available [address] [place] [address], [address], 09/28/2022 17:46:46 09/28/19 23 09/28/2022 urina lysis , dipst ick Unknown Analyte Normal = negati ve Not Available [address] [place] [address], [address], 09/28/2022 17:46:46 09/28/19 23 09/28/2022 urina lysis , dipst ick Unknown Analyte Normal = Negati ve Not Available [address]sarah flores [address], [place], [address], 09/28/2022 17:46:46 09/28/19 23 09/28/2022 urina lysis , dipst ick Unknown Analyte Normal = Negati ve Not Available [facility] [address], [place], [address], 09/28/2022 17:46:46 09/28/19 23 09/28/2022 urina lysis , dipst ick Unknown Analyte Normal = 1.010, 1.015, 1.020 Not Available [address]sarah flores [address], [place], [address], 09/28/2022 17:46:46 09/28/19 23 09/28/2022 urina lysis , dipst ick Unknown Analyte Normal = Negati ve Not Available [address]99sarah flores [address], [place], [address], 09/28/2022 17:46:46 09/28/19 23 09/28/2022 urina lysis , dipst ick Unknown Analyte Normal = 6.5, 7.0, 7.5, 8.0 Not Available [facility] [address], [place], [address], 09/28/2022 17:46:46 09/28/19 23 09/28/2022 urina lysis , dipst ick Unknown Analyte Normal = Negati ve Not Available [address]99sarah flores [address], [place], [address], 09/28/2022 17:46:46 09/28/19 23 09/28/2022 urina lysis , dipst ick Unknown Analyte Normal = 0.2, 1.0 Not Available [address]sarah flores [address], [place], [address], 09/28/2022 17:46:46 09/28/19 23 09/28/2022 urina lysis , dipst ick Unknown Analyte Normal = Negati ve Not Available [facility], [place], [address], 09/28/2022 17:46:46 09/28/19 23 09/28/2022 urina lysis , dipst ick Unknown Analyte Normal = Negati ve Not Available l[facility] [address], [place], [address], 09/28/2022 17:46:46 09/28/19 23 09/28/2022 urina lysis , dipst ick Unknown Analyte Yellow Not Available janee [address], [place], [address], 09/28/2022 17:46:46 09/28/19 23 09/28/2022 urina lysis , dipst ick Unknown Analyte Clear Not Available janee [address], [place], [address], 09/28/2022 17:46:46 09/28/19 23 09/28/2022 urina lysis , dipst ick Unknown Analyte Negati ve Not Available [facility] [address], [place], [address], 09/28/2022 17:46:46 09/28/19 23 09/28/2022 urina lysis , dipst ick Unknown Analyte Negati ve Not Available [facility] [address] [place] [address], [place], [address], 09/28/2022 17:46:46 09/28/19 23 09/28/2022 urina lysis , dipst ick Unknown Analyte Negati ve Not Available sarah flores [address], [place], [address], 09/28/2022 17:46:46 09/28/1909/28/2022 urina lysis , dipst ick Unknown Analyte <=1.00 5 Not Available sarah flores [address], [place], [address], 09/28/2022 17:46:46 09/28/19 23 09/28/2022 urina lysis , dipst ick Unknown Analyte Negati ve Not Available sarah flores [address], [place], [address], 09/28/2022 17:46:46 09/28/19 23 09/28/2022 urina lysis , dipst ick Unknown Analyte 6.0 Not Available [facility] [address], [place], [address], 09/28/2022 17:46:46 09/28/19 23 09/28/2022 urina lysis , dipst ick Unknown Analyte Negati ve Not Available sarah flores [address], [place], [address], 09/28/2022 17:46:46 09/28/19 23 09/28/2022 urina lysis , dipst ick Unknown Analyte 0.2 E.U./d L Not Available sarah flores [address], [place], [address], 09/28/2022 17:46:46 09/28/19 23 09/28/2022 urina lysis , dipst ick Unknown Analyte Negati ve Not Available sarah flores [address], [place], [address], 09/28/2022 17:46:46 09/28/19 23 09/28/2022 urina lysis , dipst ick Unknown Analyte Negati ve Not Available [address] [facility], [place], [address], 09/28/2022 17:46:46 Result Notes None recorded. Problems Name Problem SNOMED Code Status Onset Date Resolution Date Notes Provider Name and Address Organization Details Recorded Time Disorder of thyroid gland 90635533 Active 2022 FREDY TITO null, [place] - [facility] 18:00:39 Disorder of back 58280309 Active 2022 FREDY TITO null, [place] - [facility] 18:00:51 Osteoarthritis 651918896 Active 2022 FREDY TITO null, [place] - [facility] 18:01:03 Spinal stenosis 47487185 Active 2022 FREDY TITO null, [place] - [facility] 18:04:23 Problem Notes None recorded. Medical Equipment None Reported. Allergies Allergen ID Allergen Name Allergen Category Reaction Reaction Severity Criticality Documentation Date Start Date Code Code System Note Provider Name and Address Organization Details Recorded Time 719534 ampicilli n medicatio n rash Not available Not available 09/28/2022 733 RxNorm FREDY TITO null, [place] - [facility] 17:50:08 957888 Biaxin medicatio n nausea Not available Not available 09/28/202235709 9 RxNorm FREDY TITO null, [place] - [facility] 17:50:22 456481 Substance with sulfonami de structure and antibacte rial mechanism of action (substanc e) medicatio n vomiting Not available Not available 09/28/2022 65418 8003 SNOMED FREDY TITO null, [place] - [facility] 17:50:41 916961 Wellbutri n medicatio n hives Not available Not available 09/28/2022 19626 RxNorm FREDY TITO null, [place] - [facility] 17:50:57 602086 erythromy mk medicatio n vomiting Not available Not available 09/28/2022 4053 RxNorm FREDY TITO null, [place] - [facility] 17:51:10 134526 Ceftin medicatio n vomiting Not available Not available 09/28/2022 86385 6 RxNorm FREDY TITO null, [place] - [facility] 17:51:32 068423 propofol medicatio n hives Not available Not available 09/28/2022 8782 RxNorm FREDY TITO null, [place] - [facility] 17:52:02 057583 morphine medicatio n vomiting Not available Not available 09/28/2022 7052 RxNorm FREDY TITO null, [place] - [facility] 17:52:23 041248 doxycycli ne Not available rash Not available [...] Updated DateTime 3 167.64 cm 34.4 kg/m2 64380.1 7 g 6 98 % 98 % [...] SNOMED-CT Code Diagnosis ICD10 Code Diagnosis Note [id number] [address] [place] [address] 11/28/2021 13:00:40 11/28/2021 15:33:40 [id number] [address] [place] [address] 05/18/2016 14:19:24 05/18/2016 17:11:45 [id number] [address] [place] [address] 05/20/2016 13:12:48 05/20/2016 14:14:51 [id number] KELSI BESS [address] [place] [address] 09/28/2022 16:00:24 09/28/2022 18:39:47 Thoracic back pain 148115306 M54.6 Differenti al - Kidney Stone, Constipati on, costochond ritis, Thoracic nerve impingemen t. Health Concerns Section Related Observation LastModified by Organization Detai ls LastModified Time None Recorded Concern Status LastModified by Organization Details LastModified Time None Recorded Advance Directives Directive None Recorded Payers Encounter Date Sequence Insurance Name Policy Number Policy Saunders Covered Member ID Saunders Member ID Guarantor Name 09/28/2022 1 [facility] (POS) [id number] Norma Mckeon [id number] Norma Mckeon Notes Date Note Type Note Provider Name and Address Organization Details Recorded Time 3 text/html Back Pain/Injury UCReported bypatient.source of patient informationInformation obtained from patient Location:middle of the back; pain is not radiating Quality:sharp Duration:2 days Alleviating Factors:nothing helps Aggravating Factors:cannot identifyNotes:The patient reports that on a ride [place] from [place] started to get a deep sharp pain [...] KELSI BESS [address] [place], [address], [place] - [facility] 09/28/2022 21:52:03 OBGyn Episode No OBEpisode recorded.
--- OUTSIDE RECORDS SUMMARY | 2024-12-09 11:06 | XMS_ITS ---
Author Organization [facility] Address [address] [facility] [facility] [address] [place] [address] Care Team Providers Care Powerhouse Operator Name Role Phone Kayley Kruger MD Primary Care Provider UnavailRiki Hunt Unavailable [phone] Barbara HUTCHINSON, Hai Unavailable Unavailable REASON FOR VISIT update (previous message told to call back in a few weeks.)still has cough.refer?/ fyi update Problems Problem Type SNOMED Code ICD Code Onset Dates Problem Status W/U Status Risk Notes Problem Hiatal hernia (86074853) Hiatal hernia (K44.9) Active confirmed Encounters Encounter Location Date Provider Diagnosis [facility] [address] [place] [address] 04/04/2024 Riki Portillo Chronic GERD K21.9 ; [...] Provider Name:Riki Portillo , 02/03/2025 09:30:00 AM, [address] [place] [address] , [place], [place], [phone], Progress Notes * MICHEAL BYRDOB:08/1964 (58 yo F)Acc No.[id number]:04/04/2024 Patient:?STEVE BYRD :1965???Age:58 Y???Sex:Female Address:[address] [place] [address], [address] Subjective: * Chief Complaints: * ???update (previous [...] true * Date:? Generated for Farooq dueñas/Anna/eTransmitting on:?12/09/2024 11:06 AM EDT
--- OUTSIDE RECORDS SUMMARY | 2024-12-09 11:06 | XMS_ITS ---
Author Organization [facility] Address [address] [place] [address] Care Team Providers Care Popcorn Attendant Name Role Phone Kayley Kruger MD Primary Care Provider Unavaila Riki Ellis Unavailable [phone] Hia Jimenez MD Unavailable Unavailable Allergies Allergen (clinical [...] Active Green Tea Extract Ac tive Saw [place] Active ZyrTEC Active Mirtazapine 7.5 MG 2 tablets at bedtime Orally Once a day for 30 day(s) Active QUEtiapine Fumarate 25 MG 1 tablet at be dtime Orally Once a day for 30 day(s) Active Tums 500 MG 1 tablet Orally Once a day for 30 day(s) Active Cortisol Chief Technician Act lee Tylenol PM Extra Strength Not-Taking [...] 04/30/2024 Encounters Encounter Location Date [facility] [address] [place] [address] 04/30/2024 Riki Portillo Chronic GERD K21.9 ; [...] Provider Name:Riki Portillo , 02/03/2025 09:30:00 AM, [address] [place] [address], [phone], Progress Notes * MICHEAL BYRDOB:08/1964 (58 yo F)Acc No.[id number]:04/30/2024 Progress Notes Patient:?STEVE BYRD Provider:?Riki Portillo MD :1965???Age:58 Y???Sex:Female D ate:04/30/2024 Address:[address] [place], [place] [id number] Pcp:Kayley Kruger MD Subjective: * Chief Complaints: [...] History:? * Surgical History:?Tonsillect patrica and adenoidectomy Wrights teeth extraction D&C Endometrial Ablation Hemorrhoid banding [...] year??Never (0 point),?Points?0,?Interpretation?Negative.?Miscellaneous:?Marital status: . 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 ???Nonsmoker; no sig. alcohol. * Medications:?TakingCortisol Chief Technician Tums 500 MG Tablet Chewable 1 tablet Orally Once a dayQUEtiapine Fumarate 25 MG Tablet 1 tablet at bedtime Orally Once a dayMirtazapine 7.5 MG Tablet 2 tablets at bedtime Orally Once a dayZyrTEC Saw [place] Green Tea Extract Progesterone Pregnenolone Niacinamide ER Melatonin Mag Glycinate Lorazepam Cyclobenzaprine HCl 10 MG Tablet 1 tablet at bedtime as needed Orally Once a day, Notes: [id number] [employer] BHRTBase Ashwagandha Escitalopram Oxalate 10 MG Tablet Oral Repatha SureClick 140 MG/ML Solution Auto-injector Subcutaneous Tirosint 100 MCG Capsule Oral Lovaza 1 GM Capsule Oral Rosuvastatin Calcium 10 MG Tablet Oral Omeprazole 40 MG Capsule Delayed Release 1 Orally Once a day at 4:00 PMNaltrexone Vitamin D3 25 MCG (1000 UT) Tablet with k Orally Once a dayTaking Cortisol Chief Technician Taking Tums 500 MG Tablet Chewable 1 tablet Orally Once a dayTaking QUEtiapine Fumarate 25 MG Tablet 1 tablet at bedtime Orally Once a dayTaking Mirtazapine 7.5 MG Tablet 2 tablets at bedtime Orally Once a dayTaking ZyrTEC Taking Saw [place] Taking Green Tea Extract Taking Progesterone Taking [...] Procedure Codes:?3017F COLOR ECTAL CA SCREEN DOC [id number] TOBACCO [id number] BP SCR NOT PRFRM REC REASON NOS * Preventive Medicine:? ??Counseling:?Care goal follow-up plan:?Above Normal BMI Follow-up?Giving encouragement to exercise,?BMI management provided?Yes.? * Follow Up:?October 2024 * * Sign off status: Completed true * Provider:?Riki Portillo MD Date:? 024 Generated for Farooq dueñas/Anna/Margarita on:?12/09/2024 11:06 AM EDT History and Physical Notes * HPI [...]
--- OUTSIDE RECORDS SUMMARY | 2024-12-09 11:06 | XMS_ITS ---
Author Organization [facility] Address [address] [place] [address] Care Team Providers Care Pharmacist Intern Name Role Phone Kayley Kruger MD Primary Care Provider UnavailRiki Hunt Unavailable [phone] Barbara HUTCHINSON, Hai Unavailable Unavailable Allergies Allergen [...] Drug Allergy Activ e REASON FOR VISIT Patient presents today for a hiatal hernia Medications Medication SIG (Take, Route, Frequency, Duration) Notes Start Date End Date Status Tylenol PM Extra Strength Not-Taking Naltrexone Not-Takin g Rosuvastatin Calcium 10 MG Oral for 60 Not-Taking Lovaza 1 GM Oral for 90 Not-Ta shannon Ashwagandha Not-Taki ng Citrucel Not-Taking CoQ10 Not-Taking Pregnenolone Not-Terrence ing Green Tea Extract No t-Taking Saw Nedrow Not-Terrence ing Cortisol Stove Fitter Not -Taking Lorazepam Not-Taking Omeprazole 40 MG [...] N/A Encounters Encounter Location Date Provider Diagnosis [facility] [address] [place] [address] 10/29/2024 Riki Portillo History of colon polyps Z86.010 ; Gastro-esophageal reflux disease without esophagitis K21.9 ; Encounter for screening for malignant neoplasm of colon Z12.11 and Cough R05.9 Assessments Encounter Date Diagnosis (ICD Code) Assessment Notes Treatment Notes Treatment Clinical Notes Section Notes 10/29/2024 History of colon polyps (ICD-10 - Z86.010) 10/29/2024 Gastro-esophagea l reflux disease without esophagitis (ICD-10 - K21.9) Decrease the 40mg omeprazole to just one a day fopr the heartburn 10/29/2024 Encounter for screening for malignant neoplasm of colon (ICD-10 - Z12.11) 10/29/2024 Cough (ICD-10 - R05.9) Continue follow [...] Order Date COLONOSCOPY 10/29/2024 Next Appt Details Follow Up: prn, Reason: Provider Name:Riki Portillo , 02/03/2025 09:30:00 AM, [address] [place] [address] , [place], [phone], Progress Notes * MICHEAL BYRDOB:08/1964 (59 yo F)Acc No.[id number]:10/29/2024 Progress Notes Patient:?STEVE BYRD Provider:?Riki Portillo MD :1965???Age:59 Y???Sex:Female D ate:10/29/2024 Address:[address] [place], [place] [id number] Pcp:Kayley Kruger MD Subjective: * Chief Complaints: * ???Patient presents today fo r a hiatal hernia * Medical History:? * Surgical History:?Tonsillect patrica and adenoidectomy [place] teeth extraction D&C Endometrial Ablation Hemorrhoid banding Nerve ablation for back pain Thyroidectomy-complete--papillary carcinoma 07/15/2024 * Hospitalization/Major Diagno stic Procedure:?No Hospitalization History. [...] year??Never (0 point),?Points?0,?Interpretation?Negative.?Miscellaneous:?Marital status: . 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 ???Nonsmoker; no sig. alcohol. * Medications:?TakingTums 500 MG Tablet Chewable 1 tablet Orally Once a day , Notes to Pharmacist: prnZyrTEC , Notes to Pharmacist: prnProgesterone Niacinamide ER Melatonin Mag Glycinate BHRTBase Escitalopram Oxalate 10 MG Tablet Oral Repatha SureClick 140 MG/ML Solution Auto-injector Subcutaneous Tirosint 150 MCG Capsule 1 capsule in the morning on an empty stomach Orally Once a day Vitamin D3 25 MCG (1000 UT) Tablet with k Orally Once a day Omeprazole 40 MG Capsule Delayed Release 1 Orally Twice a day in the morning and late afternnon/early evening Taking Tums 500 MG Tablet Chewable 1 tablet Orally Once a day , Notes to Pharmacist: prnTaking ZyrTEC , Notes to Pharmacist: prnTaking Progesterone Taking Niacinamide ER Taking Melatonin Taking Mag Glycinate Taking BHRTBase Taking Escitalopram Oxalate 10 MG Tablet Oral Taking Repatha SureClick 140 MG/ML Solution Auto-injector Subcutaneous Taking Tirosint 150 MCG Capsule 1 capsule in the morning on an empty stomach Orally Once a day Taking Vitamin D3 25 MCG (1000 UT) Tablet with k Orally Once a day Taking Omeprazole 40 MG Capsule Delayed Release 1 Orally Twice a day in the morning and late afternnon/early evening Not-Taking/PRNCortisol Stove Fitter Saw Nedrow Green Tea Extract Pregnenolone Lorazepam CoQ10 Citrucel Ashwagandha Lovaza 1 GM Capsule Oral Rosuvastatin Calcium 10 MG Tablet Oral Naltrexone Tylenol PM Extra Strength Not-Taking/PRN Cortisol Stove Fitter Not-Taking/PRN Saw Nedrow Not-Taking/PRN Green Tea Extract Not-Taking/PRN Pregnenolone Not-Taking/PRN Lorazepam Not-Taking/PRN CoQ10 Not-Taking/PRN Citrucel Not-Taking/PRN Ashwagandha Not-Taking/PRN Lovaza 1 GM Capsule Oral Not- Taking/PRN Rosuvastatin Calcium 10 MG Tablet Oral Not-Taking/PRN Naltrexone Not-Taking/PRN Tylenol PM Extra Strength DiscontinuedQUEtiapine Fumarate 25 MG Tablet 1 tablet at bedtime Orally Once a day Mirtazapine 7.5 MG Tablet 2 tablets at bedtime Orally Once a day Cyclobenzaprine HCl 10 MG Tablet 1 tablet at bedtime as needed Orally Once a day , Notes to Pharmacist: prnOmeprazole 40 MG Capsule Delayed Release 1 Orally Once a day at 4:00 PM Medication List reviewed and reconciled with the patientDiscontinued QUEtiapine Fumarate 25 MG Tablet 1 tablet at bedtime Orally Once a day Discontinued Mirtazapine 7.5 MG Tablet 2 tablets at bedtime Orally Once a day Discontinued Cyclobenzaprine HCl 10 MG Tablet 1 tablet at bedtime as needed Orally Once a day , Notes to Pharmacist: prnDiscontinued Omeprazole 40 MG Capsule Delayed Release 1 Orally Once a day at 4:00 PM Medication List reviewed and reconciled with the patient * Allergies:?AmpicillinBiaxinS ulfa AntibioticsWellbutrinErythromycinCeftinPropofolMorphineDust Mitesdogs,cats, pigweed, ragweed, kiwi fruitGlutendairyDoxycyclineyes[Allergies Verified] Objective: * Vitals:?Wt: 215 lbs, Ht: 5 f t 5.5 in, BMI:35.23Index, BP: 111/111 mm Hg, Wt-k.52. Assessment: * Assessment: 1.?Gastro-esophageal reflux disease without esophagitis - K21.9 (Primary)???2.?History of colon polyps - Z86.010???3.?Encounter for screening for malignant neoplasm of colon - Z12.11???4.?Cough - R05.9??? Plan: * Treatment: 2.?History of colon polyps?Procedure: COLONOSCOPY 3.?Encounter for screening for malignant neoplasm of colon?Procedure: COLONOSCOPY* with MACsched for 02/03/25 at 9:30 ammiralax 4.?Cough? Notes: Continue follow up at [facility]ariat[facility] Surgery Dept for the weight loss procedure and the hiatalhernia surgery?? * Procedure Codes:?49125 DIAGN OSTIC [id number] COLORECTAL CA SCREEN DOC [id number] TOBACCO NON-NALOS8236 BP SCR NOT PRFRM REC REASON [id number] RCMND FLW-UP 10 YRS DOCD * Preventive Medicine:? ??Counseling:?Care goal follow-up plan:?Above Normal BMI Follow-up?Giving encouragement to exercise,?BMI management provided?Yes.? * Follow Up:?prn * * Sign off status: Completed true * Provider:?Riki Portillo MD Date:? 025 Generated for Farooq dueñas/Anna/Gladissmitting on:?12/09/2024 11:06 AM EDT
--- OUTSIDE RECORDS SUMMARY | 2024-12-09 11:06 | XMS_ITS | Continuity of Care Document ---
Author Organization [facility] Address [address] [place] [address]- Support Name Relationship Address Phone CARSON, ANUPAMA [...] navailable GRANDCHAMP, ANUPAMA Personal Relationship Unknown U ANUPAMA Valdez Personal Relationship Unknown U [facility] Care Team Providers Care Last Ironer Name Role Phone Kayley Kruger MD Primary Care Physician Encounter [facility] Date(s): 11/07/24 - 12/07/24 [facility] [address] [place] [address] Encounter Type: Triage Allergies, Adverse Reactions, [...] 05/23/24 Status: Ordered Repeat number: 1 Tirosint 137 mcg (0.137 mg) oral capsule 1 capsule = 137 mcg, By Mouth, Daily, # 90 capsule, 1 Refills, Maintenance, 11/19/24 12:09:00 PM EDT, Capsule, [facility], Partial fill upon patient request if the prescription is for a schedule II opioid drug., 168, cm, 11/18/24 15:09:00 EDT, Height Start Date: 11/19/24 Stop Date: 05/18/25 Status: Ordered Quantity: 90.0 Unit: capsule Repeat number: 2 Tirosint 150 mcg (0.15 mg) oral capsule 1 capsule = 150 mcg, By Mouth, Daily, # 30 capsule, 0 Refills, Maintenance, 09/23/24 3:12:00 PM EST,Capsule, Partial fill upon patient request if the prescription is for a schedule II opioid drug. Start Date: 09/23/24 Status: Ordered Quantity: 30.0 Unit: capsule Repeat number: 1 Vitamin C 500 mg oral tablet 1 [...] Nontoxic multinodular goiter Confirmed Active Obese class I Confirmed Active Social History Social History Type Response Smoking Status Never smoker entered on: 01/24/18 Sex Sex Representation Female (finding) Patient Care team information Care Team Personnel Name: Kayley Kruger MD Position: S Physician - Primary Care Member Role: PCP Address: [address] [place] [address] Telecom: Care Team Related Persons Name: BERTHA GARCIA Name: ANUPAMA BYRD Insurance Providers Guarantor name: NIKOLAI [facility] Plan Information #: 1 Payer: JOSE RAMON Member Number: NA Policy Number: NA Group Number: NA
--- OUTSIDE RECORDS SUMMARY | 2024-12-09 11:07 | XMS_ITS | Patient Health Record ---
Author Organization [facility] Address [address] [place] [address] Care Team Providers Care Concrete Technician Name Role Phone Kayley Kruger MD Primary Care Provider Riki Restrepo Unavailable [phone] Barbara HUTCHINSON, Hai Unavailable Unavailable Allergies Allergen [...] ampicillin Ampicillin Unknown Drug Allergy Activ e Results Component Value Reference Range Notes Pathology Reviewed date:03/21/2024 11:42:55 PM Interpretation: Performing Lab:[facility], [address] [place] [id number] Notes/Report: Name: Sagar Mckeon amberdelta Jeannette Age/Sex: 58/F [facility] 1965 [id number] [id number] Attend Dr: Riki Prescott MD Re03/11/24 Status : [facility] Location: [facility] Disch: SPEC : [id number] RECD : 03/11/24-1410 STATUS: [facility] NUM: [id number] SONIA: 03/11/24-[address] [facility] [address]: Riki Prescott MD ENTERED: 03/11/24- SP [...] AB/PAS stains Copies To: Kayley Kruger MD [facility] Primary Care, [place] [address] [place] [address] Riki Prescott MD [facility] [address] [place], [place] [phone] Signed (si gnature on file) Hitesh Castro MD 03/12/24 1213 END OF REPORT Reason For Referral Referring Provider First Name Kayley Referring Provider Last Name Slick Referring Provider Speciality Internal edicine Referred Organization [facility] Referred Provider Riki Prescott Referred Address [address] [place] [address],[address],[place],[phone],[place] Referred Provider Specialty Gastroentero logy Referral Priority Routine Referring Provider First Name Kayley Referring Provider Last Name Slick Referring Provider Speciality Internal edicine Referred Organization [facility] Referred Provider Riki Prescott Referred Address [address] [place] [address],[address],[place],[phone],[place] Referred Provider Specialty Gastroentero logy General Notes Radha Roberts 2024 02:11:17 PM >SPOKE WITH ELLIOTT [phone] AT [facility] AND REQUESTED A REFERRAL FOR THE PATIENT'S COLON WITH DR [facility] Referral Priority Routine Medications Medication SIG (Take, Route, Frequency, Duration) Notes Start Date End Date Status Melatonin Active Pregnenolone Not-Terrence ing Niacinamide ER Activ e Green Tea Extract No t-Taking Progesterone Active Saw Garland Not-Terrence ing Cortisol Cabinet Installer Not -Taking Tylenol PM Extra Strength Not-Taking [...] Notes Problem Gastro-esophageal reflux disease without esophagitis (986301523) Gastro-esophag eal reflux disease without esophagitis (K21.9) Active confirmed Problem Screening for malignant neoplasm of colon (062069318) Encounter for screening for malignant neoplasm of colon (Z12.11) Active confirmed Problem History of polyp of colon (448055582) History of colon polyps (Z86.010) Active confirmed Problem Hiatal hernia (29888782) Hiatal hernia (K44.9) Active confirmed Problem Cough (90319739) Cough (R05.9) Active confirmed Problem Gastroesophageal reflux disease (disorder) (269607090) Chronic GERD (K21.9) Active confirmed Vital Signs Blood pressure diastolic 111 mm Hg 10/29/2024 Height 5 ft 5.5 in in 10/29/2024 Blood pressure systolic 111 mm Hg 10/29/2024 Weight 215 lbs 10/29/2024 BMI 35.23 kg/m2 10/29/2024 Procedures Procedure Date Ordered Date Performed Result Body Sit e COLONOSCOPY 10/29/2024 N/A Encounters Encounter Location Date Provider Diagnosis [facility] [address]patient [address] [place], [place] [phone] 03/11/2024 Riki Prescott Gastro-esophageal reflux disease without esophagitis K21.9 ; Hiatal hernia K44.9 and Chronic cough R05.3 [facility] [address] [address] 03/01/2024 Riki Prescott Chronic GERD K21.9 ; Cough R05.9 ; History of colon polyps Z86.010 and Encounter for screening for malignant neoplasm of colon Z12.11 [facility] [address] [place] [address] 04/30/2024 Riki Prescott Chronic GERD K21.9 ; Cough R05.9 ; Hiatal hernia K44.9 ; Encounter for screening for malignant neoplasm of colon Z12.11 and History of colon polyps Z86.010 [facility] [address] [address] 10/29/2024 Riki Prescott History of colon polyps Z86.010 ; Gastro-esophageal reflux disease without esophagitis K21.9 ; Encounter for screening for malignant neoplasm of colon Z12.11 and Cough R05.9 [facility] [address] [phone] 03/01/2024 Riki Prescott [facility] [address] [address] 03/17/2024 Riki Prescott [facility] [address] [address] 03/21/2024 Riki Prescott Chronic GERD K21.9 [facility] [address] [place] [phone] 04/04/2024 Riki Prescott Chronic GERD K21.9 ; Hiatal hernia K44.9 and Cough R05.9 Assessments Encounter Date Diagnosis (ICD Code) Assessment Notes Treatment Notes Treatment Clinical Notes Section Notes 03/11/2024 Gastro-esophage al reflux disease without esophagitis (ICD-10 - K21.9) 03/11/2024 Hiatal hernia (ICD-10 - K44.9) 03/01/2024 Cough (ICD-10 - R05.9) Overall, Nikolai [...] keep you advised of her progress. 10/29/2024 Gastro-esophage al reflux disease without esophagitis (ICD-10 - K21.9) Decrease the 40mg omeprazole to just one a day fopr the heartburn 10/29/2024 History of colon polyps (ICD-10 - Z86.010) 03/21/2024 Chronic GERD (ICD-10 - K21.9) 04/04/2024 [...] keep you advised of her progress. 10/29/2024 Encounter for screening for malignant neoplasm of colon (ICD-10 - Z12.11) 04/04/2024 Cough (ICD-10 - R05.9) 03/01/2024 Encounter [...] Provider Name:Riki Prescott , 02/03/2025 09:30:00 AM, [address] [place] [address] , [place], [place], [phone], Insurance Providers Payer Name Payer Address Payer Phone Subscriber Number Group Number Insured Name Patient Relationship to Insured Coverage Start Date Coverage End Date [facility] PLAN (REFERRA L NEEDED) [address] [place] [address] [id number] NIKOLAI ESCOTO Self - patient is the insured Medical (General) History Medical History History ICD Code Degenerative disc disease/Arthritis-lowe r back Hypercholesterolemia/high trigylcerides IBS HYPOTHYRODISM/HASHIMOTOS DX 2019 Urinary incontinence Depression Denies KS,DM,CVA,Lung disease,renal dise ase 3 previous colonoscopies wit [...] back pain Hemorrhoid banding Endometrial Ablation D&C [place] teeth extraction Tonsillectomy and adenoidectomy
== END 2024-12-09 09:56 | disposition home or self-care (01) ==
LOC: HO.CT 09:55
PROVIDERS: PCP Internal Medicine; Visit Provider Nurse Practitioner Family
DX: R91.8 Other nonspecific abnormal finding of lung field (principal)
CPT/HCPCS: 71250

== ENCOUNTER → 2024-12-09 09:58 | Outpatient (BNV) | payer OTHER, SELFPAY | PROVIDERS: PCP Internal Medicine; Visit Provider Radiology Diagnostic Radiology | DX: R91.8 Other nonspecific abnormal finding of lung field (principal) | CPT/HCPCS: 71250 ==

== ENCOUNTER 2025-01-01 11:19 | Outpatient (REF) | payer OTHER, SELFPAY ==
--- NOTE | 2025-01-01 11:29 | ECG_ITS ---
Test Reason : PRE OP Blood Pressure : */* mmHG Vent. Rate : 57 BPM Atrial Rate : 57 BPM P-R Int : 136 ms QRS Dur : 76 ms QT Int : 454 ms P-R-T Axes : 74 31 41 degrees QTcB Int : 441 ms Sinus bradycardia Possible Left atrial enlargement Borderline ECG No previous ECGs available Referred By: Orlando Ozuna Electronically Signed By: DONIS HIRSCH
[2025-01-01 12:24] LABS: Alanine Aminotransferase 23 U/L (0-31); Albumin Level 4.6 g/dL (3.5-5.0); Alkaline Phosphatase 61 U/L (39-117); Anion Gap 13 (12-20); Aspartate Amino Transferase 21 U/L (5-31); Bilirubin Total 0.6 mg/dL (0.0-1.0); Blood Urea Nitrogen 16 mg/dL (9-16); Calcium 10.2 mg/dL (8.4-10.2); Carbon Dioxide 26 mmol/L (22-29); Chloride 105 mmol/L (96-108); Cholesterol 240 mg/dL (<200); Estimated Glomerular Filt Rate 52; Glucose Fasting 96 mg/dL (60-99); HDL Cholesterol 57 mg/dL (>40); LDL Cholesterol Calculated 142 mg/dL (<100); Potassium 4.6 mmol/L (3.3-5.1); Sodium 139 mmol/L (135-145); Total Protein 7.6 g/dL (6.5-8.0); Triglycerides 205 mg/dL (<150)
[2025-01-01 12:45] LABS: Appearance Urine Clear; Color Urine Yellow; Glucose Urine UA Negative (Negative); Leukocyte Esterase Urine Negative (Negative); Nitrite Urine Negative (Negative); PH 5.5 (5.0-9.0); Specific Gravity - Urine <= 1.005 (1.005-1.025); Urine Blood Negative (Negative); Urine Ketones Negative (Negative); Urine Protein Negative (Neg-Trace)
--- OUTSIDE RECORDS SUMMARY | 2025-01-01 12:49 | XMS_ITS | Continuity of Care Document ---
Author Organization [facility] Address [address] [place] [address]- Support Name Relationship Address Phone CARSON, ANUPAMA [...] U ANUPAMA Valdez Personal Relationship Unknown U [facility] Care Team Providers Care Jewel Hole Gauger Name Role Phone Kayley Kruger MD Primary Care Physician En[place] [facility] [place](s): 12/24/24 - 12/31/24 [facility] [address] [place] [address] Attending Physician: Chalino Head MD Encounter Type: Office Visit Allergies, Adverse Reactions, Alerts Substance [...] Refills, Maintenance, 11/19/24 12:09:00 PM EDT, Capsule, [facility], Partial fill upon patient request if [...] Confirmed Active Obese class I Confirmed Active Vital Signs Most recent to oldest [Reference Range]: 1 Height 168 cm (12/24/24 1:51 PM) Weight 97.5 kg (12/24/24 1:51 PM) Body Mass Index [18.5-24.99 kg/m2] 34.55 kg/m2 *>HHI* (12/24/24 1:51 PM) Weight Obtained Via Patient/family state d (12/24/24 1:51 PM) Social History Social History Type Response Smoking Status Never smoker entered on: 01/24/18 Sex Sex Representation Female (finding) Note * Krissy Thomas: PERFORM Event Display: Patient Education/Instruction Authored Date: [id number] Ambulatory Adult Visit Summary [facility] [address] [place] [address] Name: NIKOLAI BYRD : 1965?? Visit: 12/24/2024 13:44?? Ambulatory Visit Instructions ?? Your Care Team Primary Care Provider Kayley Kruger MD? This Visit Provider Chalino Head MD A Your Diagnosis Thyroid ca Vitals Signs Height: 168 cm Weight: 97.5 kg Body Mass Index:??34.55 kg/m2??Critical Body surface area: 2.13 What to do next Future Orders TSH Rfx on Abnormal to Free T4 - Routine, Once, 12/24/24 14:08:00 EDT, Future Order, [facility], Blood?? Thyroglobulin, Tumor Marker W/Reflex - Routine, Once, 06/25/25 3:00:00 EDT, Future Order, [facility], Blood?? Medications The list below reflects the information in our records and provided by you today along with any changes made during this visit. Please continue your medications until treatment is completed or stopped by your provider. If this is different from the information you have or there are other questions,please contact the prescribing provider. What How Much When Instructions Unchanged Ascorbic Acid (Vitamin C 500 mg oral tablet) 1 tab(s) Oral Daily Unchanged Biotin Oral Daily Unchanged Cetirizine-Pseudoephedrine (ZyrTEC-D 5 mg-120 mg oral tablet, extended release) 1 tab(s) Oral Twice a day Unchanged Cholecalciferol (Vitamin D3) Oral Unchanged Cyclobenzaprine (cyclobenzaprine 10 mg oral tablet) 1 tab(s) Oral 3 times a day Unchanged Escitalopram (escitalopram 10 mg oral tablet) 1 tab(s) Oral Daily Unchanged Estradiol (estradiol 0.025 mg/ 24 hours twice weekly transdermal film, extended release) 1 patch(es) Unchanged evolocumab (Repatha SureClick 140 mg/ mL subcutaneous solution) 6 mL, 0 Refill(s) ?? Unchanged Famotidine (famotidine 40 mg oral tablet) 1 tab(s) Oral Daily at Bedtime Unchanged Fenofibrate (fenofibrate 40 mg oral tablet) 1 tab(s) Oral Daily Unchanged HydrOXYzine (hydrOXYzine hydrochloride 10 mg oral tablet) 2 tab(s) Oral 4 times a day as needed for for anxiety Unchanged Levothyroxine (Tirosint 100 mcg (0.1 mg) oral capsule) 90 capsule, 0 Refill(s) ?? Unchanged Levothyroxine (Tirosint 137 mcg (0.137 mg) oral capsule) 1 capsule Oral Daily Duration: 90 Days Unchanged Levothyroxine (Tirosint 150 mcg (0.15 mg) oral capsule) 1 capsule Oral Daily Unchanged Lorazepam (LORazepam 1 mg oral tablet) 0 Refill(s) ?? Unchanged Magnesium Citrate (magnesium (as citrate) 83 mg oral tablet, chewable) 2 tab(s) Oral Twice a day Unchanged Melatonin (melatonin 5 mg oral tablet) 1 tab(s) Oral Daily at Bedtime Unchanged Multivitamin Oral Daily Unchanged Multivitamin (Super B Complex) 1 tab(s) Oral Daily Unchanged [place]-3 Polyunsaturated Fatty Acids (Lovaza oral capsule) 0 Refill(s) ?? Unchanged [place]-3 Polyunsaturated Fatty Acids (Lovaza) 2,000 Milligram Oral Twice a day Unchanged Omeprazole (omeprazole 40 mg oral enteric coated capsule) 30 each, 0 Refill(s), TAKE 1 CAPSULE BY MOUTH ONCE A DAY AT 4:00 PM ?? Unchanged Pantoprazole (pantoprazole 40 mg oral delayed release tablet) 1 tab(s) Oral Daily Unchanged Progesterone (progesterone 200 mg oral capsule) 200 Milligram Oral Daily Unchanged Quetiapine (QUEtiapine 25 mg oral tablet) 1 tab(s) Oral 3 times a day Unchanged Ubiquinone (Coenzyme Q10) Oral Unchanged Ubiquinone (CoQ10) 300 Milligram Oral Daily Test Performed Below is a partial list of the tests performed during your Visit. You may have had other tests and procedures not included in this list. Please discuss all test results with your provider. Thyroglobulin, Tumor Marker W/Reflex?-- Results Pending -- TSH Rfx on Abnormal to Free T4?-- Results Pending -- Medications and Immunizations Administered Medications Given During Visit No medications given during this visit.?? Allergies (NKA means No Known Allergies) Biaxin Ceftin Wellbutrin ampicillin cefuroxime doxycycline??(rash) erythromycin levothyroxine morphine propofol sulfADIAZINE Common Emergency Awareness Tips IS IT A STROKE? Act FAST and Check for these signs: FACE Does the face look uneven? ARM Does one arm drift down? SPEECH Does their speech sound strange? TIME Call at any sign of stroke ?? Heart Attack Signs Chest discomfort: Most heart attacks involve discomfort in the center of the chest and lasts more than a few minutes, or goes away and comes back. It can feel like uncomfortable pressure, squeezing, fullness or pain. Discomfort in upper body: Symptoms can include pain or discomfort in one or both arms, back, neck, jaw or stomach. Shortness of breath: With or without discomfort. Other signs: Breaking out in a cold sweat, nausea, or lightheaded. Remember, MINUTES DO MATTER. If you experience any of these heart attack warning signs, call to get immediate medical attention! ?? Smoking can increase your chances of developing chronic health problems and can cause harmful effects to other family members in your house. If you smoke, you are strongly encouraged to quit. Please call [facility] at [phone] or 1-210-731iwoca (5626) or log in to [email or web address] for referrals to smoking cessation programs. ?? The National Suicide Prevention Hotline is available 20/03 if you or someone you know needs to find a reason to keep living. By calling 8-921-835-TheLocker (3647) you'll be connected to a skilled, trained counselor at a crisis center in your area. [facility] Portal You can view and manage your care through the patient portal or by using a health care jovany of your choosing. [employer] is a website that allows you to securely view your medical information including your hospital discharge summary, office visit summaries, medications and follow-up visits. You can also request appointments, renew medications, and request access to your medical information using a health care jovany of your choosing, or just ask a question. You can enroll at [email or web address] or register during your next office visit. [facility], in keeping with [facility] guidance, no longer requires face masks for staff, patientsor visitors in most situations. Similiar to time spent indoors at other locations, there is the chance that you were exposed to repiratory viruses during your time with us (such as flu or COVID-19). If you develop symptoms concerning for a viral respiratory infection, please seek testing (and treatment if indicated) from your medical provider or home test kit. ?? Disclaimer: The information provided is of a general nature and is intended to be used in conjunction with the recommendations and advice of your health care practitioner. Every effort has been made to ensure that the information provided is accurate and complete at the time it is provided to you however, as your needs change, or, as new information becomes available, different or additional instructions may be required. ?? If you have questions, please consult with your primary care provider or pharmacist, as appropriate. This information is not intended to serve as substitution for assessment and evaluation by a qualified health care provider. If you do not have a primary care provider, you may find a [facility] provider by calling [facility] at [phone]. Patient Care team information Care Team Personnel Name: Kayley Kruger MD Position: [facility] Physician - Primary Care Member Role: PCP Address: [address] Telecom: Care Team Related Persons Name: BERTHA GARCIA Name: ANUPAMA BYRD Insurance Providers Guarantor name[facility] Plan Information #: 1 Payer: NA Member Number: [id number] Policy Number: NA Group Number: [id number] Health Plan Information #: 2 Payer: NA Member Number: [id number] Policy Number: NA Group Number: [id number]
--- OUTSIDE RECORDS SUMMARY | 2025-01-01 12:50 | XMS_ITS ---
Author Organization [facility] Address [address] [place] [address] Care Team Providers Care Reset Merchandiser Name Role Phone Kayley Kruger MD Primary Care Provider UnavailRiki Hunt Unavailable [phone] Barbara HUTCHINSON, Hai Unavailable Unavailable Allergies Allergen [...] ing Green Tea Extract No t-Taking Saw [place] Not-Terrence ing Cortisol Manager Agricultural Not -Taking Lorazepam Not-Taking Omeprazole 40 MG [...] N/A Encounters Encounter Location Date Provider Diagnosis [facility] [address] [facility] [address] [place] [address] 10/29/2024 Riki Portillo History of colon polyps [...] Name:Riki Portillo , 02/03/2025 09:30:00 AM, [address] [place] [address] , [place], [place], [phone], Progress Notes * MICHEAL BYRDOB:08/1964 (59 yo F)Acc No.[id number]:10/29/2024 Progress Notes Patient:?STEVE BYRD Provider:?Riki Portillo MD :1965???Age:59 Y???Sex:Female D ate:10/29/2024 Address:[address] [place], [place] [id number] Pcp:Kayley Kruger MD Subjective: * Chief Complaints: * ???Patient presents today fo r a hiatal hernia * Medical History:? * Surgical History:?Tonsillect patrica and adenoidectomy [place] teeth extraction D&C Endometrial Ablation Hemorrhoid banding [...] year??Never (0 point),?Points?0,?Interpretation?Negative.?Miscellaneous:?Marital status: . 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 ???Nonsmoker; no sig. alcohol. * Medications:?TakingTums [...] the morning and late afternnon/early evening Not-Taking/PRNCortisol Manager Agricultural Saw [place] Green Tea Extract Pregnenolone Lorazepam CoQ10 Citrucel Ashwagandha Lovaza 1 GM Capsule Oral Rosuvastatin Calcium 10 MG Tablet Oral Naltrexone Tylenol PM Extra Strength Not-Taking/PRN Cortisol Manager Agricultural Not-Taking/PRN Saw [place] Not-Taking/PRN Green Tea Extract Not-Taking/PRN Pregnenolone Not-Taking/PRN [...] procedure and the hiatalhernia surgery?? * Procedure Codes:?01245 DIAGN OSTIC [id number] COLORECTAL CA SCREEN DOC [id number] TOBACCO NON-BPGWJ5410 BP SCR NOT PRFRM REC REASON [id number] RCMND FLW-UP 10 YRS DOCD * Preventive Medicine:? ??Counseling:?Care goal follow-up plan:?Above Normal BMI Follow-up?Giving encouragement to exercise,?BMI management provided?Yes.? * Follow Up:?prn * * Sign off status: Completed true * Provider:?Riki Portillo MD Date:? 025 Generated for Farooq dueñas/Anna/Gladissmitting on:?01/01/2025 12:49 PM EDT
--- OUTSIDE RECORDS SUMMARY | 2025-01-01 12:50 | XMS_ITS | Patient Health Record ---
Author Organization [facility] Address [address] [place] [address] Care Team Providers Care Earthmoving Plant Operator Name Role Phone Kayley Kruger MD Primary Care Provider Unavaila ble Black, Emily Unavailable [phone] Allergies Allergen (clinical drug ingredient) Drug/Non Drug [...] Status W/U Status Risk Notes Problem Bursitis (25374716) Bursitis (727.3) Active confirmed Problem Hammer toe (228861944) Hammer toe (735.4) Active confirmed Problem Myositis (62996101) Myositis (729.1) Active confirmed Problem Neuralgia - Neuritis (729.2) Active confirmed Problem Pain in limb (06877721) Pain in Limb (729.5) Active confirmed Problem Plantar fasciitis (893258018) Plantar Fasciitis (728.71) Active confirmed Problem Ramos splints (1930614272) Ramos Splints (844.9) Active confirmed Problem Ulcer of toe of right foot (disorder) (167570158226 75130) Skin ulcer of toe of right foot, limited to breakdown of skin (L97.511) Active confirmed Improvement Problem Ulcer of toe of left foot (disorder) (015711779833 20467) Skin ulcer of toe of left foot, limited to breakdown of skin (L97.521) Active confirmed Plan Of Treatment Pending Test Test Name Order Date 26422-Pbprkxik Plate 04/06/2023 Insurance Providers Payer Name Payer Address Payer Phone Subscriber Number Group Number Insured Name Patient Relationship to Insured Coverage Start Date Coverage End Date [facility] [address] [place] [address] [id number] Carlos Kelly mp Spouse - patient is [...]
--- OUTSIDE RECORDS SUMMARY | 2025-01-01 12:50 | XMS_ITS ---
Author Organization [facility] Address [address] [address] [address] [place] [address] Care Team Providers Care Food Service Sales Representatives Name Role Phone Kayley Kruger MD Primary Care Provider UnavailRiki Hunt Unavailable [phone] Barbara HUTCHINSON, Hai Unavailable Unavailable REASON FOR VISIT update (previous message told to call back in a few weeks.)still has cough.refer?/ fyi update Problems Problem Type SNOMED Code ICD Code Onset Dates Problem Status W/U Status Risk Notes Problem Hiatal hernia (22576436) Hiatal hernia (K44.9) Active confirmed Encounters Encounter Location Date Provider Diagnosis [facility] [address] [place] [address] 04/04/2024 Riki Portillo Chronic GERD K21.9 ; [...] Provider Name:Riki Portillo , 02/03/2025 09:30:00 AM, [address] [place] [address] , [place], [place], [phone], Progress Notes * MICHEAL BYRDOB:08/1964 (58 yo F)Acc No.[id number]:04/04/2024 Patient:?STEVE BYRD :1965???Age:58 Y???Sex:Female Address:[address] [place] [address], [address] Subjective: * Chief Complaints: * ???update (previous [...] true * Date:? Generated for Farooq dueñas/Anna/eTransmitting on:?01/01/2025 12:50 PM EDT
--- OUTSIDE RECORDS SUMMARY | 2025-01-01 12:50 | XMS_ITS | Patient Health Record ---
Author Organization [facility] Address [address] [place] [address] Care Team Providers Care Baker Pie Name Role Phone Kayley Kruger MD Primary Care Provider Riki Restrepo Unavailable [phone] Barbara HUTCHINSON, Hai Unavailable Unavailable Allergies Allergen [...] Pathology Reviewed date:03/21/2024 11:42:55 PM Interpretation: Performing Lab:[facility], [address] [place] [address] Notes/Report: Name: Sagar Mckeon amberdelta Jeannette Age/Sex: 58/F : 1965 [id number] Unit#: [id number] Attend Dr: Riki Prescott MD Re03/11/24 Status : [facility] Location: [facility] Disch: SPEC : [id number] RECD : 03/11/24-1410 STATUS: [facility] NUM: [id number] SONIA: 03/11/24-13[address] [facility] [address]: Riki Prescott MD ENTERED: 03/11/24- [...] AB/PAS stains Copies To: Kayley Kruger MD [facility], [place] [address] [place] [address] Riki Prescott MD [facility] [address] [place], [place] [phone] Signed (si gnature on file) Hitesh Castro MD 03/12/24 1213 END OF REPORT Reason For Referral Referring Provider First Name Kayley Referring Provider Last Name Slick Referring Provider Speciality Internal edicine Referred Organization [facility] Referred Provider Riki Prescott Referred Address [address] [place] [address],[address],[place],[phone],[place] Referred Provider Specialty Gastroentero logy Referral Priority Routine Referring Provider First Name Kayley Referring Provider Last Name Slick Referring Provider Speciality Internal edicine Referred Organization [facility] Referred Provider Riki Prescott Referred Address [address] [place] [address],[address],[place],[address],[place] Referred Provider Specialty Gastroentero logy General Notes Radha Roberts 2024 02:11:17 PM >SPOKE WITH ELLIOTT [phone] [place] [facility] AND REQUESTED A REFERRAL FOR THE PATIENT'S COLON WITH DR PRESCOTT IN [place] Referral Priority Routine Medications Medication SIG (Take, Route, Frequency, Duration) Notes Start Date End Date Status Melatonin Active Pregnenolone Not-Terrence ing Niacinamide ER Activ e Green Tea Extract No t-Taking Progesterone Active Saw [place] Not-Terrence ing Cortisol Rn Telephone Triage Not -Taking Tylenol PM Extra Strength Not-Taking [...] Notes Problem Gastro-esophageal reflux disease without esophagitis (820765635) Gastro-esophag eal reflux disease without esophagitis (K21.9) Active confirmed Problem Screening for malignant neoplasm of colon (335003336) Encounter for screening for malignant neoplasm of colon (Z12.11) Active confirmed Problem History of polyp of colon (situation) (684900503) History of colon polyps (Z86.010) Active confirmed Problem Hiatal hernia (23844355) Hiatal hernia (K44.9) Active confirmed Problem Cough (17249459) Cough (R05.9) Active confirmed Problem Gastroesophageal reflux disease (disorder) (442887060) Chronic GERD (K21.9) Active confirmed Vital Signs Blood pressure diastolic 111 mm Hg 10/29/2024 Height 5 ft 5.5 in in 10/29/2024 Blood pressure systolic 111 mm Hg 10/29/2024 Weight 215 lbs 10/29/2024 BMI 35.23 kg/m2 10/29/2024 Procedures Procedure Date Ordered Date Performed Result Body Sit e COLONOSCOPY 10/29/2024 N/A Encounters Encounter Location Date Provider Diagnosis [facility] [address] [place], [place] [phone] 03/11/2024 Riki Prescott Gastro-esophageal reflux disease without esophagitis K21.9 ; Hiatal hernia K44.9 and Chronic cough R05.3 [facility] [address] [place] [address] 03/01/2024 Riki Prescott Chronic GERD K21.9 ; Cough R05.9 ; History of colon polyps Z86.010 and Encounter for screening for malignant neoplasm of colon Z12.11 [facility] [address] [place] [address] 04/30/2024 Riki Prescott Chronic GERD K21.9 ; Cough R05.9 ; Hiatal hernia K44.9 ; Encounter for screening for malignant neoplasm of colon Z12.11 and History of colon polyps Z86.010 [facility] [address] [address] 10/29/2024 Riki Prescott History of colon polyps Z86.010 ; Gastro-esophageal reflux disease without esophagitis K21.9 ; Encounter for screening for malignant neoplasm of colon Z12.11 and Cough R05.9 [facility] [address] [address] 03/01/2024 Riki Prescott [facility] [address] [place] [address] 03/17/2024 Riki Prescott [facility] [address] [address] 03/21/2024 Riki Prescott Chronic GERD K21.9 [facility] [address] [place] [address] 04/04/2024 Riki Prescott Chronic GERD K21.9 ; [...] (ICD-10 - R05.9) Continue follow up at [facility] for the weight loss [...] should then keep her appointment with Dr. Yvonne to discuss hiatal hernia surgery. In the [...] Provider Name:Riki Prescott , 02/03/2025 09:30:00 AM, [address] [place] [address] , [place], [place], [phone], Insurance Providers Payer Name Payer Address Payer Phone Subscriber Number Group Number Insured Name Patient Relationship to Insured Coverage Start Date Coverage End Date [employer] (REFERRA L NEEDED) [address] [place] [phone] [id number] NIKOLAI ESCOTO Self - patient is the insured Medical (General) History Medical History History ICD Code Degenerative disc disease/Arthritis-lowe r back Hypercholesterolemia/high trigylcerides IBS HYPOTHYRODISM/HASHIMOTOS DX 2019 Urinary incontinence Depression Denies [place],DM,CVA,Lung disease,renal dise ase 3 previous colonoscopies wit [...] back pain Hemorrhoid banding Endometrial Ablation D&C [place] teeth extraction Tonsillectomy and adenoidectomy
--- OUTSIDE RECORDS SUMMARY | 2025-01-01 12:50 | XMS_ITS ---
Author Organization [facility] Address [address] [place] [address] Care Team Providers Care Stone Dresser Name Role Phone Kayley Kruger MD Primary Care Provider Unavaila Riki Ellis Unavailable [phone] Hai Jimenez MD Unavailable Unavailable Allergies Allergen [...] Active Green Tea Extract Ac tive Saw Mora Active ZyrTEC Active Mirtazapine 7.5 MG 2 tablets at bedtime Orally Once a day for 30 day(s) Active QUEtiapine Fumarate 25 MG 1 tablet at be dtime Orally Once a day for 30 day(s) Active Tums 500 MG 1 tablet Orally Once a day for 30 day(s) Active Cortisol Gravel Wheeler Act lee Tylenol PM Extra Strength Not-Taking [...] 04/30/2024 Encounters Encounter Location Date [facility] [address] [place] [address] 04/30/2024 Riki Portillo Chronic GERD K21.9 ; [...] Provider Name:Riki Portillo , 02/03/2025 09:30:00 AM, [address] [place] [address], [phone], Progress Notes * MICHEAL BYRDOB:08/1964 (58 yo F)Acc No.[id number]:04/30/2024 Progress Notes Patient:?STEVE BYRD Provider:?Riki Portillo MD :1965???Age:58 Y???Sex:Female D ate:04/30/2024 Address:[address] [place], [place] [address] Pcp:Kayley Kruger MD Subjective: * Chief Complaints: [...] History:? * Surgical History:?Tonsillect patrica and adenoidectomy [place] teeth extraction D&C Endometrial Ablation Hemorrhoid banding [...] year??Never (0 point),?Points?0,?Interpretation?Negative.?Miscellaneous:?Marital status: . 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 ???Nonsmoker; no sig. alcohol. * Medications:?TakingCortisol Gravel Wheeler Tums 500 MG Tablet Chewable 1 tablet Orally Once a dayQUEtiapine Fumarate 25 MG Tablet 1 tablet at bedtime Orally Once a dayMirtazapine 7.5 MG Tablet 2 tablets at bedtime Orally Once a dayZyrTEC Saw Mora Green Tea Extract Progesterone Pregnenolone Niacinamide ER Melatonin Mag Glycinate Lorazepam Cyclobenzaprine HCl 10 MG Tablet 1 tablet at bedtime as needed Orally Once a day, Notes: [id number] Citrucel BHRTBase Ashwagandha Escitalopram Oxalate 10 MG Tablet Oral Repatha SureClick 140 MG/ML Solution Auto-injector Subcutaneous Tirosint 100 MCG Capsule Oral Lovaza 1 GM Capsule Oral Rosuvastatin Calcium 10 MG Tablet Oral Omeprazole 40 MG Capsule Delayed Release 1 Orally Once a day at 4:00 PMNaltrexone Vitamin D3 25 MCG (1000 UT) Tablet with k Orally Once a dayTaking Cortisol Gravel Wheeler Taking Tums 500 MG Tablet Chewable 1 tablet Orally Once a dayTaking QUEtiapine Fumarate 25 MG Tablet 1 tablet at bedtime Orally Once a dayTaking Mirtazapine 7.5 MG Tablet 2 tablets at bedtime Orally Once a dayTaking ZyrTEC Taking Saw Mora Taking Green Tea Extract Taking Progesterone Taking [...] Procedure Codes:?3017F COLOR ECTAL CA SCREEN DOC IIA8298F TOBACCO NON-ZYINB8012 BP SCR NOT PRFRM REC REASON NOS * Preventive Medicine:? ??Counseling:?Care goal follow-up plan:?Above Normal BMI Follow-up?Giving encouragement to exercise,?BMI management provided?Yes.? * Follow Up:?October 2024 * * Sign off status: Completed true * Provider:?Riki Portillo MD Date:? 024 Generated for Farooq dueñas/Anna/Margarita on:?01/01/2025 12:49 PM EDT History and Physical Notes * [...]
--- OUTSIDE RECORDS SUMMARY | 2025-01-01 12:50 | XMS_ITS | Continuity of Care Document ---
Author Name [facility] Organization DOD-[facility] Care Team Providers Care Bulk Sugar Handler Name Role Phone [facility] Unavailable Unavailable Problems Combined list of problems from Department of Defense and Veterans Affairs facilities. It does not include entries that were removed or entered in error. Problem Status Onset Date Problem Type Date of Resolution Comments Source Insomnia Active Condition [facility] (631GE) Major depressive disorder Active Condition [facility] [...] Site Reaction Lot Number CVX Code Drug Program And Research Coordinator Status Comments Source COVID-19 (MODERNA), MRNA, LNP-S, PF, 100 MCG OR 50 MCG DOSE 2 2020 207 complet ed MOD; [id number]; 2 [facility] [place] [facility] COVID-19 (TODD), VECTOR-NR, RS-AD26, PF, 0.5 ML 1 2020 212 complet ed JSN; [id number]; 1 [facility] [place] [facility] Encounters Combined list of: 1) Encounters [...] Disposition Source [facility] [place] [facility] CASE MANAGEMENT 76199-2.63 [id number] Diagnos is: ICD-10- CM Z71.0 Prsn encntr hlth serv to consult on behalf of another person VALERIA CHIN SE 07/26 [facility] [place] [facility] [facility] [place] [facility] PSYTX W PT 45 MINUTES 50309-4.63 [id number] Diagnos is: ICD-10- CM F32.9 Major depress lee disorde r, single episode , unspeci fied MUKESH,CHR ISTIE 07/31 [facility] [place] [facility] [facility] [place] [facility] HC PRO PHONE CALL 11-20 MIN 89723-5.63 [phone] Diagnos is: ICD-10- CM Z71.0 Prsn encntr hlth serv to consult on behalf of another person VALERIA CHIN SE 09/01 [facility] [place] [facility] [place] [facility] PSYTX W PT 30 MINUTES 13685-3.63 [id number] Diagnos is: ICD-10- CM F32.9 Major depress lee disorde r, single episode , unspeci fied MUKESH,CHR ISTIE 10/29 [facility] [place] [facility] [place] [facility] HC PRO PHONE CALL 11-20 MIN 27034-9.63 [phone] Diagnos is: ICD-10- CM Z74.1 Need for assista nce with persona l care VALERIA CHIN SE 11/01 [facility] [place] [place] [facility] [place] [facility] CASE MANAGEMENT 22049-0.63 [id number] Diagnos is: ICD-10- CM Z71.0 Prsn encntr hlth serv to consult on behalf of another person MATTI SHEFFIELD 11/22 [facility] [place] [facility] [place] [facility] ASSMT/REAS SESSMENT 59763-9.63 [id number] Diagnos is: ICD-10- CM Z71.0 Prsn encntr hlth serv to consult on behalf of another person MATTI SHEFFIELD 04/04 [facility] [place] [facility] [place] [facility] HLTH B[facility] ASSMT/REAS SESSMENT 69352-1.63 [id number] Diagnos is: ICD-10- CM Z71.0 Prsn encntr hlth serv to consult on behalf of another person MATTI SHEFFIELD 08/01 [facility] [place] [place] [facility] Social History Combined list of available smoking, tobacco, and other social history from Department of Defense and Veterans Affairs facilities. Social History Type Response Date Comment [facility] e Tobacco smoking status [facility] NEVER USED 02/20/2023 [facility] [place] [facility] This section is an empty social history section. DoD
--- OUTSIDE RECORDS SUMMARY | 2025-01-01 12:50 | XMS_ITS | Data Portability ---
Author Organization [facility] Address [address] [place] [address] Care Team Providers Care Rail Filler Name Role Phone GRAHAM CHAVIRA Primary Care Provider [phone] Assessment No assessment recorded. Plan of Treatment Reminders Order Date Submit Date Provider Last Modified By Organization Details Last Modified Time Details Appointments None recorded. Lab urinalysis , dipstick 2022 023 [email or web address] [facility], [address] [place] [address], [phone], 18:37:04 culture, urine 2022 023 [facility], [address] [place] [address], [place], [address], 06:07:30 Referral None recorded. Procedures None recorded. Surgeries None recorded. Imaging None recorded. Medication Orders None recorded. Patient TargetsNo targets recorded. Patient Instructions Encounter Date Encounter Id Patient Instructions Last Modified By Organization Details Last Modified Time 09/28/2022 [id number] upper and middle back (thoracic) strain: care instructions [email or web address] Not available 09/28/2022 18:37:04 constipation: care instructions [email or web address] Not available 09/28/2022 18:37:04 I would continue [...] Blood in Urine. Thank you for using [employer], please feel free to contact us if you have any questions or concerns. [email or web address] Not available 09/28/2022 18:37:03 Reason for Referral None Reported. Results Created Date Observation Date Name Description Value Unit Range Abnormal Flag Note LastModifiedBy Organization Detail LastModifiedTime 09/28/19 23 10/01/2022 URINE CULTU RE, ROUTI NE urine culture, routine FINAL REPORT Not Available [facility] ([facility]) [address] [facility], [place], [address], 10/01/2022 06:07:30 09/28/1910/01/2022 URINE CULTU RE, DULCEI NE result 1 NO GROWTH Not Available [facility] ([facility]) [address] [facility], [place], [address], 10/01/2022 06:07:30 09/28/1909/28/2022 urina lysis , dipst ick Unknown Analyte Normal = light yellow Not Available [address], [address], 09/28/2022 17:46:46 09/28/1909/28/2022 urina lysis , dipst ick Unknown Analyte Normal = clear Not Available [address] [place] [address], [address], 09/28/2022 17:46:46 09/28/19 23 09/28/2022 urina lysis , dipst ick Unknown Analyte Normal = negati ve Not Available [address] [place] [address], [address], 09/28/2022 17:46:46 09/28/19 23 09/28/2022 urina lysis , dipst ick Unknown Analyte Normal = Negati ve Not Available [address]sarah flores [address], [place], [address], 09/28/2022 17:46:46 09/28/19 23 09/28/2022 urina lysis , dipst ick Unknown Analyte Normal = Negati ve Not Available [facility] [address], [place], [address], 09/28/2022 17:46:46 09/28/19 23 09/28/2022 urina lysis , dipst ick Unknown Analyte Normal = 1.010, 1.015, 1.020 Not Available [address]sarah flores [address], [place], [address], 09/28/2022 17:46:46 09/28/19 23 09/28/2022 urina lysis , dipst ick Unknown Analyte Normal = Negati ve Not Available [address]sarah flores [address], [place], [address], 09/28/2022 17:46:46 09/28/19 23 09/28/2022 urina lysis , dipst ick Unknown Analyte Normal = 6.5, 7.0, 7.5, 8.0 Not Available [facility] [address], [place], [address], 09/28/2022 17:46:46 09/28/19 23 09/28/2022 urina lysis , dipst ick Unknown Analyte Normal = Negati ve Not Available [address]sarah flores [address], [place], [address], 09/28/2022 17:46:46 09/28/19 23 09/28/2022 urina lysis , dipst ick Unknown Analyte Normal = 0.2, 1.0 Not Available [address]sarah flores [address], [place], [address], 09/28/2022 17:46:46 09/28/19 23 09/28/2022 urina lysis , dipst ick Unknown Analyte Normal = Negati ve Not Available [facility], [place], [address], 09/28/2022 17:46:46 09/28/19 23 09/28/2022 urina lysis , dipst ick Unknown Analyte Normal = Negati ve Not Available [facility], [place], [address], 09/28/2022 17:46:46 09/28/19 23 09/28/2022 urina lysis , dipst ick Unknown Analyte Yellow Not Available janee [address], [place], [address], 09/28/2022 17:46:46 09/28/19 23 09/28/2022 urina lysis , dipst ick Unknown Analyte Clear Not Available janee [address], [place], [address], 09/28/2022 17:46:46 09/28/19 23 09/28/2022 urina lysis , dipst ick Unknown Analyte Negati ve Not Available [facility], [place], [address], 09/28/2022 17:46:46 09/28/19 23 09/28/2022 urina lysis , dipst ick Unknown Analyte Negati ve Not Available [facility] [address] [place] [address], [place], [address], 09/28/2022 17:46:46 09/28/19 23 09/28/2022 urina lysis , dipst ick Unknown Analyte Negati ve Not Available [facility], [place], [address], 09/28/2022 17:46:46 09/28/1909/28/2022 urina lysis , dipst ick Unknown Analyte <=1.00 5 Not Available sarah flores [address], [place], [address], 09/28/2022 17:46:46 09/28/19 23 09/28/2022 urina lysis , dipst ick Unknown Analyte Negati ve Not Available sarah flores [address], [place], [address], 09/28/2022 17:46:46 09/28/19 23 09/28/2022 urina lysis , dipst ick Unknown Analyte 6.0 Not Available [facility] [address], [place], [address], 09/28/2022 17:46:46 09/28/19 23 09/28/2022 urina lysis , dipst ick Unknown Analyte Negati ve Not Available sarah flores [address], [place], [address], 09/28/2022 17:46:46 09/28/19 23 09/28/2022 urina lysis , dipst ick Unknown Analyte 0.2 E.U./d L Not Available sarah flores [address], [place], [address], 09/28/2022 17:46:46 09/28/19 23 09/28/2022 urina lysis , dipst ick Unknown Analyte Negati ve Not Available sarah flores [address], [place], [address], 09/28/2022 17:46:46 09/28/19 23 09/28/2022 urina lysis , dipst ick Unknown Analyte Negati ve Not Available [address] [facility], [place], [address], 09/28/2022 17:46:46 Result Notes None recorded. Problems Name Problem SNOMED Code Status Onset Date Resolution Date Notes Provider Name and Address Organization Details Recorded Time Disorder of thyroid gland 08262203 Active 2022 FREDY TITO null, [place] - [facility] 18:00:39 Disorder of back 03594575 Active 2022 FREDY TITO null, PA - [facility] 18:00:51 Osteoarthritis 369713588 Active 2022 FREDY TITO null, PA - [facility] 18:01:03 Spinal stenosis 61334349 Active 2022 FREDY TITO null, PA - [facility] 18:04:23 Problem Notes None recorded. Medical Equipment None Reported. Allergies Allergen ID Allergen Name Allergen Category Reaction Reaction Severity Criticality Documentation Date Start Date Code Code System Note Provider Name and Address Organization Details Recorded Time 458200 ampicilli n medicatio n rash Not available Not available 09/28/2022 733 RxNorm FREDY TITO null, [place] - [facility] 17:50:08 955796 Biaxin medicatio n nausea Not available Not available 09/28/202213168 9 RxNorm FREDY TITO null, [place] - [facility] 17:50:22 399181 Substance with sulfonami de structure and antibacte rial mechanism of action (substanc e) medicatio n vomiting Not available Not available 09/28/2022 15385 8003 SNOMED FREDY TITO null, PA - [facility] 17:50:41 512520 Wellbutri n medicatio n hives Not available Not available 09/28/2022 15736 RxNorm FREDY TITO null, PA - [facility] 17:50:57 282765 erythromy mk medicatio n vomiting Not available Not available 09/28/2022 4053 RxNorm FREDY TITO null, [place] - [facility] 3 17:51:10 647008 Ceftin medicatio n vomiting Not available Not available 09/28/2022 98193 6 RxNorm FREDY TITO null, [place] - [facility] 3 17:51:32 596252 propofol medicatio n hives Not available Not available 09/28/2022 8782 RxNorm FREDY TITO null, [place] - [facility] 17:52:02 578555 morphine medicatio n vomiting Not available Not available 09/28/2022 7052 RxNorm FREDY TITO null, [place] - [facility] 17:52:23 085236 doxycycli ne Not available rash Not available [...] Updated DateTime 3 167.64 cm 34.4 kg/m2 90272.1 7 g 6 98 % 98 % [...] SNOMED-CT Code Diagnosis ICD10 Code Diagnosis Note [id number] [facility] [address] [place] [address] 11/28/2021 13:00:40 11/28/2021 15:33:40 [id number] [facility] [address] [address] [place] [address] 05/18/2016 14:19:24 05/18/2016 17:11:45 [id number] [facility] [address] [place] [address] 05/20/2016 13:12:48 05/20/2016 14:14:51 [id number] [facility] [address] [place] [address] 09/28/2022 16:00:24 09/28/2022 18:39:47 Thoracic back pain 137395207 M54.6 Differenti al - Kidney Stone, Constipati on, costochond ritis, Thoracic nerve impingemen t. Health Concerns Section Related Observation LastModified by Organization Detai ls LastModified Time None Recorded Concern Status LastModified by Organization Details LastModified Time None Recorded Advance Directives Directive None Recorded Payers Insurance Date Sequence Insurance Name Policy Number Policy Saunders Covered Member ID Saunders Member ID Guarantor Name 09/28/2022 1 [facility] (POS) [id number] Norma Mckeon [id number] Norma Mckeon Notes Date Note Type Note Provider Name and Address Organization Details Recorded Time 3 text/html Back Pain/Injury UCReported bypatient.source of patient informationInformation obtained from patient Location:middle of the back; pain is not radiating Quality:sharp Duration:2 days Alleviating Factors:nothing helps Aggravating Factors:cannot identifyNotes:The patient reports that on a ride back from [place] started to get a deep sharp pain [...] KELSI BESS [address] [place], [address], [place] - [facility] 09/28/2022 21:52:03 OBGyn Episode No OBEpisode recorded.
== END 2025-01-01 11:20 | disposition home or self-care (01) ==
LOC: HO.LAB 11:19
PROVIDERS: Absent Provider Internal Medicine; PCP Internal Medicine; Visit Provider Student in an Organized Health Care Education/Training Program
DX: Z01.818 Encounter for other preprocedural examination (principal); R00.1 Bradycardia, unspecified; E78.00 Pure hypercholesterolemia, unspecified; E66.812 Obesity, class 2; Z68.35 Body mass index [BMI] 35.0-35.9, adult; K44.9 Diaphragmatic hernia without obstruction or gangrene; E03.9 Hypothyroidism, unspecified
CPT/HCPCS: 36415; 80053; 80061; 81003; 93005

== ENCOUNTER → 2025-01-01 11:29 | Outpatient (BNV) | payer OTHER, SELFPAY | PROVIDERS: Absent Provider Internal Medicine; PCP Internal Medicine; Visit Provider Internal Medicine | DX: Z01.810 Encounter for preprocedural cardiovascular examination (principal); R00.1 Bradycardia, unspecified | CPT/HCPCS: 93010 ==

== ENCOUNTER 2025-01-27 08:49 | Outpatient (REF) | payer OTHER, SELFPAY ==
--- NOTE | ~2025-01-27 | US_ITS ---
EXAMINATION: US ABDOMEN HISTORY: OBESITY, PREOP EXAM ? GALLSTONES/FATTY LIVER TECHNIQUE: Real-time grayscale ultrasound imaging of the abdomen was performed and images were reviewed. COMPARISON: Correlation is made with a CT of the abdomen with contrast dated 03/22/2018. FINDINGS: Liver: The right lobe of the liver measures 18.5 cm in size. The left lobe of the liver measures 10.3 cm in size. The liver demonstrates increased echotexture, consistent with steatosis. No focal mass or intrahepatic biliary ductal dilatation is identified. There is normal hepatopedal flow in the portal vein. Gallbladder and biliary tree: The gallbladder is unremarkable, without evidence of calculi, wall thickening, or pericholecystic fluid. There is no sonographic Olivarez sign. The common bile duct is normal in caliber measuring 2 mm. Kidneys: The right kidney measures 9.4 cm in length. The left kidney measures 10.0 cm in length. The kidneys are unremarkable, without evidence of masses, hydronephrosis, or calculi. Pancreas: The pancreatic head, neck, and body are unremarkable. The pancreatic tail is obscured by bowel gas. Spleen: The spleen is normal in size and contour, measuring 10.1 cm in length. Abdominal aorta and inferior vena cava: The visualized portions of the abdominal aorta and inferior vena cava are normal in caliber. There is no free fluid in the abdomen. US/US abdomen complete IMPRESSION: Hepatosplenomegaly and hepatic steatosis. No evidence of cholelithiasis. Electronically signed by: Riki Yousif MD 01/27/2025 09:35 AM EDT
--- OUTSIDE RECORDS SUMMARY | 2025-01-27 09:14 | XMS_ITS | Patient Health Record ---
Author Organization [facility] Address [address] [place] [address] Care Team Providers Care Boiler Assistant Operator Name Role Phone Kayley Kruger MD Primary Care Provider Unavaila ble Black, Emily Unavailable [phone] Allergies Allergen (clinical drug ingredient) Drug/Non Drug [...] Status W/U Status Risk Notes Problem Bursitis (54762703) Bursitis (727.3) Active confirmed Problem Hammer toe (005693861) Hammer toe (735.4) Active confirmed Problem Myositis (76409238) Myositis (729.1) Active confirmed Problem Neuralgia - Neuritis (729.2) Active confirmed Problem Pain in limb (10407599) Pain in Limb (729.5) Active confirmed Problem Plantar fasciitis (771025144) Plantar Fasciitis (728.71) Active confirmed Problem Ramos splints (4127853318) Ramos Splints (844.9) Active confirmed Problem Ulcer of toe of right foot (disorder) (487863382627 83534) Skin ulcer of toe of right foot, limited to breakdown of skin (L97.511) Active confirmed Improvement Problem Ulcer of toe of left foot (disorder) (176458421376 65883) Skin ulcer of toe of left foot, limited to breakdown of skin (L97.521) Active confirmed Plan Of Treatment Pending Test Test Name Order Date 97054-Yqeejitz Plate 04/06/2023 Insurance Providers Payer Name Payer Address Payer Phone Subscriber Number Group Number Insured Name Patient Relationship to Insured Coverage Start Date Coverage End Date [facility] [address] [place] [address] [id number] Carlos Kelly mp Spouse - patient is [...]
== END 2025-01-27 08:50 | disposition home or self-care (01) ==
LOC: HO.HMGCX 08:49
PROVIDERS: PCP Internal Medicine; Visit Provider Student in an Organized Health Care Education/Training Program
DX: Z01.818 Encounter for other preprocedural examination (principal); E66.812 Obesity, class 2; E66.01 Morbid (severe) obesity due to excess calories; Z68.35 Body mass index [BMI] 35.0-35.9, adult
CPT/HCPCS: 76700

== ENCOUNTER → 2025-01-27 08:59 | Outpatient (BNV) | payer OTHER, SELFPAY | PROVIDERS: PCP Internal Medicine; Visit Provider Radiology Diagnostic Radiology | DX: R16.2 Hepatomegaly with splenomegaly, not elsewhere classified (principal) | CPT/HCPCS: 76700 ==

== ENCOUNTER 2025-02-24 10:15 | Outpatient (REF) | payer OTHER, SELFPAY ==
--- OUTSIDE RECORDS SUMMARY | 2025-02-20 23:59 | XMS_ITS | Continuity of Care Document ---
Author Organization [facility] Address [address] [place] [address]- Support Name Relationship Address Phone CARSON, ANUPAMA [...] ANUPAMA Personal Relationship Unknown U navailable GRANDCHAMP, NAUPAMA Personal Relationship Unknown U navailable GRANDCHAMP, ANUPAMA [...] [facility] Care Team Providers Care Blow Molding Machine Tender Name Role Phone Kayley Kruger MD Primary Care Physician Encounter [facility] [id number] Date(s): 01/21/25 - 02/20/25 [facility] [address] [place] [address] [place] Encounter Type: Triage Allergies, Adverse Reactions, Alerts [...] Refills, Maintenance, 11/19/24 12:09:00 PM EDT, Capsule, [facility], Partial fill upon patient request [...] Team Personnel Name: Kayley Kruger MD Position: [facility] Physician - Primary Care Member Role: PCP Address: [address] [place] [address] Telecom: Care Team Related Persons Name: BERTHA GARCIA Name: ANUPAMA BYRD Insurance Providers Guarantor name: NIKOLAI HUMMELCLARISSE Health Plan Information #: 1 Payer: [facility] Payer Identifier: NA Member Number: [id number] Group Number: [id number] Subscriber Identifier: [id number] Relationship to Subscriber: spouse Coverage Type: NA Coverage Verification Date: NA Telecom: Address:
--- OUTSIDE RECORDS SUMMARY | 2025-02-24 15:53 | XMS_ITS | Patient Health Record ---
Author Organization [facility] Address [address] [place] [address] Care Team Providers Care Medical Device Assembler Name Role Phone Kayley Kruger MD Primary Care Provider Unavaila ble Black, Emily Unavailable [phone] Allergies Allergen (clinical drug ingredient) Drug/Non Drug [...] Status W/U Status Risk Notes Problem Bursitis (52205911) Bursitis (727.3) Active confirmed Problem Hammer toe (232404125) Hammer toe (735.4) Active confirmed Problem Myositis (70041797) Myositis (729.1) Active confirmed Problem Neuralgia - Neuritis (729.2) Active confirmed Problem Pain in limb (28926765) Pain in Limb (729.5) Active confirmed Problem Plantar fasciitis (671787640) Plantar Fasciitis (728.71) Active confirmed Problem Ramos splints (9718871530) Ramos Splints (844.9) Active confirmed Problem Ulcer of toe of right foot (disorder) (487142071634 51992) Skin ulcer of toe of right foot, limited to breakdown of skin (L97.511) Active confirmed Improvement Problem Ulcer of toe of left foot (disorder) (226832134747 25418) Skin ulcer of toe of left foot, limited to breakdown of skin (L97.521) Active confirmed Plan Of Treatment Pending Test Test Name Order Date 49924-Ollgukdk Plate 04/06/2023 Insurance Providers Payer Name Payer Address Payer Phone Subscriber Number Group Number Insured Name Patient Relationship to Insured Coverage Start Date Coverage End Date [facility] [address] [place] [address] [id number] Carlos Kelly mp Spouse - patient is [...]
--- OUTSIDE RECORDS SUMMARY | 2025-02-24 15:53 | XMS_ITS | Data Portability ---
Author Organization [facility] Address [address] [place] [address] Care Team Providers Care Nsh Teacher Name Role Phone GRAHAM CHAVIRA Primary Care Provider Assessment No assessment recorded. Plan of Treatment Reminders Order Date Submit Date Provider Last Modified By Organization Details Last Modified Time Details Appointments None recorded. Lab urinalysis , dipstick 2022 023 [email or web address], [address] [place] [address], [phone], 18:37:04 culture, urine 2022 023 [facility], [address] [place] [address], [place], [address], 06:07:30 Referral None recorded. Procedures None recorded. Surgeries None recorded. Imaging None recorded. Medication Orders None recorded. Patient TargetsNo targets recorded. Patient Instructions Encounter Date Encounter Id Patient Instructions Last Modified By Organization Details Last Modified Time 09/28/2022 [id number] upper and middle back (thoracic) strain: care instructions [email or web address] Not available 09/28/2022 18:37:04 constipation: care instructions [email or web address] Not available 09/28/2022 18:37:04 I would continue [...] Blood in Urine. Thank you for using [employer], please feel free to contact us if you have any questions or concerns. [email or web address] Not available 09/28/2022 18:37:03 Reason for Referral None Reported. Results Created Date Observation Date Name Description Value Unit Range Abnormal Flag Note LastModifiedBy Organization Detail LastModifiedTime 09/28/1910/01/2022 URINE CULTU RE, DARA NE urine culture, routine FINAL REPORT Not Available [facility] ([facility]) [address], [place], [address], 10/01/2022 06:07:30 09/28/19 23 10/01/2022 URINE CULTU REDARA NE result 1 NO GROWTH Not Available [facility] ([facility]) [address], [place], [address], 10/01/2022 06:07:30 09/28/1909/28/2022 urina lysis , dipst ick Unknown Analyte Normal = light yellow Not Available [address], [address], 09/28/2022 17:46:46 09/28/1909/28/2022 urina lysis , dipst ick Unknown Analyte Normal = clear Not Available [address], [address], 09/28/2022 17:46:46 09/28/1909/28/2022 urina lysis , dipst ick Unknown Analyte Normal = negati ve Not Available [address] [place] [address], [address], 09/28/2022 17:46:46 09/28/19 23 09/28/2022 urina lysis , dipst ick Unknown Analyte Normal = Negati ve Not Available sarah flores [address], [place], [address], 09/28/2022 17:46:46 09/28/19 23 09/28/2022 urina lysis , dipst ick Unknown Analyte Normal = Negati ve Not Available [address]sarah flores [address], [place], [address], 09/28/2022 17:46:46 09/28/19 23 09/28/2022 urina lysis , dipst ick Unknown Analyte Normal = 1.010, 1.015, 1.020 Not Available [address]sarah flores [address], [place], [address], 09/28/2022 17:46:46 09/28/1909/28/2022 urina lysis , dipst ick Unknown Analyte Normal = Negati ve Not Available sarah flores [address], [place], [address], 09/28/2022 17:46:46 09/28/1909/28/2022 urina lysis , dipst ick Unknown Analyte Normal = 6.5, 7.0, 7.5, 8.0 Not Available sarah flores [address], [place], [address], 09/28/2022 17:46:46 09/28/19 23 09/28/2022 urina lysis , dipst ick Unknown Analyte Normal = Negati ve Not Available [address]sar[address] flores [address], [place], [address], 09/28/2022 17:46:46 09/28/19 23 09/28/2022 urina lysis , dipst ick Unknown Analyte Normal = 0.2, 1.0 Not Available [address]sar[address] flores [address], [place], [address], 09/28/2022 17:46:46 09/28/19 23 09/28/2022 urina lysis , dipst ick Unknown Analyte Normal = Negati ve Not Available sarah flores [address], [place], [address], 09/28/2022 17:46:46 09/28/19 23 09/28/2022 urina lysis , dipst ick Unknown Analyte Normal = Negati ve Not Available sarah flores [address], [place], [address], 09/28/2022 17:46:46 09/28/19 23 09/28/2022 urina lysis , dipst ick Unknown Analyte Yellow Not Available janee [address], [place], [address], 09/28/2022 17:46:46 09/28/19 23 09/28/2022 urina lysis , dipst ick Unknown Analyte Clear Not Available janee [address], [place], [address], 09/28/2022 17:46:46 09/28/19 23 09/28/2022 urina lysis , dipst ick Unknown Analyte Negati ve Not Available sarah flores [address], [place], [address], 09/28/2022 17:46:46 09/28/19 23 09/28/2022 urina lysis , dipst ick Unknown Analyte Negati ve Not Available sarah flores [address], [place], [address], 09/28/2022 17:46:46 09/28/19 23 09/28/2022 urina lysis , dipst ick Unknown Analyte Negati ve Not Available sarah flores [address], [place], [address], 09/28/2022 17:46:46 09/28/19 23 09/28/2022 urina lysis , dipst ick Unknown Analyte <=1.00 5 Not Available sarah flores [address], [place], [address], 09/28/2022 17:46:46 09/28/19 23 09/28/2022 urina lysis , dipst ick Unknown Analyte Negati ve Not Available sarah flores [address], [place], [address], 09/28/2022 17:46:46 09/28/19 23 09/28/2022 urina lysis , dipst ick Unknown Analyte 6.0 Not Available janee [address], [place], [address], 09/28/2022 17:46:46 09/28/19 23 09/28/2022 urina lysis , dipst ick Unknown Analyte Negati ve Not Available sarah flores [address], [place], [address], 09/28/2022 17:46:46 09/28/19 23 09/28/2022 urina lysis , dipst ick Unknown Analyte 0.2 E.U./d L Not Available sarah flores [address], [place], [address], 09/28/2022 17:46:46 09/28/19 23 09/28/2022 urina lysis , dipst ick Unknown Analyte Negati ve Not Available sarah flores [address], [place], [address], 09/28/2022 17:46:46 09/28/1909/28/2022 urina lysis , dipst ick Unknown Analyte Negati ve Not Available [address] [place] [address], [place], [address], 09/28/2022 17:46:46 Result Notes None recorded. Problems Name Problem SNOMED Code Status Onset Date Resolution Date Notes Provider Name and Address Organization Details Recorded Time Disorder of thyroid gland 60870117 Active 2022 FREDY TITO null, [place] - [facility] 3 18:00:39 Disorder of back 46374749 Active 2022 FREDY TITO null, [place] - [facility] 3 18:00:51 Osteoarthritis 399071554 Active 2022 FREDY TITO null, [place] - [facility] 3 18:01:03 Spinal stenosis 76595267 Active 2022 FREDY TITO null, [place] - [facility] 3 18:04:23 Problem Notes None recorded. Medical Equipment None Reported. Allergies Allergen ID Allergen Name Allergen Category Reaction Reaction Severity Criticality Documentation Date Start Date Code Code System Note Provider Name and Address Organization Details Recorded Time 337727 ampicilli n medicatio n rash Not available Not available 09/28/2022 733 RxNorm FREDY TITO null, [place] - [facility] 3 17:50:08 954738 Biaxin medicatio n nausea Not available Not available 09/28/202254368 9 RxNorm FREDY TITO null, [place] - [facility] 3 17:50:22 903203 Substance with sulfonami de structure and antibacte rial mechanism of action (substanc e) medicatio n vomiting Not available Not available 09/28/2022 43238 8003 SNOMED FREDY TITO null, [place] - [facility] 3 17:50:41 543184 Wellbutri n medicatio n hives Not available Not available 09/28/2022 42451 RxNorm FREDY TITO null, [place] - [facility] 3 17:50:57 633128 erythromy mk medicatio n vomiting Not available Not available 09/28/2022 4053 RxNorm FREDY TITO null, [place] - [facility] 3 17:51:10 528145 Ceftin medicatio n vomiting Not available Not available 09/28/2022 10297 6 RxNorm FREDY TITO null, [place] - [facility] 3 17:51:32 465239 propofol medicatio n hives Not available Not available 09/28/2022 8782 RxNorm FREDY TITO null, [place] - [facility] 3 17:52:02 443371 morphine medicatio n vomiting Not available Not available 09/28/2022 7052 RxNorm FREDY TITO null, [place] - [facility] 3 17:52:23 002183 doxycycli ne Not available rash Not available [...] Updated DateTime 3 167.64 cm 34.4 kg/m2 48505.1 7 g 98 % 98 % 78 /min 18 /min 98.8 [degF] 139 mm[Hg] 76 mm[Hg] FREDY FRANCIS PA - [email or web address] 3 18:05:05 Social History Question Answer Notes LastModified by [employer] Details LastModified Time Tobacco Smoking Status Never Smoker FREDY FRANCIS null, [place] - [facility] 09/28/2022 18:02:10 Have You Recently Traveled Abroad? No Information not available 09/28/2022 Sex: Unknown Functional Status Question Answer Note LastModified by [employer] Details LastModified Time Do you use any illicit or recreational drugs? No Information not available 09/28/2022 Do you or have you ever used any other forms of tobacco or nicotine? No Information not available 09/28/2022 What is your level of alcohol consumption? Occasional Information not available 09/28/2022 Are you currently employed? No Information not available 09/28/2022 Mental Status None recorded. Family History Nothing Reported. Medical History No medical history recorded. Gynecological HistoryNo gynecological history recorded. Obstetrics History GPAL:G 0 P 0 0 0 0 Immunizations Vaccine Type Date Status Note Provider Nam e and Address Organization Details Recorded Time COVID-19 vaccine, vector-nr, rS-Ad26, PF, 0.5 mL 11/10/2020 completed FREDY FRANCIS nullKELSI - [facility] 09/28/2022 17:48:50 Influenza, split virus, quadrivalent, PF 05/13/2020 completed FREDY FRANCIS nullKELSI - [facility] 09/28/2022 17:48:50 Past Encounters Encounter ID Performer Location Encounter Start Date Encounter Closed Date Diagnosis/Indication Diagnosis SNOMED-CT Code Diagnosis ICD10 Code Diagnosis Note [id number] [facility] [address] [place] [address] 11/28/2021 13:00:40 11/28/2021 15:33:40 [id number] [address] [place] [address] 05/18/2016 14:19:24 05/18/2016 17:11:45 [id number] [address] [place] [address] 05/20/2016 13:12:48 05/20/2016 14:14:51 [id number] KELSI BESS [address] [place] [address] 09/28/2022 16:00:24 09/28/2022 18:39:47 Thoracic back pain 943330062 M54.6 Differenti al - Kidney Stone, Constipati on, costochond ritis, Thoracic nerve impingemen t. Health Concerns Section Related Observation LastModified by Organization Detai ls LastModified Time None Recorded Concern Status LastModified by Organization Details LastModified Time None Recorded Advance Directives Directive None Recorded Payers Insurance Date Sequence Insurance Name Policy Number Policy Saunders Covered Member ID Saunders Member ID Guarantor Name 09/28/2022 1 [facility] ([facility] [id number] Norma Mckeon [id number] Norma Mckeon Notes Date Note Type Note Provider Name and Address Organization Details Recorded Time 3 text/html Back Pain/Injury UCReported bypatient.source of patient informationInformation obtained from patient Location:middle of the back; pain is not radiating Quality:sharp Duration:2 days Alleviating Factors:nothing helps Aggravating Factors:cannot identifyNotes:The patient reports that [place] started to get a deep sharp pain [...] KELSI BESS [address] [place], [address], [place] - [facility] 09/28/2022 21:52:03 OBGyn Episode No OBEpisode recorded.
--- OUTSIDE RECORDS SUMMARY | 2025-02-24 15:54 | XMS_ITS | Patient Health Record ---
Author Organization [facility] Address [address] [place] [address] Care Team Providers Care Dependency Director Name Role Phone Kayley Kruger MD Primary Care Provider Unavaila ble Riki Prescott Unavailable [phone] Barbara HUTCHINSON, Hai Unavailable Unavailable Allergies Allergen [...] Pathology Reviewed date:03/21/2024 11:42:55 PM Interpretation: Performing Lab:[facility], [address] [place] [phone] Notes/Report: Reason For Referral Referring Provider First Name Kayley Referring Provider Last Name Slick Referring Provider Speciality Internal M edicine Referred Organization [facility] Referred Provider Riki Prescott Referred Address [address],[place], [place],[address], Referred Provider Specialty Gastroentero logy General Notes Radha Roberts 2024 02:11:17 PM >SPOKE WITH ELLIOTT [phone] [place] [facility] REQUESTED A REFERRAL FOR THE PATIENT'S COLON WITH DR PRESCOTT [place] [facility] [place] Referral Priority Routine Medications Medication SIG (Take, Route, Frequency, Duration) Notes Start Date End Date Status Melatonin Active Pregnenolone Not-Terrence ing Niacinamide ER Activ e Green Tea Extract No t-Taking Progesterone Active Saw [place] Not-Terrence ing Cortisol Ruling Technician Not -Taking Tylenol PM Extra Strength Not-Taking [...] Notes Problem Gastro-esophageal reflux disease without esophagitis (680500349) Gastro-esophag eal reflux disease without esophagitis (K21.9) Active confirmed Problem Screening for malignant neoplasm of colon (502546352) Encounter for screening for malignant neoplasm of colon (Z12.11) Active confirmed Problem History of polyp of colon (situation) (766988062) History of colon polyps (Z86.010) Active confirmed Problem Hiatal hernia (79202222) Hiatal hernia (K44.9) Active confirmed Problem Cough (78732645) Cough (R05.9) Active confirmed Problem Gastroesophageal reflux disease (disorder) (073791352) Chronic GERD (K21.9) Active confirmed Vital Signs Blood pressure diastolic 111 mm Hg 10/29/2024 Height 5 ft 5.5 in in 10/29/2024 Blood pressure systolic 111 mm Hg 10/29/2024 Weight 215 lbs 10/29/2024 BMI 35.23 kg/m2 10/29/2024 Procedures Procedure Date Ordered Date Performed Result Body Sit e COLONOSCOPY 10/29/2024 N/A Encounters Encounter Location Date Provider Diagnosis [facility] [address] [place] [id number] 03/11/2024 Riki Prescott Gastro-esophageal reflux disease without esophagitis K21.9 ; Hiatal hernia K44.9 and Chronic cough R05.3 [facility] [address] [place] [address] 03/01/2024 Riki Prescott Chronic GERD K21.9 ; Cough R05.9 ; History of colon polyps Z86.010 and Encounter for screening for malignant neoplasm of colon Z12.11 [facility] [address] [place] [address] 04/30/2024 Riki Prescott Chronic GERD K21.9 ; Cough R05.9 ; Hiatal hernia K44.9 ; Encounter for screening for malignant neoplasm of colon Z12.11 and History of colon polyps Z86.010 [facility] [address] [place] [address] 10/29/2024 Riki Prescott History of colon polyps Z86.010 ; Gastro-esophageal reflux disease without esophagitis K21.9 ; Encounter for screening for malignant neoplasm of colon Z12.11 and Cough R05.9 [facility] [address] [place] [address] 03/01/2024 Riki Prescott [facility] [address] [place] [phone] 03/17/2024 Riki Prescott [facility] [address] [place] [address] [address] [place] [phone] 03/21/2024 Riki Prescott Chronic GERD K21.9 [facility] [address] [place] [address] 04/04/2024 Riki Prescott Chronic GERD K21.9 ; Hiatal hernia K44.9 and Cough R05.9 [facility] [address] [place] [address] 01/31/2025 Riki Prescott Assessments Encounter Date Diagnosis (ICD Code) Assessment Notes Treatment Notes Treatment Clinical Notes Section Notes 03/11/2024 Gastro-esophage al reflux disease without esophagitis (ICD-10 - K21.9) 03/11/2024 Hiatal hernia (ICD-10 - K44.9) 03/01/2024 Cough (ICD-10 - R05.9) Overall, Norma appears well from a clinical standpoint. We [...] perform that for her at that time. Norma was comfortable with this plan. Thank you again for allowing me to participate in Norma's care. I shall continue to keep you advised of her progress. 03/01/2024 Chronic GERD (ICD-10 - K21.9) Start taking the 40mg omeprazole every day at 4PM and take 2 or 3 TUMS every night at bedtime Overall, Norma appears well from a clinical standpoint. We [...] perform that for her at that time. Norma was comfortable with this plan. Thank [...] polyps (ICD-10 - Z86.010) Overall, Norma appears well from a clinical standpoint. We [...] perform that for her at that time. Norma was comfortable with this plan. Thank [...] - Z12.11) Repeat colonoscopy in 11/2024 Overall, Norma appears well from a clinical standpoint. We [...] perform that for her at that time. Norma was comfortable with this plan. Thank [...] Appt Details Provider Name:Riki Machado Lindsey , 04/02/2025 02:20:00 PM, [address] [facility] , [place], [place], [phone], Insurance Providers Payer Name Payer Address Payer Phone Subscriber Number Group Number Insured Name Patient Relationship to Insured Coverage Start Date Coverage End Date [facility] [address] [place] [address] [id number] NORMA ESCOTO Self - patient is the insured [...] back pain Hemorrhoid banding Endometrial Ablation D&C [place] teeth extraction Tonsillectomy and adenoidectomy
[2025-02-24 19:04] LABS: Influenza A PCR NEGATIVE (Negative); Influenza B PCR NEGATIVE (Negative); Resp Syncy Virus RNA Qual PCR NEGATIVE (Negative); SARS COV2 PCR INHOUSE NEGATIVE (Negative)
== END 2025-02-24 10:16 | disposition home or self-care (01) ==
LOC: HO.LNP 10:15
PROVIDERS: PCP Internal Medicine; Visit Provider Physician Assistant Medical
DX: R05.1 Acute cough (principal); R09.89 Other specified symptoms and signs involving the circulatory and respiratory systems
CPT/HCPCS: 87637; 99212

== ENCOUNTER 2025-02-24 10:15 | Outpatient (AMB) | payer OTHER, SELFPAY ==
--- NOTE | 2025-02-24 10:48 | MHC.OFFWIV ---
Intake Vital Signs 02/24/25 10:50 Height 5 ft 5 in Weight 213 lb 8 oz BMI 35.5 BP 122/80 Blood Pressure Location Lt brachial Position Sitting Pulse 96 Pulse Source Pulse Oximeter Temp 99 F Temp Source Oral Pulse Oximetry (%) 98 Oxygen Delivery Method Room Air Intake Visit Reasons: EP Severe cough, phlegm, fatigue Intake Note: pt presents with productive cough causing rib pain, phlegm, fatigue, dull headache, unable to sleep x5 days Patient Tobacco Use Status: Never used Tobacco Allergies Sulfa (Sulfonamide Antibiotics) (SULFA(SULFONAMIDE ANTIBIOTICS)) Allergy (Intermediate, Verified 02/24/25 10:54) NAUSEA/VOMITING ampicillin (AMPICILLIN) Allergy (Mild, Verified 02/24/25 10:54) RASH bupropion (From Wellbutrin) Allergy (Mild, Verified 02/24/25 10:54) Hives clarithromycin (From BIAXIN) Allergy (Mild, Verified 02/24/25 10:54) NAUSEA atorvastatin (Lipitor) Allergy (Unknown, Verified 02/24/25 10:54) leg cramps cefaclor Allergy (Unknown, Verified 02/24/25 10:54) Unknown doxycycline Allergy (Unknown, Verified 02/24/25 10:54) Rash erythromycin base (ERYTHROMYCIN BASE) Allergy (Unknown, Verified 02/24/25 10:54) sick to stomach ezetimibe (Zetia) Allergy (Unknown, Verified 02/24/25 10:54) leg cramps morphine (MORPHINE) Allergy (Unknown, Verified 02/24/25 10:54) VOMITING propofol (PROPOFOL) Allergy (Unknown, Verified 02/24/25 10:54) HIVES rosuvastatin (Crestor) Allergy (Unknown, Verified 02/24/25 10:54) leg cramps sulfacetamide Allergy (Unknown, Verified 02/24/25 10:54) Gastrointestinal Upset simvastatin Adverse Reaction (Unknown, Verified 02/24/25 10:54) leg cramps From CEFTIN Allergy (Mild, Uncoded 01/08/24 09:40) NAUSEA Ceftin Allergy (Unknown, Uncoded 01/08/24 09:40) Unknown Doxycycline Hyclate Allergy (Unknown, Uncoded 01/08/24 09:40) Rash GLP 1 AGONISTS Adverse Reaction (Uncoded 11/04/24 13:02) Abdominal Pain Do you need a note to return to daycare/school/sports/work: No HPI HPI Comments History of Present Illness Details History - The patient is a 59-year-old female presenting with an acute cough with associated symptoms. - The cough began on Monday and is productive of sticky white mucus. - The patient reports rib, stomach, and shoulder pain due to persistent coughing. - Insomnia has been a significant issue, with the patient only sleeping two hours last night. - The patient has a low-grade fever of 99?F, despite taking medications. - Sinus pain is present, particularly in the frontal region. - No significant appetite, but the patient is maintaining fluid intake. - No history of asthma or other respiratory conditions. - The patient is currently living alone, with no other sick contacts reported. - She denies CP, SOB, abd pain, n/v/d, recent travel, or smoking. Physical Exam General: Cooperative, healthy appearing, comfortable and no acute distress Orientation/consciousness: Patient oriented x3 Limitations: No limitations Head: Normal to inspection Ears: Hearing grossly normal bilaterally, external ears normal and TM's normal bilaterally Nose: Normal external nose present, normal nares present, and nasal discharge present. Face and sinus: Sinuses tender to palpation. Mouth: Normal oral and palatal mucosa present and moist mucous membranes noted. Throat: Tonsils normal. Uvula is midline. Posterior oropharynx with erythema and no exudates. Neck: Normal visual inspection, full ROM. No lymphadenopathy noted. Respiratory: Clear to auscultation bilaterally. Normal respiratory effort, able to speak in complete sentences. No respiratory distress, not tachypneic, no tripod positioning and no use of accessory muscles. Cardiovascular: Regular rate and rhythm. Normal S1 and S2 Skin: No rashes or lesions noted Patient was informed and verbally consented to the use of an ambient scribe for clinic note documentation during this visit [facility] Medical History (Updated 02/24/25 @ 11:30 by Roberta Watt PA-C) Sacroiliac joint dysfunction of right side Candidiasis Rectal bleed Allergies Knee pain, right Abnormal colonoscopy Mammogram normal Annual physical exam Normal Pap smear Multiple thyroid nodules Acquired hypothyroidism Martha's thyroiditis IBS (irritable bowel syndrome) Overweight Peripheral neuropathy Lumbar radiculopathy Hyperlipidemia Surgical History S/P fine needle aspiration History of endometrial ablation Hx of dilation and curettage [place] teeth extracted H/O sigmoidoscopy History of tonsillectomy and adenoidectomy H/O colonoscopy Family History Father Stroke Hyperlipidemia CVD (cardiovascular disease) Mother Hyperlipidemia Thyroid disease Social History Household Members: Spouse Household Members Other:: Housing: House Alcohol intake: current Alcohol intake frequency: holidays/special occasions only Patient Tobacco Use Status: Never used Tobacco e-Cigarette/Vaping Use: Never Used Current occupational status: employed Cognitive needs: No Hearing needs: No Vision needs: Yes Review of Systems Const All systems reviewed & are unremarkable except as noted in HPI and below Physical Exam Vital Signs: Last Vital Signs Temp 99 F 02/24/25 10:50 Pulse 96 02/24/25 10:50 BP 122/80 02/24/25 10:50 Pulse Ox 98 02/24/25 10:50 Oxygen Delivery Method Room Air 02/24/25 10:50 BMI result Body Mass Index 35.5 Assessment & Plan Assessment & Plan (1) Cough: Code(s): R05.9 - Cough, unspecified Qualifiers: Cough type: acute Qualified Code(s): R05.1 - Acute cough Plan Most likely URI vs covid vs flu vs CAP vs bronchitis Plan - Initiate antibiotic therapy to address potential bacterial infection. - Prescribe cough medicine to alleviate symptoms and improve sleep quality. - Provide an inhaler to assist with respiratory symptoms. - Conduct a swab test to rule out COVID-19, influenza, and RSV; discontinue antibiotics if viral infection is confirmed. - Advise the patient to refrain from using ineffective tsul-vyx-dhqkmgy medications. - VSS, pt well appearing Orders: Orders SARS-CoV2/FLU/RSV Today R09.89 - Other specified symptoms and signs involving the circulatory and respiratory systems Medications: New albuterol sulfate 90 mcg/actuation 2 puffs inhalation Q6H PRN 8.5 grams 0RF shortness of breath or wheezing or cough azithromycin For 250 mg dose pack: take 500 mg today (day 1), then 250 mg for 4 days (days 2-5) PO 6 tabs 0RF benzonatate 100 mg PO bid-tid 7 days PRN 21 caps 0RF Cough Coding Level of Care Code Est Pt Level 3 (23874) Diagnoses Acute cough R05.1 Cough type: acute
[2025-02-24 10:50] VITALS: BP 122/80; PULSE 96; TEMP 37.2; O2SAT 98; BMI 35.5
--- OUTSIDE RECORDS SUMMARY | 2025-02-24 10:52 | XMS_ITS | Patient Health Record ---
Author Organization [facility] Address [address] [place] [address] Care Team Providers Care Meteorological Technician Name Role Phone Kayley Kruger MD Primary Care Provider Unavaila ble Black, Emily Unavailable [phone] Allergies Allergen (clinical drug ingredient) Drug/Non Drug [...] Splint AFO - L1930 1 wear at rest; Duration: 30 days Active Repatha SureClick 140 MG/ML [...] AND MAY REPEAT 1 HOUR IF NEEDED Oral; Duration: 1 Days Active Tirosint 100 MCG 1 capsule in the mor jean on an empty stomach Orally Once a day Active Hydrocortisone Acetate 25 MG UNWRAP AND _insert 1 SUPPOSITORY RECTALLY TWICE A DAY FOR 14 DAYS Rectal; Duration: 14 Days Active Fluconazole 100 MG TAKE 1 TABLET BY JACY TH TWICE A DAY Oral; Duration: 14 Days Active Zolpidem Tartrate 5 MG TAKE 1 TABLET BY MOUTH DAILY BEFORE BEDTIME NEEDED FOR INSOMNIA Oral; Duration: 30 Days Active Terconazole 0.8 % _insert 1 APPLICATOR FUL VAGINALLY AT BEDTIME Vaginal; Duration: 3 Days Active MoviPrep 100 GM USE DIRECTED Oral ; Duration: 1 Days Active predniSONE 20 MG TAKE 3TABLETS DAILY X5DAYS & 2TABLETS DAILY X5DAYS & 1TABLET DAILY X5DAYS THEN DISCONTINUE Oral; Duration: 15 Days Active Social History Tobacco Use: [...] Status W/U Status Risk Notes Problem Bursitis (24079549) Bursitis (727.3) Active confirmed Problem Hammer toe (759508144) Hammer toe (735.4) Active confirmed Problem Myositis (80473030) Myositis (729.1) Active confirmed Problem Neuralgia - Neuritis (729.2) Active confirmed Problem Pain in limb (23272318) Pain in Limb (729.5) Active confirmed Problem Plantar fasciitis (646991043) Plantar Fasciitis (728.71) Active confirmed Problem Ramos splints (4267373499) Ramos Splints (844.9) Active confirmed Problem Ulcer of toe of right foot (disorder) (797668227116 75544) Skin ulcer of toe of right foot, limited to breakdown of skin (L97.511) Active confirmed Improvement Problem Ulcer of toe of left foot (disorder) (297751348182 94044) Skin ulcer of toe of left foot, limited to breakdown of skin (L97.521) Active confirmed Plan Of Treatment Pending Test Test Name Order Date 76446-Ewnrdpdz Plate 04/06/2023 Insurance Providers Payer Name Payer Address Payer Phone Subscriber Number Group Number Insured Name Patient Relationship to Insured Coverage Start Date Coverage End Date [facility] [address] [place] [address] [id number] Carlos Kelly mp Spouse - patient is [...]
== END 2025-02-24 11:23 | disposition home or self-care (01) ==
PROVIDERS: PCP Internal Medicine; Visit Provider Physician Assistant Medical
DX: R05.1 Acute cough (principal)

== ENCOUNTER 2025-02-27 10:28 | Outpatient (AMB) | payer OTHER, SELFPAY ==
--- NOTE | 2025-02-27 10:33 | MHC.PC.OV ---
Vital Signs 02/27/25 10:34 Height 5 ft 5 in Weight 214 lb BMI 35.6 BP 118/70 Blood Pressure Location Lt brachial Position Sitting Respiration 20 Pulse 68 Pulse Source Pulse Oximeter Temp 98.1 F Temp Source Oral Pulse Oximetry (%) 97 Oxygen Delivery Method Room Air Intake Visit Reasons: ongoing cough, seen in [place] last week Intake Note: Pt is here today for a follow up visit after being seen in a walk in. Pt c/o on going cough. Allergies Sulfa (Sulfonamide Antibiotics) (SULFA(SULFONAMIDE ANTIBIOTICS)) Allergy (Intermediate, Verified 02/27/25 10:38) NAUSEA/VOMITING ampicillin (AMPICILLIN) Allergy (Mild, Verified 02/27/25 10:38) RASH bupropion (From Wellbutrin) Allergy (Mild, Verified 02/27/25 10:38) Hives clarithromycin (From BIAXIN) Allergy (Mild, Verified 02/27/25 10:38) NAUSEA atorvastatin (Lipitor) Allergy (Unknown, Verified 02/27/25 10:38) leg cramps cefaclor Allergy (Unknown, Verified 02/27/25 10:38) Unknown doxycycline Allergy (Unknown, Verified 02/27/25 10:38) Rash erythromycin base (ERYTHROMYCIN BASE) Allergy (Unknown, Verified 02/27/25 10:38) sick to stomach ezetimibe (Zetia) Allergy (Unknown, Verified 02/27/25 10:38) leg cramps morphine (MORPHINE) Allergy (Unknown, Verified 02/27/25 10:38) VOMITING propofol (PROPOFOL) Allergy (Unknown, Verified 02/27/25 10:38) HIVES rosuvastatin (Crestor) Allergy (Unknown, Verified 02/27/25 10:38) leg cramps sulfacetamide Allergy (Unknown, Verified 02/27/25 10:38) Gastrointestinal Upset simvastatin Adverse Reaction (Unknown, Verified 02/27/25 10:38) leg cramps From CEFTIN Allergy (Mild, Uncoded 02/27/25 10:38) NAUSEA Ceftin Allergy (Unknown, Uncoded 02/27/25 10:38) Unknown Doxycycline Hyclate Allergy (Unknown, Uncoded 02/27/25 10:38) Rash GLP 1 AGONISTS Adverse Reaction (Uncoded 02/27/25 10:38) Abdominal Pain Medication List - Last Reconciled 02/27/25 by Kayley Cichon, MD albuterol sulfate 90 mcg/actuation 2 puffs inhalation Q6H PRN azithromycin For 250 mg dose pack: take 500 mg today (day 1), then 250 mg for 4 days (days 2-5) PO benzonatate 100 mg PO bid-tid PRN 7 days cetirizine (Zyrtec) 10 mg PO DAILY cream base no.143 (bulk) (BHRT Base transdermal cream) appl transdermal BID cyclobenzaprine 10 mg PO Q8H PRN 5 days epinephrine 0.3 mg IM ONCE PRN escitalopram oxalate 10 mg PO DAILY evolocumab (Repatha SureClick) 1 mg (0.0071 mL) subcut Q2W fenofibrate 160 mg PO DAILY fluticasone propionate 110 mcg/actuation 2 puffs inhalation BID hydroxyzine pamoate mg PO ipratropium bromide 2 sprays intranasal BID levothyroxine (Tirosint) 150 mcg PO DAILY lorazepam 1 mg PO DAILY PRN Lovaza (omega-3 acid ethyl esters) 2 caps PO BID NS magnesium glycinate 400 mg PO DAILY melatonin 10 mg PO BEDTIME PRN omeprazole 40 mg PO DAILY progesterone micronized 150 mg PO every morning; [Tums ] vit D3-vit K2-olive leaf ext 25 mcg-20 mcg- 250 mg caps PO zaleplon mg PO Tobacco use date assessed: 02/27/25 Dental Screening Dental Screen Date: 11/04/24 HPI ongoing cough, seen in [place] last week HPI Details Patient presents for the follow-up of visit to walk in for upper respiratory infection. She has been taking azithromycin for 4 days and reports persistent productive cough with clear sputum chest tightness sinus pressure nasal discharge. Patient has been taking Tessalon Perles for the cough and using albuterol up to 4 times a day with some relief. She denies fever chills or pleurisy [facility] History Sacroiliac joint dysfunction of right side Candidiasis Rectal bleed Allergies Knee pain, right Abnormal colonoscopy Mammogram normal Annual physical exam Normal Pap smear Multiple thyroid nodules Acquired hypothyroidism Martha's thyroiditis IBS (irritable bowel syndrome) Overweight Peripheral neuropathy Lumbar radiculopathy Hyperlipidemia Surgical History S/P fine needle aspiration History of endometrial ablation Hx of dilation and curettage [place] teeth extracted H/O sigmoidoscopy History of tonsillectomy and adenoidectomy H/O colonoscopy Family History Father Stroke Hyperlipidemia CVD (cardiovascular disease) Mother Hyperlipidemia Thyroid disease Social History Household Members: Spouse Household Members Other:: Housing: House Alcohol intake: current Alcohol intake frequency: holidays/special occasions only Patient Tobacco Use Status: Never used Tobacco e-Cigarette/Vaping Use: Never Used Current occupational status: employed Cognitive needs: No Hearing needs: No Vision needs: Yes Questionnaire Thrive Questionnaire Date Thrive assessed: 10/28/24 I am a: Patient What is your living situation today?: I have a steady place to live Within the past 12 months, did the food you bought not last and you didn't have the money to get more?: Never true Within the past 12 months, did you worry whether your food would run out before you got money to buy more?: Never true Do you have trouble paying for medicines?: No Do you have trouble getting transportation to medical appointments?: No Do you have trouble paying your heating and electricity bill?: No Do you have trouble taking care of your child, family member or friend?: No Do you have trouble with day-to-day activities such as bathing, preparing meals, shopping, managing finances, etc.?: No Are you currently unemployed and looking for a job?: No Are you interested in more education?: No Please select the resources that you would like help with: None Currently or been in a relationship where the following occur: No concerns reported THRIVE Score: 0 MELISSA-7 AMB Questionnaire MELISSA-7 Date MELISSA - 7 assessed: 11/04/24 Source: Developed by Drs. Riki Avery, Rosanna Hughes, Larry Cutler and colleagues, with an educational jayna from [employer]. Review of Systems Const All systems reviewed & are unremarkable except as noted in HPI and below ENT Reports no additional complaints Card Reports no additional complaints Resp Reports no additional complaints GI Reports no additional complaints Reports no additional complaints Physical exam (Primary Care) Vital Signs: Last Vital Signs Temp 98.1 F 07/03/25 10:34 Pulse 68 02/27/25 10:34 Resp 20 02/27/25 10:34 BP 118/70 02/27/25 10:34 Pulse Ox 97 02/27/25 10:34 Oxygen Delivery Method Room Air 02/27/25 10:34 BMI result Body Mass Index 35.6 Tobacco/Smoking Status: Tobacco use Status Tobacco use date assessed 02/27/25 02/27/25 10:39 Patient Tobacco Use Status Never used Tobacco 02/27/25 10:39 e-Cigarette/Vaping Use Never Used 02/27/25 10:39 Thrive Assessment: Date of Thrive Assessment Date Thrive assessed 10/28/24 02/27/25 10:39 Currently or been in a relationship where the following occur: No concerns reported Const General: no acute distress HENMT Head: Yes normal to inspection Ears: TM's normal bilaterally Mouth: Normal oral and palatal mucosa present Throat: Yes postnasal drainage Neck Neck: Yes no lymphadenopathy and Yes supple Resp Effort & Inspection: normal respiratory effort Auscultation: wheezes Cardio Rhythm: regular rhythm Heart sounds: S1 normal heart sound present and S2 normal heart sound present Office Procedures Nebulizer Treatment Nebulizer Treatment [id number]/MDI RX initial, or Nebulizer Subsequent Treatment Office Meds albuterol sulfate 2.5 mg/3 mL (0.083 %) solution for nebulization Performing Provider: Kayley Kruger MD Performing [facility] Administered by: Darling Davila RN on 02/27/25 11:20 Dose Route Admin Location Dispensed Lot Number Expiration Date [facility] Messaging Architect 2.5 mg inhalation 3 mL [id number] 03/28/25 1586-8036-65 MYLAN Coding Level of Care Code Est Pt Level 3 (27819) Diagnoses Bronchitis J40 CPT Codes Nebulizer Treatment - Nebulizer Treatment, initial or subsequent: [id number]/MDI RX initial, or Nebulizer Subsequent Treatment ([id number]) Assessment & Plan Assessment & Plan (1) Bronchitis: Code(s): J40 - Bronchitis, not specified as acute or chronic Category: Medical Plan: Continue azithromycin Tessalon Perles albuterol and supportive care Orders: Orders AMB Nebulizer Treatment Today R05.1 - Acute cough Medications: New clotrimazole 2% (Gyne-Lotrimin) 1 appful vaginal BEDTIME 21 grams 0RF 3 days
[2025-02-27 10:34] VITALS: BP 118/70; PULSE 68; RESP 20; TEMP 36.7; O2SAT 97; BMI 35.6
--- OUTSIDE RECORDS SUMMARY | 2025-02-27 11:12 | XMS_ITS | Continuity of Care Document ---
Author Name [facility] Organization [facility] Care Team Providers Care Psychotherapist Counselor Name Role Phone [facility] Unavailable Unavailable Problems Combined list of problems from Department of Defense and Veterans Affairs facilities. It does not include entries that were removed or entered in error. Problem Status Onset Date Problem Type Date of Resolution Comments Source Insomnia Active Condition [facility] (631GE) Major depressive disorder Active Condition [facility] [...] TRIHYDRATE) Drug allergy (disorder) Unknown active 01/20/2008 [facility] BIAXIN (CLARITHROMYC IN) Drug allergy (disorder) Unknown active 01/20/2008 [facility] BUPROPION HCL (BUPROPION HCL) Drug allergy (disorder) Unknown active 01/20/2008 [facility] CEFTIN (CEFUROXIME AXETIL) Drug allergy (disorder) Unknown active 01/20/2008 [facility] AGNES (ERYTHROMYCIN BASE/ETHANOL) Drug allergy (disorder) Unknown active 01/20/2008 [facility] SULFA-DRUGS Drug allergy (disorder) Unknown active 01/20/2008 [facility] Immunizations Combined list of available immunizations from the Department of Defense and Veterans Affairs facilities. Immunization Series Date Given Administered By Site Reaction Lot Number CVX Code Drug Packaging Assembler Status Comments Source COVID-19 (MODERNA), MRNA, LNP-S, PF, 100 MCG OR 50 MCG DOSE 2 2020 207 complet ed MOD; [id number]; 2 [facility] COVID-19 (TODD), VECTOR-NR, [id number], PF, 0.5 ML 1 2020 212 complet ed JSN; [id number]; 1 [facility] Encounters Combined list of: 1) Encounters from Department of Veterans Affairs facilities going backup to the last 18 months, not all [place] inpatient encounters are included; 2) Encounters from the Department of [facility] facilities going backup to 280 months. Location Location Details Encounter Type Encounter Number Reason For Visit Attending Provider ADM Date DC Date Status Disposition Source [facility] PHONE CALL 11-20 MIN [id number] Diagnos is: ICD-10- CM Z71.0 Prsn encntr hlth serv to consult on behalf of another person VALERIA CHIN SE 09[facility] [place] [facility] PSYTX W PT 30 MINUTES [id number] Diagnos is: ICD-10- CM F32.9 Major depress ele disorde r, single episode , unspeci fied MUKESH,CHR ISTIE 10[facility] [place] [facility] [place] [facility] PHONE CALL 11-20 MIN [id number] Diagnos is: ICD-10- CM Z74.1 Need for assista nce with persona l care VALERIA CHIN SE 11/01 [place] [facility] [facility] [place] [facility] CASE MANAGEMENT [id number] Diagnos is: ICD-10- CM Z71.0 Prsn encntr hlth serv to consult on behalf of another person MATTI SHEFFIELD 11/22 [facility] [place] [place] [facility] [facility] ASSMT/REAS SESSMENT [id number] Diagnos is: ICD-10- CM Z71.0 Prsn encntr hlth serv to consult on behalf of another person MATTI SHEFFIELD 04/04 [facility] [place] [facility] [facility] ASSMT/REAS SESSMENT [id number] Diagnos is: ICD-10- CM Z71.0 Prsn encntr hlth serv to consult on behalf of another person MATTI SHEFFIELD 08/01 [place] [facility] Social History Combined list of available smoking, tobacco, and other social history from Department of Defense and Veterans Affairs facilities. Social History Type Response Date Comment Sourc e Tobacco smoking status [facility] VA-TOBACCO NEVER USED 02/20/2023 [place] [facility] This section is an empty social history section. DoD
--- OUTSIDE RECORDS SUMMARY | 2025-02-27 11:13 | XMS_ITS | Patient Health Record ---
Author Organization [facility] Address [address] [address] [place] [address] Care Team Providers Care Die Repair Machinist Name Role Phone Kayley Kruger MD Primary Care Provider Unavaila ble Black, Emily Unavailable [phone] Allergies Allergen (clinical drug ingredient) Drug/Non Drug [...] Status W/U Status Risk Notes Problem Bursitis (09326118) Bursitis (727.3) Active confirmed Problem Hammer toe (467436620) Hammer toe (735.4) Active confirmed Problem Myositis (65426309) Myositis (729.1) Active confirmed Problem Neuralgia - Neuritis (729.2) Active confirmed Problem Pain in limb (19142556) Pain in Limb (729.5) Active confirmed Problem Plantar fasciitis (140664186) Plantar Fasciitis (728.71) Active confirmed Problem Ramos splints (0925140900) Ramos Splints (844.9) Active confirmed Problem Ulcer of toe of right foot (disorder) (790465758254 30576) Skin ulcer of toe of right foot, limited to breakdown of skin (L97.511) Active confirmed Improvement Problem Ulcer of toe of left foot (disorder) (955026721234 42017) Skin ulcer of toe of left foot, limited to breakdown of skin (L97.521) Active confirmed Plan Of Treatment Pending Test Test Name Order Date [id number] Plate 04/06/2023 Insurance Providers Payer Name Payer Address Payer Phone Subscriber Number Group Number Insured Name Patient Relationship to Insured Coverage Start Date Coverage End Date [facility] [address] [place] [address] [id number] Carlos Kelly mp Spouse - patient is [...]
--- OUTSIDE RECORDS SUMMARY | 2025-02-27 11:13 | XMS_ITS | Data Portability ---
Author Organization [facility] [address] Address [address] [place] [address] Care Team Providers Care Import/Export Agent Name Role Phone GRAHAM CHAVIRA Primary Care Provider Assessment No assessment recorded. Plan of Treatment Reminders Order Date Submit Date Provider Last Modified By Organization Details Last Modified Time Details Appointments None recorded. Lab urinalysis , dipstick 2022 023 [email or web address] [facility], [address] [place] [address], [phone], 18:37:04 culture, urine 2022 023 [facility], [address] [place] [address], [place], [address], 06:07:30 Referral None recorded. Procedures None recorded. Surgeries None recorded. Imaging None recorded. Medication Orders None recorded. Patient TargetsNo targets recorded. Patient Instructions Encounter Date Encounter Id Patient Instructions Last Modified By Organization Details Last Modified Time 09/28/2022 [id number] upper and middle back (thoracic) strain: care instructions [email or web address] Not available 09/28/2022 18:37:04 constipation: care instructions [email or web address] Not available 09/28/2022 18:37:04 I would continue [...] Blood in Urine. Thank you for using [employer], please feel free to contact us if you have any questions or concerns. Not available 09/28/2022 18:37:03 Reason for Referral None Reported. Results Created Date Observation Date Name Description Value Unit Range Abnormal Flag Note LastModifiedBy Organization Detail LastModifiedTime 09/28/1910/01/2022 URINE CULTU RE, DARA NE urine culture, routine FINAL REPORT Not Available [facility] ([facility]) [address] [facility], [place], [address], 10/01/2022 06:07:30 09/28/19 23 10/01/2022 URINE CULTU REDARA NE result 1 NO GROWTH Not Available [facility] ([facility]) [address] [facility], [place], [address], 10/01/2022 06:07:30 09/28/1909/28/2022 urina lysis , dipst ick Unknown Analyte Normal = light yellow Not Available [address], [address], 09/28/2022 17:46:46 09/28/1909/28/2022 urina lysis , dipst ick Unknown Analyte Normal = clear Not Available [address], [address], 09/28/2022 17:46:46 09/28/1909/28/2022 urina lysis , dipst ick Unknown Analyte Normal = negati ve Not Available [address] [place] [address], [address], 09/28/2022 17:46:46 09/28/19 23 09/28/2022 urina lysis , dipst ick Unknown Analyte Normal = Negati ve Not Available sarah flores [address], [place], [address], 09/28/2022 17:46:46 09/28/19 23 09/28/2022 urina lysis , dipst ick Unknown Analyte Normal = Negati ve Not Available 2099sarah flores [address], [place], [address], 09/28/2022 17:46:46 09/28/19 23 09/28/2022 urina lysis , dipst ick Unknown Analyte Normal = 1.010, 1.015, 1.020 Not Available [address]99sarah flores [address], [place], [address], 09/28/2022 17:46:46 09/28/1909/28/2022 urina lysis , dipst ick Unknown Analyte Normal = Negati ve Not Available sarah flores [address], [place], [address], 09/28/2022 17:46:46 09/28/1909/28/2022 urina lysis , dipst ick Unknown Analyte Normal = 6.5, 7.0, 7.5, 8.0 Not Available sarah flores [address], [place], [address], 09/28/2022 17:46:46 09/28/19 23 09/28/2022 urina lysis , dipst ick Unknown Analyte Normal = Negati ve Not Available [address]99sarah flores [address], [place], [address], 09/28/2022 17:46:46 09/28/19 23 09/28/2022 urina lysis , dipst ick Unknown Analyte Normal = 0.2, 1.0 Not Available [address]sarah flores [address], [place], [address], 09/28/2022 17:46:46 09/28/19 23 09/28/2022 urina lysis , dipst ick Unknown Analyte Normal = Negati ve Not Available sarah flores [address], [place], [address], 09/28/2022 17:46:46 09/28/19 23 09/28/2022 urina lysis , dipst ick Unknown Analyte Normal = Negati ve Not Available sarah flores [address], [place], [address], 09/28/2022 17:46:46 09/28/19 23 09/28/2022 urina lysis , dipst ick Unknown Analyte Yellow Not Available janee [address], [place], [address], 09/28/2022 17:46:46 09/28/19 23 09/28/2022 urina lysis , dipst ick Unknown Analyte Clear Not Available janee [address], [place], [address], 09/28/2022 17:46:46 09/28/19 23 09/28/2022 urina lysis , dipst ick Unknown Analyte Negati ve Not Available sarah flores [address], [place], [address], 09/28/2022 17:46:46 09/28/19 23 09/28/2022 urina lysis , dipst ick Unknown Analyte Negati ve Not Available sarah flores [address], [place], [address], 09/28/2022 17:46:46 09/28/19 23 09/28/2022 urina lysis , dipst ick Unknown Analyte Negati ve Not Available sarah flores [address], [place], [address], 09/28/2022 17:46:46 09/28/19 23 09/28/2022 urina lysis , dipst ick Unknown Analyte <=1.00 5 Not Available sarah flores [address], [place], [address], 09/28/2022 17:46:46 09/28/19 23 09/28/2022 urina lysis , dipst ick Unknown Analyte Negati ve Not Available sarah flores [address], [place], [address], 09/28/2022 17:46:46 09/28/19 23 09/28/2022 urina lysis , dipst ick Unknown Analyte 6.0 Not Available janee [address], [place], [address], 09/28/2022 17:46:46 09/28/19 23 09/28/2022 urina lysis , dipst ick Unknown Analyte Negati ve Not Available sarah flores [address], [place], [address], 09/28/2022 17:46:46 09/28/19 23 09/28/2022 urina lysis , dipst ick Unknown Analyte 0.2 E.U./d L Not Available sarah flores [address], [place], [address], 09/28/2022 17:46:46 09/28/19 23 09/28/2022 urina lysis , dipst ick Unknown Analyte Negati ve Not Available sarah flores [address], [place], [address], 09/28/2022 17:46:46 09/28/1909/28/2022 urina lysis , dipst ick Unknown Analyte Negati ve Not Available [address] [place] [address], [place], [address], 09/28/2022 17:46:46 Result Notes None recorded. Problems Name Problem SNOMED Code Status Onset Date Resolution Date Notes Provider Name and Address Organization Details Recorded Time Disorder of thyroid gland 51405015 Active 2022 FREDY TITO null, [place] - [facility] 18:00:39 Disorder of back 89633376 Active 2022 FREDY TITO null, PA - [facility] 3 18:00:51 Osteoarthritis 490748309 Active 2022 FREDY TITO null, PA - [facility] 3 18:01:03 Spinal stenosis 78337692 Active 2022 FREDY TITO null, PA - [facility] 3 18:04:23 Problem Notes None recorded. Medical Equipment None Reported. Allergies Allergen ID Allergen Name Allergen Category Reaction Reaction Severity Criticality Documentation Date Start Date Code Code System Note Provider Name and Address Organization Details Recorded Time 410499 ampicilli n medicatio n rash Not available Not available 09/28/2022 733 RxNorm FREDY TITO null, PA - [facility] 3 17:50:08 414968 Biaxin medicatio n nausea Not available Not available 09/28/202221172 9 RxNorm FREDY TITO null, PA - [facility] 3 17:50:22 974383 Substance with sulfonami de structure and antibacte rial mechanism of action (substanc e) medicatio n vomiting Not available Not available 09/28/2022 80713 8003 SNOMED FREDY TITO null, PA - [facility] 3 17:50:41 823937 Wellbutri n medicatio n hives Not available Not available 09/28/2022 69983 RxNorm FREDY TITO null, PA - [facility] 3 17:50:57 432773 erythromy mk medicatio n vomiting Not available Not available 09/28/2022 4053 RxNorm FREDY TITO null, PA - [facility] 3 17:51:10 976817 Ceftin medicatio n vomiting Not available Not available 09/28/2022 79117 6 RxNorm FREDY TITO null, PA - [facility] 3 17:51:32 229389 propofol medicatio n hives Not available Not available 09/28/2022 8782 RxNorm FREDY TITO null, PA - [facility] 3 17:52:02 716656 morphine medicatio n vomiting Not available Not available 09/28/2022 7052 RxNorm FREDY TITO null, PA - [facility] 3 17:52:23 938218 doxycycli ne Not available rash Not available [...] Heart rate Respiratory rate Body temperature Systolic And Diastolic Provider Name and Address Organization Details Last Updated DateTime 3 167.64 cm 34.4 kg/m2 88331.1 7 g 98 % 98 % 78 /min 18 /min 98.8 [degF] 139/76 mm[Hg] FREDY FRANCIS PA [facility] 3 18:05:05 Social History Question Answer Notes LastModified by [employer] Details LastModified Time Tobacco Smoking Status Never Smoker FREDY FRANCIS null, PA - [facility] 09/28/2022 18:02:10 Have You Recently Traveled Abroad? No Information not available 09/28/2022 Sex: Unknown Functional Status Question Answer Note LastModified by [employer] Details LastModified Time Do you use any [...] SNOMED-CT Code Diagnosis ICD10 Code Diagnosis Note [id number] [address] [address] [place] [address] 11/28/2021 13:00:40 11/28/2021 15:33:40 [id number] [address] [address] [place] [address] 05/18/2016 14:19:24 05/18/2016 17:11:45 [id number] [address] [place] [address] 05/20/2016 13:12:48 05/20/2016 14:14:51 [id number] [facility] [address] [place] [address] 09/28/2022 16:00:24 09/28/2022 18:39:47 Thoracic back pain 939007769 M54.6 Differenti al - Kidney Stone, Constipati on, costochond ritis, Thoracic nerve impingemen t. Health Concerns Section Related Observation LastModified by Organization Detarminda ls LastModified Time None Recorded Concern Status LastModified by Organization Details LastModified Time None Recorded Advance Directives Directive None Recorded Payers Insurance Date Sequence Insurance Name Policy Number Policy Saunders Covered Member ID Saunders Member ID Guarantor Name 09/28/2022 1 [facility] (POS) [id number] Norma Mckeon [id number] Norma Mckeon Notes Date Note Type Note Provider Name and Address Organization Details Recorded Time 3 text/html Back Pain/Injury UCReported bypatient.source of patient informationInformation obtained from patient Location:middle of the back; pain is not radiating Quality:sharp Duration:2 days Alleviating Factors:nothing helps Aggravating Factors:cannot identifyNotes:The patient reports that on a ride back from [employer] started to get a deep sharp pain [...] KELSI BESS [address] [place], [address], [place] - [facility] 09/28/2022 21:52:03 OBGyn Episode No OBEpisode recorded.
--- OUTSIDE RECORDS SUMMARY | 2025-02-27 11:14 | XMS_ITS | Patient Health Record ---
Author Organization [facility] Address [address] [place] [address] Care Team Providers Care Retail Support Specialist Name Role Phone Kayley Kruger MD Primary Care Provider Unavaila Riki Ellis Unavailable [phone] Barbara HUTCHINSON, Hai Unavailable Unavailable Allergies Allergen (clinical drug ingredient) Drug/Non Drug Allergy documented on EMR Reaction Allergy Type Onset Date Status morphine Morphine Unknown Drug Allergy Active erythromycin [...] ragweed, kiwi fruit (uncoded) Unknown Allergy Active Results Component Value Reference Range Notes Pathology Reviewed date:03/21/2024 11:42:55 PM Interpretation: Performing Lab:[facility], [address] [place] [address] Notes/Report: Reason For Referral Referring Provider First Name Kayley Referring Provider Last Name Slick Referring Provider Speciality Internal M edicine Referred Organization [facility] Referred Provider Riki Prescott Referred Address [address],[place], [place],[address], Referred Provider Specialty Gastroentero logy General Notes Radha Roberts 2024 02:11:17 PM >SPOKE WITH ELLIOTT [phone] AT [facility] [place] AND REQUESTED A REFERRAL FOR THE PATIENT'S COLON WITH DR PRESCOTT IN [facility] [place] [place] Referral Priority Routine Medications Medication SIG (Take, Route, Frequency, Duration) Notes Start Date End Date Status Melatonin Active Pregnenolone Not-Terrence ing Niacinamide ER Activ e Green Tea Extract No t-Taking Progesterone Active Saw [place] Not-Terrence ing Cortisol Sausage Grinder Not -Taking Tylenol PM Extra Strength Not-Taking [...] Problem Gastro-esophagea l reflux disease without esophagitis (977435886) Gastro-esophage al reflux disease without esophagitis (K21.9) Active confirmed Problem Encounter for screening for malignant neoplasm of colon (Z12.11) Active confirmed Problem History of polyp of colon (situation) (553217650) History of colon polyps (Z86.010) Active confirmed Problem Hiatal hernia (13996420) Hiatal hernia (K44.9) Active confirmed Problem Cough (79845414) Cough (R05.9) Active confirmed Problem Chronic GERD (K21.9) Active confirmed Vital Signs Blood pressure diastolic 111 mm Hg 10/29/2024 Height 5 ft 5.5 in in 10/29/2024 Blood pressure systolic 111 mm Hg 10/29/2024 Weight 215 lbs 10/29/2024 BMI 35.23 kg/m2 10/29/2024 Procedures Procedure Date Ordered Date Performed Result Body Sit e COLONOSCOPY 10/29/2024 N/A Encounters Encounter Location Date Provider Diagnosis [facility] [place] [address] [place] [phone] 03/11/2024 Riki Prescott Gastro-esophageal reflux disease without esophagitis K21.9 ; Hiatal hernia K44.9 and Chronic cough R05.3 [facility] [address] [place] [address] 03/01/2024 Riki Prescott Chronic GERD K21.9 ; Cough R05.9 ; History of colon polyps Z86.010 and Encounter for screening for malignant neoplasm of colon Z12.11 [facility] [address] [place] [address] 04/30/2024 Riki Prescott Chronic GERD K21.9 ; Cough R05.9 ; Hiatal hernia K44.9 ; Encounter for screening for malignant neoplasm of colon Z12.11 and History of colon polyps Z86.010 [facility] [address] [place] [address] 10/29/2024 Riki Prescott History of colon polyps Z86.010 ; Gastro-esophageal reflux disease without esophagitis K21.9 ; Encounter for screening for malignant neoplasm of colon Z12.11 and Cough R05.9 [facility] [address] [place] [address] 03/01/2024 Riki Prescott [facility] [address] [place] [address] 03/17/2024 Riki Prescott [facility] [address] [place] [address] 03/21/2024 Riki Prescott Chronic GERD K21.9 [facility] [address] [place] [address] 04/04/2024 Riki Prescott Chronic GERD K21.9 ; Hiatal hernia K44.9 and Cough R05.9 [facility] [address] [place] [address] 01/31/2025 Riki Prescott Assessments Encounter Date Diagnosis [...] Next Appt Details Provider Name:Riki Prescott , 04/02/2025 02:20:00 PM, [address] [place] [address] , [place], [place], [phone], Insurance Providers Payer Name Payer Address Payer Phone Subscriber Number Group Number Insured Name Patient Relationship to Insured Coverage Start Date Coverage End Date [employer] (REFERRA L NEEDED) [address] [place] [address] [id number] NORMA ESCOTO Self - patient is the insured Medical (General) History Medical History History ICD Code Degenerative disc disease/Arthritis-lowe r back Hypercholesterolemia/high trigylcerides IBS HYPOTHYRODISM/HASHIMOTOS DX 2019 Urinary incontinence Depression Denies GA,DM,CVA,Lung disease,renal dise ase 3 previous colonoscopies wit [...] back pain Hemorrhoid banding Endometrial Ablation D&C Guinda teeth extraction Tonsillectomy and adenoidectomy
== END 2025-02-27 11:44 | disposition home or self-care (01) ==
LOC: HO.HMCC 10:29
PROVIDERS: PCP Internal Medicine; Visit Provider Internal Medicine
DX: R05.1 Acute cough (principal); J40 Bronchitis, not specified as acute or chronic

== ENCOUNTER → 2025-02-27 10:28 | Outpatient (BNVA) | payer OTHER, SELFPAY | PROVIDERS: PCP Internal Medicine; Visit Provider Internal Medicine | DX: J40 Bronchitis, not specified as acute or chronic (principal); R05.1 Acute cough | CPT/HCPCS: 94640; 99212 ==

== ENCOUNTER 2025-04-02 06:25 | Day surgery (SDC) | payer OTHER, SELFPAY ==
--- OUTSIDE RECORDS SUMMARY | 2024-12-27 06:44 | XMS_ITS | Patient Health Record ---
Author Organization [facility] Address [address] [place] [address] Care Team Providers Care Stock Clerk Name Role Phone Kayley Kruger MD Primary Care Provider Unavaila ble Black, Emily Unavailable [phone] Allergies Allergen (clinical drug ingredient) Drug/Non Drug [...] Status W/U Status Risk Notes Problem Bursitis (42626962) Bursitis (727.3) Active confirmed Problem Hammer toe (890809832) Hammer toe (735.4) Active confirmed Problem Myositis (36738885) Myositis (729.1) Active confirmed Problem Neuralgia - Neuritis (729.2) Active confirmed Problem Pain in limb (86052024) Pain in Limb (729.5) Active confirmed Problem Plantar fasciitis (359587645) Plantar Fasciitis (728.71) Active confirmed Problem Ramos splints (7290499951) Ramos Splints (844.9) Active confirmed Problem Ulcer of toe of right foot (disorder) (226673086586 22462) Skin ulcer of toe of right foot, limited to breakdown of skin (L97.511) Active confirmed Improvement Problem Ulcer of toe of left foot (disorder) (256802238795 70329) Skin ulcer of toe of left foot, limited to breakdown of skin (L97.521) Active confirmed Plan Of Treatment Pending Test Test Name Order Date 69822-Dwcukhvr Plate 04/06/2023 Insurance Providers Payer Name Payer Address Payer Phone Subscriber Number Group Number Insured Name Patient Relationship to Insured Coverage Start Date Coverage End Date [facility] [address] [place] [address] [id number] Carlos Kelly mp Spouse - patient is [...]
--- OUTSIDE RECORDS SUMMARY | 2024-12-27 06:44 | XMS_ITS | Continuity of Care Document ---
Author Organization [facility] Address [address] [place] [address]- Support Name Relationship Address Phone CARSON, ANUPAMA [...] GRANDCHAMP, NIKOLAI Personal Relationship Unknown Unavailable GRANDCHAMP, ANPUAMA Personal Relationship Unknown U navailable GRANDCHAMP, ANUPAMA Personal Relationship Unknown U navailable GRANDCHAMP, ANUPAMA Personal Relationship Unknown U navailable GRANDCHAMP, ANUPAMA Personal Relationship Unknown U navailable GRANDCHAMP, ANUPAMA Personal Relationship Unknown U ANUPAMA Valdez Personal Relationship Unknown U [facility] Care Team Providers Care Warehouse Unloader Name Role Phone Kayley Kruger MD Primary Care Physician Encounter [facility] Date(s): 11/26/24 - 12/26/24 [facility] [address] [place] [address] Encounter Type: Triage Allergies, Adverse Reactions, [...] Quantity: 30.0 Unit: tablet Repeat number: 1 estradiol 0.025 mg/24 hours twice weekly transdermal film, extended release 1 patch, 0 Refills, Maintenance, 12/24/24 1:50:00 PM EDT, Partial fill upon patient request if the prescription is for a schedule II opioid drug. Start Date: 12/24/24 Status: Ordered Repeat number: 1 famotidine 40 mg oral tablet 1 tablet = 40 mg, By Mouth, Daily at bedtime, 0 Refills, Maintenance, 12/24/24 1:48:00 PM EDT, Partial fill upon patient request if the prescription is for a schedule II opioid drug. Start Date: 12/24/24 Status: Ordered Repeat number: 1 fenofibrate 40 mg oral tablet 1 tablet = 40 mg, By Mouth, Daily, 0 Refills, Maintenance, 12/24/24 1:47:00 PM EDT, Partial fill upon patient request if the prescription is for a schedule II opioid drug. Start Date: 12/24/24 Status: Ordered Repeat number: 1 hydrOXYzine hydrochloride 10 mg oral tablet 2 tablet = 20 mg, By Mouth, 4 times a day, PRN for anxiety, # 80 tablet, 0 Refills, Maintenance, 12/24/24 1:49:00 PM EDT, Tablet, Partial fill upon patient request if the prescription is for a schedule II opioid drug. Start Date: 12/24/24 Status: Ordered Quantity: 80.0 Unit: tablet Repeat number: 1 LORazepam 1 [...] Date: 05/23/24 Status: Ordered Repeat number: 1 magnesium (as citrate) 83 mg oral tablet, chewable 2 tablet = 166 mg, By Mouth, 2 times a day, 0 Refills, Maintenance, 12/24/24 1:51:00 PM EDT, Partialfill upon patient request if the prescription is for a schedule II opioid drug. Start Date: 12/24/24 Status: Ordered Repeat number: 1 melatonin 5 [...] Date: 05/23/24 Status: Ordered Repeat number: 1 pantoprazole 40 mg oral delayed release tablet 1 tablet = 40 mg, By Mouth, Daily, 0 Refills, Maintenance, 12/24/24 1:48:00 PM EDT Start Date: 12/24/24 Status: Ordered Repeat number: 1 progesterone 200 mg oral capsule = 200 mg, By Mouth, Daily, 0 Refills, Maintenance, 12/24/24 1:50:00 PM EDT, Partial fill upon patient request if the prescription is for a schedule II opioid drug. Start Date: 12/24/24 Status: Ordered Repeat number: 1 QUEtiapine 25 [...] Refills, Maintenance, 11/19/24 12:09:00 PM EDT, Capsule, [facility], Partial fill upon patient [...] - Primary Care Member Role: PCP Address: [address] [place] [address] Telecom: Care Team Related Persons Name: BERTHA GARCIA Name: ANUPAMA BYRD Insurance Providers Guarantor name: NIKOLAI [facility] Health Plan Information #: 1 Payer: NA Member Number: NA Policy Number: NA Group Number: NA
--- OUTSIDE RECORDS SUMMARY | 2024-12-27 06:44 | XMS_ITS | Continuity of Care Document ---
Author Name [facility] Organization [facility] Care Team Providers Care See Supervisor Name Role Phone [facility] Unavailable Unavailable Problems Combined list of problems from Department of Defense and Veterans Affairs facilities. It does not include entries that were removed or entered in error. Problem Status Onset Date Problem Type Date of Resolution Comments Source Insomnia Active Condition [facility] (89[facility]) Major depressive disorder Active Condition [facility] [...] Site Reaction Lot Number CVX Code Drug Cake Wrapper Status Comments Source COVID-19 (MODERNA), MRNA, LNP-S, PF, 100 MCG OR 50 MCG DOSE 2 2020 207 complet ed MOD; [id number]; [address] [place] [facility] [place] [facility] COVID-19 (TODD), VECTOR-NR, RS-AD26, PF, 0.5 ML 1 2020 212 complet ed JSN; [id number]; 1 [place] [facility] [place] [facility] [facility] Encounters Combined list of: 1) Encounters [...] Disposition Source [facility] Outpatient Encounter [id number] 06/19 [facility] Outpatient Encounter [id number] 06/23 [facility] PSYTX W PT 45 MINUTES [id number] Diagnos is: ICD-10- CM F32.A Depress ion, unspeci fied MUKESH,[facility] ISTIE 07/03 [place] [facility] [facility] [place] [facility] [facility] [facility] CASE MANAGEMENT [id number] Diagnos is: ICD-10- CM Z71.0 Prsn encntr hlth serv to consult on behalf of another person DAMARIS CHINI SE 07/26 [facility] [place] PSYTX W PT 45 MINUTES [id number] Diagnos is: ICD-10- CM F32.9 Major depress lee disorde r, single episode , unspeci fied MUKESH,CHR ISTIE 07/31 [place] [facility] [facility] [facility] [facility] [place] [facility] HC PRO PHONE CALL 11-20 MIN [id number] Diagnos is: ICD-10- CM Z71.0 Prsn encntr hlth serv to consult on behalf of another person GIUSEPPE,VALERIA SE 09/01 [facility] PSYTX W PT 30 MINUTES [id number] Diagnos is: ICD-10- CM F32.9 Major depress lee disorde r, single episode , unspeci fied MUKESH,CHR ISTIE 10/29 [facility] HC PRO PHONE CALL 11-20 MIN [id number] Diagnos is: ICD-10- CM Z74.1 Need for assista nce with persona l belle VALERIA CHIN 11/01 [facility] [place] CASE MANAGEMENT [id number] Diagnos is: ICD-10- CM Z71.0 Prsn encntr hlth serv to consult on behalf of another person MATTI SHEFFIELD 11/22 [facility] HLTH V ASSMT/REAS SESSMENT [id number] Diagnos is: ICD-10- CM Z71.0 Prsn encntr hlth serv to consult on behalf of another person MATTI SHEFFIELD 04/04 [facility] [place] [facility] [place] HLTH BHV ASSMT/REAS SESSMENT [id number] Diagnos is: ICD-10- CM Z71.0 Prsn encntr hlth serv to consult on behalf of another person MATTI SHEFFIELD 08/01 [place] [facility] [facility] [place] [facility] [facility] Social History Combined list of available smoking, tobacco, and other social history from Department of Defense and Veterans Affairs facilities. Social History Type Response Date Comment Sourc e Tobacco smoking status [facility]-TO[facility]ACCO NEVER USED [facility] [facility] [place] [facility] [place] [facility] This section is an empty social history section. DoD
--- OUTSIDE RECORDS SUMMARY | 2024-12-27 06:44 | XMS_ITS | Continuity of Care Document ---
Author Organization [facility] Address [address] [place] [address]- Support Name Relationship Address Phone CARSON, ANUPAMA [...] ANUPAMA Personal Relationship Unknown U navailable GRANDCHAMP, ANPUAMA Personal Relationship Unknown U navailable GRANDCHAMP, ANUPAMA Personal Relationship Unknown U navailable GRANDCHAMP, ANUPAMA Personal Relationship Unknown U ANUPAMA Valdez Personal Relationship Unknown U [facility] Care Team Providers Care Filters Assembler Name Role Phone Kayley Kruger MD Primary Care Physician [phone] Encounter [facility] Date(s): 11/26/24 - 12/26/24 [facility] [address] [place] [address] Encounter Type: Triage Allergies, Adverse Reactions, Alerts Substance Criticality Severity Reaction Reaction Severity Status ampicillin Active erythromycin Active cefuroxime Active morphine Active Biaxin Active Wellbutrin Active Ceftin Active doxycycline rash Active sulfADIAZINE Active levothyroxine Active propofol Active Medications Biotin By Mouth, [...] Maintenance, 11/19/24 12:09:00 PM EDT, Capsule, [facility], Partial fill upon patient [...] - Primary Care Member Role: PCP Address: [address] [place] [address] Telecom: Care Team Related Persons Name: BERTHA GARCIA Name: ANUPAMA BYRD Insurance Providers Guarantor name: NIKOLAI [facility] Plan Information #: 1 Payer: JOSE RAMON Member Number: NA Policy Number: NA Group Number: NA
--- OUTSIDE RECORDS SUMMARY | 2024-12-27 06:44 | XMS_ITS | Data Portability ---
Author Organization [facility] Address [address] [place] [address] Care Team Providers Care Printing Film Stripper Name Role Phone GRAHAM CHAVIRA Primary Care Provider Assessment No assessment recorded. Plan of Treatment Reminders Order Date Submit Date Provider Last Modified By Organization Details Last Modified Time Details Appointments None recorded. Lab urinalysis , dipstick 2022 023 [email or web address] [facility], [address] [place] [address], [phone], 18:37:04 culture, urine 2022 023 [facility], [address] [place] [address], [place], [address], 06:07:30 Referral None recorded. Procedures None recorded. Surgeries None recorded. Imaging None recorded. Medication Orders None recorded. Patient TargetsNo targets recorded. Patient Instructions Encounter Date Encounter Id Patient Instructions Last Modified By Organization Details Last Modified Time 09/28/2022 [id number] upper and middle back (thoracic) strain: care instructions [email or web address] Not available 09/28/2022 18:37:04 constipation: care instructions [email or web address] Not available 09/28/2022 18:37:04 I would continue [...] Blood in Urine. Thank you for using [facility], please feel free to contact us if you have any questions or concerns. [email or web address] Not available 09/28/2022 18:37:03 Reason for Referral None Reported. Results Created Date Observation Date Name Description Value Unit Range Abnormal Flag Note LastModifiedBy Organization Detail LastModifiedTime 09/28/19 23 10/01/2022 URINE CULTU RE, ROUTI NE urine culture, routine FINAL REPORT Not Available [facility] ([facility]) [address] [facility], [place], [address], 10/01/2022 06:07:30 09/28/1910/01/2022 URINE CULTU RE, DULCEI NE result 1 NO GROWTH Not Available [facility] ([facility]) [address] [facility], [place], [address], 10/01/2022 06:07:30 09/28/1909/28/2022 urina lysis , dipst ick Unknown Analyte Normal = light yellow Not Available [address], [address], 09/28/2022 17:46:46 09/28/1909/28/2022 urina lysis , dipst ick Unknown Analyte Normal = clear Not Available [address] [place] [address], [address], 09/28/2022 17:46:46 09/28/19 23 09/28/2022 urina lysis , dipst ick Unknown Analyte Normal = negati ve Not Available [address] [place] [address], [address], 09/28/2022 17:46:46 09/28/19 23 09/28/2022 urina lysis , dipst ick Unknown Analyte Normal = Negati ve Not Available [address]sarah flores [address], [place], [address], 09/28/2022 17:46:46 09/28/19 23 09/28/2022 urina lysis , dipst ick Unknown Analyte Normal = Negati ve Not Available [facility] [address], [place], [address], 09/28/2022 17:46:46 09/28/19 23 09/28/2022 urina lysis , dipst ick Unknown Analyte Normal = 1.010, 1.015, 1.020 Not Available [address]sarah flores [address], [place], [address], 09/28/2022 17:46:46 09/28/19 23 09/28/2022 urina lysis , dipst ick Unknown Analyte Normal = Negati ve Not Available [address]sarah flores [address], [place], [address], 09/28/2022 17:46:46 09/28/19 23 09/28/2022 urina lysis , dipst ick Unknown Analyte Normal = 6.5, 7.0, 7.5, 8.0 Not Available [facility] [address], [place], [address], 09/28/2022 17:46:46 09/28/19 23 09/28/2022 urina lysis , dipst ick Unknown Analyte Normal = Negati ve Not Available [address]sarah flores [address], [place], [address], 09/28/2022 17:46:46 09/28/19 23 09/28/2022 urina lysis , dipst ick Unknown Analyte Normal = 0.2, 1.0 Not Available [address]sarah flores [address], [place], [address], 09/28/2022 17:46:46 09/28/19 23 09/28/2022 urina lysis , dipst ick Unknown Analyte Normal = Negati ve Not Available [facility], [place], [address], 09/28/2022 17:46:46 09/28/19 23 09/28/2022 urina lysis , dipst ick Unknown Analyte Normal = Negati ve Not Available [facility], [place], [address], 09/28/2022 17:46:46 09/28/19 23 09/28/2022 urina lysis , dipst ick Unknown Analyte Yellow Not Available janee [address], [place], [address], 09/28/2022 17:46:46 09/28/19 23 09/28/2022 urina lysis , dipst ick Unknown Analyte Clear Not Available janee [address], [place], [address], 09/28/2022 17:46:46 09/28/19 23 09/28/2022 urina lysis , dipst ick Unknown Analyte Negati ve Not Available [facility], [place], [address], 09/28/2022 17:46:46 09/28/19 23 09/28/2022 urina lysis , dipst ick Unknown Analyte Negati ve Not Available [facility] [address] [place] [address], [place], [address], 09/28/2022 17:46:46 09/28/19 23 09/28/2022 urina lysis , dipst ick Unknown Analyte Negati ve Not Available [facility], [place], [address], 09/28/2022 17:46:46 09/28/1909/28/2022 urina lysis , dipst ick Unknown Analyte <=1.00 5 Not Available sarah flores [address], [place], [address], 09/28/2022 17:46:46 09/28/19 23 09/28/2022 urina lysis , dipst ick Unknown Analyte Negati ve Not Available sarah flores [address], [place], [address], 09/28/2022 17:46:46 09/28/19 23 09/28/2022 urina lysis , dipst ick Unknown Analyte 6.0 Not Available [facility] [address], [place], [address], 09/28/2022 17:46:46 09/28/19 23 09/28/2022 urina lysis , dipst ick Unknown Analyte Negati ve Not Available sarah flores [address], [place], [address], 09/28/2022 17:46:46 09/28/19 23 09/28/2022 urina lysis , dipst ick Unknown Analyte 0.2 E.U./d L Not Available sarah flores [address], [place], [address], 09/28/2022 17:46:46 09/28/19 23 09/28/2022 urina lysis , dipst ick Unknown Analyte Negati ve Not Available sarah flores [address], [place], [address], 09/28/2022 17:46:46 09/28/19 23 09/28/2022 urina lysis , dipst ick Unknown Analyte Negati ve Not Available [address] [address] [facility], [place], [address], 09/28/2022 17:46:46 Result Notes None recorded. Problems Name Problem SNOMED Code Status Onset Date Resolution Date Notes Provider Name and Address Organization Details Recorded Time Disorder of thyroid gland 10549693 Active 2022 FREDY TITO null, [place] - [facility] 18:00:39 Disorder of back 49173294 Active 2022 FREDY TITO null, PA - [facility] 18:00:51 Osteoarthritis 035002840 Active 2022 FREDY TITO null, PA - [facility] 18:01:03 Spinal stenosis 11774193 Active 2022 FREDY TITO null, PA - [facility] 18:04:23 Problem Notes None recorded. Medical Equipment None Reported. Allergies Allergen ID Allergen Name Allergen Category Reaction Reaction Severity Criticality Documentation Date Start Date Code Code System Note Provider Name and Address Organization Details Recorded Time 427240 ampicilli n medicatio n rash Not available Not available 09/28/2022 733 RxNorm FREDY TITO null, PA - [facility] 17:50:08 407065 Biaxin medicatio n nausea Not available Not available 09/28/202215391 9 RxNorm FREDY TITO null, [place] - [facility] 17:50:22 702946 Substance with sulfonami de structure and antibacte rial mechanism of action (substanc e) medicatio n vomiting Not available Not available 09/28/2022 50954 8003 SNOMED FREDY TITO null, PA - [facility] 17:50:41 948778 Wellbutri n medicatio n hives Not available Not available 09/28/2022 52075 RxNorm FREDY TITO null, PA - [facility] 17:50:57 007845 erythromy mk medicatio n vomiting Not available Not available 09/28/2022 4053 RxNorm FREDY TITO null, PA - [facility] 17:51:10 764526 Ceftin medicatio n vomiting Not available Not available 09/28/2022 94818 6 RxNorm FREDY TITO null, PA - [facility] 17:51:32 640302 propofol medicatio n hives Not available Not available 09/28/2022 8782 RxNorm FREDY TITO null, PA - [facility] 17:52:02 829895 morphine medicatio n vomiting Not available Not available 09/28/2022 7052 RxNorm FREDY TITO null, [place] - [facility] 17:52:23 827236 doxycycli ne Not available rash Not available [...] Updated DateTime 3 167.64 cm 34.4 kg/m2 61610.1 7 g 6 98 % 98 % [...] SNOMED-CT Code Diagnosis ICD10 Code Diagnosis Note [id number] [facility] [address] [place] [address] 11/28/2021 13:00:40 11/28/2021 15:33:40 [id number] [facility] [address] [address] [place] [address] 05/18/2016 14:19:24 05/18/2016 17:11:45 [id number] [facility] [address] [place] [address] 05/20/2016 13:12:48 05/20/2016 14:14:51 [id number] [facility] [address] [address] [place] [address] 09/28/2022 16:00:24 09/28/2022 18:39:47 Thoracic back pain 986263987 M54.6 Differenti al - Kidney Stone, Constipati on, costochond ritis, Thoracic nerve impingemen t. Health Concerns Section Related Observation LastModified by Organization Detai ls LastModified Time None Recorded Concern Status LastModified by Organization Details LastModified Time None Recorded Advance Directives Directive None Recorded Payers Encounter Date Sequence Insurance Name Policy Number Policy Saunders Covered Member ID Saunders Member ID Guarantor Name 09/28/2022 1 [facility] ([facility] [id number] Norma Mckeon [id number] Norma Mckeon Notes Date Note Type Note Provider Name and Address Organization Details Recorded Time 3 text/html Back Pain/Injury UCReported bypatient.source of patient informationInformation obtained from patient Location:middle of the back; pain is not radiating Quality:sharp Duration:2 days Alleviating Factors:nothing helps Aggravating Factors:cannot identifyNotes:The patient reports that on a ride back from [place] started to get a deep sharp pain [...] KELSI BESS [address] [place], [address], [place] - [facility] 09/28/2022 21:52:03 OBGyn Episode No OBEpisode recorded.
[2025-01-30 14:08] VITALS: BMI 35.6
--- NOTE | 2025-04-01 08:48 | HO.ANESPROP2 ---
Documented by User: Arianna Kiran NP 04/01/25 08:49 HPI - Anesthesia Eval Consult details Narrative: 59yo F for Colonoscopy s/p EGD 02/2024 with TIVA PMFSH Active Problems Active Problems: All Active Problems Bronchitis (Acute) Dysplastic nevi (Acute) Papillary thyroid carcinoma (Acute) Postmenopausal (Acute) Hiatal hernia (Acute) Multiple pulmonary nodules (Acute) Abscess (Acute) GERD (gastroesophageal reflux disease) (Acute) Environmental allergies (Acute) Chronic allergic rhinitis (Acute) Skin tag (Acute) Leg cramps (Acute) Lumbar radiculopathy (Acute) Sacroiliac joint dysfunction of right side (Acute) Obesity (BMI 30-39.9) (Acute) IBS (irritable bowel syndrome) (Acute) Cough (Acute) Candidiasis (Acute) Rectal bleed (Acute) Allergies (Acute) Knee pain, right (Acute) Abnormal colonoscopy (Acute) Mammogram normal (Acute) Annual physical exam (Acute) Normal Pap smear (Acute) Multiple thyroid nodules (Acute) Acquired hypothyroidism (Acute) Hyperlipidemia (Acute) Sinusitis, acute ethmoidal (Acute) Past Medical History Medical History Sacroiliac joint dysfunction of right side Candidiasis Rectal bleed Allergies Knee pain, right Abnormal colonoscopy Mammogram normal Annual physical exam Normal Pap smear Multiple thyroid nodules Acquired hypothyroidism Martha's thyroiditis IBS (irritable bowel syndrome) Overweight Peripheral neuropathy Lumbar radiculopathy Hyperlipidemia Family History Family History Father Stroke Hyperlipidemia CVD (cardiovascular disease) Mother Hyperlipidemia Thyroid disease Family history of problems with anesthesia: No Surgical History Surgical History S/P fine needle aspiration History of endometrial ablation Hx of dilation and curettage [place] teeth extracted H/O sigmoidoscopy History of tonsillectomy and adenoidectomy H/O colonoscopy History of Problems with Anesthesia: No Social History Social History Household Members: Spouse Household Members Other:: Housing: House Alcohol intake: current Alcohol intake frequency: holidays/special occasions only Patient Tobacco Use Status: Never used Tobacco e-Cigarette/Vaping Use: Never Used Advance Directives: No Advance Directives Information Provided: Yes Current occupational status: employed Cognitive needs: No Hearing needs: No Vision needs: Yes Meds Allergies Allergy/AdvReac Type Severity Reaction Status Date / Time Sulfa (Sulfonamide Allergy Intermediate NAUSEA/VOMI Verified 02/27/25 10:38 Antibiotics) TING (SULFA(SULFONAMIDE ANTIBIOTICS)) ampicillin (AMPICILLIN) Allergy Mild RASH Verified 02/27/25 10:38 bupropion (From Wellbutrin) Allergy Mild Hives Verified 02/27/25 10:38 clarithromycin (From BIAXIN) Allergy Mild NAUSEA Verified 02/27/25 10:38 atorvastatin (Lipitor) Allergy Unknown leg cramps Verified 02/27/25 10:38 cefaclor Allergy Unknown Unknown Verified 02/27/25 10:38 doxycycline Allergy Unknown Rash Verified 02/27/25 10:38 erythromycin base Allergy Unknown sick to Verified 02/27/25 10:38 (ERYTHROMYCIN BASE) stomach ezetimibe (Zetia) Allergy Unknown leg cramps Verified 02/27/25 10:38 morphine (MORPHINE) Allergy Unknown VOMITING Verified 02/27/25 10:38 propofol (PROPOFOL) Allergy Unknown HIVES Verified 02/27/25 10:38 rosuvastatin (Crestor) Allergy Unknown leg cramps Verified 02/27/25 10:38 sulfacetamide Allergy Unknown Gastrointestinal Verified 02/27/25 10:38 Upset simvastatin AdvReac Unknown leg cramps Verified 02/27/25 10:38 From CEFTIN Allergy Mild NAUSEA Uncoded 02/27/25 10:38 Ceftin Allergy Unknown Unknown Uncoded 02/27/25 10:38 Doxycycline Hyclate Allergy Unknown Rash Uncoded 02/27/25 10:38 GLP 1 AGONISTS AdvReac Abdominal Uncoded 02/27/25 10:38 Pain Home Medications ?Medication ?Instructions ?Recorded ?Confirmed ?Last Taken ?Type progesterone micronized 100 mg See Rx Instructions PO QAM 05/14/21 02/27/25 Unknown History capsule lorazepam 1 mg tablet 1 mg PO DAILY PRN Anxiety 08/24/22 02/27/25 Unknown History melatonin 10 mg capsule 10 mg PO BEDTIME PRN Insomnia 08/24/22 02/27/25 Unknown History epinephrine 0.3 mg/0.3 mL 0.3 mg IM ONCE PRN Anaphylaxis 02/24/23 02/27/25 Unknown History injection, auto-injector cetirizine 10 mg tablet (Zyrtec) 10 mg PO DAILY 10/20/23 02/27/25 Unknown History escitalopram oxalate 10 mg tablet 10 mg PO DAILY 10/20/23 02/27/25 03/11/24 History magnesium glycinate 100 mg (as 400 mg PO DAILY 10/20/23 02/27/25 Unknown History glycinate) tablet Tums 03/11/24 02/27/25 Unknown History omeprazole 40 mg capsule,delayed 40 mg PO DAILY 03/11/24 02/27/25 Unknown History release hydroxyzine pamoate 25 mg capsule mg PO 11/04/24 02/27/25 Unknown History zaleplon 10 mg capsule mg PO 11/04/24 02/27/25 Unknown History vitamin D3 25 mcg-vitamin K2 20 cap PO 02/24/25 02/27/25 Unknown History mcg-olive leaf extract 250 mg capsule levothyroxine 137 mcg capsule 137 mcg PO DAILY 04/02/25 04/02/25 Unknown History (Tirosint) pantoprazole 40 mg tablet,delayed 40 mg PO BID 04/02/25 04/02/25 Unknown History release Exam Height,Weight and Vital Signs: Height 5 ft 5 in Weight 97.069 kg Pertinent Lab Results Pertinent Lab Results: Laboratory Tests 10/24/24 01/01/25 09:15 11:36 WBC 6.1 Hgb 14.7 Hct 44.2 Plt Count 310 Sodium 139 Potassium 4.6 Chloride 105 Carbon Dioxide 26 BUN 16 Creatinine 1.09 Narrative Narrative: EKG 12/2024 Vent. Rate : 57 BPM Atrial Rate : 57 BPM P-R Int : 136 ms QRS Dur : 76 ms QT Int : 454 ms P-R-T Axes : 74 31 41 degrees QTcB Int : 441 ms Sinus bradycardia Possible Left atrial enlargement Borderline ECG No previous ECGs available Assessment and Plan Assessment Anesthesia Assessment: Chart Reviewed Final Anesthetic Review Family History of Problems with Anesthesia: No History of Problems with Anesthesia: No Documented by User: Willis Tolliver MD 04/02/25 07:11 [facility] Past Medical History Medical History Sacroiliac joint dysfunction of right side Candidiasis Rectal bleed Allergies Knee pain, right Abnormal colonoscopy Mammogram normal Annual physical exam Normal Pap smear Multiple thyroid nodules Acquired hypothyroidism Martha's thyroiditis IBS (irritable bowel syndrome) Overweight Peripheral neuropathy Lumbar radiculopathy Hyperlipidemia Functional capacity: independent ambulation Patient : No Family History Family History Father Stroke Hyperlipidemia CVD (cardiovascular disease) Mother Hyperlipidemia Thyroid disease Surgical History Surgical History S/P fine needle aspiration History of endometrial ablation Hx of dilation and curettage [place] teeth extracted H/O sigmoidoscopy History of tonsillectomy and adenoidectomy H/O colonoscopy Social History Social History Household Members: Spouse Household Members Other:: Housing: House Alcohol intake: current Alcohol intake frequency: holidays/special occasions only Patient Tobacco Use Status: Never used Tobacco e-Cigarette/Vaping Use: Never Used Advance Directives: No Advance Directives Information Provided: Yes Current occupational status: employed Cognitive needs: No Hearing needs: No Vision needs: Yes Meds Allergies Allergy/AdvReac Type Severity Reaction Status Date / Time Sulfa (Sulfonamide Allergy Intermediate NAUSEA/VOMI Verified 02/27/25 10:38 Antibiotics) TING (SULFA(SULFONAMIDE ANTIBIOTICS)) ampicillin (AMPICILLIN) Allergy Mild RASH Verified 02/27/25 10:38 bupropion (From Wellbutrin) Allergy Mild Hives Verified 02/27/25 10:38 clarithromycin (From BIAXIN) Allergy Mild NAUSEA Verified 02/27/25 10:38 atorvastatin (Lipitor) Allergy Unknown leg cramps Verified 02/27/25 10:38 cefaclor Allergy Unknown Unknown Verified 02/27/25 10:38 doxycycline Allergy Unknown Rash Verified 02/27/25 10:38 erythromycin base Allergy Unknown sick to Verified 02/27/25 10:38 (ERYTHROMYCIN BASE) stomach ezetimibe (Zetia) Allergy Unknown leg cramps Verified 02/27/25 10:38 morphine (MORPHINE) Allergy Unknown VOMITING Verified 02/27/25 10:38 propofol (PROPOFOL) Allergy Unknown HIVES Verified 02/27/25 10:38 rosuvastatin (Crestor) Allergy Unknown leg cramps Verified 02/27/25 10:38 sulfacetamide Allergy Unknown Gastrointestinal Verified 02/27/25 10:38 Upset simvastatin AdvReac Unknown leg cramps Verified 02/27/25 10:38 From CEFTIN Allergy Mild NAUSEA Uncoded 02/27/25 10:38 Ceftin Allergy Unknown Unknown Uncoded 02/27/25 10:38 Doxycycline Hyclate Allergy Unknown Rash Uncoded 02/27/25 10:38 GLP 1 AGONISTS AdvReac Abdominal Uncoded 02/27/25 10:38 Pain Home Medications ?Medication ?Instructions ?Recorded ?Confirmed ?Last Taken ?Type progesterone micronized 100 mg See Rx Instructions PO QAM 05/14/21 02/27/25 Unknown History capsule lorazepam 1 mg tablet 1 mg PO DAILY PRN Anxiety 08/24/22 02/27/25 Unknown History melatonin 10 mg capsule 10 mg PO BEDTIME PRN Insomnia 08/24/22 02/27/25 Unknown History epinephrine 0.3 mg/0.3 mL 0.3 mg IM ONCE PRN Anaphylaxis 02/24/23 02/27/25 Unknown History injection, auto-injector cetirizine 10 mg tablet (Zyrtec) 10 mg PO DAILY 10/20/23 02/27/25 Unknown History escitalopram oxalate 10 mg tablet 10 mg PO DAILY 10/20/23 02/27/25 03/11/24 History magnesium glycinate 100 mg (as 400 mg PO DAILY 10/20/23 02/27/25 Unknown History glycinate) tablet Tums 03/11/24 02/27/25 Unknown History omeprazole 40 mg capsule,delayed 40 mg PO DAILY 03/11/24 02/27/25 Unknown History release hydroxyzine pamoate 25 mg capsule mg PO 11/04/24 02/27/25 Unknown History zaleplon 10 mg capsule mg PO 11/04/24 02/27/25 Unknown History vitamin D3 25 mcg-vitamin K2 20 cap PO 02/24/25 02/27/25 Unknown History mcg-olive leaf extract 250 mg capsule levothyroxine 137 mcg capsule 137 mcg PO DAILY 04/02/25 04/02/25 Unknown History (Tirosint) pantoprazole 40 mg tablet,delayed 40 mg PO BID 04/02/25 04/02/25 Unknown History release Exam Exam Date and Time: 04/02/2025 Airway TM Dist: >3cm Heart: rrr Lungs: cta Other: normal Assessment and Plan Assessment Anesthesia Assessment: Anesthesia Plan Discussed Final Anesthetic Review NPO: Yes ASA Class: II Final Preanesthetic Review: No Changes in Pt Med Stat, Meds/Allgs Chart Reviewed, Consent Obtained/Reviewed and Anes Risks/Benef Reviewed Patient Risk: Low Procedure Risk: Low Anesthetic Plan Anesthetic Plan: MAC: Disposition: Standard PACU
[2025-04-02 07:19] VITALS: BP 141/79; PULSE 80; RESP 15; TEMP 36.9; O2SAT 97; BMI 35.3
[2025-04-02] MEDS: Lactated Ringers 1,000 ML 100 ML IVCONT (07:28)
[2025-04-02 08:30] VITALS: BP 123/69; PULSE 64; RESP 16; TEMP 36.2; O2SAT 95
--- NOTE | 2025-04-02 08:37 | P.BOP_ITS ---
Brief Operative Note Date of Service: 04/02/25 Pre-op diagnosis: Screening Post-op diagnosis: other (Polyp) Procedure: Colonoscopy to the cecum and TI with bx/removal of polyp Surgeon: Riki Portillo MD Anesthesia: MAC Was an Rail Signal Designer used for this Procedure?: No Estimated blood loss (mL): 2.0 Pathology: other (A. Polyp at 15cm) Condition: stable Disposition: PACU
[2025-04-02 08:45] VITALS: BP 115/61; PULSE 58; RESP 20; TEMP 36.5; O2SAT 95
--- NOTE | 2025-04-02 08:55 | OP_ITS ---
DATE OF SERVICE: 04/02/2025 SURGEON: Riki Portillo MD INDICATIONS: The patient presents for evaluation of personal history of a tubular adenoma and colorectal cancer screening. Full consent has been obtained from her for this, including risks of bleeding and perforation. PREOPERATIVE DIAGNOSIS: POSTOPERATIVE DIAGNOSIS: PROCEDURE PERFORMED: Colonoscopy to the cecum and terminal ileum with biopsy and removal of polyp. ESTIMATED BLOOD LOSS: COMPLICATIONS: ANESTHESIA: Medication used, monitored anesthesia care. ASSISTANTS: SPECIMENS: PREOPERATIVE DIAGNOSES: Colorectal cancer screening and personal history of colon polyps. POSTOPERATIVE DIAGNOSES: Colorectal cancer screening and personal history of colon polyps, small colon polyp, diverticulosis, and internal hemorrhoids. DESCRIPTION OF PROCEDURE: The patient was placed in the left lateral decubitus position. The digital rectal exam revealed no abnormalities. The Olympus video pediatric colonoscope was entered into the rectum and advanced easily to the cecum. Once in the cecum, I did identify normal-appearing cecal pouch with appendiceal orifice and a normal-appearing ileocecal valve. The terminal ileum was cannulated and appeared normal. The scope was withdrawn back in the colon. The entire cecum and ileocecal valve appeared normal. The scope was slowly withdrawn assessing all mucosal surfaces carefully. Preparation was excellent. At 15 cm was a flat, approximately 3 or 4 mm polyp, which was biopsied and completely removed with a cold biopsy forceps. I did not visualize any other polyps, colitis, nor angiodysplasia. There was a mild amount of sigmoid diverticulosis. In the rectum, scope was retroflexed visualizing internal hemorrhoids, but no other pathology. The rectal mucosa appeared normal. The scope was straightened and withdrawn from the patient. She tolerated the procedure well and was returned to the recovery area in stable condition. IMPRESSION: 1. Small colon polyp, status post biopsy and removal. 2. Diverticulosis. 3. Internal hemorrhoids. PLAN: Results of the biopsy will be checked. If this is a tubular adenoma and/or her previous colon polyps were tubular adenomas, I would recommend a repeat colonoscopy in 5 years. She will follow up with her doctors in [place] regarding her upcoming gastric bypass and hiatal hernia surgery. She will see me as needed. MD NEISHA Andrade/SVETA / [phone] ARVIND
== END 2025-04-02 09:03 | disposition home or self-care (01) ==
PROVIDERS: PCP Internal Medicine; Visit Provider Internal Medicine
PROC: 0DJD8ZZ Inspection of Lower Intestinal Tract, Via Natural or Artificial Opening Endoscopic (ICD-10-PCS; CPT 45378; principal; 2025-04-02 07:30)
DX: Z12.11 Encounter for screening for malignant neoplasm of colon (principal); K63.5 Polyp of colon; Z86.0100 Personal history of colon polyps, unspecified; Z83.719 Family history of colon polyps, unspecified; K21.9 Gastro-esophageal reflux disease without esophagitis; Z79.899 Other long term (current) drug therapy
CPT/HCPCS: 45380; 88305; J2003; J2704; J3010

== ENCOUNTER 2025-04-15 10:32 | Outpatient (AMB) | payer OTHER, SELFPAY ==
--- OUTSIDE RECORDS SUMMARY | 2025-04-02 08:30 | XMS_ITS ---
Author Organization [facility] Address [address] [place] [phone] Care Team Providers Care Interlocking Tower Operator Name Role Phone Slick HUTCHINSON, Kayley Primary Care Provider UnavailRiki Hunt Unavailable [phone] Barbara HUTCHINSON, Hai Unavailable Unavailable REASON FOR VISIT screening,hx polyps Encounters Encounter Location Date Provider Diagnosis [facility] Outpatient [address] [place] [id number] 04/02/2025 Riki Portillo Plan Of Treatment No Information Progress Notes * MICHEAL BYRDOB:08/1964 (59 yo F)Acc No.[id number]:04/02/2025 COLON WITH MAC Patient: NIKOLAI BARNETT Provider: Thomas Portillo MD :1965 A ge:59 Y S ex:Female Date:04/02/2025 Address:[address] [place] [address] [address] [id number] Pcp:Kayley Kruger MD Subjective: * Chief Complaints: [...] 0 04/02/2025 Generated for Printi ng/Faxing/eTransmitting on: 04/15/2025 11:57 AM EDT
--- OUTSIDE RECORDS SUMMARY | 2025-04-15 11:56 | XMS_ITS | Continuity of Care Document ---
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 It does not include entries that were removed or entered in error. Problem Status Onset Date Problem Type Date of Resolution Comments Source Insomnia Active Condition [facility] (6[facility]) Major depressive disorder Active Condition [facility] [...] TRIHYDRATE) Drug allergy (disorder) Unknown active 01/20/2008 [facility] BIAXIN (CLARITHROMYC IN) Drug allergy (disorder) Unknown active 01/20/2008 [facility] BUPROPION HCL (BUPROPION HCL) Drug allergy (disorder) Unknown active 01/20/2008 [facility] CEFTIN (CEFUROXIME AXETIL) Drug allergy (disorder) Unknown active 01/20/2008 [facility] AGNES (ERYTHROMYCIN BASE/ETHANOL) Drug allergy (disorder) Unknown active 01/20/2008 [facility] SULFA-DRUGS Drug allergy (disorder) Unknown active 01/20/2008 [facility] Immunizations Combined list of available immunizations from the Department of Defense and Veterans Affairs facilities. 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 Comments Source COVID-19 (MODERNA), MRNA, LNP-S, PF, 100 MCG OR 50 MCG DOSE 2 2020 207 complet ed MOD; [id number]; [facility] COVID-19 (TODD), VECTOR-NR, [id number], PF, 0.5 ML 1 2020 212 complet ed JSN; [id number]; 1 [facility] Encounters Combined list of: 1) Encounters from Department of Veterans Affairs facilities going backup to the last 18 months, not all [place] inpatient encounters are included; 2) Encounters from the Department of [facility] facilities going backup to 280 months. Location Location Details Encounter Type Encounter Number Reason For Visit Attending Provider ADM Date DC Date Status Disposition [facility] PRO PHONE CALL 11-20 MIN [id number] Diagnos is: ICD-10- CM Z71.0 Prsn encntr hlth serv to consult on behalf of another person VALERIA CHIN SE [facility] PSYTX W PT 30 MINUTES [id number] Diagnos is: ICD-10- CM F32.9 Major depress lee disorde r, single episode , unspeci fied MUKESH,CHR ISTIE 10/[facility] [facility] [place] [facility] PRO PHONE CALL 11-20 MIN [id number] Diagnos is: ICD-10- CM Z74.1 Need for assista nce with persona l care VALERIA CHIN SE 11/01 [place] [facility] [place] [facility] [place] [facility] CASE MANAGEMENT [id number] Diagnos is: ICD-10- CM Z71.0 Prsn encntr hlth serv to consult on behalf of another person MATTI SHEFFIELD 11/22 [facility] [place] [place] [facility] [facility] ASS[facility]/REAS SESSMENT [id number] Diagnos is: ICD-10- CM Z71.0 Prsn encntr hlth serv to consult on behalf of another person MATTI SHEFFIELD 04/04 [facility] [place] [facility] [place] [facility] ASS[facility]/REAS SESSMENT [id number] Diagnos is: ICD-10- CM Z71.0 Prsn encntr hlth serv to consult on behalf of another person MATTI SHEFFIELD 08/01 [place] [facility] [place] [facility] Social History Combined list of available smoking, tobacco, and other social history from Department of Defense and Veterans Affairs facilities. Social History Type Response Date Comment Sourc e Tobacco smoking status [facility] NEVER USED 02/20/2023 [place] [facility] [place] [facility] This section is an empty social history section. [employer]D
--- OUTSIDE RECORDS SUMMARY | 2025-04-15 11:58 | XMS_ITS | Clinical Summary ---
Author Organization [facility] it Address [address] [place] [address] Care Team Providers Care Enrollment Clerk Name Role Phone Kayley Kruger MD Primary Care Provider [phone] Social History Tobacco Use Types Packs/Day Years Used Date Smoking Tobacco: Never Assessed Comments Unknown Sex and Gender Information Value Date Recorded Sex Assigned at Not on file Legal Sex Female 6:28 PM EST Gender Identity Not on file Sexual Orientation Not on file Plan of Treatment Upcoming Encounters Date Type Department Care Team (Late st Contact Info) Description 04/21/2025 10:00 AM EDT [facility]ment [facility] [address] [address] Health Maintenance Due Date Last Done Comments DTaP,Tdap,and Td Vaccines (1 - Tdap) 1986 Hepatitis B Vaccines (1 of 3 - 19+ 3-dose series) 1986 Cervical Cancer Screening: Pap Smear 1988 Pneumococcal Vaccine: 50+ Years (1 of 1 - PCV) 2017 Zoster Vaccines (1 of 2) 2017 Colorectal Cancer Screening: Colonoscopy 07/30/2022 HIV Screening 07/30/2022 Hepatitis C Screening 07/30/2022 Social Influencers of Health Screening 07/30/2022 COVID-19 Vaccine ( - season) 2024 Depression Screening 08/28/2024 Influenza Vaccine (#1) 2025 Breast Cancer Screening 04/17/2026 04/17/20 24, 04/10/2023, 04/07/2022, Additional history exists HIB Vaccines Aged Out No longer eligi ble based on patient's age to complete this topic HPV Vaccines Aged Out No longer eligi ble based on patient's age to complete this topic Hepatitis A Vaccines Aged Out No long er eligible based on patient's age to complete this topic IPV Vaccines Aged Out No longer eligi ble based on patient's age to complete this topic MMR Vaccines Aged Out No longer eligi ble based on patient's age to complete this topic Meningococcal ACWY Vaccine Aged Out N o longer eligible based on patient's age to complete this topic Meningococcal B Vaccine Aged Out No l onger eligible based on patient's age to complete this topic RSV Immunization Patients Under 20 months Aged Out No longer eligible based on patient's age to complete this topic Varicella Vaccines Aged Out No longer eligible based on patient's age to complete this topic Procedures Procedure Name Priority Date/Time Associated Diagnosis Comments [facility] SCREENING DIGITAL Routine 04/17/2024 9:16 AM EDT Encounter for screening mammogram for malignant neoplasm of breast from Last 3 Months or Most Recently Relevant to Health Maintenance Results * CARL SCREENING DIGITAL (04/17/2024 9:16 AM EDT) Anatomical Region Laterality Modality Mammography 04/16/2024 10:1 7 AM EDT Narrative 04/17/2024 9:[address] [facility] Diagnostic Imaging Department [address] [place] [address] Patient: NORMA MCKEON Jeannette /Age/Sex: 1965 - 58 - F Unit#: [id number] Location/Status: SPDIMAM/REG CLI Mnemonic/Ordering Site: [facility] Ordering Physician: EDWAR BEE MD [facility] Screening Digital - 04/16/24 - 1031 Report Status:Signed EXAM: [facility] Screening Digital EXAM DATE AND TIME: 04/16/2024 10:32 AM HISTORY: Screening. Family history of breast carcinoma. COMPARISON: 04/10/23, 04/07/22, 04/02/21 TECHNIQUE: Bilateral digital breast tomosynthesis was performed in the CC and MLO projections. Computer aided detection with MyShape 3D 3.1 was employed. TISSUE DENSITY: b. There are scattered areas of fibroglandular density. FINDINGS: No suspicious masses, grouped microcalcifications, or areas of architectural distortion are seen. The skin and vascularity are unremarkable. IMPRESSION: Stable mammographic appearance of the breasts. No evidence of malignancy is seen. A negative mammogram in the presence of a clinically suspicious palpable abnormality does not preclude the possibility of malignancy or alter the indications for biopsy. BI-RADS: Category 1: Negative RECOMMENDATION(S): 1: Routine screening mammogram BILATERAL in 1 year. Dictating Physician: NATIVIDAD LOUIE MD Electronically Signed by: NATIVIDAD LOUIE MD Dic Date/Time: 04/17/24915 Sign date/Time: 04/17/24915 Procedure Note Natividad Louie MD - 06/12/2024 [facility] Diagnostic Imaging Department [address] [place] [id number] Patient: NORMA MCKEON Jeannette LeoB./Age/Sex: 1965 - 58 - F Unit#: [id number] Location/Status: SPDIMAM/REG CLI Mnemonic/Ordering Site: [facility] Ordering Physician: EDWAR BEE MD [facility] Screening Digital - 04/16/24 - 1031 Report Status:Signed EXAM: [facility] Screening Digital EXAM DATE AND TIME: 04/16/2024 10:32 AM HISTORY: Screening. Family history of breast carcinoma. COMPARISON: 04/10/23, 04/07/22, 04/02/21 TECHNIQUE: Bilateral digital breast tomosynthesis was performed in the CCand MLO projections. Computer aided detection with MyShape 3D 3.1was employed. TISSUE DENSITY: b. There are scattered areas of fibroglandular density. FINDINGS: No suspicious masses, grouped microcalcifications, or areas ofarchitectural distortion are seen. The skin and vascularity are unremarkable. IMPRESSION: Stable mammographic appearance of the breasts. No evidence of malignancyis seen. A negative mammogram in the presence of a clinically suspicious palpable abnormality does not preclude the possibility of malignancy or alter the indications for biopsy. BI-RADS: Category 1: Negative RECOMMENDATION(S): 1: Routine screening mammogram BILATERAL in 1 year. Dictating Physician: NATIVIDAD LOUIE MD Electronically Signed by: NATIVIDAD LOUIE MD Dic Date/Time: 04/17/24915 Sign date/Time: 04/17/24915 Edwar Bee MD IMG BI PROCEDURES Final Resu lt from Last 3 Months or Most Recently Relevant to Health Maintenance Insurance [facility] [employer] Care Teams Enrollment Clerk Relationship Specialty Start Date End Date Kayley Kruger MD [address] [place] [address] PCP - General Internal Medicine 03/25/25
--- OUTSIDE RECORDS SUMMARY | 2025-04-15 11:58 | XMS_ITS | Patient Health Record ---
Author Organization [facility] Address [address] [place] [address] Care Team Providers Care Specialist Managers Name Role Phone Kayley Kruger MD Primary Care Provider Unavaila ble Black, Emily Unavailable [phone] Allergies Allergen (clinical drug ingredient) Drug/Non Drug [...] Status W/U Status Risk Notes Problem Bursitis (97609639) Bursitis (727.3) Active confirmed Problem Hammer toe (599983134) Hammer toe (735.4) Active confirmed Problem Myositis (43250651) Myositis (729.1) Active confirmed Problem Neuralgia - Neuritis (729.2) Active confirmed Problem Pain in limb (43274999) Pain in Limb (729.5) Active confirmed Problem Plantar fasciitis (092437301) Plantar Fasciitis (728.71) Active confirmed Problem Ramos splints (9231281876) Ramos Splints (844.9) Active confirmed Problem Ulcer of toe of right foot (disorder) (571607089185 45922) Skin ulcer of toe of right foot, limited to breakdown of skin (L97.511) Active confirmed Improvement Problem Ulcer of toe of left foot (disorder) (679165253362 69649) Skin ulcer of toe of left foot, limited to breakdown of skin (L97.521) Active confirmed Plan Of Treatment Pending Test Test Name Order Date [id number]-[id number] Plate 04/06/2023 Insurance Providers Payer Name Payer Address Payer Phone Subscriber Number Group Number Insured Name Patient Relationship to Insured Coverage Start Date Coverage End Date [facility] [address] [place] [id number] Carlos Kelly mp Spouse - patient is [...]
== END 2025-04-15 10:44 | disposition home or self-care (01) ==
LOC: HO.HMGAL 10:32
PROVIDERS: PCP Internal Medicine; Visit Provider Registered Nurse Emergency
DX: J30.89 Other allergic rhinitis (principal)
CPT/HCPCS: 95117; 95165

== ENCOUNTER 2025-05-05 11:21 | Outpatient (AMB) | payer OTHER, SELFPAY ==
--- OUTSIDE RECORDS SUMMARY | 2024-03-11 10:30 | XMS_ITS ---
Author Organization [facility] Address [address] [place] [address] Care Team Providers Care Irrigator Sprinkling System Name Role Phone Kayley Kruger MD Primary Care Provider UnavailRiki Hunt Unavailable [phone] Barbara HUTCHINSON, Hai Unavailable Unavailable REASON FOR VISIT gerd,cough Problems Problem Type SNOMED Code ICD Code Onset Dates Problem Status W/U Status Risk Notes Problem Gastro-esophagea l reflux disease without esophagitis (424917879) Gastro-esophage al reflux disease without esophagitis (K21.9) Active confirmed Encounters Encounter Location Date Provider Diagnosis [facility] Outpatient [address] [place] [phone] 03/11/2024 Riki Portillo Gastro-esophageal reflux disease without [...] Progress Notes * SHAHEEDCLARISSEOBEYSOLAOB:08/1964 (59 yo F)Acc No.[id number]:03/11/2024 COLON WITH MAC Patient: NIKOLAI BARNETT Provider: Thomas Portillo MD :1965 A ge:58 Y S ex:Female Date:03/11/2024 Address:[address] [place] [address] , [id number] Pcp:Kayley Kruger MD Subjective: * Chief Complaints: [...] 0 03/11/2024 Generated for Farooq dueñas/Anna/Michelleitting on: 0 05/05/2025 02:04 PM EDT
--- OUTSIDE RECORDS SUMMARY | 2025-04-02 08:30 | XMS_ITS ---
Author Organization [facility] Address [address] [place] [id number] Care Team Providers Care Plastic Press Molder Name Role Phone Slick HUTCHINSON, Kayley Primary Care Provider UnavailRiki Hunt Unavailable [phone] Barbara HUTCHINSON, Hai Unavailable Unavailable REASON FOR VISIT screening,hx polyps Encounters Encounter Location Date Provider Diagnosis [facility] [address] [place] [id number] 04/02/2025 Riki Portillo Plan Of Treatment No Information Progress Notes * MICHEAL BYRDOB:08/1964 (59 yo F)Acc No.[id number]:04/02/2025 COLON WITH MAC Patient: NIKOLAI BARNETT Provider: Thomas Portillo MD :1965 A ge:59 Y S ex:Female Date:04/02/2025 Address:[address] [place] [address] [address] [id number] Pcp:Kayley Kruger MD Subjective: * Chief Complaints: [...] MD Date: 0 04/02/2025 Generated for Rexi ng/Faxing/eTransmitting on: 05/05/2025 02:05 PM EDT
--- OUTSIDE RECORDS SUMMARY | 2025-05-05 14:05 | XMS_ITS | Patient Health Record ---
Author Organization [facility] Address [address] [place] [address] Care Team Providers Care Golf Course Ranger Name Role Phone Kayley Kruger MD Primary Care Provider Unavaila ble Black, Emily Unavailable [phone] Allergies Allergen (clinical drug ingredient) Drug/Non Drug [...] Status W/U Status Risk Notes Problem Bursitis (29160400) Bursitis (727.3) Active confirmed Problem Hammer toe (367420965) Hammer toe (735.4) Active confirmed Problem Myositis (52597902) Myositis (729.1) Active confirmed Problem Neuralgia - Neuritis (729.2) Active confirmed Problem Pain in limb (04095942) Pain in Limb (729.5) Active confirmed Problem Plantar fasciitis (993464342) Plantar Fasciitis (728.71) Active confirmed Problem Ramos splints (7921912334) Ramos Splints (844.9) Active confirmed Problem Ulcer of toe of right foot (disorder) (762749696234 71519) Skin ulcer of toe of right foot, limited to breakdown of skin (L97.511) Active confirmed Improvement Problem Ulcer of toe of left foot (disorder) (584255942302 50746) Skin ulcer of toe of left foot, limited to breakdown of skin (L97.521) Active confirmed Plan Of Treatment Pending Test Test Name Order Date 55699-[id number] Plate 04/06/2023 Insurance Providers Payer Name Payer Address Payer Phone Subscriber Number Group Number Insured Name Patient Relationship to Insured Coverage Start Date Coverage End Date [facility] [address] [place] [phone] [id number] Carlos Kelly mp Spouse - patient is [...]
--- OUTSIDE RECORDS SUMMARY | 2025-05-05 14:05 | XMS_ITS | Clinical Summary ---
Author Organization [facility] Address [address] [place] [address] Phone Care Team Providers Care Multi Craft Maintenance Technician Name Role Phone Kayley Kruger MD Primary Care Provider [phone] Encounters Date Type Department Care Team Description 04/21/2025 9:39 AM EDT - 04/21/2025 11:59 PM EDT [facility] [address] [address] Encounter for screening mammogram for breast cancer Discharge Disposition: Home or Self Care from Last 3 Months Medical History Medical History Date Comments BRCA1 gene mutation negative BRCA2 gene mutation negative Family History Medical History Relation Name Comments Breast cancer Cousin 1 Breast cancer Cousin 2 Breast cancer Father's Sister 1 Relation Name Status Comments Cousin 1 Alive Cousin 2 Alive Father's Sister 1 Alive Father's Sister 2 Alive Social History Tobacco Use Types Packs/Day Years Used Date Smoking Tobacco: Never Assessed Comments No Sex and Gender Information Value Date Recorded Sex Assigned at Not on file Legal Sex Female 6:28 PM EST Gender Identity Not on file Sexual Orientation Not on file Obstetrics History Para Term AB IAB SAB Ectopic Multiple Livin g Live Births 2 Last Filed Vital Signs Vital Sign Reading Time Taken Comments Blood Pressure - - Pulse - - Temperature - - Respiratory Rate - - Oxygen Saturation - - Inhaled Oxygen Concentration - - Weight 98 kg (216 lb) 04/21/2025 9:48 AM EDT Height 165.1 cm (5' 5 ) 04/21/2025 9:48 AM EDT Body Mass Index 35.94 04/21/2025 9:48 AM EDT Plan of Treatment Upcoming Encounters Date Type Department Care Team (Late st Contact Info) Description 04/22/2026 9:45 AM EDT [facility]ointment [facility] [address] [address] Health Maintenance Due Date Last Done Comments DTaP,Tdap,and Td Vaccines (1 - Tdap) 1986 Hepatitis A Vaccines (1 of 2 - Risk 2-dose series) 1986 Hepatitis B Vaccines (1 of 3 - 19+ 3-dose series) 1986 Cervical Cancer Screening: Pap Smear 1988 Pneumococcal Vaccine: 50+ Years (1 of 1 - PCV) 2017 Zoster Vaccines (1 of 2) 2017 Cholesterol Screening (Lipid Panel) 07/30/2022 Colorectal Cancer Screening: Colonoscopy 07/30/2022 HIV Screening 07/30/2022 Hepatitis C Screening 07/30/2022 Social Influencers of Health Screening 07/30/2022 Depression Screening 08/28/2024 COVID-19 Vaccine ( season) 2025 08/06/2021, 11/10/2020 Influenza Vaccine (#1) 2025 05/13/2020 Breast Cancer Screening 04/21/2027 04/21/20, 04/17/2024, 04/10/2023, Additional history exists HIB Vaccines Aged Out [...] Procedure Name Priority Date/Time Associated Diagnosis Comments MG MAMMO DIGITAL SCREENING W NAV BILAT Routine 04/21/2025 9:55 AM EDT Encounter for screening mammogram for breast cancer from Last 3 Months Results * MG Mammo Digital Screening w Nav bilat (04/21/2025 9:55 AM EDT) Anatomical Region Laterality Modality Breast Bilateral Mammography 04/21/2025 10:5 1 AM EDT Impressions 04/21/2025 11:00 AM EDT No mammographic evidence of malignancy. No suspicious interval change. A negative mammogram in the presence of a clinically suspicious palpable abnormality does not preclude the possibility of malignancy or alter the indications for biopsy. ASSESSMENT: BI-RADS 2: BENIGN RECOMMENDATION(S): 1: Routine screening mammogram BILATERAL in 1 year. [facility] [address], [address] -------- FINAL REPORT -------- Dictated By: Priyank Valderrama Dictated Date: 04/21/2025 10:51 ET Assigned Physician: Priyank Valderrama Reviewed and Electronically Signed By: Priyank Valderrama Signed Date: 04/21/2025 11:00 ET Workstation ID: [id number] Transcribed By: Self Edit Transcribed Date: 04/21/2025 10:51 ET Narrative 04/21/2025 11:00 AM EDT EXAM: SCREENING MAMMOGRAPHY, BILATERAL HISTORY: SCREENING. Family history of breast cancer; maternal aunt and cousins COMPARISON: 04/16/24, 04/10/23, 04/07/22, 04/02/21, 02/23/19, 02/17/18 TECHNIQUE: Synthesized CC and MLO projections of each breast. Tomosynthesis of each breast in the CC and MLO projections. ADDITIONAL IMAGING: None Computer-aided detection was employed with the [employer]vers[employer] AI 3-D. TISSUE DENSITY: There are scattered areas of fibroglandular density. (BI-RADS category B) FINDINGS: RIGHT BREAST: No suspicious mass. No suspicious calcification. No distortion. No additional suspicious right breast findings LEFT BREAST: No new suspicious mass. No suspicious calcification. No distortion. No suspicious change in a 0.7 cm focal asymmetry in the 11 o'clock position 6 cm from the left nipple. Procedure Note Priyank Valderrama MD - 04/21/2025 EXAM: SCREENING MAMMOGRAPHY, BILATERAL HISTORY: SCREENING. Family history of breast cancer; maternal aunt andcousins COMPARISON: 04/16/24, 04/10/23, 04/07/22, 04/02/21, 02/23/19, 02/17/18 TECHNIQUE: Synthesized CC and MLO projections of each breast.Tomosynthesis of each breast in the CC and MLO projections. ADDITIONAL IMAGING: None Computer-aided detection was employed with the iCAD ProFound AI 3-D. TISSUE DENSITY: There are scattered areas of fibroglandular density.(BI-RADS category B) FINDINGS: RIGHT BREAST: No suspicious mass. No suspicious calcification. No distortion. Noadditional suspicious right breast findings LEFT BREAST: No new suspicious mass. No suspicious calcification. No distortion. Nosuspicious change in a 0.7 cm focal asymmetry in the 11 o'clock position 6cm from the left nipple. IMPRESSION: No mammographic evidence of malignancy. No suspicious interval change. A negative mammogram in the presence of a clinically suspicious palpableabnormality does not preclude the possibility of malignancy or alter theindications for biopsy. ASSESSMENT: BI-RADS 2: BENIGN RECOMMENDATION(S): 1: Routine screening mammogram BILATERAL in 1 year. [facility] [address], [address] -------- FINAL REPORT -------- Dictated By: Priyank Valderrama Dictated Date: 04/21/2025 10:51 ET Assigned Physician: Priyank Valderrama Reviewed and Electronically Signed By: Priyank Valderrama Signed Date: 04/21/2025 11:00 ET Workstation ID: [id number] Transcribed By: Self Edit Transcribed Date: 04/21/2025 10:51 ET us Self Referral Spp[facility] IMG BI PROCEDURES Final Resul t from Last 3 Months Insurance [employer] Care Teams Multi Craft Maintenance Technician Relationship Specialty Start Date End Date Kayley Kruger MD [address] [place] [phone] PCP - General Internal Medicine 03/25/25
--- OUTSIDE RECORDS SUMMARY | 2025-05-05 14:06 | XMS_ITS | Patient Health Record ---
Author Organization [facility] Address [address] [place] [address] Care Team Providers Care Corporate Travel Counselor Name Role Phone Kayley Kruger MD Primary Care Provider Unavaila Riki Ellis Unavailable [phone] Barbara HUTCHINSON, Hai Unavailable Unavailable Allergies Allergen [...] Results Component Value Reference Range Notes Pathology (Not yet reviewed by provider) Interpretation: Performing Lab:[facility], [address] [place] [phone] Notes/Report: Reason For Referral Referring Provider First Name Kayley Referring Provider Last Name Slick Referring Provider Speciality Internal M edicine Referred Organization [facility] Referred Provider Riki Prescott Referred Address [address],[place], [place],[address], Referred Provider Specialty Gastroentero logy General Notes Radha Roberts 2024 02:11:17 PM >SPOKE WITH ELLIOTT [phone] AT [facility] AND REQUESTED A REFERRAL FOR THE PATIENT'S COLON WITH DR PRESCOTT IN [place] Referral Priority Routine Medications Medication SIG (Take, Route, Frequency, Duration) Notes Start Date End Date Status Melatonin Active Pregnenolone Not-Terrence ing Niacinamide ER Activ e Green Tea Extract No t-Taking Progesterone Active Saw [place] Not-Terrence ing Cortisol Basin Cleaner Not -Taking Tylenol PM Extra Strength Not-Taking [...] Notes Problem Gastro-esophageal reflux disease without esophagitis (340279953) Gastro-esophag eal reflux disease without esophagitis (K21.9) Active confirmed Problem Screening for malignant neoplasm of colon (254642931) Encounter for screening for malignant neoplasm of colon (Z12.11) Active confirmed Problem History of polyp of colon (situation) (306171919) History of colon polyps (Z86.010) Active confirmed Problem Hiatal hernia (89197678) Hiatal hernia (K44.9) Active confirmed Problem Cough (38679584) Cough (R05.9) Active confirmed Problem Gastroesophageal reflux disease (disorder) (643891047) Chronic GERD (K21.9) Active confirmed Vital Signs Blood pressure diastolic 111 mm Hg 10/29/2024 Height 5 ft 5.5 in in 10/29/2024 Blood pressure systolic 111 mm Hg 10/29/2024 Weight 215 lbs 10/29/2024 BMI 35.23 kg/m2 10/29/2024 Procedures Procedure Date Ordered Date Performed Result Body Sit e COLONOSCOPY 10/29/2024 N/A Encounters Encounter Location Date Provider Diagnosis [facility] Outpatient [address] [place] [id number] 04/02/2025 Riki Prescott [facility] [address] [place] [phone] 10/29/2024 Riki Prescott History of colon polyps Z86.010 ; Gastro-esophageal reflux disease without esophagitis K21.9 ; Encounter for screening for malignant neoplasm of colon Z12.11 and Cough R05.9 [facility] [address] [place] [phone] 01/31/2025 Riki Prescott [facility] [address] [place] [address] 03/25/2025 Riki Prescott Assessments Encounter Date Diagnosis (ICD Code) Assessment Notes Treatment Notes Treatment Clinical Notes Section Notes 10/29/2024 Gastro-esophage al reflux disease without esophagitis (ICD-10 - K21.9) Decrease the 40mg omeprazole to just one a day fopr the heartburn Overall, Jose appears well. She is not having any particularly new or worrisome GI complaints. Her reflux seems stable and I have advised her to decrease the 40 mg omeprazole to just once a day again as this does seem to control her reflux. I do not think she needs to be on it twice a day as that did not help resolve her cough at all. At this point I did advise her to follow-up with Dr. Yousif at [facility] for further discussions and possible surgery in regard to a gastric bypass and hiatal hernia repair that could potentially treat both her obesity and chronic cough. I have recommended a follow-up colonoscopy for later this year in regard to her reported personal history of colon polyps and need for a follow-up colonoscopy in 2024 as recommended by her previous provider. We did review the rationale for this in regard to colon cancer prevention. Full consent has been obtained for this, including risks of bleeding and perforation. The procedure will be done with monitored anesthesia care. Norma was comfortable with this plan. Thank you again for allowing me to participate in Norma's care. I shall continue to keep you advised of her progress. 10/29/2024 History of colon polyps (ICD-10 - Z86.010) Overall, Jose appears well. She is not having any particularly new or worrisome GI complaints. Her reflux seems stable and I have advised her to decrease the 40 mg omeprazole to just once a day again as this does seem to control her reflux. I do not think she needs to be on it twice a day as that did not help resolve her cough at all. At this point I did advise her to follow-up with Dr. Yousif at [facility] for further discussions and possible surgery in regard to a gastric bypass and hiatal hernia repair that could potentially treat both her obesity and chronic cough. I have recommended a follow-up colonoscopy for later this year in regard to her reported personal history of colon polyps and need for a follow-up colonoscopy in 2024 as recommended by her previous provider. We did review the rationale for this in regard to colon cancer prevention. Full consent has been obtained for this, including risks of bleeding and perforation. The procedure will be done with monitored anesthesia care. Norma was comfortable with this plan. Thank you again for allowing me to participate in Norma's care. I shall continue to keep you advised of her progress. 10/29/2024 Encounter for screening for malignant neoplasm of colon (ICD-10 - Z12.11) Overall, Jose appears well. She is not having any particularly new or worrisome GI complaints. Her reflux seems stable and I have advised her to decrease the 40 mg omeprazole to just once a day again as this does seem to control her reflux. I do not think she needs to be on it twice a day as that did not help resolve her cough at all. At this point I did advise her to follow-up with Dr. Yousif at [facility] for further discussions and possible surgery in regard to a gastric bypass and hiatal hernia repair that could potentially treat both her obesity and chronic cough. I have recommended a follow-up colonoscopy for later this year in regard to her reported personal history of colon polyps and need for a follow-up colonoscopy in 2024 as recommended by her previous provider. We did review the rationale for this in regard to colon cancer prevention. Full consent has been obtained for this, including risks of bleeding and perforation. The procedure will be done with monitored anesthesia care. Norma was comfortable with this plan. Thank you again for allowing me to participate in Norma's care. I shall continue to keep you advised of her progress. 10/29/2024 Cough (ICD-10 - R05.9) Continue follow up [facility] for the weight loss procedure and the hiatal hernia surgery Overall, Jose appears well. She is not having any particularly new or worrisome GI complaints. Her reflux seems stable and I have advised her to decrease the 40 mg omeprazole to just once a day again as this does seem to control her reflux. I do not think she needs to be on it twice a day as that did not help resolve her cough at all. At this point I did advise her to follow-up with Dr. Yousif at [facility] for further discussions and possible surgery in regard to a gastric bypass and hiatal hernia repair that could potentially treat both her obesity and chronic cough. I have recommended a follow-up colonoscopy for later this year in regard to her reported personal history of colon polyps and need for a follow-up colonoscopy in 2024 as recommended by her previous provider. We did review the rationale for this in regard to colon cancer prevention. Full consent has been obtained for this, including risks of bleeding and perforation. The procedure will be done with monitored anesthesia care. Norma was comfortable with this plan. Thank you again for allowing me to participate in Norma's care. I shall continue to keep you advised of her progress. Plan Of Treatment Pending Test Test Name Order Date Esophageal Motility study 04/04/2024 COLONOSCOPY 10/29/2024 Pathology 04/02/2025 Future Test Test Name Order Date UPPER GI ENDOSCOPY 03/01/2024 Insurance Providers Payer Name Payer Address Payer Phone Subscriber Number Group Number Insured Name Patient Relationship to Insured Coverage Start Date Coverage End Date [facility] (JADRA Lakisha MCCORMICK) [address] [place] [phone] [id number] NORMA ESCOTO Self - patient is the insured Medical (General) History Medical History History ICD Code Degenerative disc disease/Arthritis-lowe r back Hypercholesterolemia/high trigylcerides IBS HYPOTHYRODISM/HASHIMOTOS DX 2019 Urinary incontinence Depression Denies CT,DM,CVA,Lung disease,renal dise ase 3 previous colonoscopies wit h removal of polyps on at least one of them. She is due for another colonoscopy in 2024. Hiatal hernia seen on a CT scan of her c hest in November of 2023 Upper endoscopy in February revealed a moderate-sized hiatal hernia, but no evidence of significant esophagitis or Gallagher's esophagus- -Normal esophageal motility studies at [facility] in April 2024 Thyroid cancer- Papillary ca rcinoma found during her thyroidectomy in June 2024. Surgical History Surgery Date(Month/Year) Potential gastric bypass for weight loss and hiatal hernia surgery for her chronic coughing with Dr. Bib Yousif at [facility]- she met with him in the early part of 2024 Thyroidectomy-complete- papillary carcin patrick 07/15/2024 Nerve ablation for back pain Hemorrhoid banding Endometrial Ablation [facility] [place] teeth extraction Tonsillectomy and adenoidectomy
== END 2025-05-05 11:23 | disposition home or self-care (01) ==
LOC: HO.HMGAL 11:21
PROVIDERS: PCP Internal Medicine; Visit Provider Registered Nurse Emergency
DX: J30.89 Other allergic rhinitis (principal)
CPT/HCPCS: 95117; 95165

== ENCOUNTER 2025-06-11 11:36 | Outpatient (AMB) | payer OTHER, SELFPAY ==
--- OUTSIDE RECORDS SUMMARY | 2025-06-11 14:40 | XMS_ITS | Data Portability ---
Author Organization [facility] [address] Address [address] [place] [address] Care Team Providers Care County Administrator Name Role Phone GRAHAM CHAVIRA Primary Care Provider Assessment No assessment recorded. Plan of Treatment Reminders Order Date Submit Date Provider Last Modified By Organization Details Last Modified Time Details Appointments None recorded. Lab urinalysis , dipstick 2022 023 [email or web address] [facility], [address] [place] [address], [phone], 18:37:04 culture, urine 2022 023 [facility], [address] [place] [address], [place], [address], 06:07:30 Referral None recorded. Procedures None recorded. Surgeries None recorded. Imaging None recorded. Medication Orders None recorded. Patient TargetsNo targets recorded. Patient Instructions Encounter Date Encounter Id Patient Instructions Last Modified By Organization Details Last Modified Time 09/28/2022 [id number] upper and middle back (thoracic) strain: care instructions [email or web address] Not available 09/28/2022 18:37:04 constipation: care instructions [email or web address] Not available 09/28/2022 18:37:04 I would continue [...] Blood in Urine. Thank you for using [facility], please feel free to contact us if you have any questions or concerns. [email or web address] Not available 09/28/2022 18:37:03 Reason for Referral None Reported. Results Created Date Observation Date Name Description Value Unit Range Abnormal Flag Note LastModifiedBy Organization Detail LastModifiedTime 09/28/1910/01/2022 URINE CULTU RE, DARA NE urine culture, routine FINAL REPORT Not Available [facility] ([facility]) [address] [facility], [place], [address], 10/01/2022 06:07:30 09/28/19 23 10/01/2022 URINE CULTU REDARA NE result 1 NO GROWTH Not Available [facility] ([facility]) [address] [facility], [place], [address], 10/01/2022 06:07:30 09/28/1909/28/2022 urina lysis , dipst ick Unknown Analyte Normal = light yellow Not Available [address], [address], 09/28/2022 17:46:46 09/28/1909/28/2022 urina lysis , dipst ick Unknown Analyte Normal = clear Not Available [address], [address], 09/28/2022 17:46:46 09/28/1909/28/2022 urina lysis , dipst ick Unknown Analyte Normal = negati ve Not Available [address] [place] [address], [phone], 09/28/2022 17:46:46 09/28/19 23 09/28/2022 urina lysis , dipst ick Unknown Analyte Normal = Negati ve Not Available sarah flores [address], [place], [address], 09/28/2022 17:46:46 09/28/19 23 09/28/2022 urina lysis , dipst ick Unknown Analyte Normal = Negati ve Not Available [address]sarah flores [address], [place], [address], 09/28/2022 17:46:46 09/28/19 23 09/28/2022 urina lysis , dipst ick Unknown Analyte Normal = 1.010, 1.015, 1.020 Not Available [address]sarah flores [address], [place], [address], 09/28/2022 17:46:46 09/28/1909/28/2022 urina lysis , dipst ick Unknown Analyte Normal = Negati ve Not Available sarah flores [address], [place], [address], 09/28/2022 17:46:46 09/28/1909/28/2022 urina lysis , dipst ick Unknown Analyte Normal = 6.5, 7.0, 7.5, 8.0 Not Available sarah flores [address], [place], [address], 09/28/2022 17:46:46 09/28/19 23 09/28/2022 urina lysis , dipst ick Unknown Analyte Normal = Negati ve Not Available [address]sar[address] flores [address], [place], [address], 09/28/2022 17:46:46 09/28/19 23 09/28/2022 urina lysis , dipst ick Unknown Analyte Normal = 0.2, 1.0 Not Available [address]sar[address] flores [address], [place], [address], 09/28/2022 17:46:46 09/28/19 23 09/28/2022 urina lysis , dipst ick Unknown Analyte Normal = Negati ve Not Available sarah flores [address], [place], [address], 09/28/2022 17:46:46 09/28/19 23 09/28/2022 urina lysis , dipst ick Unknown Analyte Normal = Negati ve Not Available sarah flores [address], [place], [address], 09/28/2022 17:46:46 09/28/19 23 09/28/2022 urina lysis , dipst ick Unknown Analyte Yellow Not Available janee [address], [place], [address], 09/28/2022 17:46:46 09/28/19 23 09/28/2022 urina lysis , dipst ick Unknown Analyte Clear Not Available janee [address], [place], [address], 09/28/2022 17:46:46 09/28/19 23 09/28/2022 urina lysis , dipst ick Unknown Analyte Negati ve Not Available sarah flores [address], [place], [address], 09/28/2022 17:46:46 09/28/19 23 09/28/2022 urina lysis , dipst ick Unknown Analyte Negati ve Not Available sarah flores [address], [place], [address], 09/28/2022 17:46:46 09/28/19 23 09/28/2022 urina lysis , dipst ick Unknown Analyte Negati ve Not Available sarah flores [address], [place], [address], 09/28/2022 17:46:46 09/28/19 23 09/28/2022 urina lysis , dipst ick Unknown Analyte <=1.00 5 Not Available sarah flores [address], [place], [address], 09/28/2022 17:46:46 09/28/19 23 09/28/2022 urina lysis , dipst ick Unknown Analyte Negati ve Not Available sarah flores [address], [place], [address], 09/28/2022 17:46:46 09/28/19 23 09/28/2022 urina lysis , dipst ick Unknown Analyte 6.0 Not Available janee [address], [place], [address], 09/28/2022 17:46:46 09/28/19 23 09/28/2022 urina lysis , dipst ick Unknown Analyte Negati ve Not Available sarah flores [address], [place], [address], 09/28/2022 17:46:46 09/28/19 23 09/28/2022 urina lysis , dipst ick Unknown Analyte 0.2 E.U./d L Not Available sarah flores [address], [place], [address], 09/28/2022 17:46:46 09/28/19 23 09/28/2022 urina lysis , dipst ick Unknown Analyte Negati ve Not Available sarah flores [address], [place], [address], 09/28/2022 17:46:46 09/28/1909/28/2022 urina lysis , dipst ick Unknown Analyte Negati ve Not Available [address] [place] [address], [place], [address], 09/28/2022 17:46:46 Result Notes None recorded. Problems Name Problem SNOMED Code Status Onset Date Resolution Date Notes Provider Name and Address Organization Details Recorded Time Disorder of thyroid gland 09387789 Active 2022 FREDY TITO null, [place] - [facility] 18:00:39 Disorder of back 34244128 Active 2022 FREDY TITO null, [place] - [facility] 18:00:51 Osteoarthritis 415718269 Active 2022 FREDY TITO null, [place] - [facility] 18:01:03 Spinal stenosis 82066531 Active 2022 FREDY TITO null, [place] - [facility] 18:04:23 Problem Notes None recorded. Medical Equipment None Reported. Allergies Allergen ID Allergen Name Allergen Category Reaction Reaction Severity Criticality Documentation Date Start Date Code Code System Note Provider Name and Address Organization Details Recorded Time 865270 ampicilli n medicatio n rash Not available Not available 09/28/2022 733 RxNorm FREDY TITO null, [place] - [facility] 3 17:50:08 221278 Biaxin medicatio n nausea Not available Not available 09/28/202204176 9 RxNorm FREDY TITO null, [place] - [facility] 3 17:50:22 876647 Substance with sulfonami de structure and antibacte rial mechanism of action (substanc e) medicatio n vomiting Not available Not available 09/28/2022 59342 8003 SNOMED FREDY TITO null, PA - [facility] 3 17:50:41 256409 Wellbutri n medicatio n hives Not available Not available 09/28/2022 91607 RxNorm FREDY TITO null, [place] - [facility] 3 17:50:57 772047 erythromy mk medicatio n vomiting Not available Not available 09/28/2022 4053 RxNorm FREDY TITO null, [place] - [facility] 3 17:51:10 861767 Ceftin medicatio n vomiting Not available Not available 09/28/2022 08911 6 RxNorm FREDY TITO null, [place] - [facility] 3 17:51:32 005389 propofol medicatio n hives Not available Not available 09/28/2022 8782 RxNorm FREDY TITO null, [place] - [facility] 3 17:52:02 546496 morphine medicatio n vomiting Not available Not available 09/28/2022 7052 RxNorm FREDY TITO null, [place] - [facility] 3 17:52:23 865929 doxycycli ne Not available rash Not available [...] Updated DateTime 3 167.64 cm 34.4 kg/m2 48081.1 7 g 6 98 % 98 % 78 /min 18 /min 98.8 [degF] 139/76 mm[Hg] [facility] 18:05:05 Social History Question Answer Notes LastModified by [employer] Details LastModified Time Tobacco Smoking Status Never Smoker FREDY iqbal PA Fermin [facility] 09/28/2022 18:02:10 Have You Recently Traveled Abroad? No Information not available 09/28/2022 Sex: Unknown Functional Status Question Answer Note LastModified by [employer] Details LastModified Time Do you use any [...] PF, 0.5 mL 11/10/2020 completed FREDY FRANCIS null, [place] - [facility] 09/28/2022 17:48:50 Influenza, split virus, quadrivalent, PF 05/13/2020 completed FREDY FRANCIS null, [place] - [facility] 09/28/2022 17:48:50 Past Encounters Encounter ID Performer Location Encounter Start Date Encounter Closed Date Diagnosis/Indication Diagnosis SNOMED-CT Code Diagnosis ICD10 Code Diagnosis IMO Codes Diagnosis Note [id number] [address] [place] [address] 11/28/2021 13:00:40 11/28/2021 15:33:40 [id number] [address] [place] [address] 05/18/2016 14:19:24 05/18/2016 17:11:45 [id number] [address] [place] [address] 05/20/2016 13:12:48 05/20/2016 14:14:51 [id number] KELSI BESS [address] [place] [address] 09/28/2022 16:00:24 09/28/2022 18:39:47 Thoracic back pain 222860153 M54.6 Differenti al - Kidney Stone, Constipati on, costochond ritis, Thoracic nerve impingemen t. Health Concerns Section Related Observation LastModified by Organization Detai ls LastModified Time None Recorded Concern Status LastModified by Organization Details LastModified Time None Recorded Advance Directives Directive None Recorded Payers Insurance Date Sequence Insurance Name Policy Number Policy Saunders Covered Member ID Saunders Member ID Guarantor Name 09/28/2022 1 [facility] [employer] [facility] ([facility]) [id number] Norma Mckeon [id number] Norma Mckeon Notes Date Note Type Note Provider Name and Address Organization Details Recorded Time 09/28/2022 text/html Urinary Complain t FemaleReported by Patient Back Pain/Injury UCReported by PatientHPIFor quality, patient reportssharp. For source of patient information, patient reportsinformation obtained from patient. For location, patient reportspain is not radiatingandmiddle of the back. For duration, patient reports2 days. For alleviating factors, patient reportsnothing helps. For aggravating factors, patient reportscannot identify.The patient reports that on a ride back from [place] started to get a deep sharp pain [...] Does not feel nauseated. KELSI BESS [address] [place], [address], [place] - [facility] 09/28/2022 21:52:03 OBGyn Episode No OBEpisode recorded.
== END 2025-06-11 11:37 | disposition home or self-care (01) ==
LOC: HO.HMGAL 11:36
PROVIDERS: PCP Internal Medicine; Visit Provider Registered Nurse Emergency
DX: J30.89 Other allergic rhinitis (principal)
CPT/HCPCS: 95117; 95165

== ENCOUNTER 2025-06-16 08:38 | Outpatient (AMB) | payer OTHER, SELFPAY ==
--- OUTSIDE RECORDS SUMMARY | 2024-03-11 10:30 | XMS_ITS ---
Author Organization [facility] [place] Address [address] [place] [phone] Care Team Providers Care Web Marketing Intern Name Role Phone Kayley Kruger MD Primary Care Provider UnavailRiki Hunt Unavailable [phone] Barbara HUTCHINSON, Hai Unavailable Unavailable REASON FOR VISIT gerd,cough Problems Problem Type SNOMED Code ICD Code Onset Dates Problem Status W/U Status Risk Notes Problem Gastro-esophagea l reflux disease without esophagitis (763986110) Gastro-esophage al reflux disease without esophagitis (K21.9) Active confirmed Encounters Encounter Location Date Provider Diagnosis [facility] [place] [address] [place] [phone] 03/11/2024 Riki Portillo Gastro-esophageal reflux disease without esophagitis K21.9 ; Hiatal hernia K44.9 and Chronic cough R05.3 Assessments Encounter Date Diagnosis (ICD Code) Assessment Notes Treatment Notes Treatment Clinical Notes Section Notes 03/11/2024 Gastro-esophagea l reflux disease without esophagitis (ICD-10 - K21.9) 03/11/2024 Hiatal hernia (ICD-10 - K44.9) 03/11/2024 Chronic cough (ICD-10 - R05.3) Plan Of Treatment No Information Progress Notes * SHAHEEDCLARISSE OBEYSOLAOB:08/1964 (59 yo F)Acc No.[id number]:03/11/2024 COLON WITH MAC Patient: NIKOLAI BANRETT Provider: Thomas Portillo MD :1965 A ge:58 Y S ex:Female Date:03/11/2024 Address:[address] [place] [address] , [id number] Pcp:Kayley Kruger MD Subjective: * Chief Complaints: [...] 0 03/11/2024 Generated for Farooq dueñas/Anna/Michelleitting on: 1 09:30 AM EDT
--- OUTSIDE RECORDS SUMMARY | 2025-04-02 08:30 | XMS_ITS ---
Author Organization [facility] Address [address] [place] [id number] Care Team Providers Care Global Account Director Name Role Phone Slick HUTCHINSON, Kayley Primary Care Provider UnavailRiki Hunt Unavailable [phone] Barbara HUTCHINSON, Hai Unavailable Unavailable REASON FOR VISIT screening,hx polyps Encounters Encounter Location Date Provider Diagnosis [facility] [place] [address] [place] [id number] 04/02/2025 Riki Portillo Plan Of Treatment No Information Progress Notes * MICHEAL BYRDOB:08/1964 (59 yo F)Acc No.[id number]:04/02/2025 COLON WITH MAC Patient: NIKOLAI BARNETT Provider: Thomas Portillo MD :1965 A ge:59 Y S ex:Female Date:04/02/2025 Address:[address] [place] [address] [address] [id number] Pcp:Kayley Kruger MD Subjective: * Chief Complaints: [...] Portillo MD Date: 0 04/02/2025 Generated for Printi ng/Faxing/eTransmitting on: 09:30 AM EDT
[2025-06-16 08:47] VITALS: BP 122/90; PULSE 91; TEMP 36.8; O2SAT 96; BMI 35.2
--- NOTE | 2025-06-16 08:47 | AM.OFFWIN_ITS ---
Intake Vital Signs 06/16/25 08:47 Height 5 ft 5 in Weight 211 lb 6 oz BMI 35.2 BP 122/90 H Blood Pressure Location Rt brachial Position Sitting Pulse 91 Pulse Source Pulse Oximeter Temp 98.2 F Temp Source Oral Pulse Oximetry (%) 96 Oxygen Delivery Method Room Air Intake Visit Reasons: EP possible bronchitis [phone] Intake Note: Patient presents for sore throat & barking/hacking cough, SOB on exertion, chest heaviness x2 weeks - ? bronchitis (previously had in April) Patient Tobacco Use Status: Never used Tobacco Allergies Sulfa (Sulfonamide Antibiotics) (SULFA(SULFONAMIDE ANTIBIOTICS)) Allergy (Intermediate, Verified 06/16/25 08:50) NAUSEA/VOMITING ampicillin (AMPICILLIN) Allergy (Mild, Verified 06/16/25 08:50) RASH bupropion (From Wellbutrin) Allergy (Mild, Verified 06/16/25 08:50) Hives clarithromycin (From BIAXIN) Allergy (Mild, Verified 06/16/25 08:50) NAUSEA atorvastatin (Lipitor) Allergy (Unknown, Verified 06/16/25 08:50) leg cramps cefaclor Allergy (Unknown, Verified 06/16/25 08:50) Unknown doxycycline Allergy (Unknown, Verified 06/16/25 08:50) Rash erythromycin base (ERYTHROMYCIN BASE) Allergy (Unknown, Verified 06/16/25 08:50) sick to stomach ezetimibe (Zetia) Allergy (Unknown, Verified 06/16/25 08:50) leg cramps morphine (MORPHINE) Allergy (Unknown, Verified 06/16/25 08:50) VOMITING propofol (PROPOFOL) Allergy (Unknown, Verified 06/16/25 08:50) HIVES rosuvastatin (Crestor) Allergy (Unknown, Verified 06/16/25 08:50) leg cramps sulfacetamide Allergy (Unknown, Verified 06/16/25 08:50) Gastrointestinal Upset simvastatin Adverse Reaction (Unknown, Verified 06/16/25 08:50) leg cramps From CEFTIN Allergy (Mild, Uncoded 06/16/25 08:50) NAUSEA Ceftin Allergy (Unknown, Uncoded 06/16/25 08:50) Unknown Doxycycline Hyclate Allergy (Unknown, Uncoded 06/16/25 08:50) Rash GLP 1 AGONISTS Adverse Reaction (Uncoded 06/16/25 08:50) Abdominal Pain Medication List - Last Reconciled 06/16/25 by Stephanie Welch NP albuterol sulfate 90 mcg/actuation 2 puffs inhalation Q6H PRN cetirizine (Zyrtec) 10 mg PO DAILY codeine-guaifenesin 10-100 mg/5 mL 10 mL PO Q6H 5 days epinephrine 0.3 mg IM ONCE PRN escitalopram oxalate 10 mg PO DAILY evolocumab (Repatha SureClick) 1 mg (0.0071 mL) subcut Q2W fenofibrate 160 mg PO DAILY hydroxyzine pamoate mg PO levothyroxine (Tirosint) 137 mcg PO DAILY lorazepam 1 mg PO DAILY PRN omeprazole 40 mg PO DAILY pantoprazole 40 mg PO BID [Tums ] vit D3-vit K2-olive leaf ext 25 mcg-20 mcg- 250 mg caps PO zaleplon mg PO Do you need a note to return to daycare/school/sports/work: No HPI HPI Comments History of Present Illness Details 59 y/o Female patient who presents to [facility] in clinic with c/o URI symptoms 06/03/25. Pt reports Sore throat, barking/hacking cough, SOB on exertion, and chest pressure/tightness. She just [place] 06[place]. Reports having coughing Fits impacting with her sleep. Reports Wheezing when she is coughing. She has tried Multiple different OTC remedies with no relief. Denies Fevers, chills, Nausea or vomiting. [facility] Medical History (Updated 06/16/25 @ 09:46 by Stephanie Welch NP) Upper respiratory infection GERD (gastroesophageal reflux disease) Sacroiliac joint dysfunction of right side Candidiasis Rectal bleed Allergies Knee pain, right Abnormal colonoscopy Mammogram normal Annual physical exam Normal Pap smear Multiple thyroid nodules Acquired hypothyroidism Martha's thyroiditis IBS (irritable bowel syndrome) Overweight Peripheral neuropathy Lumbar radiculopathy Hyperlipidemia Surgical History History of thyroidectomy, total S/P fine needle aspiration History of endometrial ablation Hx of dilation and curettage [place] teeth extracted H/O sigmoidoscopy History of tonsillectomy and adenoidectomy H/O colonoscopy Family History Father Stroke Hyperlipidemia CVD (cardiovascular disease) Mother Hyperlipidemia Thyroid disease Social History Household Members: Spouse Household Members Other:: Housing: House Alcohol intake: current Alcohol intake frequency: holidays/special occasions only Patient Tobacco Use Status: Never used Tobacco e-Cigarette/Vaping Use: Never Used Current occupational status: employed Cognitive needs: No Hearing needs: No Vision needs: Yes Review of Systems Const All systems reviewed & are unremarkable except as noted in HPI and below Physical Exam Vital Signs: Last Vital Signs Temp 98.2 F 06/16/25 08:47 Pulse 91 06/16/25 08:47 BP 122/90 H 06/16/25 08:47 Pulse Ox 96 06/16/25 08:47 Oxygen Delivery Method Room Air 06/16/25 08:47 BMI result Body Mass Index 35.2 Const General: No comfortable Nutritional Appearance: obese Orientation/consciousness: patient oriented x3 HEENT Head: Yes normocephalic Ears: external ears normal and TM's normal bilaterally General nose exam: Normal external nose present and No nasal discharge present Face and sinus: Yes sinuses nontender Mouth: moist mucous membranes Throat: Yes uvula midline Resp Effort & Inspection: normal respiratory effort and Actively coughing Quality: actively coughing Auscultation: clear to auscultation bilaterally, no crackles, no rales, no rhonchi and no wheezes Cardio Heart sounds: S1 normal heart sound present and S2 normal heart sound present Neuro General: patient oriented x3, gait normal and moves all extremities Psych Speech and movement: Normal speech and movement present Assessment & Plan Assessment & Plan (1) Cough: Code(s): R05.9 - Cough, unspecified Qualifiers: Cough type: acute Qualified Code(s): R05.1 - Acute cough Plan: Ordered Chest Xray to r/o Pneumonia. Ordered Resp Panel Ordered Z-pack, Codeine cough syrup, Albuterol inhaler for relief. Rest and hydrate well with warm fluids. Orders: Orders Resp Pathogen Panel - [facility] Today J06.9 - Acute upper respiratory infection, unspecified XR chest 2V Today R05.1 - Acute cough Medications: New codeine-guaifenesin 10-100 mg/5 mL 10 mL PO Q6H 200 mL 0RF cough 5 days R05.1 - Acute cough azithromycin 500 mg PO DAILY 3 tabs 0RF 3 days R05.1 - Acute cough benzonatate 200 mg (2 x 100 mg) PO BID 60 caps 0RF R05.1 - Acute cough Refilled albuterol sulfate 90 mcg/actuation 2 puffs inhalation Q6H PRN 8.5 grams 0RF shortness of breath or wheezing or cough Discontinued ipratropium bromide administer into each nostril Discontinued Reason: Patient Completed Course 2 sprays intranasal BID 30 mL 0RF cyclobenzaprine Discontinued Reason: Patient Completed Course 10 mg PO Q8H 5 days PRN 15 tabs 0RF muscle spasm Coding Level of Care Code Est Pt Level 4 (75388) Diagnoses Acute cough R05.1 Cough type: acute Time Spent (min) 20
--- OUTSIDE RECORDS SUMMARY | 2025-06-16 09:31 | XMS_ITS | Patient Health Record ---
Author Organization [facility] Address [address] [place] [address] Care Team Providers Care Educational Resource Coordinator Name Role Phone Kayley Kruger MD Primary Care Provider Unavaila ble Black, Emily Unavailable [phone] Allergies Allergen (clinical drug ingredient) Drug/Non Drug Allergy documented on EMR Reaction Allergy Type Onset Date Status ampicillin Ampicillin rash Drug Allergy Activ e Biaxin black tongue Drug Allergy Acti ve Ceftin sick to stomach Drug Allergy A ctive erythromycin Erythromycin sick to stomach Drug Allergy Active Morphine Sulfate vomiting Drug Allergy Active penicillin [...] Status W/U Status Risk Notes Problem Bursitis (38026920) Bursitis (727.3) Active confirmed Problem Hammer toe (959585560) Hammer toe (735.4) Active confirmed Problem Myositis (99736648) Myositis (729.1) Active confirmed Problem Neuralgia - Neuritis (729.2) Active confirmed Problem Pain in limb (70383516) Pain in Limb (729.5) Active confirmed Problem Plantar fasciitis (174291175) Plantar Fasciitis (728.71) Active confirmed Problem Ramos splints (5752159738) Ramos Splints (844.9) Active confirmed Problem Ulcer of toe of right foot (disorder) (723873069886 06152) Skin ulcer of toe of right foot, limited to breakdown of skin (L97.511) Active confirmed Improvement Problem Ulcer of toe of left foot (disorder) (454657022536 15663) Skin ulcer of toe of left foot, limited to breakdown of skin (L97.521) Active confirmed Plan Of Treatment Pending Test Test Name Order Date 63694-Vffdyelt Plate 04/06/2023 Insurance Providers Payer Name Payer Address Payer Phone Subscriber Number Group Number Insured Name Patient Relationship to Insured Coverage Start Date Coverage End Date [facility] [address] [place] [id number] Carlos Kelly mp Spouse - patient is [...]
--- OUTSIDE RECORDS SUMMARY | 2025-06-16 09:31 | XMS_ITS | Clinical Summary ---
Author Organization [facility] Address [address] [place] [address] Phone Care Team Providers Care Heel Seat Sander Name Role Phone Kayley Kruger MD Primary Care Provider [phone] Encounters Date Type Department Care Team Description 04/21/2025 9:39 AM EDT - 04/21/2025 11:59 PM EDT Hospital Encounter [facility] [address] [address] Encounter for screening mammogram for [...] AM EDT Appointment [facility] [address] [address] Health Maintenance Due Date Last Done Comments Colorectal Cancer Screening: Colonoscopy 1967 DTaP,Tdap,and Td Vaccines (1 - Tdap) 1986 Hepatitis A Vaccines (1 of 2 - Risk 2-dose series) 1986 Hepatitis B Vaccines (1 of 3 - 19+ 3-dose series) 1986 Cervical Cancer Screening: Pap Smear 1988 Pneumococcal Vaccine: 50+ Years (1 of 1 - PCV) 2017 RSV Immunization Adult Patients (1 - Risk 50-74 years 1-dose series) 2017 Zoster Vaccines (1 of 2) 2017 Cholesterol Screening (Lipid Panel) 07/30/2022 HIV Screening 07/30/2022 Hepatitis C Screening [...] year. Mammography location: [facility] [address], [address] -------- FINAL REPORT -------- Dictated By: Priyank Valderrama Dictated Date: 04/21/2025 10:51 ET Assigned Physician: Priyank Valderrama Reviewed and Electronically Signed By: Priyank Valderrama Signed Date: 04/21/2025 11:00 ET Workstation ID: [id number] Transcribed By: Self Edit Transcribed Date: 04/21/2025 [...] None Computer-aided detection was employed with the [employer] AI 3-D. TISSUE DENSITY: There are scattered [...] Computer-aided detection was employed with the iCAD webme AI 3-D. TISSUE DENSITY: There are scattered [...] year. Mammography location: [facility] [address], [address] -------- FINAL REPORT -------- Dictated By: Priyank Valderrama Dictated Date: 04/21/2025 10:51 ET Assigned Physician: Priyank Valderrama Reviewed and Electronically Signed By: Priyank Valderrama Signed Date: 04/21/2025 11:00 ET Workstation ID: [id number] Transcribed By: Self Edit Transcribed Date: 04/21/2025 10:51 ET us Self Referral Sppl IMG BI PROCEDURES Final Resul t from Last 3 Months Insurance [facility] Care Teams Heel Seat Sander Relationship Specialty Start Date End Date Kayley Kruger MD [address] [place], [place] [phone] PCP - General Internal Medicine 03/25/25
== END 2025-06-16 09:45 | disposition home or self-care (01) ==
PROVIDERS: PCP Internal Medicine; Visit Provider Nurse Practitioner Family
DX: R05.1 Acute cough (principal)

== ENCOUNTER 2025-06-16 08:38 | Outpatient (REF) | payer OTHER, SELFPAY ==
--- NOTE | ~2025-06-16 | XR_ITS ---
EXAMINATION: XR CHEST CLINICAL INFORMATION: R05.1 - Acute cough COMPARISON: October 20, 2023. TECHNIQUE: PA and lateral views FINDINGS: No consolidation, pleural effusion or pneumothorax. Cardiomediastinal silhouette size is normal. Osseous structures are intact. Mild multilevel thoracolumbar spondylosis. XR/XR chest 2V IMPRESSION: No acute airspace disease. Electronically signed by: J Carlos Granados MD 06/16/2025 09:44 AM EDT
== END 2025-06-16 08:39 | disposition home or self-care (01) ==
LOC: HO.HMGCX 08:38
PROVIDERS: PCP Internal Medicine; Visit Provider Nurse Practitioner Family
DX: R05.1 Acute cough (principal)
CPT/HCPCS: 71046; 99212

== ENCOUNTER → 2025-06-16 09:34 | Outpatient (BNV) | payer OTHER, SELFPAY | PROVIDERS: PCP Internal Medicine; Visit Provider Radiology Diagnostic Radiology | DX: R05.1 Acute cough (principal) | CPT/HCPCS: 71046 ==

== ENCOUNTER 2025-06-16 09:46 | Outpatient (REF) | payer OTHER, SELFPAY ==
[2025-06-16 15:22] LABS: Chlamydia pneumoniae PCR Not Detected (Not Detect.); Coronavirus 229E PCR Not Detected (Not Detect.); Coronavirus HKU1 PCR Not Detected (Not Detect.); Coronavirus NL63 PCR Not Detected (Not Detect.); Coronavirus OC43 PCR Not Detected (Not Detect.); RSV PCR Not Detected (Not Detect.); Rhino/Enterovirus PCR Not Detected (Not Detect.)
[2025-06-16 15:27] LABS: Influenza A H1 PCR Not Detected (Not Detect.); Influenza A H1-2009 PCR Not Detected (Not Detect.); Influenza A H3 PCR Not Detected (Not Detect.); SARS-CoV-2 PCR Not Detected (Not Detect.)
== END 2025-06-16 09:47 | disposition home or self-care (01) ==
LOC: HO.LAB 09:46
PROVIDERS: Visit Provider Nurse Practitioner Family
DX: J06.9 Acute upper respiratory infection, unspecified (principal)
CPT/HCPCS: 87633

== ENCOUNTER 2025-06-30 09:00 | Outpatient (AMB) | payer OTHER, SELFPAY ==
--- OUTSIDE RECORDS SUMMARY | 2024-03-11 09:30 | XMS_ITS ---
Author Organization [facility] Address [address] [place] [id number] Care Team Providers Care Mail Opener Name Role Phone Kayley Kruger MD Primary Care Provider UnavailRiki Hunt Unavailable [phone] Barbara HUTCHINSON, Hai Unavailable Unavailable REASON FOR VISIT gerd,cough Problems Problem Type SNOMED Code ICD Code Onset Dates Problem Status W/U Status Risk Notes Problem Gastro-esophagea l reflux disease without esophagitis (553147586) Gastro-esophage al reflux disease without esophagitis (K21.9) Active confirmed Encounters Encounter Location Date Provider Diagnosis [facility] [place] Outpatient [address] [place] [id number] 03/11/2024 Riki Portillo Gastro-esophageal reflux disease without esophagitis K21.9 ; Hiatal hernia K44.9 and Chronic cough R05.3 Assessments Encounter Date Diagnosis (ICD Code) Assessment Notes Treatment Notes Treatment Clinical Notes Section Notes 03/11/2024 Gastro-esophagea l reflux disease without esophagitis (ICD-10 - K21.9) 03/11/2024 Hiatal hernia (ICD-10 - K44.9) 03/11/2024 Chronic cough (ICD-10 - R05.3) Plan Of Treatment No Information Progress Notes * SHAHEEDCLARISSEOBEYSOLAOB:08/1964 (59 yo F)Acc No.[id number]:03/11/2024 COLON WITH MAC Patient: NIKOLAI BARNETT Provider: Thomas Portillo MD :1965 A ge:58 Y S ex:Female Date:03/11/2024 Address:[address] [place] [address] , [id number] Pcp:Kayley Kruger MD Subjective: * Chief Complaints: * 1 . Gerd,cough. * Medical History: Objective: * Vitals: Assessment: * Assessment: 1. G shiva-esophageal reflux disease without esophagitis - K21.9 (Primary) 2 .?Hiatal hernia - K44.9 3 . C hronic cough - R05.3 Plan: * Treatment: * Procedure Codes: 4 3239 UPPER GI ENDOSCOPY, BIOPSY * * The named appointment provid er may or may not be the originator of this progress note, and it is not deemed complete until electronically signed by the appointment provider. Sign off status: Pending * Provider: Thomas Portillo MD Date: 0 03/11/2024 Generated for Farooq dueñas/Anna/Michelleitting on: 08/30/2024 09:50 AM EST
--- OUTSIDE RECORDS SUMMARY | 2025-04-02 07:30 | XMS_ITS ---
Author Organization [facility] Address [address] [place] [id number] Care Team Providers Care Green Jobs Trainer Name Role Phone Slick HUTCHINSON, Kayley Primary Care Provider UnavailRiki Hunt Unavailable [phone] Barbara HUTCHINSON, Hai Unavailable Unavailable REASON FOR VISIT screening,hx polyps Encounters Encounter Location Date Provider Diagnosis [facility] Out[facility] [address] [place] [id number] 04/02/2025 Riki Portillo Plan Of Treatment No Information Progress Notes * MICHEAL BYRDOB:08/1964 (59 yo F)Acc No.[id number]:04/02/2025 COLON WITH MAC Patient: NIKOLAI BARNETT Provider: Thomas Portillo MD :1965 A ge:59 Y S ex:Female Date:04/02/2025 Address:[address] [place] [address] [address] [id number] Pcp:Kayley Kruger MD Subjective: * Chief Complaints: * 1 . Screening,hx polyps. * Medical History: Objective: * Vitals: Assessment: Plan: * Treatment: * * The named appointment provid er may or may not be the originator of this progress note, and it is not deemed complete until electronically signed by the appointment provider. Sign off status: Pending * Provider: Thomas Portillo MD Date: 0 04/02/2025 Generated for Rexi ng/Faneilg/eTransmitting on: 08/30/2024 09:50 AM EST
[2025-06-30 09:03] VITALS: BP 122/80; PULSE 79; TEMP 36.6; O2SAT 98; BMI 35.1
--- NOTE | 2025-06-30 09:03 | MHC.OFFWIV ---
Intake Vital Signs 06/30/25 09:03 Height 5 ft 5 in Weight 211 lb BMI 35.1 BP 122/80 Blood Pressure Location Lt brachial Position Sitting Pulse 79 Pulse Source Pulse Oximeter Temp 97.9 F Temp Source Oral Pulse Oximetry (%) 98 Oxygen Delivery Method Room Air Intake Visit Reasons: EP Pain in upper back/ between shoulder Intake Note: Patient presents with c/o mid back pain & upper back pain between shoulder blades x1-2 days Patient Tobacco Use Status: Never used Tobacco Allergies Sulfa (Sulfonamide Antibiotics) (SULFA(SULFONAMIDE ANTIBIOTICS)) Allergy (Intermediate, Verified 06/30/25 09:06) NAUSEA/VOMITING ampicillin (AMPICILLIN) Allergy (Mild, Verified 06/30/25 09:06) RASH bupropion (From Wellbutrin) Allergy (Mild, Verified 06/30/25 09:06) Hives clarithromycin (From BIAXIN) Allergy (Mild, Verified 06/30/25 09:06) NAUSEA atorvastatin (Lipitor) Allergy (Unknown, Verified 06/30/25 09:06) leg cramps cefaclor Allergy (Unknown, Verified 06/30/25 09:06) Unknown doxycycline Allergy (Unknown, Verified 06/30/25 09:06) Rash erythromycin base (ERYTHROMYCIN BASE) Allergy (Unknown, Verified 06/30/25 09:06) sick to stomach ezetimibe (Zetia) Allergy (Unknown, Verified 06/30/25 09:06) leg cramps morphine (MORPHINE) Allergy (Unknown, Verified 06/30/25 09:06) VOMITING propofol (PROPOFOL) Allergy (Unknown, Verified 06/30/25 09:06) HIVES rosuvastatin (Crestor) Allergy (Unknown, Verified 06/30/25 09:06) leg cramps sulfacetamide Allergy (Unknown, Verified 06/30/25 09:06) Gastrointestinal Upset simvastatin Adverse Reaction (Unknown, Verified 06/30/25 09:06) leg cramps From CEFTIN Allergy (Mild, Uncoded 06/30/25 09:06) NAUSEA Ceftin Allergy (Unknown, Uncoded 06/30/25 09:06) Unknown Doxycycline Hyclate Allergy (Unknown, Uncoded 06/30/25 09:06) Rash GLP 1 AGONISTS Adverse Reaction (Uncoded 06/30/25 09:06) Abdominal Pain Do you need a note to return to daycare/school/sports/work: No HPI HPI Comments History of Present Illness Details History - The patient is a 59-year-old female presenting with postoperative mid back pain and bilateral low back pain following gastric bypass surgery. - She underwent gastric bypass surgery on June 23 and reports pain in the back, particularly near the kidneys, predominantly on the right side. - Additional pain is noted in the upper back between the shoulder blades on the spine. - The patient has a history of degenerative disc disease, which may contribute to her symptoms. - She is experiencing a persistent cough, which may be exacerbating her back pain. - The patient reports improvement in urinary incontinence since the surgery. - Current medications include cyclobenzaprine for muscle relaxation and Tylenol for pain management; she has oxycodone but prefers not to use it. - She denies trauma or falls. - She denies CP, SOB, abd pain, dysuria, hematuria, vaginal discharge. Physical Exam General: cooperative, healthy appearing and comfortable, patient oriented x3 Head: Normal to inspection, normocephalic/atraumatic Effort & Inspection: Normal respiratory effort and able to speak in complete sentences. Cardiac: RRR, no M/R/G noted. Normal S1 and S2. Respiratory: Clear to auscultation bilaterally. No w/r/r noted. Back/spine: No CVA tenderness bilaterally. Cervical, thoracic and lumbar spine normal to inspection. Cervical ROM normal, no midline spinous tenderness noted. Thoracic ROM normal, lumbar ROM normal. No midline vertebral spinous tenderness noted. No step offs noted. No TTP of the thoracic or lumbar paraspinous or paravertebral muscles. DTR are 2+ on the lower extremities noted. Ambulates with a steady gait. Extremities: Straight leg raise test negative on right; Straight leg raise test negative on left; motor strength normal 5/5 bilaterally. Neuro: Sensation intact. No numbness down legs or in buttocks. Patient was informed and verbally consented to the use of an ambient scribe for clinic note documentation during this visit. [facility] Medical History (Updated 06/16/25 @ 09:46 by Stephanie Welch NP) Upper respiratory infection GERD (gastroesophageal reflux disease) Sacroiliac joint dysfunction of right side Candidiasis Rectal bleed Allergies Knee pain, right Abnormal colonoscopy Mammogram normal Annual physical exam Normal Pap smear Multiple thyroid nodules Acquired hypothyroidism Martha's thyroiditis IBS (irritable bowel syndrome) Overweight Peripheral neuropathy Lumbar radiculopathy Hyperlipidemia Surgical History History of thyroidectomy, total S/P fine needle aspiration History of endometrial ablation Hx of dilation and curettage [place] teeth extracted H/O sigmoidoscopy History of tonsillectomy and adenoidectomy H/O colonoscopy Family History Father Stroke Hyperlipidemia CVD (cardiovascular disease) Mother Hyperlipidemia Thyroid disease Social History Household Members: Spouse Household Members Other:: Housing: House Alcohol intake: current Alcohol intake frequency: holidays/special occasions only Patient Tobacco Use Status: Never used Tobacco e-Cigarette/Vaping Use: Never Used Current occupational status: employed Cognitive needs: No Hearing needs: No Vision needs: Yes Review of Systems Const All systems reviewed & are unremarkable except as noted in HPI and below Physical Exam Vital Signs: Last Vital Signs Temp 97.9 F 06/30/25 09:03 Pulse 79 06/30/25 09:03 BP 122/80 06/30/25 09:03 Pulse Ox 98 06/30/25 09:03 Oxygen Delivery Method Room Air 06/30/25 09:03 BMI result Body Mass Index 35.1 Results AMB Urinalysis, Automated UA Leukoctes 0 Karin/uL Last Edit by Alicia Hummel CMA on 06/30/25 09:34 UA Nitrite Negative Last Edit by Alicia Hummel CMA on 06/30/25 09:34 UA Urobilinogen 0 mg/dL Last Edit by Alicia Hummel CMA on 06/30/25 09:34 UA Protein 0 mg/dL Last Edit by Alicia Hummel CMA on 06/30/25 09:34 UA pH 6.0 Last Edit by Alicia Hummel CMA on 06/30/25 09:34 UA Blood 0 Steve/uL Last Edit by Alicia Hummel CMA on 06/30/25 09:34 UA Specific [place] 1.010 Last Edit by Alicia Hummel CMA on 06/30/25 09:34 UA Ketone Negative Last Edit by Alicia Hummel CMA on 06/30/25 09:34 UA Bilirubin 0 mg/dL Last Edit by Alicia Hummel CMA on 06/30/25 09:34 UA Glucose 0 mg/dL Last Edit by Alicia Hummel CMA on 06/30/25 09:34 Results Reviewed Results Reviewed: Laboratory Last Values Urine pH (Auto) 6.0 06/30/25 09:33 Specific [place] (Auto) 1.010 06/30/25 09:33 Urine Protein (Auto) 0 mg/dL 06/30/25 09:33 Glucose (UA)(Auto) 0 mg/dL 06/30/25 09:33 Urine Ketones (Auto) Negative 06/30/25 09:33 Urine Blood (Auto) 0 Steve/uL 06/30/25 09:33 Urine Nitrite (Auto) Negative 06/30/25 09:33 Urine Bilirubin (Auto) 0 mg/dL 06/30/25 09:33 Urine Urobilinogen (Auto) 0 mg/dL 06/30/25 09:33 Leukocyte Esterase (Auto) 0 Karin/uL 06/30/25 09:33 Assessment & Plan Assessment & Plan (1) Back pain: Code(s): M54.9 - Dorsalgia, unspecified Qualifiers: Back pain location: low back pain Chronicity: acute Back pain laterality: midline Sciatica presence: without sciatica Qualified Code(s): M54.50 - Low back pain, unspecified Plan Most likely strain due to her cough and post surgery, unlikely UTI UA was negative plan - rest, heat to the area - tylenol or motrin as needed for pain - flexeril as needed - if symptoms worsen, please f/u with PCP Orders: Orders AMB Urinalysis Automated Today Z13.9 - Encounter for screening, unspecified Medications: New cyclobenzaprine 5 mg PO Q8H PRN 21 tabs 0RF Muscle Spasm 7 days Coding Level of Care Code Est Pt Level 3 (11078) Diagnoses Acute midline low back pain without sciatica M54.50 Back pain location: low back pain Chronicity: acute Back pain laterality: midline Sciatica presence: without sciatica
--- OUTSIDE RECORDS SUMMARY | 2025-06-30 09:50 | XMS_ITS | Patient Health Record ---
Author Organization [facility] Address [address] [place] [address] Care Team Providers Care Food Service Utility Worker Name Role Phone Kayley Kruger MD Primary Care Provider Unavaila Riki Ellis Unavailable [phone] Barbara HUTCHINSON, Hai Unavailable Unavailable Allergies Allergen (clinical drug ingredient) Drug/Non Drug Allergy documented on EMR Reaction Allergy Type Onset Date Status ampicillin Ampicillin Unknown Drug Allergy Activ e [...] Allergy Active Dust Mites Unknown Allergy Active Results Component Value Reference Range Notes Pathology (Not yet reviewed by provider) Interpretation: Performing Lab:[facility], [address] [place] [phone] Notes/Report: Reason For Referral Referring Provider First Name Kayley Referring Provider Last Name Slick Referring Provider Speciality Internal M edicine Referred Organization [facility] Referred Provider Riki Prescott Referred Address [address],[place], [place],[address], Referred Provider Specialty Gastroentero logy General Notes Radha Roberts 2024 02:11:17 PM >SPOKE WITH ELLIOTT [phone] AT [facility] AND REQUESTED A REFERRAL FOR THE PATIENT'S COLON WITH DR PRESCOTT IN [place] Referral Priority Routine Medications Medication SIG (Take, Route, Frequency, Duration) Notes Start Date End Date Status Melatonin Active Pregnenolone Not-Terrence ing Niacinamide ER Activ e Green Tea Extract No t-Taking Progesterone Active Saw [place] Not-Terrence ing Cortisol Social Media Analyst Not -Taking Tylenol PM Extra Strength Not-Taking Naltrexone Not-Takin g ZyrTEC prn Active Tums 500 MG 1 tablet Orally Once a day; Duration: 30 day(s) prn Active Omeprazole 40 MG 1 Orally Twice a day in the morning and late afternnon/early evening; Duration: 90 days 04/30/2024 Active Vitamin D3 25 MCG (1000 UT) with k Orally Once a day Active Rosuvastatin Calcium 10 MG Oral; Duration: 60 Not-Takin g Tirosint 150 MCG 1 capsule in the morning on an empty stomach Orally Once a day; Duration: 90 days Active Lovaza 1 GM Oral; Duration: 90 Not-Taking Repatha SureClick 140 MG/ML Subcutaneous; Duration: 84 Active Ashwagandha Not-Taki ng Escitalopram Oxalate 10 MG Oral; Duration: 90 Active Citrucel Not-Taking BHRTBase Active CoQ10 [...] Notes Problem Gastro-esophageal reflux disease without esophagitis (932202155) Gastro-esophag eal reflux disease without esophagitis (K21.9) Active confirmed Problem Screening for malignant neoplasm of colon (821122119) Encounter for screening for malignant neoplasm of colon (Z12.11) Active confirmed Problem History of polyp of colon (situation) (074288362) History of colon polyps (Z86.010) Active confirmed Problem Hiatal hernia (65479199) Hiatal hernia (K44.9) Active confirmed Problem Cough (64949868) Cough (R05.9) Active confirmed Problem Gastroesophageal reflux disease (disorder) (333023015) Chronic GERD (K21.9) Active confirmed Vital Signs Blood pressure diastolic 111 mm Hg 10/29/2024 Height 5 ft 5.5 in in 10/29/2024 Blood pressure systolic 111 mm Hg 10/29/2024 Weight 215 lbs 10/29/2024 BMI 35.23 kg/m2 10/29/2024 Procedures Procedure Date Ordered Date Performed Result Body Sit e COLONOSCOPY 10/29/2024 N/A Encounters Encounter Location Date Provider Diagnosis [facility] Outpatient [address] [place], [place] [phone] 04/02/2025 Riki Prescott [facility] [address] [place] [address] 10/29/2024 Riki Prescott History of colon polyps Z86.010 ; Gastro-esophageal reflux disease without esophagitis K21.9 ; Encounter for screening for malignant neoplasm of colon Z12.11 and Cough R05.9 [facility] [address] [place] [address] 01/31/2025 Riki Prescott [facility] [address] [place] [address] 03/25/2025 Riki Prescott Assessments Encounter Date Diagnosis [...] her to follow-up with Dr. Yousif at [facility] for further discussions and possible surgery in [...] her to follow-up with Dr. Yousif at [facility] for further discussions and possible surgery in [...] her to follow-up with Dr. Yousif at [facility] for further discussions and possible surgery in [...] her to follow-up with Dr. Yousif at [facility] for further discussions and possible surgery in [...] Insured Coverage Start Date Coverage End Date [facility] ([facility] L [facility]) [address] [place] [phone] [id number] NORMA ESCOTO Self - patient is the insured Medical (General) History Medical History History ICD Code Degenerative disc disease/Arthritis-lowe r back Hypercholesterolemia/high trigylcerides IBS HYPOTHYRODISM/HASHIMOTOS DX 2019 Urinary incontinence Depression Denies HI,DM,CVA,Lung disease,renal dise ase 3 previous colonoscopies wit h removal of polyps on at least one of them. She is due for another colonoscopy in 2024. Hiatal hernia seen on a CT scan of her c hest in November of 2023 Upper endoscopy in February revealed a moderate-sized hiatal hernia, but no evidence of significant esophagitis or Gallagher's esophagus- -Normal esophageal motility studies at [facility] in April 2024 Thyroid cancer- Papillary ca rcinoma found during her thyroidectomy in June 2024. Surgical History Surgery Date(Month/Year) Potential gastric bypass for weight loss and hiatal hernia surgery for her chronic coughing with Dr. Bib Yousif at [facility]- she met with him in the early part of 2024 Thyroidectomy-complete- papillary carcin patrick 07/15/2024 Nerve ablation for back pain Hemorrhoid banding Endometrial Ablation D&C [place] teeth extraction Tonsillectomy and adenoidectomy
--- OUTSIDE RECORDS SUMMARY | 2025-06-30 09:50 | XMS_ITS | Patient Health Record ---
Author Organization [facility] Address [address] [place] [address] Care Team Providers Care Hose Wrapper Name Role Phone Kayley Kruger MD Primary Care Provider Unavaila ble Black, Emily Unavailable [phone] Allergies Allergen (clinical drug ingredient) Drug/Non Drug [...] 100 MCG 1 capsule in the mor jaen on an empty stomach Orally Once a [...] Status W/U Status Risk Notes Problem Bursitis (56769695) Bursitis (727.3) Active confirmed Problem Hammer toe (850776216) Hammer toe (735.4) Active confirmed Problem Myositis (69812430) Myositis (729.1) Active confirmed Problem Neuralgia - Neuritis (729.2) Active confirmed Problem Pain in limb (27916401) Pain in Limb (729.5) Active confirmed Problem Plantar fasciitis (721111014) Plantar Fasciitis (728.71) Active confirmed Problem Ramos splints (8620878601) Ramos Splints (844.9) Active confirmed Problem Ulcer of toe of right foot (disorder) (213337010876 37493) Skin ulcer of toe of right foot, limited to breakdown of skin (L97.511) Active confirmed Improvement Problem Ulcer of toe of left foot (disorder) (533541535821 84222) Skin ulcer of toe of left foot, limited to breakdown of skin (L97.521) Active confirmed Plan Of Treatment Pending Test Test Name Order Date 37035-Mzafpgtd Plate 04/06/2023 Insurance Providers Payer Name Payer Address Payer Phone Subscriber Number Group Number Insured Name Patient Relationship to Insured Coverage Start Date Coverage End Date [facility] [address] [place] [id number] Carlos Kelly mp Spouse - patient is [...]
--- OUTSIDE RECORDS SUMMARY | 2025-06-30 09:50 | XMS_ITS | Clinical Summary ---
Author Organization [facility] Address [address] [place] [address] Phone Care Team Providers Care Speeder Machine Operator Name Role Phone Kayley Kruger MD Primary Care Provider [phone] Encounters Date Type Department Care Team Description 04/21/2025 9:39 AM EDT - 04/21/2025 11:59 PM EDT Hospital Encounter [facility] at [address] [address] Encounter for screening mammogram for [...] AM EDT Appointment [facility] [address] [address] Health Maintenance Due Date Last [...] year. Mammography location: [facility] at [address], [address] -------- FINAL REPORT -------- Dictated By: Priyank Valderrama Dictated Date: 04/21/2025 10:51 ET Assigned Physician: Priyank Valderrama Reviewed and Electronically Signed By: Priyank Valderrama Signed Date: 04/21/2025 11:00 ET Workstation ID: [id number] Transcribed By: Self Edit Transcribed Date: 04/21/2025 [...] None Computer-aided detection was employed with the [employer] AI 3-D. TISSUE DENSITY: There are scattered [...] Computer-aided detection was employed with the [employer] AI 3-D. TISSUE DENSITY: There are scattered [...] year. Mammography location: [facility] at [address], [address] -------- FINAL REPORT -------- Dictated By: Priyank Valderrama Dictated Date: 04/21/2025 10:51 ET Assigned Physician: Priyank Valderrama Reviewed and Electronically Signed By: Priyank Valderrama Signed Date: 04/21/2025 11:00 ET Workstation ID: [id number] Transcribed By: Self Edit Transcribed Date: 04/21/2025 10:51 ET us Self Referral Sppl IMG BI PROCEDURES Final Resul t from Last 3 Months Insurance [facility] Care Teams Speeder Machine Operator Relationship Specialty Start Date End Date Kayley Kruger MD [address] [place], [place] [phone] PCP - General Internal Medicine 03/25/25
--- OUTSIDE RECORDS SUMMARY | 2025-06-30 09:50 | XMS_ITS | Data Portability ---
Author Organization [facility] Address [address] [place] [address] Care Team Providers Care Conservator Artifacts Name Role Phone GRAHAM CHAVIRA Primary Care Provider [phone] Assessment No assessment recorded. Plan of Treatment Reminders Order Date Submit Date Provider Last Modified By Organization Details Last Modified Time Details Appointments None recorded. Lab urinalysis , dipstick 2022 023 [email or web address] [facility], [address] [place] [address], [phone], 18:37:04 culture, urine 2022 023 [facility], [address] [place] [address], [place], [address], 06:07:30 Referral None recorded. Procedures None recorded. Surgeries None recorded. Imaging None recorded. Medication Orders None recorded. Patient TargetsNo targets recorded. Patient Instructions Encounter Date Encounter Id Patient Instructions Last Modified By Organization Details Last Modified Time 09/28/2022 [id number] upper and middle back (thoracic) strain: care instructions [email or web address] Not available 09/28/2022 18:37:04 constipation: care instructions [email or web address] Not available 09/28/2022 18:37:04 I would continue [...] Blood in Urine. Thank you for using [facility], please feel free to contact us if you have any questions or concerns. Not available 09/28/2022 18:37:03 Reason for Referral None Reported. Results Created Date Observation Date Name Description Value Unit Range Abnormal Flag Note LastModifiedBy Organization Detail LastModifiedTime 09/28/1910/01/2022 URINE CULTU RE, DARA NE urine culture, routine FINAL REPORT Not Available [facility] ([facility]) [address], [place], [address], 10/01/2022 06:07:30 09/28/19 23 10/01/2022 URINE CULTU REDARA NE result 1 NO GROWTH Not Available [facility] ([facility]) [address] [facility], [place], [address], 10/01/2022 06:07:30 09/28/1909/28/2022 urina lysis , dipst ick Unknown Analyte Normal = light yellow Not Available [address], [address], 09/28/2022 17:46:46 09/28/1909/28/2022 urina lysis , dipst ick Unknown Analyte Normal = clear Not Available [address], [address], 09/28/2022 17:46:46 09/28/1909/28/2022 urina lysis , dipst ick Unknown Analyte Normal = negati ve Not Available [address] [place] [address], [address], 09/28/2022 17:46:46 09/28/19 23 09/28/2022 urina lysis , dipst ick Unknown Analyte Normal = Negati ve Not Available sarah flores [address], [place], [address], 09/28/2022 17:46:46 09/28/19 23 09/28/2022 urina lysis , dipst ick Unknown Analyte Normal = Negati ve Not Available [address]sarah flores [address], [place], [address], 09/28/2022 17:46:46 09/28/19 23 09/28/2022 urina lysis , dipst ick Unknown Analyte Normal = 1.010, 1.015, 1.020 Not Available [address]sar[address] flores [address], [place], [address], 09/28/2022 17:46:46 09/28/1909/28/2022 urina lysis , dipst ick Unknown Analyte Normal = Negati ve Not Available sarah flores [address], [place], [address], 09/28/2022 17:46:46 09/28/1909/28/2022 urina lysis , dipst ick Unknown Analyte Normal = 6.5, 7.0, 7.5, 8.0 Not Available saarh flores [address], [place], [address], 09/28/2022 17:46:46 09/28/19 23 09/28/2022 urina lysis , dipst ick Unknown Analyte Normal = Negati ve Not Available [address]sar[address], [place], [address], 09/28/2022 17:46:46 09/28/19 23 09/28/2022 urina lysis , dipst ick Unknown Analyte Normal = 0.2, 1.0 Not Available [address]sar[address]ores [address], [place], [address], 09/28/2022 17:46:46 09/28/19 23 09/28/2022 urina lysis , dipst ick Unknown Analyte Normal = Negati ve Not Available sarah flores [address], [place], [address], 09/28/2022 17:46:46 09/28/19 23 09/28/2022 urina lysis , dipst ick Unknown Analyte Normal = Negati ve Not Available sarah flores [address], [place], [address], 09/28/2022 17:46:46 09/28/19 23 09/28/2022 urina lysis , dipst ick Unknown Analyte Yellow Not Available janee [address], [place], [address], 09/28/2022 17:46:46 09/28/19 23 09/28/2022 urina lysis , dipst ick Unknown Analyte Clear Not Available janee [address], [place], [address], 09/28/2022 17:46:46 09/28/19 23 09/28/2022 urina lysis , dipst ick Unknown Analyte Negati ve Not Available sarah flores [address], [place], [address], 09/28/2022 17:46:46 09/28/19 23 09/28/2022 urina lysis , dipst ick Unknown Analyte Negati ve Not Available sarah flores [address], [place], [address], 09/28/2022 17:46:46 09/28/19 23 09/28/2022 urina lysis , dipst ick Unknown Analyte Negati ve Not Available sarah flores [address], [place], [address], 09/28/2022 17:46:46 09/28/19 23 09/28/2022 urina lysis , dipst ick Unknown Analyte <=1.00 5 Not Available sarah flores [address], [place], [address], 09/28/2022 17:46:46 09/28/19 23 09/28/2022 urina lysis , dipst ick Unknown Analyte Negati ve Not Available sarah flores [address], [place], [address], 09/28/2022 17:46:46 09/28/19 23 09/28/2022 urina lysis , dipst ick Unknown Analyte 6.0 Not Available janee [address], [place], [address], 09/28/2022 17:46:46 09/28/19 23 09/28/2022 urina lysis , dipst ick Unknown Analyte Negati ve Not Available sarah flores [address], [place], [address], 09/28/2022 17:46:46 09/28/19 23 09/28/2022 urina lysis , dipst ick Unknown Analyte 0.2 E.U./d L Not Available sarah flores [address], [place], [address], 09/28/2022 17:46:46 09/28/19 23 09/28/2022 urina lysis , dipst ick Unknown Analyte Negati ve Not Available sarah flores [address], [place], [address], 09/28/2022 17:46:46 09/28/1909/28/2022 urina lysis , dipst ick Unknown Analyte Negati ve Not Available [address] [place] [address], [place], [address], 09/28/2022 17:46:46 Result Notes None recorded. Problems Name Problem SNOMED Code Status Onset Date Resolution Date Notes Provider Name and Address Organization Details Recorded Time Disorder of thyroid gland 93210780 Active 2022 FREDY TITO null, [place] - [facility] 3 18:00:39 Disorder of back 86016925 Active 2022 FREDY TITO null, PA - [facility] 18:00:51 Osteoarthritis 165290049 Active 2022 FREDY TITO null, PA - [facility] 18:01:03 Spinal stenosis 09630534 Active 2022 FREDY TITO null, PA - [facility] 18:04:23 Problem Notes None recorded. Medical Equipment None Reported. Allergies Allergen ID Allergen Name Allergen Category Reaction Reaction Severity Criticality Documentation Date Start Date Code Code System Note Provider Name and Address Organization Details Recorded Time 804419 ampicilli n medicatio n rash Not available Not available 09/28/2022 733 RxNorm FREDY TITO null, PA - [facility] 3 17:50:08 893411 Biaxin medicatio n nausea Not available Not available 09/28/202297738 9 RxNorm FREDY TITO null, PA - [facility] 3 17:50:22 606828 Substance with sulfonami de structure and antibacte rial mechanism of action (substanc e) medicatio n vomiting Not available Not available 09/28/2022 61394 8003 SNOMED FREDY TITO null, PA - [facility] 3 17:50:41 125018 Wellbutri n medicatio n hives Not available Not available 09/28/2022 12703 RxNorm FREDY TITO null, PA - [facility] 3 17:50:57 843993 erythromy mk medicatio n vomiting Not available Not available 09/28/2022 4053 RxNorm FREDY TITO null, PA - [facility] 3 17:51:10 050701 Ceftin medicatio n vomiting Not available Not available 09/28/2022 37745 6 RxNorm FREDY TITO null, PA - [facility] 3 17:51:32 710243 propofol medicatio n hives Not available Not available 09/28/2022 8782 RxNorm FREDY TITO null, PA - [facility] 3 17:52:02 091039 morphine medicatio n vomiting Not available Not available 09/28/2022 7052 RxNorm FREDY TITO null, [place] - [facility] 3 17:52:23 697615 doxycycli ne Not available rash Not available [...] Updated DateTime 3 167.64 cm 34.4 kg/m2 16925.1 7 g 6 98 % 98 % 78 /min 18 /min 98.8 [degF] 139/76 mm[Hg] [facility] 18:05:05 Social History Question Answer Notes LastModified by stylemarks Details LastModified Time Tobacco Smoking Status Never Smoker FREDY iqbal PA [place] [facility] 09/28/2022 18:02:10 Have You Recently Traveled Abroad? No Information not available 09/28/2022 Sex: Unknown Functional Status Question Answer Note LastModified by stylemarks Details LastModified Time Do you use any [...] ICD10 Code Diagnosis IMO Codes Diagnosis Note [id number] [address] [address] [place] [address] 11/28/2021 13:00:40 11/28/2021 15:33:40 [id number] [address] [place] [address] 05/18/2016 14:19:24 05/18/2016 17:11:45 [id number] [address] [place] [address] 05/20/2016 13:12:48 05/20/2016 14:14:51 [id number] [facility] [address] [place] [address] 09/28/2022 16:00:24 09/28/2022 18:39:47 Thoracic back pain 265472030 M54.6 Differenti al - Kidney Stone, Constipati on, costochond ritis, Thoracic nerve impingemen t. Health Concerns Section Related Observation LastModified by Organization Detai ls LastModified Time None Recorded Concern Status LastModified by Organization Details LastModified Time None Recorded Advance Directives Directive None Recorded Payers Insurance Date Sequence Insurance Name Policy Number Policy Saunders Covered Member ID Saunders Member ID Guarantor Name 09/28/2022 1 [facility] How do you roll? [facility] ([facility] [id number] Norma Mckeon [id number] Norma Mckeon Notes Date Note Type Note [...] reports that on a ride back from [employer] started to get a deep sharp pain [...] nauseated. KELSI BESS [address] [place], [address], [place] - [facility] 09/28/2022 21:52:03 OBGyn Episode No OBEpisode recorded.
== END 2025-06-30 10:02 | disposition home or self-care (01) ==
PROVIDERS: PCP Internal Medicine; Visit Provider Physician Assistant Medical
DX: Z13.9 Encounter for screening, unspecified (principal); M54.50 Low back pain, unspecified

== ENCOUNTER → 2025-06-30 09:00 | Outpatient (BNVA) | payer OTHER, SELFPAY | PROVIDERS: PCP Internal Medicine; Visit Provider Physician Assistant Medical | DX: R05.3 Chronic cough (principal); M54.50 Low back pain, unspecified; G89.18 Other acute postprocedural pain | CPT/HCPCS: 81003; 99212 ==

== ENCOUNTER 2025-08-04 10:00 | Outpatient (AMB) | payer OTHER, SELFPAY | END 2025-08-04 10:00 | disposition home or self-care (01) | LOC: HO.HMGAL 10:00 | PROVIDERS: PCP Internal Medicine; Visit Provider Registered Nurse Emergency | DX: J30.89 Other allergic rhinitis (principal) | CPT/HCPCS: 95117; 95165 ==